=== PATIENT | male | born 1945 | race Caucasian/White ===

== ENCOUNTER 2020-03-14 08:01 | Outpatient (CLI) | payer MEDICARE, MEDICAID, SELFPAY ==
--- NOTE | 2020-03-14 08:11 | USCV_ITS ---
Ciaran Gauthier Age: 75 Gender: M : 1945 Exam Date: 03/14/2020 08:20 Ordering Phys: Cedrick Eubanks MD Technologist: Corey Lazo Exam Location: [facility] [place] Indication: PVD RIGHT LEFT Brachial 120.00 mmHg Brachial 126.00 mmHg Pressure (mmHg) Waveform Pressure (mmHg) Waveform 149.00 Above Knee 152.00 150.00 Below Knee 152.00 143.00 SUPERVISOR FIREARMS 150.00 148.00 DPA 137.00 1.17 Ankle/Brachial Index 1.19 1.06 Pre-Exercise Toe Pressure 1.19 FINDINGS Normal resting ISIDRO Normal resting TBI CONCLUSIONS No evidence of any significant arterial obstruction, based on the above findings. Dr Deepthi Mancera MD FACC (Electronically Signed) Final Date: 14 March 2020 20:38 S
== END 2020-03-14 08:02 | disposition home or self-care (01) ==
LOC: RAD 08:06
PROVIDERS: Family Provider Family Medicine; PCP Family Medicine; Visit Provider Family Medicine
DX: M79.604 Pain in right leg (principal); M79.605 Pain in left leg; I73.9 Peripheral vascular disease, unspecified
CPT/HCPCS: 93923

== ENCOUNTER 2020-07-01 10:04 | Outpatient (CLI) | payer MEDICARE, MEDICAID, SELFPAY ==
--- NOTE | 2020-07-01 10:40 | CT_ITS ---
WS: [id number] LDCT LUNG CANCER SCREENING HISTORY: CIGARETTE NICOTINE DEPENDENCE TECHNIQUE: Axial imaging performed from the apices to 1 cm below the costophrenic angles. Coronal and sagittal reformats are submitted with axial MIP series. All CT scans at [facility] use at least one of these dose optimization techniques: automated exposure control; mA and/or kV adjustment per patient size (includes targeted exams where dose is matched to clinical indication); or iterativ e reconstruction. DLP: 74.01 mGy.cm DIvol: 1.83 mGy COMPARISON: 03/22/2019 Diagnostic quality: Satisfactory Lung Nodules: Cluster of small nodules RIGHT upper lobe, image 59 of series 3 has been stable over mu ltiple years. Linear bandlike atelectasis at the lung bases and RIGHT middle lobe and lingula. Lungs: Severe pulmonary hyperexpansion and central lobular emphysema. Heart: There is a stent in the proximal LEFT anterior descending coronary. Normal size. Other findings: Status post median sternotomy. Moderate calcification within the aorta and proximal g reat vessels. Normal size pulmonary artery. 30% compression fracture of T12 is stable since 9. Osteopenia. CT/CT lung screening [id number] IMPRESSION: LUNG-RADS: 2-Benign Appearance or Behavior FOLLOW UP: 12 Month: Continue annual screening with LDCT OTHER FINDINGS (S MODIFIER): None.
== END 2020-07-01 10:05 | disposition home or self-care (01) ==
PROVIDERS: PCP Family Medicine; Visit Provider Family Medicine
DX: Z12.2 Encounter for screening for malignant neoplasm of respiratory organs (principal); F17.210 Nicotine dependence, cigarettes, uncomplicated; I70.0 Atherosclerosis of aorta; M48.54XA Collapsed vertebra, not elsewhere classified, thoracic region, initial encounter for fracture; X58.XXXA Exposure to other specified factors, initial encounter
CPT/HCPCS: G0297

== ENCOUNTER 2020-08-02 07:28 | Outpatient (CLI) | payer MEDICARE, MEDICAID, SELFPAY ==
--- NOTE | 2020-08-02 07:37 | USCV_ITS ---
Abrahan Ciaran Age: 75 Gender: M : 1945 Exam Date: 08/02/2020 07:44 Ordering Phys: Cedrick Eubanks MD Technologist: Radha Bahena [place] [facility] [place]: aortic aneurysm w/o rupture HISTORY: Diameter (cm) AP x Transverse x Length Velocity (cm/s) Waveform Prox Aorta: 2.45 x 2.77 x 37.00 Mid Aorta: 2.40 x 2.66 x 32.60 Distal Aorta: 3.19 x 3.28 x 5.41 62.30 Right Iliac Prox: 2.23 x 1.99 x 102.60 Left Iliac Prox: 2.43 x 2.46 x 90.20 Stent Prox Landing x x Aneurysmal Sac Max x x Lt Lat Sac Dim Rt Lat Sac Dim Stent Dist Landing x x Right Iliac Stent x x Left Iliac Stent x x Right Renal Art Left Renal Art FINDINGS: Comparison: none available. Ectatic abdominal aorta with evidence of atherosclerotic plaque noted. Irregular plaqe with mildy dilated aorta. Maximum diameter of 3.3 cm infrarenal aorta. CONCLUSIONS Infrarenal AAA maximum diameter of 3.[address] Roxanna Collazo DO (Electronically Signed) Final Date: 02 August 2020 11:08 S
== END 2020-08-02 07:29 | disposition home or self-care (01) ==
LOC: RAD 07:29
PROVIDERS: PCP Family Medicine; Visit Provider Family Medicine
DX: I71.4 Abdominal aortic aneurysm, without rupture (principal)
CPT/HCPCS: 93978

== ENCOUNTER 2020-09-04 09:09 | Outpatient (CLI) | payer MEDICARE, MEDICAID, SELFPAY ==
--- NOTE | 2020-09-04 09:18 | US_ITS ---
WS: [id number] ULTRASOUND RENAL TECHNIQUE: Ultrasound examination of both kidneys. CLINICAL INFORMATION: GROSS HEMATURIA COMPARISON: CTA and ultrasound FINDINGS: RIGHT: Right kidney is normal in size and appearance. Echogenicity: Normal. Cortical thickness: 1.5 cm; Normal. Hydronephrosis: None. Perinephric fluid: None. Right kidney measures: 9.7 cm x 4.9 cm x 4.3 cm. LEFT:Left renal cyst measuring 3.6 x 3.4 x 3.4 cm. This has increased in size since 2018. Left kidney is normal in size and appearance. Echogenicity: Normal. Cortical thickness: 0.9 cm; Normal. Hydronephrosis: None. Perinephric fluid: None. Left kidney measures: 8.7 cm x 4.8 cm x 4.9 cm. Abdominal aortic aneurysm described below US/US renal BI* [id number] IMPRESSION: 1. No hydronephrosis in either kidney. 2. Simple left renal cyst measuring 3.6 x 3.4 x 3.4 cm. 3. Mild diffuse bladder wall thickening can be seen with chronic cystitis or b ladder outlet obstruction. 4. Abdominal aortic aneurysm with peripheral mural thrombus and moderate ather omatous disease. Aneurysm measures 3.5 x 3.6 cm which measures slightly larger compared to the CTA of . This can be followed up with CT abdomen pelvis .
== END 2020-09-04 09:10 | disposition home or self-care (01) ==
PROVIDERS: PCP Family Medicine; Visit Provider Family Medicine
DX: R31.0 Gross hematuria (principal); I71.4 Abdominal aortic aneurysm, without rupture; N28.1 Cyst of kidney, acquired
CPT/HCPCS: 76770

== ENCOUNTER 2020-10-05 19:48 | Observation (INO) | payer MEDICARE, MEDICAID, SELFPAY ==
[2020-10-05 19:49] VITALS: BP 119/86; PULSE 99; RESP 14; TEMP 36.4; O2SAT 95; BMI 22.9
--- NOTE | 2020-10-05 19:54 | CTR_ITS ---
PROCEDURE INFORMATION: Exam: CT Head Without Contrast Exam date and time: 10/05/2020 8:32 PM Age: 75 years old Clinical indication: Altered mental status/memory loss; Confusion or disorientation; Patient HX: AMS weakness - HX of prev stroke TECHNIQUE: Imaging protocol: Computed tomography of the head without contrast. Radiation optimization: All CT scans at this facility use at least one of these dose optimization techniques: automated exposure control; mA and/or kV adjustment per patient size (includes targeted exams where dose is matched to clinical indication); or iterative reconstruction. ADDITIONAL STUDY INFORMATION: Total DLP (mGy-cm): 861.73 COMPARISON: CT head wo con* [id number] 12/31/2017 9:58 AM FINDINGS: Examination is limited by artifacts from patient motion. Moderate amount of malacia/gliosis in right MCA territory is most compatible with old infarction. There is moderate low density in the bilateral periventricular white matter which may represent chronic small vessel ischemic disease in the appropriate clinical setting. The possibility of superimposed acute infarctions cannot be excluded; consider MRI brain (including diffusion images) for further assessment if clinically warranted and if patient has no contraindication to MRI. Again demonstrated is moderate-sized Virchow-Meño space versus old lacunar infarction in right basal ganglia. There is mild to moderately prominent cisterna magna versus arachnoid cyst in posterior aspect of posterior cranial fossa. There are prominent intracranial arterial calcifications. There is mild cerebral cortical volume loss. Ventricles do not appear significantly dilated. No definite depressed calvarial fracture is demonstrated. Visualized paranasal sinuses and mastoid air cells demonstrate no significant opacification. CT/CT head wo con* [id number] IMPRESSION: Examination is limited by artifacts from patient motion. Probable chronic ischemic changes as discussed above. Radiation Dose CTDIVOL = (mGy): DLP = 861.73 (mGy-cm)
--- NOTE | 2020-10-05 19:54 | XRR_ITS ---
PROCEDURE INFORMATION: Exam: XR Chest, 1 View Exam date and time: 10/05/2020 8:34 PM Age: 75 years old Clinical indication: Dyspnea TECHNIQUE: Imaging protocol: XR of the chest Views: 1 view. COMPARISON: 02/10/2018 FINDINGS: Lungs demonstrate an emphysematous appearance. No focal pulmonary consolidation is demonstrated on this single frontal image. No significant obscuration of the right lateral costophrenic angle is demonstrated. Again demonstrated is mild blunting of left CP angle, most compatible with pleural thickening. No significant vascular congestion is demonstrated. Visualized cardiac silhouette size appears within normal limits. Thoracic aorta is unfolded. There are changes from median sternotomy. There is old fracture of midshaft left clavicle and perhaps distal shaft right clavicle. XR/XR chest 1V portable [id number] IMPRESSION: No acute pulmonary process is demonstrated. Lungs demonstrate an emphysematous appearance.
--- NOTE | 2020-10-05 19:59 | ECG_ITS ---
[facility] Test Date: 2020-10-05 Pat Name: Ciaran Gauthier Department: Room: Gender: Male Director Of Business Operations: : 1945 Requested By: Rasta Souza Order Number: [id number] Murray MD: Jm Yap M.D. Measurements Intervals [place] Rate: 100 P: 74 CO: 175 QRS: 62 QRSD: 88 T: 73 QT: 359 QTc: 463 Interpretive Statements SINUS TACHYCARDIA Compared to ECG 02/12/2018 06:11:40 Sinus rhythm no longer present Electronically Signed On 10-06-2020 17:04:07 SENIOR WINDOWS SYSTEMS ENGINEER by Jm Yap M.D. [id number] f
[2020-10-05] MEDS: levofloxacin-dextrose 5 % 750 MG/150 ML PREMIX 100 MG IV (20:18)
[2020-10-05] MEDS: sodium chloride 0.9% 500 ML IV (20:18)
[2020-10-05 20:19] VITALS: BP 124/92; PULSE 100; RESP 22; O2SAT 96
[2020-10-05 20:19] LABS: Arterial Blood Gas Hematocrit 44.5 % (42-52); Base Excess ABG -0.2 mmol/L (-2.0-2.0); Blood Gas Allen Test Pos; Blood Gas Sample Site Brachial, right; Blood Gas Sample Type Arterial; Carboxyhemoglobin 4.7 %THgb (0.4-20.1); HCO3 ABG 24.6 mmol/L (22-26); HGB O2 Sat 90.3 % (95-100); Methemoglobin 0.9 % (0.4-1.5); PO2 ABG 72.9 mmHg (80.0-100.0); Total Hemoglobin 14.5 g/dL (14-18)
[2020-10-05 20:37] LABS: INR 0.95 (0.8-1.2)
[2020-10-05 20:40] LABS: D Dimer 3.08 ug/mIFEU (0-0.59)
[2020-10-05 20:42] LABS: Lactate (Lactic Acid level) 1.3 mmol/L (0.5-2.2)
[2020-10-05 20:44] LABS: Troponin(5th) Baseline 13 ng/L (0-15)
[2020-10-05 21:14] LABS: Basophils # 0.1 10^3/uL (0.0-0.1); Basophils % 0.9 %; Eosinophils # 0.3 10^3/uL (0.0-0.8); Eosinophils % 4.6 %; Hematocrit 42.6 % (42.0-52.0); Hemoglobin 13.6 g/dL (11.7-16.6); Lymphocytes # 2.1 10^3/uL (0.8-4.8); Lymphocytes % 31.3 %; Mean Corpuscular HGB Conc 31.9 g/dL (30.0-36.0); Mean Corpuscular Hemoglobin 31.2 pg (28.0-34.0); Mean Corpuscular Volume 97.7 fL (80-94); Mean Platelet Volume 9.1 fL (7.4-10.4); Monocytes # 0.6 10^3/uL (0.2-0.9); Monocytes % 8.7 %; Neutrophils # 3.66 10^3/uL (1.8-7.7); Neutrophils % 54.2 %; Nucleated Red Blood Cells % 0 %; Platelet Count 177 10^3/cmm (130-400); Red Blood Count 4.36 10^6/uL (4.1-5.3); Red Cell Distribution Width 13.2 % (12.1-15.1); White Blood Count 6.8 10^3/uL (4.0-10.0)
[2020-10-05 21:32] VITALS: BP 100/66; PULSE 85; RESP 19; O2SAT 96
[2020-10-05 21:52] LABS: Alanine Aminotransferase 10 U/L (0-41); Albumin Level 3.6 g/dL (3.5-5.2); Alkaline Phosphatase 54 IU/L (40-130); Anion Gap 10.8 (5-19); Aspartate Amino Transferase 11 U/L (0-40); Blood Urea Nitrogen 21 mg/dL (8-23); Calcium 8.5 mg/dL (8.5-10.5); Carbon Dioxide 23 mmol/L (22-29); Chloride 110 mmol/L (98-107); Creatine Phosphokinase 72 U/L (39-308); Globulin 2.2 g/dL (1.3-4.6); Glucose 136 mg/dL (65-115); NT Pro B Type Natriuretic Pept 179 pg/mL (0-125); Osmolality Calculated 295 mOsm/kg (285-295); Potassium 3.8 mmol/L (3.5-5.1); Sodium 140 mmol/L (136-145); Total Bilirubin 0.3 mg/dL (0.15-1.2); Total Protein 5.8 g/dL (6.6-8.7)
--- NOTE | 2020-10-05 21:59 | ECG_ITS ---
[facility] Test Date: 2020-10-06 Pat Name: Ciaran Gauthier Department: Room: 111 Gender: Male Filter Machine Operator: kaleigh JALLOH: 1945 Requested By: Rasta Souza Order Number: [id number] Trevor MD: Jm Yap M.D. Measurements Intervals [place] Rate: 73 P: 87 MO: 186 QRS: 75 QRSD: 90 T: 74 QT: 407 QTc: 451 Interpretive Statements SINUS RHYTHM SEPTAL MYOCARDIAL INFARCTION [40+ ms Q WAVE IN V1/V2], OF INDETERMINATE AGE Compared to ECG 10/05/2020 19:54:56 Myocardial infarct finding now present Sinus tachycardia no longer present Electronically Signed On 10-06-2020 17:06:32 CARROT TIER by Jm Yap M.D. [id number]
[2020-10-05 22:53] LABS: Troponin 5 2HR 10.59 ng/L (0-15)
--- NOTE | 2020-10-05 22:55 | ED_ITS ---
HPI - Altered Mental Status General: Chief Complaint: Altered Mental Status Stated Complaint: AMS SUDDEN ONSET Time Seen by Provider: 10/05/20 19:54 History of Present Illness: HPI narrative: The patient is a 75-year-old male with past medical history CAD, CABG, CHF. He comes to the ER after an acute episode of altered mental status. He was apparently behaving normal at home and then started to feel weak and his family found him laying on his bed sideways altered not responding to questions. EMS arrived and he had a systolic pressure of 60 and was altered. They noted constricted pupils and gave him 0.5 Narcan which did not improve his altered mental status. He has chronic back pain and takes hydrocodone daily. Family reports he only took 1 pill the entire day today. MD complaint: altered mental status and decreased responsiveness Timing confirmed by: family member Severity: severe Review of Systems General: Reports: ROS unobtainable due to mental status Physical Exam Const: EXAM LIMITATIONS: altered mental status GENERAL APPEARANCE: lethargic NUTRITIONAL APPEARANCE: thin ORIENTATION/CONSCIOUSNESS: Yes lethargic HENMT: COMMON NORMALS: normocephalic, external ears normal and Normal external nose present HEAD & SCALP: normal to inspection and normocephalic NOSE: Normal external nose present EXTERNAL EAR: Yes external ears normal MOUTH: Normal oral and palatal mucosa present THROAT: posterior oropharynx normal Eye: COMMON NORMALS: Equal, round and reactive pupils present and EOMs intact bilaterally GENERAL EYE: appearance normal, both eyes and all related structures PUPIL: Yes Equal, round and reactive pupils present Neck/C-Spine: COMMON NORMALS: full ROM, no lymphadenopathy, no meningeal signs and no JVD GENERAL: Yes normal visual inspection Lymph: LYMPHATIC: no lymphadenopathy noted Chest: COMMONS NORMALS: normal inspection of the chest and normal palpation of entire chest wall Resp: COMMON NORMALS: normal respiratory effort, No retractions, No use of accessory muscles, clear to auscultation bilaterally and percussion normal EFFORT & INSPECTION: Yes able to speak in complete sentences AUSCULTATION: clear to auscultation bilaterally PERCUSSION: percussion normal Cardio: COMMON NORMALS: no JVD, regular rate, regular rhythm, S1 normal heart sound present, S2 normal heart sound present and Peripheral pulses 2+ throughout RATE: regular rate RHYTHM: regular rhythm HEART SOUNDS: S1 normal heart sound present and S2 normal heart sound present PERIPHERAL PULSES: Peripheral pulses 2+ throughout GI: COMMON NORMALS: Normal to inspection, nondistended, normoactive bowel sounds present, Soft to palpation, non-tender and no masses INSPECTION: Yes n ormal to inspection PALPATION: Yes Soft to palpation : COMMON NORMALS: Yes no CVA tenderness BLADDER/KIDNEY EXAM: Yes no CVA tenderness Back/Pelvis: COMMON NORMALS: no CVA tenderness, thoracic and lumbar spine normal to inspection, no thoracic nor lumbar tenderness and thoraco-lumbar ROM normal Extremity: COMMON NORMALS: normal to inspection, full ROM, capillary refill normal, no joint enlargement and no pedal edema GENERAL: Yes normal exam except as noted Neuro: SENSORIUM/ORIENTATION: Yes lethargic MENINGEAL SIGNS: Yes no m eningeal signs GAIT: Yes Unable to assess gait MOTOR EXAM: Normal motor muscle tone present throughout COORDINATION: other (Moves all of his limbs.) Skin: COMMON NORMALS: no rashes or lesions noted GENERAL SKIN EXAM: no rashes or lesions noted Course Vital Signs: Vital signs: Vital Signs Temperature 97.5 F L 10/05/20 19:49 Pulse Rate 85 10/05/20 21:32 Respiratory Rate 19 H 10/05/20 21:32 Blood Pressure 100/66 10/05/20 21:32 Pulse Oximetry 96 10/05/20 21:32 MDM - Altered Mental Status MDM Narrative: Medical decision making narrative: The patient came to the ER significantly altered. His ABG was normal and he was respirating fine. He has had some episodes of hypotension during his stay. He was given 500 cc of fluids by EMS and 500 cc by me. His mental status has improved over a few hours and he is now answering questions but is still not totally back to his baseline. EMS gave him 0.5 Narcan with no improvement of his symptoms. Discussed with Dr. Ocasio who accepts him to [facility]. Lab Data: Labs: Lab Results 10/05/20 10/05/20 10/05/20 Range/Units 20:11 20:15 20:15 WBC Cancelled Corrected WBC Cancelled RBC Cancelled Hgb Cancelled Hct Cancelled MCV Cancelled MCH Cancelled MCHC Cancelled RDW Cancelled Plt Count Cancelled MPV Cancelled Gran % Cancelled Neut % (Auto) Cancelled Lymph % (Auto) Cancelled [place] % (Auto) Cancelled Eos % (Auto) Cancelled Baso % (Auto) Cancelled Neut # (Auto) Cancelled Lymph # (Auto) Cancelled [place] # (Auto) Cancelled Eos # (Auto) Cancelled Baso # (Auto) Cancelled Absolute Gran (aut o) Cancelled Nucleated RBC % (a uto) Cancelled Nucleated RBCs # Cancelled PT 13.00 (12.1-14.9) SECO NDS INR 0.95 (0.8-1.2) D-Dimer 3.08 H (0-0.59) ug/mIFE U Specimen Type Arterial Sample Site Brachial, right ABG pH 7.40 (7.35-7.45) ABG pCO2 40.0 (35-45) mmHg ABG pO2 72.9 L (80.0-100.0) mmH g ABG HCO3 24.6 (22-26) mmol/L ABG Base Excess -0.2 (-2.0-2.0) mmol/ L Hayden Test Pos Hematocrit 44.5 (42-52) % Hgb O2 Saturation 90.3 L (95-100) % Carboxyhemoglobin 4.7 (0.4-20.1) %THgb Methemoglobin 0.9 (0.4-1.5) % Total Hemoglobin 14.5 (14-18) g/dL O2 Delivery Device None FiO2 21.0 % Supervisor Fur Floor Worker ID [id number] Sodium Potassium Chloride Carbon Dioxide Anion Gap BUN Creatinine GFR Calculation Glucose Calculated Osmolal ity Lactate (0.5-2.2) mmol/L Calcium Total Bilirubin AST ALT Alkaline Phosphata se Creatine Kinase Troponin T Baselin e (0-15) ng/L Troponin T 120 Min [place] (0-15) ng/L Delta Troponin T (0-10) ABS# NT-Pro-B Natriuret Pep Total Protein Albumin Globulin 10/05/20 10/05/20 10/05/20 Range/Units 20:15 20:15 20:15 WBC Corrected WBC RBC Hgb Hct MCV MCH MCHC RDW Plt Count MPV Gran % Neut % (Auto) Lymph % (Auto) [place] % (Auto) Eos % (Auto) Baso % (Auto) Neut # (Auto) Lymph # (Auto) [place] # (Auto) Eos # (Auto) Baso # (Auto) Absolute Gran (aut o) Nucleated RBC % (a uto) Nucleated RBCs # PT (12.1-14.9) SECO NDS INR (0.8-1.2) D-Dimer (0-0.59) ug/mIFE U Specimen Type Sample Site ABG pH (7.35-7.45) ABG pCO2 (35-45) mmHg ABG pO2 (80.0-100.0) mmH g ABG HCO3 (22-26) mmol/L ABG Base Excess (-2.0-2.0) mmol/ L Hayden Test Hematocrit (42-52) % Hgb O2 Saturation (95-100) % Carboxyhemoglobin (0.4-20.1) %THgb Methemoglobin (0.4-1.5) % Total Hemoglobin (14-18) g/dL O2 Delivery Device FiO2 % Supervisor Fur Floor Worker ID Sodium Cancelled Potassium Cancelled Chloride Cancelled Carbon Dioxide Cancelled Anion Gap Cancelled BUN Cancelled Creatinine Cancelled GFR Calculation Cancelled Glucose Cancelled Calculated Osmolal ity Cancelled Lactate 1.3 (0.5-2.2) mmol/L Calcium Cancelled Total Bilirubin Cancelled AST Cancelled ALT Cancelled Alkaline Phosphata se Cancelled Creatine Kinase Cancelled Troponin T Baselin e 13 (0-15) ng/L Troponin T 120 Min [place] (0-15) ng/L Delta Troponin T (0-10) ABS# NT-Pro-B Natriuret Pep Cancelled Total Protein Cancelled Albumin Cancelled Globulin Cancelled 10/05/20 10/05/20 10/05/20 Range/Units 21:00 21:00 22:30 WBC 6.8 Corrected WBC RBC 4.36 Hgb 13.6 Hct 42.6 MCV 97.7 H MCH 31.2 MCHC 31.9 RDW 13.2 Plt Count 177 MPV 9.1 Gran % Neut % (Auto) 54.2 Lymph % (Auto) 31.3 [place] % (Auto) 8.7 Eos % (Auto) 4.6 Baso % (Auto) 0.9 Neut # (Auto) 3.66 Lymph # (Auto) 2.1 [place] # (Auto) 0.6 Eos # (Auto) 0.3 Baso # (Auto) 0.1 Absolute Gran (aut o) Nucleated RBC % (a uto) 0 Nucleated RBCs # 0.0 PT (12.1-14.9) SECO NDS INR (0.8-1.2) D-Dimer (0-0.59) ug/mIFE U Specimen Type Sample Site ABG pH (7.35-7.45) ABG pCO2 (35-45) mmHg ABG pO2 (80.0-100.0) mmH g ABG HCO3 (22-26) mmol/L ABG Base Excess (-2.0-2.0) mmol/ L Hayden Test Hematocrit (42-52) % Hgb O2 Saturation (95-100) % Carboxyhemoglobin (0.4-20.1) %THgb Methemoglobin (0.4-1.5) % Total Hemoglobin (14-18) g/dL O2 Delivery Device FiO2 % Supervisor Fur Floor Worker ID Sodium 140 Potassium 3.8 Chloride 110 H Carbon Dioxide 23 Anion Gap 10.8 BUN 21 Creatinine 1.2 GFR Calculation Not Reportable Glucose 136 H Calculated Osmolal ity 295 Lactate (0.5-2.2) mmol/L Calcium 8.5 Total Bilirubin 0.3 AST 11 ALT 10 Alkaline Phosphata se 54 Creatine Kinase 72 Troponin T Baselin e (0-15) ng/L Troponin T 120 Min [place] 10.59 (0-15) ng/L Delta Troponin T -2.41 L (0-10) ABS# NT-Pro-B Natriuret Pep 179 H Total Protein 5.8 L Albumin 3.6 Globulin 2.2 Discharge Plan Discharge Patient Disposition: Placed in Observation Clinical Impression: Altered mental status Coding Level of Care Code ED Can [facility] for [facility] Fwd Exam Comprehensive
[2020-10-05 23:08] LABS: Troponin 5 2HR Delta -2.41 ABS# (0-10)
--- NOTE | 2020-10-05 23:37 | CTR_ITS ---
PROCEDURE INFORMATION: Exam: CT Angiography Chest With Contrast Exam date and time: 10/05/2020 12:57 AM Age: 75 years old Clinical indication: Abnormal findings; Abnormal diagnostic tests; Elevated d-dimer; Prior surgery; Surgery date: 6+ months; Surgery type: Cabg; Patient HX: Elev d-dimer; Additional info: R/O pe TECHNIQUE: Imaging protocol: Computed tomographic angiography of the chest with contrast. 3D rendering (Not supervised by radiologist): MIP and/or 3D reconstructed images were created by the technologist. Radiation optimization: All CT scans at this facility use at least one of these dose optimization techniques: automated exposure control; mA and/or kV adjustment per patient size (includes targeted exams where dose is matched to clinical indication); or iterative reconstruction. Contrast material: VISI 320; Contrast volume: 95 ml; Contrast route: INTRAVENOUS (IV); COMPARISON: CTA Chest-Pulmonary Emb [id number] 02/10/2018 9:23 AM RADIATION DOSE METRICS: Total DLP (mGy-cm): 508.62 FINDINGS: Pulmonary arteries: The pulmonary arteries are adequately opacified for evaluation to the subsegmental level. There is no filling defect to suggest embolism. Aorta: There is moderate aortic atherosclerotic disease. Lungs: There is severe upper lung predominant centrilobular emphysema. There is no consolidation. Pleural spaces: There is no pleural effusion or pneumothorax. Heart: Heart size is normal. There is no pericardial effusion. There is evidence of coronary artery bypass grafting. Coronary stents noted. Lymph nodes: There is no mediastinal or hilar lymphadenopathy. Bones/joints: There is a chronic compression fracture at T12. There has been a sternotomy with intact repair. No dehiscence. There is no acute fracture. Soft tissues: The extrathoracic soft tissues are unremarkable. Other findings: Visible structures in the upper abdomen are unremarkable. CT/CT angio chest PE protcl [id number] IMPRESSION: 1. No pulmonary embolism. 2. Incidental findings above. Radiation Dose CTDIVOL = (mGy): DLP = 508.62 (mGy-cm)
--- NOTE | 2020-10-05 23:42 | P.HP_ITS ---
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 His significant other is at the bedside who is endorsing that after dinner he complained of back pain, she did not pay much attention because usually he does get worsening low back pain for which she takes opioids, he only took 1 tablet of Percocet today around 3 PM. Lately his blood pressure has been running soft but he has been taking lisinopril 2.5 mg daily. After dinner he went to the bedroom and then family found him on the floor and he was confused. EMS was called to take him to the hospital for further evaluation. As per EMS report his systolic blood pressure was ranging between 60 to 80 mmHg, initially he was confused but perked up after getting normal saline 500 bolus in the ER, no strokelike symptoms were found patient was awake alert however did not know what happened at home, no neurological deficits were found. Blood sugar normal high D-dimer noticed for which CTA chest was obtained which ruled out PE blood gas was unremarkable troponin negative, normal lactic acid. He has received normal saline 500 bolus along with Levaquin in the ER. At the time of my evaluation patient is awake alert oriented x3 no strokelike symptoms not able to recall what happened at home no seizure-like activities no signs of meningitis patient was very pleasant during my evaluation was saturating well on 3 to nasal cannula, he was not complaining of active chest pain shortness of breath, no signs for cauda equina syndrome Review of Systems Const: Reports: chills, body aches and fatigue; Denies: fever(s) Eyes: Denies: change in vision ENMT: Denies: throat pain Card: Denies: chest pain Resp: Denies: dyspnea GI: Denies: abdominal pain : Denies: flank pain Musc: Denies: neck pain Skin/Breast: Reports: lesions Neuro: Reports: difficulty walking and confusion Psych: Denies: anxiety Endo: Denies: polyuria Jean Pierre/Lymph: Denies: easy bruising All/Imm: Denies: urticaria Medications/Allergies Allergies Allergy/AdvReac Type Severity Reaction Status Date / Time No Known Allergies Allergy Verified 10/06/20 01:18 PFSH Acute PFSH: Medical History Chronic back pain COPD (chronic obstructive pulmonary disease) Uses 3 L oxygen at night Coronary artery disease 7 stents Dyslipidemia Former heavy tobacco smoker Surgical History S/P CABG (coronary artery bypass graft) 1998 Family History Other CAD (coronary artery disease) Cancer Social History Smoking and tobacco status: former smoker Alcohol intake: never Substance/Drug Use: current Substance/Drug use type: Marijuana Household members: significant other Housing: House Vitals/I&O/Wt Last Vital Signs Temp 97.5 F L 10/05/20 19:49 Pulse 85 10/05/20 21:32 Resp 19 H 10/05/20 21:32 BP 100/66 10/05/20 21:32 Pulse Ox 96 10/05/20 21:32 Weight last 48 hrs Weight 72.575 kg Physical Exam Narrative: EXAM NARRATIVE: elderly male who looks dehydrated Appears more than stated age Awake alert oriented x3 GCS 15 No active neurological deficit EOMI, PERRLA S1, S2 sinus rhythm without active heart failure Bilateral breath sounds without adventitious rhonchi or crackles Abdomen soft mild tenderness on deep palpation otherwise unremarkable abdominal exam No confusion noticed however he seems a bit withdrawn No lower extremity cellulitis gangrene ulcer No joint swelling noted No facial trauma or head trauma with bruises noted No signs of meningitis Data : 10/05/20 21:00 10/05/20 21:00 Micro: Microbiology 10/05/20 22:30 Blood Culture - Preliminary Blood SPECIMEN COLLECTED 10/05/20 20:15 Blood Culture - Preliminary Blood SPECIMEN COLLECTED A&P Assessment and plan (1) Altered mental status: Altered mental status secondary to hypotension Evidence of systolic blood pressure ranging between 60s, blood pressure improved after 500 mm bolus which improved his mentation as well no signs of meningitis or stroke glucose normal Overnight monitoring on telemetry floor I will keep him on gentle fluid resuscitation for now which I would discontinue tomorrow He has received antibiotics in the ER which I would hold for now no signs of UTI, chest x-ray unremarkable, no signs of active infection lactic acid normal CTA chest to ruled out PE Discontinue antihypertensive agent We will check B12 and TSH level along drug screen Status: Acute Additional A&P Information Coronary disease without acute decompensation no active chest, no arrhythmia noted on EKG Cardiac diet DVT prophylaxis Lovenox Full code Attestations Medical Necessity Statement*: Anticipating discharge in less than 48 hours overnight monitoring needed because of hypotension and altered mental status which seem to be improving with fluid resuscitation Time Spent in Patient Care: (>than 50% of time spent in counselling and/or direct pt care on unit) . 50mins Coding Level of Care Code Acute Speech Language Therapist for Chg Fwd Diagnoses Altered mental status R41.82
[2020-10-06] VITALS (117 sets, daily range): BP systolic 111–168; BP diastolic 63–116; PULSE 59–111; RESP 7–40; TEMP 36.6–36.8; O2SAT 92–100
[2020-10-06 01:11] LABS: Add Urine Microscopic? NO
[2020-10-06] MEDS: iodixanol 320 mg/mL 100mL Btl IV (01:23)
[2020-10-06 01:34] LABS: Bilirubin Urine Neg (Negative); Blood Urine Neg (Negative); Glucose Urine UA Norm (Normal); Ketones Urine Negative (Negative); Leukocyte Esterase Urine Negative (Negative); Nitrate Urine Negative (Negative); Protein Urine Neg (Negative); Specific Gravity, Urine 1.025 (1.005-1.030); Urine Appearance Clear (CLEAR); Urine Color Yellow (Yellow); Urobilinogen Urine Norm (Negative); pH Urine 5 (5-7)
[2020-10-06 01:43] LABS: Amphetamines Screen Urine Negative (Negative); Barbiturates Screen Urine Negative (Negative); Benzodiazepines Screen Urine Negative (Negative); Cocaine Screen Urine Negative (Negative); Opiate Screen Urine Positive (Negative); PCP Screen Urine Negative (Negative); THC Screen Urine Positive (Negative)
[2020-10-06 03:32] LABS: Anion Gap 10.3 (5-19); Blood Urea Nitrogen 20 mg/dL (8-23); Calcium 8.2 mg/dL (8.5-10.5); Carbon Dioxide 24 mmol/L (22-29); Chloride 109 mmol/L (98-107); Glucose 141 mg/dL (65-115); Osmolality Calculated 293 mOsm/kg (285-295); Potassium 4.3 mmol/L (3.5-5.1); Sodium 139 mmol/L (136-145)
[2020-10-06 03:34] LABS: Troponin 5 6HR 11.03 ng/L (0-15)
[2020-10-06] MEDS: sodium chloride 0.9% 1,000 ML 30 ML IV (03:36)
[2020-10-06] MEDS: enoxaparin 40 mg/0.4 mL Syringe SUBCUT (03:36)
[2020-10-06 03:39] LABS: Troponin 5 6HR Delta -1.97 ng/L (0-12)
[2020-10-06 08:56] LABS: Thyroid Stimulating Hormone 2.31 uIU/mL (0.27-4.20); Vitamin B12 387 pg/mL (232-1245)
--- NOTE | 2020-10-06 09:48 | MRR_ITS ---
PROCEDURE INFORMATION: Exam: MR Head Without Contrast Exam date and time: 10/06/2020 9:56 AM Age: 75 years old Clinical indication: Altered mental status/memory loss; Confusion or disorientation; Additional info: Possible acute infarct TECHNIQUE: Imaging protocol: MR of the head without contrast. COMPARISON: CT head wo con* [id number] 10/05/2020 8:30 PM FINDINGS: Brain: There is generalized chronic atrophy. Increased T2 signal intensity in the white matter indicates chronic small vessel white matter ischemia. There is right temporal lobe encephalomalacia with surrounding gliosis consistent with old infarct. There is an old lacunar infarct along the right basal ganglia. No intracranial hemorrhage, edema or other acute abnormalities are seen in the brain there is no mass effect or midline shift. Diffusion-weighted scans of the brain show no evidence of acute stroke. Cerebral ventricles: There is ventricular prominence due to chronic atrophy. Bones/joints: Unremarkable. Paranasal sinuses: Normal as visualized. No acute sinusitis. Mastoid air cells: Normal as visualized. No mastoid effusion. Orbital cavity: Unremarkable. Soft tissues: Unremarkable. MR/MR head wo con* [id number] IMPRESSION: 1. Generalized chronic atrophy and chronic white matter ischemic changes. 2. 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 3. No acute intracranial abnormality.
--- NOTE | 2020-10-06 09:56 | USR_ITS ---
PROCEDURE INFORMATION: Exam: US Duplex Lower Extremity Veins, Bilateral Exam date and time: 10/06/2020 10:39 AM Age: 75 years old Clinical indication: Abnormal findings; Abnormal lab test; Elevated d-dimer; Additional info: R/O dvt TECHNIQUE: Imaging protocol: Real-time duplex ultrasound of the extremities with 2-D lynn scale, color Doppler flow and spectral waveform analysis with image documentation. Complete exam focused on the bilateral lower extremity veins. COMPARISON: No relevant prior studies available. FINDINGS: Right deep veins: Unremarkable. The common femoral, femoral, proximal profunda femoral and popliteal veins are patent without thrombus. Normal Doppler waveforms. Normal compressibility and/or augmentation response. Right superficial veins: Saphenofemoral junction is patent without thrombus. Left deep veins: Unremarkable. The common femoral, femoral, proximal profunda femoral and popliteal veins are patent without thrombus. Normal Doppler waveforms. Normal compressibility and/or augmentation response. Left superficial veins: Saphenofemoral junction is patent without thrombus. Soft tissues: Unremarkable. US/CV venous duplex [facility] [id number] IMPRESSION: No evidence of deep vein thrombosis.
[2020-10-06 10:48] LABS: Estmated Average Glucose 105; Hemoglobin A1C 5.3 % (4.0-6.0)
--- NOTE | 2020-10-06 11:51 | PC.CHAP ---
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 [] Patient/Family/Request visit [] Outpatient visit [] Follow-up visit [] Physician referral [] Code/Alert [XX] Routine visit [] Staff referral [] Actively dying [] Patient sleeping [] Family support [] [] Out of room [] Palliative care [] [] Receiving care in room [] Pre-surgical visit [] Trauma [] Long length of stay [] ICU visit [] Other: Relational/Emotional Strength [XX] Patient feels connected with others/family/visitors/staff [] Distress [] Loneliness/isolation [] Abandonment Spirituality of Patient [] Person of Lori [] Attends Adventist of their Lori [] Believes in Prayer [] Reads Bible or Adventism materials [XX] There are Spiritual issues to be addressed Security Technician Interventions [] Prayer [XX] Active listening [XX] Non-anxious presence [] Spiritual/emotional support [] Crisis/trauma care [] Spiritual counseling [] Bereavement support [] Provided bereavement packet [] Provided Bible/devotional materials [] Provided toy/stuffed animal, coloring book to patient or family member [] Provided Communion [] Anointing/[place] [] Salvation [] Completed spiritual assessment [] Other: Impact on Illness or Injury [] Angry [] Fearful [] Anxious [] Often cries [] Exhaustion [] Unable to work [] Unable to attend methodist [] Unable to walk/stand [] Unable to read [] Unable to drive [] Unable to eat/drink [] Unable to sleep [] Unable to be with family [] Patient intubated [] Other: Summary: A full spiritual assessment was difficult to obtain. 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 Pt reports that he does not know why he is in the hospital and that he plans to go home today. Despite multiples lines of questioning, pt reports knowing nothing. Prayer offered but declined. Time spent with patient: 10 mins
[2020-10-06] MEDS: lisinopril 2.5 mg Tablet PO (12:46)
[2020-10-06] MEDS: aspirin 81 mg EC Tablet PO (12:46)
[2020-10-06] MEDS: HYDROcodone-acetaminophen 5-325 mg Tablet 1 TAB PO (12:46)
[2020-10-06] MEDS: cilostazol 100 mg Tablet 50 MG PO (12:46)
[2020-10-06 15:00] LABS: Troponin T (5th) Once 14 ng/L (0-15)
--- NOTE | 2020-10-06 15:11 | PM.DCS ---
Discharge Providers Date of Admission: 10/05/20 23:46 Date of Discharge: October 06, 2020 Attending Provider at Admission: Dileep Ocasio MD Attending Provider at Discharge: Nghia Case MD Primary Care Provider: Cedrick Eubanks MD Diagnoses at Discharge Discharge Diagnosis (1) Coronary artery disease: Status: Acute Permanent problem details: 7 stents (2) COPD (chronic obstructive pulmonary disease): Status: Acute Permanent problem details: Uses 3 L oxygen at night (3) Syncope: Status: Acute Reason for Visit Reason for Visit: AMS SUDDEN ONSET Hospital Course Hospital Course Ciaran Gauthier is a 75 year old male who has history of established coronary artery disease, hypertension, nocturnal hypoxemia uses 3 L of oxygen at night, COPD, 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 His significant other is at the bedside who is endorsing that after dinner he complained of back pain, she did not pay much attention because usually he does get worsening low back pain for which she takes opioids, he only took 1 tablet of Percocet today around 3 PM. Lately his blood pressure has been running soft but he has been taking lisinopril 2.5 mg daily. After dinner he went to the bedroom and then family found him on the floor and he was confused. EMS was called to take him to the hospital for further evaluation. As per EMS report his systolic blood pressure was ranging between 60 to 80 mmHg, initially he was confused but perked up after getting normal saline 500 bolus in the ER, no strokelike symptoms were found patient was awake alert however did not know what happened at home, no neurological deficits were found. Blood sugar normal high D-dimer noticed for which CTA chest was obtained which ruled out PE blood gas was unremarkable troponin negative, normal lactic acid. He has received normal saline 500 bolus along with Levaquin in the ER. At the time of evaluation in ER patient is awake alert oriented x3 no strokelike symptoms not able to recall what happened at home no seizure-like activities no signs of meningitis patient was very pleasant during my evaluation was saturating well on 3 to nasal cannula, he was not complaining of active chest pain shortness of breath, no signs for cauda equina syndrome. Patient admitted to the hospital under observation for evaluation of syncope/altered mental status. Overnight patient's telemetry remained stable. Patient's blood work including troponin cycle, EKG cycle, HbA1c, lipid panel results remained stable. There were no signs of sepsis with a normal white count, normal procalcitonin, afebrile status during hospitalization. CT head done on admission showed possible chronic ischemic changes with some possible superimposed acute infarcts which were ruled out by MRI brain. On admission she patient D-dimer was mildly elevated so CTA chest was done and PE was ruled out. Lower limb Dopplers are negative for any acute DVT. As per documentation by EMS patient's systolic blood pressure in the field was in 60s but during the whole hospitalization patient's blood pressure was more than 130 mmHg with diastolic ranging higher than 100. His dose of antihypertensives were adjusted. Urine drug screen was positive for opiates and marijuana. Patient symptoms are most likely because of excessive pain medications. At home he supposed to take [place] 10 every 4 hours as needed. Patient is been discharged in stable condition with advised to follow-up with his primary care provider within next 4 to 7 days with a blood pressure diary for further adjustments of antihypertensives. His dose of pain medications have been decreased to [place] 5 every 8 hours as needed. Physical Exam Narrative: EXAM NARRATIVE: elderly male Awake alert oriented x3 GCS 15 No active neurological deficit EOMI, PERRLA S1, S2 sinus rhythm without active heart failure Bilateral breath sounds without adventitious rhonchi or crackles Abdomen soft mild tenderness on deep palpation otherwise unremarkable abdominal exam No confusion noticed No lower extremity cellulitis gangrene ulcer No joint swelling noted No facial trauma or head trauma with bruises noted No signs of meningitis Discharge Data Data Completed and Pending: Completed Studies During Hospitalization Category Date Time Status CT angio chest PE protcl [id number] Stat Cat Scan 10/05/20 23:[address] head wo con* 7 0450 Urgent Cat Scan 10/05/20 19:54 Completed XR chest 1V venita ble [id number] Urgent Exams 10/05/20 19:54 Completed MR head wo con* 7 [id number] Urgent MRI 10/06/20 09:48 [place] [id number] Urgent Ultrasound 10/06/20 09:56 Completed Pending at discharge Category Date Time Status Blood Culture Sta t Lab 10/05/20 22:30 Results Lipid Profile w/V LDL Routine Lab 10/06/20 02:39 Received TIBC [Total Iron Binding Capacity] Routine Lab 10/06/20 02:39 Received Labs from last 24 hours 10/06/20 10/06/20 10/06/20 14:00 02:39 02:39 WBC Corrected WBC RBC Hgb Hct MCV MCH MCHC RDW Plt Count MPV Gran % Neut % (Auto) Lymph % (Auto) [place] % (Auto) Eos % (Auto) Baso % (Auto) Neut # (Auto) Lymph # (Auto) [place] # (Auto) Eos # (Auto) Baso # (Auto) Absolute Gran (aut o) Nucleated RBC % (a uto) Nucleated RBCs # PT INR D-Dimer Specimen Type Sample Site ABG pH ABG pCO2 ABG pO2 ABG HCO3 ABG Base Excess [place]den Test Hematocrit Hgb O2 Saturation Carboxyhemoglobin Methemoglobin Total Hemoglobin O2 Delivery Device FiO2 [employer] Advanced Operator Maintainer ID Sodium Potassium Chloride Carbon Dioxide Anion Gap BUN Creatinine GFR Calculation Glucose Estimat Average Gl ucose Hemoglobin A1c Calculated Osmolal ity Lactate Calcium Iron Pending TIBC Pending % Saturation Pending Unsat Iron Binding Pending Total Bilirubin AST ALT Alkaline Phosphata se Creatine Kinase Troponin T Gen 5 n g/L 14 Troponin T Baselin e Troponin T 120 [address] [place] Troponin T Troponin T Hi Sens 6Hr Troponin T Hi Sens 6Hr Delta NT-Pro-B Natriuret Pep Total Protein Albumin Globulin Triglycerides Pending Cholesterol Pending LDL Cholesterol, C alc Pending Total VLDL Cholest isela Pending HDL Cholesterol Pending Cholesterol/HDL Ra zay Pending Vitamin B12 387 TSH 2.31 Urine Color Urine Appearance Urine pH Ur Specific Gravit y Urine Protein Urine Glucose (UA) Urine Ketones Urine Blood Urine Nitrate Urine Bilirubin Urine Urobilinogen Ur Leukocyte Martine ase Urine Opiates Scre en Ur Barbiturates Sc reen Ur Phencyclidine S crn Ur Amphetamines Sc reen U Benzodiazepines Scrn Urine Cocaine Scre en U Marijuana (THC) Screen 10/06/20 10/06/20 10/06/20 02:39 02:39 00:59 WBC Corrected WBC RBC Hgb Hct MCV MCH MCHC RDW Plt Count MPV Gran % Neut % (Auto) Lymph % (Auto) [place] % (Auto) Eos % (Auto) Baso % (Auto) Neut # (Auto) Lymph # (Auto) [place] # (Auto) Eos # (Auto) Baso # (Auto) Absolute Gran (aut o) Nucleated RBC % (a uto) Nucleated RBCs # PT INR D-Dimer Specimen Type Sample Site ABG pH ABG pCO2 ABG pO2 ABG HCO3 ABG Base Excess [place] Test Hematocrit Hgb O2 Saturation Carboxyhemoglobin Methemoglobin Total Hemoglobin O2 Delivery Device FiO2 [employer] Advanced Operator Maintainer ID Sodium 139 Potassium 4.3 Chloride 109 H Carbon Dioxide 24 Anion Gap 10.3 BUN 20 Creatinine 1.2 GFR Calculation Not Reportable Glucose 141 H Estimat Average Gl ucose Hemoglobin A1c Calculated Osmolal ity 293 Lactate Calcium 8.2 L Iron TIBC % Saturation Unsat Iron Binding Total Bilirubin AST ALT Alkaline Phosphata se Creatine Kinase Troponin T Gen 5 n g/L Troponin T Baselin e Troponin T 120 [address] [place] Troponin T Troponin T Hi Sens 6Hr 11.03 Troponin T Hi Sens 6Hr Delta -1.97 L NT-Pro-B Natriuret Pep Total Protein Albumin Globulin Triglycerides Cholesterol LDL Cholesterol, C alc Total VLDL Cholest isela HDL Cholesterol Cholesterol/HDL Ra zay Vitamin B12 TSH Urine Color Urine Appearance Urine pH Ur Specific Gravit y Urine Protein Urine Glucose (UA) Urine Ketones Urine Blood Urine Nitrate Urine Bilirubin Urine Urobilinogen Ur Leukocyte Martine ase Urine Opiates Scre en Positive H Ur Barbiturates Sc reen Negative Ur Phencyclidine S crn Negative Ur Amphetamines Sc reen Negative U Benzodiazepines Scrn Negative Urine Cocaine Scre en Negative U Marijuana (THC) Screen Positive H 10/06/20 10/05/20 10/05/20 00:59 22:30 21:00 WBC Corrected WBC RBC Hgb Hct MCV MCH MCHC RDW Plt Count MPV Gran % Neut % (Auto) Lymph % (Auto) [place] % (Auto) Eos % (Auto) Baso % (Auto) Neut # (Auto) Lymph # (Auto) [place] # (Auto) Eos # (Auto) Baso # (Auto) Absolute Gran (aut o) Nucleated RBC % (a uto) Nucleated RBCs # PT INR D-Dimer Specimen Type Sample Site ABG pH ABG pCO2 ABG pO2 ABG HCO3 ABG Base Excess [place] Test Hematocrit Hgb O2 Saturation Carboxyhemoglobin Methemoglobin Total Hemoglobin O2 Delivery Device FiO2 [employer] Advanced Operator Maintainer ID Sodium Potassium Chloride Carbon Dioxide Anion Gap BUN Creatinine GFR Calculation Glucose Estimat Average Gl ucose 105 Hemoglobin A1c 5.3 Calculated Osmolal ity Lactate Calcium Iron TIBC % Saturation Unsat Iron Binding Total Bilirubin AST ALT Alkaline Phosphata se Creatine Kinase Troponin T Gen 5 n g/L Troponin T Baselin e Troponin T 120 Min [place] 10.59 Delta Troponin T -2.41 L Troponin T Hi Sens 6Hr Troponin T Hi Sens 6Hr Delta NT-Pro-B Natriuret Pep Total Protein Albumin Globulin Triglycerides Cholesterol LDL Cholesterol, C alc Total VLDL Cholest isela HDL Cholesterol Cholesterol/HDL Ra zay Vitamin B12 TSH Urine Color Yellow Urine Appearance Clear Urine pH 5 Ur Specific Gravit y 1.025 Urine Protein Neg Urine Glucose (UA) Norm Urine Ketones Negative Urine Blood Neg Urine Nitrate Negative Urine Bilirubin Neg Urine Urobilinogen Norm Ur Leukocyte Martine ase Negative Urine Opiates Scre en Ur Barbiturates Sc reen Ur Phencyclidine S crn Ur Amphetamines Sc reen U Benzodiazepines Scrn Urine Cocaine Scre en U Marijuana (THC) Screen 10/05/20 10/05/20 10/05/20 21:00 21:00 20:15 WBC 6.8 Corrected WBC RBC 4.36 Hgb 13.6 Hct 42.6 MCV 97.7 H MCH 31.2 MCHC 31.9 RDW 13.2 Plt Count 177 MPV 9.1 Gran % Neut % (Auto) 54.2 Lymph % (Auto) 31.3 [place] % (Auto) 8.7 Eos % (Auto) 4.6 Baso % (Auto) 0.9 Neut # (Auto) 3.66 Lymph # (Auto) 2.1 [place] # (Auto) 0.6 Eos # (Auto) 0.3 Baso # (Auto) 0.1 Absolute Gran (aut o) Nucleated RBC % (a uto) 0 Nucleated RBCs # 0.0 PT INR D-Dimer Specimen Type Sample Site ABG pH ABG pCO2 ABG pO2 ABG HCO3 ABG Base Excess [place]den Test Hematocrit Hgb O2 Saturation Carboxyhemoglobin Methemoglobin Total Hemoglobin O2 Delivery Device FiO2 [employer] Advanced Operator Maintainer ID Sodium 140 Potassium 3.8 Chloride 110 H Carbon Dioxide 23 Anion Gap 10.8 BUN 21 Creatinine 1.2 GFR Calculation Not Reportable Glucose 136 H Estimat Average Gl ucose Hemoglobin A1c Calculated Osmolal ity 295 Lactate Calcium 8.5 Iron TIBC % Saturation Unsat Iron Binding Total Bilirubin 0.3 AST 11 ALT 10 Alkaline Phosphata se 54 Creatine Kinase 72 Troponin T Gen 5 n g/L Troponin T Baselin e 13 Troponin T [address] [place] Delta Troponin T Troponin T Hi Sens 6Hr Troponin T Hi Sens 6Hr Delta NT-Pro-B Natriuret Pep 179 H Total Protein 5.8 L Albumin 3.6 Globulin 2.2 Triglycerides Cholesterol LDL Cholesterol, C alc Total VLDL Cholest iseal HDL Cholesterol Cholesterol/HDL Ra zay Vitamin B12 TSH Urine Color Urine Appearance Urine pH Ur Specific Gravit y Urine Protein Urine Glucose (UA) Urine Ketones Urine Blood Urine Nitrate Urine Bilirubin Urine Urobilinogen Ur Leukocyte Martine ase Urine Opiates Scre en Ur Barbiturates Sc reen Ur Phencyclidine S crn Ur Amphetamines Sc reen U Benzodiazepines Scrn Urine Cocaine Scre en U Marijuana (THC) Screen 10/05/20 10/05/20 10/05/20 20:15 20:15 20:15 WBC Corrected WBC RBC Hgb Hct MCV MCH MCHC RDW Plt Count MPV Gran % Neut % (Auto) Lymph % (Auto) [place] % (Auto) Eos % (Auto) Baso % (Auto) Neut # (Auto) Lymph # (Auto) [place] # (Auto) Eos # (Auto) Baso # (Auto) Absolute Gran (aut o) Nucleated RBC % (a uto) Nucleated RBCs # PT 13.00 INR 0.95 D-Dimer 3.08 H Specimen Type Sample Site ABG pH ABG pCO2 ABG pO2 ABG HCO3 ABG Base Excess [place] Test Hematocrit Hgb O2 Saturation Carboxyhemoglobin Methemoglobin Total Hemoglobin O2 Delivery Device FiO2 [employer] Advanced Operator Maintainer ID Sodium Cancelled Potassium Cancelled Chloride Cancelled Carbon Dioxide Cancelled Anion Gap Cancelled BUN Cancelled Creatinine Cancelled GFR Calculation Cancelled Glucose Cancelled Estimat Average Gl ucose Hemoglobin A1c Calculated Osmolal ity Cancelled Lactate 1.3 Calcium Cancelled Iron TIBC % Saturation Unsat Iron Binding Total Bilirubin Cancelled AST Cancelled ALT Cancelled Alkaline Phosphata se Cancelled Creatine Kinase Cancelled Troponin T Gen 5 n g/L Troponin T Baselin e Troponin T [address] [place] Troponin T Troponin T Hi Sens 6Hr Troponin T Hi Sens 6Hr Delta NT-Pro-B Natriuret Pep Cancelled Total Protein Cancelled Albumin Cancelled Globulin Cancelled Triglycerides Cholesterol LDL Cholesterol, C alc Total VLDL Cholest isela HDL Cholesterol Cholesterol/HDL Ra zay Vitamin B12 TSH Urine Color Urine Appearance Urine pH Ur Specific Gravit y Urine Protein Urine Glucose (UA) Urine Ketones Urine Blood Urine Nitrate Urine Bilirubin Urine Urobilinogen Ur Leukocyte Martine ase Urine Opiates Scre en Ur Barbiturates Sc reen Ur Phencyclidine S crn Ur Amphetamines Sc reen U Benzodiazepines Scrn Urine Cocaine Scre en U Marijuana (THC) Screen 10/05/20 10/05/20 20:15 20:11 WBC Cancelled Corrected WBC Cancelled RBC Cancelled Hgb Cancelled Hct Cancelled MCV Cancelled MCH Cancelled MCHC Cancelled RDW Cancelled Plt Count Cancelled MPV Cancelled Gran % Cancelled Neut % (Auto) Cancelled Lymph % (Auto) Cancelled [place] % (Auto) Cancelled Eos % (Auto) Cancelled Baso % (Auto) Cancelled Neut # (Auto) Cancelled Lymph # (Auto) Cancelled [place] # (Auto) Cancelled Eos # (Auto) Cancelled Baso # (Auto) Cancelled Absolute Gran (aut o) Cancelled Nucleated RBC % (a uto) Cancelled Nucleated RBCs # Cancelled PT INR D-Dimer Specimen Type Arterial Sample Site Brachial, right ABG pH 7.40 ABG pCO2 40.0 ABG pO2 72.9 L ABG HCO3 24.6 ABG Base Excess -0.2 [place]den Test Pos Hematocrit 44.5 Hgb O2 Saturation 90.3 L Carboxyhemoglobin 4.7 Methemoglobin 0.9 Total Hemoglobin 14.5 O2 Delivery Device None FiO2 21.0 Se[employer] Advanced Operator Maintainer ID [id number] Sodium Potassium Chloride Carbon Dioxide Anion Gap BUN Creatinine GFR Calculation Glucose Estimat Average Gl ucose Hemoglobin A1c Calculated Osmolal ity Lactate Calcium Iron TIBC % Saturation Unsat Iron Binding Total Bilirubin AST ALT Alkaline Phosphata se Creatine Kinase Troponin T Gen 5 n g/L Troponin T Baselin e Troponin T [address] [place] Troponin T Troponin T Hi Sens 6Hr Troponin T Hi Sens 6Hr [place] NT-Pro-B Natriuret Pep Total Protein Albumin Globulin Triglycerides Cholesterol LDL Cholesterol, C alc Total VLDL Cholest isela HDL Cholesterol Cholesterol/HDL Ra zay Vitamin B12 TSH Urine Color Urine Appearance Urine pH Ur Specific Gravit y Urine Protein Urine Glucose (UA) Urine Ketones Urine Blood Urine Nitrate Urine Bilirubin Urine Urobilinogen Ur Leukocyte Martine ase Urine Opiates Scre en Ur Barbiturates Sc reen Ur Phencyclidine S crn Ur Amphetamines Sc reen U Benzodiazepines Scrn Urine Cocaine Scre en U Marijuana (THC) Screen Vitals: Last Vital Signs Temp 97.9 F 10/06/20 12:05 Pulse 84 10/06/20 13:30 Resp 18 10/06/20 12:05 BP 158/102 10/06/20 13:30 Pulse Ox 96 10/06/20 12:05 Discharge Plan Discharge Patient Disposition: Home Condition: Stable Prescriptions: [place] 5-325 mg tablet 1 tab PO Q8H PRN (Reason: pain) Qty: 10 RF: 0 Continued cilostazol 50 mg tablet 50 mg PO BID@17 RF: 0 famotidine 40 mg tablet 40 mg PO DAILY@0600 RF: 0 alendronate 70 mg tablet 70 mg PO Q7D RF: 0 simvastatin 40 mg tablet 40 mg PO DAILY@1700 RF: 0 tamsulosin 0.4 mg capsule 0.4 mg PO BID@17 RF: 0 aspirin 81 mg Tablet,Chewable 81 mg PO DAILY@0600 RF: 0 finasteride 5 mg tablet 5 mg PO DAILY@1700 RF: 0 Vitamin D3 25 mcg (1,000 unit) tablet 37.5 mcg PO DAILY@0600 RF: 0 Changed lisinopril 2.5 mg tablet 5 mg PO DAILY@0600 Qty: 0 RF: 0 Discontinued hydrocodone-acetaminophen 10-325 mg tablet 1 tab PO Q4H PRN (Reason: Pain) RF: 0 Discharge Orders: Discharge Order (Routine); Ordered 10/06/20 Ordered By: Nghia Case Referrals: Cedrick Eubanks MD [Primary Care Provider] - 4-7 days (Dr. Eubanks's office will be calling to schedule a hospital followup to be seen in 4 to 7 days. If you don't hear from them by Wednesday afternoon, please give them a call. Thank you) Discharge Diet: Usual diet Discharge Activity: Resume usual activity Activity Restrictions/Additional Instructions: Your dose of hydrocodone has been changed to every 6 hours rather every 4 hours as needed. Please check your blood pressures at home and maintain a blood pressure diary. Follow-up with your primary care provider within next 4 to 7 days with your blood pressure diary for further adjustment of antihypertensives Discharge Attestations Time Spent in Discharge Care*: greater than 30 min Specific Discharge Activities: educating patient, discussing with shoe caser/social workers/dc planners, documenting/other paperwork and evaluating patient/reviewing data Quality Metrics Clinical Quality Measures During this hospital stay, did patient experience: None Coding Level of Care Code Acute Clip Coater for Annetteg Fwd Diagnoses Coronary artery disease I25.10 COPD (chronic obstructive pulmonary disease) J44.9 Syncope R55
[2020-10-06 16:24] LABS: Chol HDL Ratio 2.86 mg/dL (1.0-5.00); Cholesterol 103 mg/dL (0-200); HDL Cholesterol 36 mg/dL (60-100); Iron 75 ug/dL (59-158); LDL Cholesterol Calculated 46 mg/dL (50-129); Percent Saturation 36.2 % (20-50); Total Iron Binding Capacity 207 mcg/dl; Triglycerides 104 mg/dL (0-150); Unsaturated Iron Binding 132 ug/dL (112-347); VLDL Cholestrol Calculation 21 mg/dL (0-30)
--- NOTE | 2020-10-06 16:28 | PC.NURSE ---
patient discharged home self care. patient and spouse provided with discharge instructions; verbal understanding of instructions noted patient ambulated to Private vehicle accompanied by staff and spouse patient alert oriented and in stable condition upon departure
--- NOTE | 2020-10-07 15:58 | PC.RESP ---
Pulmonary Rehab information sent to patient.
== END 2020-10-06 16:00 | disposition home or self-care (01) ==
LOC: ER 10-06 00:01 → CSU 10-06 00:48
PROVIDERS: Admitting Provider Internal Medicine; Emergency Provider Family Medicine; PCP Family Medicine; Visit Provider Student in an Organized Health Care Education/Training Program
DX: R41.82 Altered mental status, unspecified (principal); I25.10 Atherosclerotic heart disease of native coronary artery without angina pectoris; I10 Essential (primary) hypertension; J44.9 Chronic obstructive pulmonary disease, unspecified; Z99.81 Dependence on supplemental oxygen; Z79.891 Long term (current) use of opiate analgesic; G89.29 Other chronic pain; M54.9 Dorsalgia, unspecified; Z95.5 Presence of coronary angioplasty implant and graft; E78.5 Hyperlipidemia, unspecified; Z87.891 Personal history of nicotine dependence; Z82.49 Family history of ischemic heart disease and other diseases of the circulatory system; R55 Syncope and collapse
CPT/HCPCS: 12345; 36415; 36600; 70450; 70551; 71045; 71275; 80048; 80053; 80061; 80306; 81003; 82550; 82607; 82805; 83036; 83540; 83550; 83605; 83880; 84443; 84484; 85025; 85378; 85610; 87040; 93005; 93970; 96361; 96365; 96366; 96372; 97161; 99282; 99285; G0378; J1650; J1956; J7030; J7040; Q9967

== ENCOUNTER 2020-12-25 13:39 | Outpatient (CLI) | payer MEDICARE, MEDICAID, SELFPAY ==
--- NOTE | 2020-12-25 13:45 | USCV_ITS ---
Ciaran Gauthier Age: 75 Gender: M : 1945 Exam Date: 12/25/2020 14:22 Ordering Phys: Cedrick Eubanks MD Technologist: Milvia Ward Exam Location: [facility] [place]_ Indication: AORTIC ANEURYSM W/O RUPTURE Risk Factors: Previous Vascular Surgery: RIGHT LEFT BP: 115.0 / BP: 110.0/ 0 0 Waveform Velocity (cm/s) Velocity (cm/s) Waveform Triphasic 94.2 Iliac Prox 69.8 Biphasic Triphasic 62.0 Iliac Mid 37.4 Biphasic Triphasic 62.0 Iliac Distal 44.9 Biphasic Triphasic 75.2 HEDGE TRIMMER 51.6 Biphasic Triphasic 58.5 SFA Prox 48.2 Biphasic Triphasic 65.1 SFA Mid 59.0 Biphasic Triphasic SFA Dist Biphasic 41.4 42.7 Triphasic 59.4 POP 27.8 Biphasic Triphasic 71.6 DUMP TRUCK OPERATOR 62.9 Biphasic Triphasic 67.0 DPA 46.6 Biphasic 1.0 ISIDRO 0.9 FINDINGS Moderate dense irregular plaques at the iliac and the common femoral arteries bilaterally Scattered plaques in the popliteal arteries Normal resting ISIDRO on the right side Slightly diminished resting ISIDRO on the left side CONCLUSIONS Abnormal resting ISIDRO on the left side, suggesting mild peripheral artery disease Normal resting ISIDRO on the right side Moderate dense irregular plaques at the iliac and the common femoral arteries bilaterally. Scattered plaques in the popliteal arteries bilaterally. Dr Deepthi Mancera MD [facility] (Electronically Signed) Final Date: 26 December 2020 08:34 S
== END 2020-12-25 13:40 | disposition home or self-care (01) ==
LOC: US 13:42
PROVIDERS: PCP Family Medicine; Visit Provider Family Medicine
DX: I71.9 Aortic aneurysm of unspecified site, without rupture (principal)
CPT/HCPCS: 93925

== ENCOUNTER → 2021-02-05 11:08 | Outpatient (BNVA) | payer MEDICARE, MEDICAID, SELFPAY | PROVIDERS: PCP Family Medicine; Visit Provider Family Medicine | DX: Z01.812 Encounter for preprocedural laboratory examination (principal); Z20.822 Contact with and (suspected) exposure to COVID-19 | CPT/HCPCS: 87635 ==

== ENCOUNTER 2021-02-11 06:39 | Outpatient (CLI) | payer MEDICARE, MEDICAID, SELFPAY ==
--- NOTE | 2021-02-11 11:22 | PFTS_ITS ---
Date of Study:02/11/21 Date of Dictation: 02/14/2021 MECHANICS: Postbronchodilator forced vital capacity (FVC) is normal. Postbronchodilator forced expiratory volume in one second (FEV1) is moderately reduced 55% - 1.73 L. FEV1/FVC is reduced. There is significant response to bronchodilator. FLOW VOLUME LOOP: Scooping of expiratory limb suggestive of airway obstruction. . LUNG VOLUMES: Not measured DIFFUSING CAPACITY FOR CARBON MONOXIDE: Not measured . INTERPRETATION: The spirometry consistent with moderate restrictive ventilatory defect. There is significant response to bronchodilators. Clinical correlation recommended. MTDD
== END 2021-02-11 06:40 | disposition home or self-care (01) ==
LOC: RT 06:40
PROVIDERS: PCP Family Medicine; Visit Provider Family Medicine
DX: R05 Cough (principal)
CPT/HCPCS: 94060; J7611

== ENCOUNTER 2021-06-04 12:34 | Outpatient (CLI) | payer MEDICARE, MEDICAID, SELFPAY ==
--- NOTE | 2021-06-04 12:40 | XR_ITS ---
WS: [id number] HIPS BILATERAL TECHNIQUE: 5 views bilateral hips Including pelvis CLINICAL INFORMATION: HIP PAIN COMPARISON: None. FINDINGS: Moderate degenerative arthritis both hands with hypertrophic changes. Normal visualized pubic rami. N o acute fractures. Vascular calcification. XR/XR hip BI 3-4V wo/w pel [id number] IMPRESSION: Moderate degenerative arthritis both hips with joint space narrowing. Tonnis classification LEFT: Tonnis classification RIGHT:
== END 2021-06-04 12:35 | disposition home or self-care (01) ==
PROVIDERS: PCP Family Medicine; Visit Provider Family Medicine
DX: M16.0 Bilateral primary osteoarthritis of hip (principal)
CPT/HCPCS: 73522

== ENCOUNTER 2021-08-05 13:07 | Outpatient (CLI) | payer MEDICARE, MEDICAID, SELFPAY ==
--- NOTE | 2021-08-05 13:00 | CT_ITS ---
WS: [id number] CT ANGIOGRAPHY abdomen and pelvis HISTORY: I71.4 - Abdominal aortic aneurysm, without rupture TECHNIQUE: CT angiogram is performed during IV injection. Reformation images reviewed. All CT scans a [employer] V[employer] use at least one of these dose optimization techniques: automated exposure contro l; mA and/or kV adjustment per patient size (includes targeted exams where dose is matched to clinica l indication); or iterative reconstruction. CONTRAST: Visipaque 320; 95 mL IV. DLP: 1388.76 mGycm COMPARISON: 12/31/2017 Breathing motion artifact at the lung bases. Heart is normal size. No pericardial or pleural effusion . Small hiatal hernia. Abdominal aorta: Ectasia and atherosclerosis of the abdominal aorta. Scattered plaque and intimal thi ckening. Infrarenal abdominal aortic aneurysm with a maximum transverse diameter 4.1 cm x 3.9 cm ante rior posterior. Circumferential thrombus is asymmetric surrounding the patent lumen. Greater asymmetr y and thickening of the thrombus along the LEFT lateral aneurysm. Aneurysm tapers at the bifurcation. Celiac axis is patent. No SMA stenosis. Both renal arteries are identified with mild atherosclerotic disease. Inferior mesenteric artery still patent. Mild ectasia and dilatation up to 1.8 cm of the pr oximal common iliac arteries. There is a high-grade stenosis, approaching 70% involving the proximal LEFT external iliac artery. There is very minimal dilatation of the LEFT common femoral artery over t he femoral head to 1.3 cm. Atherosclerotic plaque throughout the RIGHT common and external iliac homa ry with stenosis less than 50%. Liver, spleen, pancreas, adrenal glands and RIGHT kidney are negative. Simple cyst LEFT kidney measur es 3.5 x 3.7 cm. There is a smaller cyst from the mid medial kidney. No adenopathy or ascites. The appendix is normal. No GI tract obstruction. Numerous diverticula in the descending and sigmoid c olon without acute diverticulitis. No free fluid or adenopathy in the pelvis. Urinary bladder is well distended. T12, 20% compression fracture is stable. CT/CT angio abdomen pelvis [id number] IMPRESSION: 1. Infrarenal abdominal aortic aneurysm has slightly increased in size since . Maximum diameter is 4.1 cm. Increasing asymmetric thrombus within the aneurysm but the central lumen is patent. 2. Mild ectasia bilateral iliac arteries and very minimal aneurysmal dilatatio n of the LEFT femoral artery. 3. 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
[2021-08-05 13:59] LABS: Blood Urea Nitrogen 12 mg/dL (8-23)
[2021-08-05] MEDS: iohexol 350 mg/mL 100 mL Btl IV (14:05)
== END 2021-08-05 13:08 | disposition home or self-care (01) ==
PROVIDERS: Radiology Diagnostic Radiology; PCP Family Medicine; Visit Provider Thoracic Surgery (Cardiothoracic Vascular Surgery)
DX: I71.4 Abdominal aortic aneurysm, without rupture (principal); I70.8 Atherosclerosis of other arteries
CPT/HCPCS: 74174; 82565; 84520; Q9967

== ENCOUNTER 2022-02-01 23:22 | Emergency (ER) | payer MEDICARE, MEDICAID, SELFPAY ==
[2022-02-01 23:23] VITALS: BP 147/97; PULSE 76; RESP 24; TEMP 36.3; O2SAT 96; BMI 18.4
[2022-02-01] MEDS: sodium chloride 0.9% 500 ML IV (23:33)
[2022-02-01 23:42] LABS: Basophils # 0.1 10^3/uL (0.0-0.1); Basophils % 0.6 %; Eosinophils # 0.5 10^3/uL (0.0-0.8); Eosinophils % 4.7 %; Hematocrit 45.1 % (42.0-52.0); Hemoglobin 14.7 g/dL (11.7-16.6); Lymphocytes # 3.9 10^3/uL (0.8-4.8); Lymphocytes % 36.5 %; Mean Corpuscular HGB Conc 32.6 g/dL (30.0-36.0); Monocytes # 0.7 10^3/uL (0.2-0.9); Monocytes % 6.5 %; Neutrophils # 5.51 10^3/uL (1.8-7.7); Neutrophils % 51.5 %; Nucleated Red Blood Cells % 0 %; Platelet Count 214 10^3/cmm (130-400); Red Cell Distribution Width 13.5 % (12.1-15.1); White Blood Count 10.7 10^3/uL (4.0-10.0)
[2022-02-02 00:01] LABS: Alanine Aminotransferase 13 U/L (0-41); Albumin Level 4.3 g/dL (3.5-5.2); Alkaline Phosphatase 59 IU/L (40-130); Anion Gap 13.2 (5-19); Aspartate Amino Transferase 14 U/L (0-40); Blood Urea Nitrogen 27 mg/dL (8-23); Calcium 9.2 mg/dL (8.5-10.5); Carbon Dioxide 26 mmol/L (22-29); Chloride 103 mmol/L (98-107); Globulin 2.4 g/dL (1.3-4.6); Glucose 87 mg/dL (65-115); Lipase 29 U/L (13-60); Osmolality Calculated 290 mOsm/kg (285-295); Potassium 4.2 mmol/L (3.5-5.1); Sodium 138 mmol/L (136-145); Total Bilirubin 0.2 mg/dL (0.15-1.2); Total Protein 6.7 g/dL (6.6-8.7)
--- NOTE | 2022-02-02 00:21 | ED_ITS ---
HPI - Back Pain/Injury General: Chief Complaint: Back Pain/Injury Stated Complaint: BLOOD IN URINE Time Seen by Provider: 02/01/22 23:28 History of Present Illness: 76-year-old gentleman with a history of coronary disease. He presents with bilateral flank pain and hematuria he notes that the hematuria started earlier today. His urine looks almost black . No passage of clots he developed left-sided greater than right-sided flank pain this evening after urinating. He denies fever. He was nauseated but did not vomit. He denies any other bleeding from any source including mouth gums, GI sources, etc. He is not anticoagulated. He says no history of belly surgery. No history of kidney stones. MD elicited complaint: back pain Pertinent past history: other Onset (ago): hour(s) Timing: constant Severity: moderate Quality: stabbing Location: left flank and right flank Radiation: none Relieving factors: none Associated symptoms: Reports dysuria, hematuria and urinary frequency; Deny abdominal pain, chills, difficulty walking, fecal incontinence, fever(s) or vomiting Review of Systems Const: Denies: fever(s) or chills Card: Denies: chest pain Resp: Denies: dyspnea GI: Denies: abdominal pain, vomiting or fecal incontinence : Reports: dysuria and hematuria Musc: Reports: back pain Neuro: Denies: difficulty walking [facility] ED PFSH: Medical History AAA (abdominal aortic aneurysm) without rupture Arteriosclerosis Chronic back pain Cigarette nicotine dependence COPD (chronic obstructive pulmonary disease) Uses 3 L oxygen at night COPD (chronic obstructive pulmonary disease) Coronary artery disease 7 stents Dyslipidemia Emphysema lung Enlarged prostate Essential hypertension Family history of asthma Family history of CHF (congestive heart failure) Family history of diabetes mellitus Family history of renal failure Family history of ulcerative colitis Family hx of colon cancer Family hx of hypertension Former heavy tobacco smoker GERD (gastroesophageal reflux disease) History of marijuana use Hyperlipidemia Iliac artery aneurysm, left Intermittent claudication Lumbar and sacral spondylarthritis Lung nodule Opioid dependence POLLY (obstructive sleep apnea) Osteoporosis Peripheral neuropathy Skin cancer TBI (traumatic brain injury) Thoracic compression fracture Surgical History History of coronary artery bypass graft x 2 History of PTCA S/P CABG (coronary artery bypass graft) 1997 Family History Father Cancer Lung disease Brother Cancer Diabetes Lung disease Mother Stroke Denies family history of CAD (coronary artery disease) Clotting disorder Dementia Chronic kidney disease (CKD) Suicide Anesthesia complication Bleeding disorder Social History Smoking and tobacco status: current every day smoker Alcohol intake: never Household members: significant other Housing: House Physical Exam Const: GENERAL APPEARANCE: cooperative and frail appearing HENMT: COMMON NORMALS: normocephalic, atraumatic and Normal external nose present HEAD & SCALP: normocephalic and atraumatic FACE & SINUS: normal facial exam NOSE: Normal external nose present Eye: COMMON NORMALS: Equal, round and reactive pupils present and EOMs intact bilaterally PUPIL: Yes Equal, round and reactive pupils present Neck/C-Spine: GENERAL: Yes trachea midline Chest: CHEST: Yes Symmetrical chest wall rise Resp: COMMON NORMALS: normal respiratory effort, No use of accessory muscles and clear to auscultation bilaterally AUSCULTATION: clear to auscultation farida aterally Cardio: COMMON NORMALS: regular rate and regular rhythm RATE: regular rate RHYTHM: regular rhythm GI: COMMON NORMALS: Normal to inspection, nondistended, normoactive bowel sounds present, Soft to palpation and non-tender PALPATION: Yes Soft to palpation : BLADDER/KIDNEY EXAM: Yes CVA tenderness on the left Back/Pelvis: GENERAL BACK: Yes CVA tenderness Extremity: COMMON NORMALS: no pedal edema Neuro: CHRISTOPHER COMA SCALE: document GCS findings Christopher coma scale eye opening: Spontaneous Christopher coma scale verbal response: Orientated [place] coma scale motor response: Obey commands [place] coma scale total score: 15 Course Vital Signs: Vital signs: Vital Signs Temperature 97.4 F L 02/01/22 23:23 Pulse Rate 76 02/01/22 23:23 Respiratory Rate 16 02/02/22 02:28 Blood Pressure 147/97 02/01/22 23:23 Pulse Oximetry 98 02/02/22 02:28 MDM - Back Pain/Injury Medical Decision Making 76-year-old male with gross hematuria. It is painful hematuria currently. His pain is much improved, however now. Gross hematuria seems to be clearing a bit with petted of voids. His postvoid residual was only 13 by bladder scan. He did not have a largely distended bladder on CT scan. There is no obstruction on CT. There is some stranding opacities in the left perinephric fascia that could be consistent with infection, although his urinalysis is not impressive for i nfection. His creatinine is 1.3. With improvement in his symptoms, and beginning to clear his urine, without evidence of obstruction, he will be allowed home. He knows to return for any worsening problems Labs : 02/01/22 23:28 02/01/22 23:28 Radiology Impressions Abdomen/Pelvis CT 02/02/22 00:47 IMPRESSION: 1. There are strandy opacities in the left perinephric fascia that may represent chronic scarring although inflammatory changes and pyelonephritis cannot be entirely excluded in the appropriate clinical setting. 2. There is no evidence for ureteral obstruction 3. Stable left renal cysts, the largest measuring 3.7 cm. No further workup needed. 4. Bladder diverticulum seen on the right appearing stable compared with 08/05/2021. 5. Normal appendix 6. Diverticulosis of the descending and sigmoid colon 7. Stable aneurysmal dilatation of the infrarenal abdominal aorta and common iliac arteries compared with 08/05/2021. The aortic aneurysm measures 4.2 cm AP dimension by 3.8 cm transverse dimension. There is no evidence for dissection or extravasation. Laboratory Results WBC 10.7 10^3/uL (4.0-10.0) H 02/01/22 23: RBC 4.60 10^6/uL (4.1-5.3) 02/01/22 23: Hgb 14.7 g/dL (11.7-16.6) 02/01/22 23: Hct 45.1 % (42.0-52.0) 02/01/22 23: MCV 98.0 fl (80-94) H 02/01/22 23: MCH 32.0 pg (28.0-34.0) 02/01/22 23: MCHC 32.6 g/dL (30.0-36.0) 02/01/22 23: RDW 13.5 % (12.1-15.1) 02/01/22 23: Plt Count 214 10^3/cmm (130-400) 02/01/22 23:28 MPV 9.0 fL (7.4-10.4) 02/01/22 23:28 Neut % (Auto) 51.5 % 02/01/22 23: Lymph % (Auto) 36.5 % 02/01/22 23:28 [place] % (Auto) 6.5 % 02/01/22 23: Eos % (Auto) 4.7 % 02/01/22 23: Baso % (Auto) 0.6 % 02/01/22 23: Neut # (Auto) 5.51 10^3/uL (1.8-7.7) 02/01/22 23: Lymph # (Auto) 3.9 10^3/uL (0.8-4.8) 02/01/22 23: [place] # (Auto) 0.7 10^3/uL (0.2-0.9) 02/01/22 23: Eos # (Auto) 0.5 10^3/uL (0.0-0.8) 02/01/22 23: Baso # (Auto) 0.1 10^3/uL (0.0-0.1) 02/01/22 23: Nucleated RBC % (auto) 0 % 02/01/22 23: Nucleated RBCs # 0.0 /100WBC 02/01/22 23: Sodium 138 mmol/L (136-145) 02/01/22 23:28 Potassium 4.2 mmol/L (3.5-5.1) 02/01/22 23: Chloride 103 mmol/L (98-107) 02/01/22 23: Carbon Dioxide 26 mmol/L (22-29) 02/01/22 23:28 Anion Gap 13.2 (5-19) 02/01/22 23:28 BUN 27 mg/dL (8-23) H 02/01/22 23:28 Creatinine 1.3 mg/dL (0.7-1.2) H 02/01/22 23:28 GFR Calculation Not Reportable 02/01/22 23: Glucose 87 mg/dL (65-115) 02/01/22 23:28 Calculated Osmolality 290 mOsm/kg (285-295) 02/01/22 23:28 Calcium 9.2 mg/dL (8.5-10.5) 02/01/22: Total Bilirubin 0.2 mg/dL (0.15-1.2) 02/01/22: AST 14 U/L (0-40) 02/01/22: ALT 13 U/L (0-41) 02/01/22: Alkaline Phosphatase 59 IU/L (40-130) 02/01/22: C-Reactive Protein 3.0 mg/L (0.0-4.9) 02/01/22: Total Protein 6.7 g/dL (6.6-8.7) 02/01/22: Albumin 4.3 g/dL (3.5-5.2) 02/01/22 Globulin 2.4 g/dL (1.3-4.6) 02/01/22: Lipase 29 U/L (13-60) 02/01/22: Urine Color Red (Yellow) 02/02/22 00:35 Urine Appearance Cloudy (CLEAR) 02/02/22 00:35 Urine pH 6 (5-7) 02/02/22 00:35 Ur Specific [place] 1.020 (1.005-1.030) 02/02/22 00:35 Urine Protein 3+ (Negative) H 02/02/22 00:35 Urine Glucose (UA) Norm (Normal) 02/02/22 00:35 Urine Ketones Negative (Negative) 02/02/22 00:35 Urine Blood 4+ (Negative) H 02/02/22 00:35 Urine Nitrate Negative (Negative) 02/02/22 00: Urine Bilirubin Neg (Negative) 02/02/22 00:35 Urine Urobilinogen Norm mg/dL (Negative) 02/02/22 00:35 Ur Leukocyte Esterase Negative (Negative) 02/02/22 00:35 Urine RBC Too numerous to cnt /hpf (0-2) H 02/02/22 00:35 Urine WBC 0-4 /hpf (0-5) H 02/02/22 00:35 Ur Squamous Epith Cells 0-4 /hpf (0-5) H 02/02/22 00:35 Amorphous Sediment Not Reportable 02/02/22 00: Urine Bacteria 2+ /hpf (NONE) H 02/02/22 00:35 Discharge Plan Discharge Patient Disposition: Home Clinical Impression: Gross hematuria Condition: Stable Prescriptions: New hydrocodone-acetaminophen 5-325 mg tablet 1 tab PO Q8H PRN (Reason: pain) Qty: 7 0RF cefdinir 300 mg capsule 300 mg PO BID Qty: 14 0RF No Action fluticasone propion-salmeterol [Advair Diskus] 100-50 mcg/dose blister with device 1 inh inhalation BID 0RF isosorbide mononitrate 20 mg tablet 10 mg PO DAILY 0RF nitroglycerin [Nitrostat] 0.4 mg tablet, sublingual 0.4 mg sublingual Q5M PRN0RF Rx Instructions: do not exceed 3 doses per episode Spiriva with HandiHaler 18 mcg capsule, w/inhalation device 1 cap inhalation DAILY 0RF Rx Instructions: puncture 1 cap using device; one dose = 2 inhalations cilostazol 50 mg tablet 50 mg PO BID@06,17 0RF famotidine 40 mg tablet 40 mg PO DAILY@0600 0RF alendronate 70 mg tablet 70 mg PO Q7D 0RF Rx Instructions: (Wednesday) at 0600 simvastatin 40 mg tablet 40 mg PO DAILY@1700 0RF tamsulosin 0.4 mg capsule 0.4 mg PO BID@06,17 0RF finasteride 5 mg tablet 5 mg PO DAILY@1700 0RF Vitamin D3 25 mcg (1,000 unit) tablet 37.5 mcg PO DAILY@0600 0RF Rx Instructions: (1,500 units) lisinopril 2.5 mg tablet 5 mg PO DAILY@0600 Qty: 0 0RF [place] 5-325 mg tablet 1 tab PO Q8H PRN (Reason: pain) Qty: 10 0RF Discharge Orders: Discharge ED (Routine); Ordered 02/02/22 Ordered By: Ozzy Curtis Referrals: Carlos Eduardo Cao MD [Physician] - 4-7 days Cedrick Eubanks MD [Primary Care Provider] - 1-3 days Patient Instructions: Hematuria (ED) Activity Restrictions/Additional Instructions: Return for fever despite 2-3 doses of antibiotics, worsening pain despite treatment, floating liquids or medications, inability to urinate, passing clots with your urine, any other concerning symptoms. Coding Level of Care Code ED Chief Ii Dispatcher for Chg Fwd Exam Comprehensive
--- NOTE | 2022-02-02 00:47 | CTR_ITS ---
PROCEDURE INFORMATION: Exam: CT Abdomen And Pelvis Without Contrast Exam date and time: 02/02/2022 1:05 AM Age: 76 years old Clinical indication: Pain and abnormal findings; Abnormal lab test; Other: Hematuria; Abdominal pain; Flank; Left; Additional info: Hematuria left flank pain TECHNIQUE: Imaging protocol: Computed tomography of the abdomen and pelvis without contrast. Radiation optimization: All CT scans at this facility use at least one of these dose optimization techniques: automated exposure control; mA and/or kV adjustment per patient size (includes targeted exams where dose is matched to clinical indication); or iterative reconstruction. COMPARISON: CT angio abdomen pelvis [id number] 08/05/2021 1:42 PM RADIATION DOSE METRICS: Total DLP (mGy-cm): 585.7 FINDINGS: Liver: Normal. No mass. Gallbladder and bile ducts: Normal. No calcified stones. No ductal dilation. Pancreas: Normal. No ductal dilation. Spleen: Normal. No splenomegaly. Adrenal glands: Normal. No mass. Kidneys and ureters: There are stable left renal cysts present, the largest measures 3.7 cm. There are some strandy opacity seen in the left perinephric fascia likely representing chronic scarring. Inflammatory changes and pyelonephritis cannot be entirely excluded in the appropriate clinical setting. Stomach and bowel: Diverticula are present the descending and sigmoid colon. There are no inflammatory changes seen to suggest diverticulitis. Appendix: The appendix is visualized and is normal in configuration. Intraperitoneal space: Unremarkable. No free air. No significant fluid collection. Vasculature: Calcifications are seen within the thoracic and abdominal aorta, iliac arteries and femoral arteries bilaterally and branches of the celiac and superior mesenteric arteries. There is aneurysmal dilatation the infrarenal aorta, stable in size compared with 08/05/2020. There is no evidence for dissection or extravasation. The common iliac arteries are prominent in caliber as well without evidence of dissection or extravasation. The left common iliac artery measures 2.4 cm in diameter, the right common iliac artery measures 2.1 cm in diameter proximally. Mild dilatation of the proximal left common femoral artery is again noted measuring 1 5 cm in AP diameter. Lymph nodes: Unremarkable. No enlarged lymph nodes. Urinary bladder: A bladder diverticula seen the right anteriorly measuring 1.0 x 2.1 cm. Reproductive: Unremarkable as visualized. Bones/joints: Unremarkable. No acute fracture. Soft tissues: Unremarkable. CT/CT kidney stone [id number] IMPRESSION: 1. There are strandy opacities in the left perinephric fascia that may represent chronic scarring although inflammatory changes and pyelonephritis cannot be entirely excluded in the appropriate clinical setting. 2. There is no evidence for ureteral obstruction 3. Stable left renal cysts, the largest measuring 3.7 cm. No further workup needed. 4. Bladder diverticulum seen on the right appearing stable compared with 08/05/2021. 5. Normal appendix 6. Diverticulosis of the descending and sigmoid colon 7. Stable aneurysmal dilatation of the infrarenal abdominal aorta and common iliac arteries compared with 08/05/2021. The aortic aneurysm measures 4.2 cm AP dimension by 3.8 cm transverse dimension. There is no evidence for dissection or extravasation.
[2022-02-02 01:18] LABS: Bilirubin Urine Neg (Negative); Blood Urine 4+ (Negative); Glucose Urine UA Norm (Normal); Ketones Urine Negative (Negative); Nitrate Urine Negative (Negative); Protein Urine 3+ (Negative); Urine Appearance Cloudy (CLEAR); Urine Color Red (Yellow); pH Urine 6 (5-7)
[2022-02-02 01:19] LABS: Add Urine Culture? Yes; Add Urine Microscopic? YES; Bacteria Urine 2+ /hpf; Leukocyte Esterase Urine Negative (Negative); RBC Urine TOO NUMEROUS TO CNT /hpf (0-2); Squamous Epithelial Cell Urine 0-4 /hpf (0-5); Urobilinogen Urine Norm (Negative); WBC Urine 0-4 /hpf (0-5)
[2022-02-02 02:28] VITALS: RESP 16; O2SAT 98
[2022-02-02] MEDS: ondansetron 2 mg/ML SDV 2 mL 4 MG IVP (02:28)
[2022-02-02] MEDS: cefTRIAXone 1,000 MG in sodium chloride 0.9% (plus) 50 ML 100 MG IV (02:28)
[2022-02-02] MEDS: HYDROmorphone 1 mg/mL INJ 1 mL IVP (02:28)
[2022-02-02 03:21] VITALS: BP 108/74; PULSE 59; RESP 16; O2SAT 98
--- NOTE | 2022-02-02 09:31 | DCPLANNER ---
Addendum entered by Nicki Smith 04/09/22 09:52: Patient had a follow up appointment scheduled with urology - patient did attend appointment. Addendum entered by Nicki Smith 02/17/22 09:06: Patient has a follow up appointment scheduled for Sunday, March 06, 2022 at 10:[address] Cao. Clinic will call patient with appointment information. Original Note: hotel office manager had message to schedule a follow up appointment for patient with urology. hotel office manager sent patients information to the front office staff at urology. Patients information will be printed and reviewed. Patients information will be printed and reviewed. Clinic will call patient with appointment information.
== END 2022-02-02 03:23 | disposition home or self-care (01) ==
PROVIDERS: Emergency Provider Emergency Medicine; PCP Family Medicine
DX: R31.0 Gross hematuria (principal)
CPT/HCPCS: 51798; 74176; 80053; 81001; 83690; 85025; 86140; 87086; 96361; 96365; 96375; 99284; J0696; J1170; J2405; J7040

== ENCOUNTER → 2022-03-06 10:14 | Outpatient (BNVA) | payer MEDICARE, MEDICAID, SELFPAY | PROVIDERS: PCP Nurse Practitioner Family; Visit Provider Urology | DX: R31.0 Gross hematuria (principal) | CPT/HCPCS: 51798; 52000; 81003; 88112; 99213 ==

== ENCOUNTER 2022-04-08 07:24 | Outpatient (CLI) | payer MEDICARE, MEDICAID, SELFPAY ==
--- NOTE | 2022-04-08 07:40 | USCV_ITS ---
Ciaran Gauthier Age: 77 Gender: M : 1945 Exam Date: 04/08/2022 07:45 Ordering Phys: Ezio Gracia MD (Andy) ([email or web address] [place]) Technologist: Low Mariano [place] [facility] [place]: AAA HISTORY: Diameter (cm) AP x Transverse x Length Velocity (cm/s) Waveform Prox Aorta: 2.35 x 2.71 x 61.10 Mid Aorta: 2.49 x 2.96 x 40.50 Distal Aorta: 3.95 x 3.70 x 4.77 23.80 Right Iliac Prox: 1.30 x 1.81 x 31.00 Left Iliac Prox: 2.32 x 1.79 x 22.70 Stent Prox Landing x x Aneurysmal Sac Max x x Lt Lat Sac Dim Rt Lat Sac Dim Stent Dist Landing x x Right Iliac Stent x x Left Iliac Stent x x Right Renal Art Left Renal Art FINDINGS: Comparison:. 08/02/20 A fusiform abdominal aortic aneurysm is noted with a maximal diameter of 4.0 cm. AAA increasing in size from 3.3 cm on the prior exam. Increasing thrombus within the lumen. There is evidence of atherosclerotic plaque with no significant stenosis in the abdominal aorta. There is evidence of atherosclerotic plaque no significan stenosis in the right common iliac artery. 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 CONCLUSIONS Increase in size of the fusiform abdominal aortic aneurysm is noted with a maximal diameter of 4.0 cm. Small left common iliac artery aneurysm. Recommend further evaluation by CTA. Dr. Roxanna Collazo DO (Electronically Signed) Final Date: 08 April 2022 10:47 S
== END 2022-04-08 07:25 | disposition home or self-care (01) ==
PROVIDERS: PCP Nurse Practitioner Family; Visit Provider Thoracic Surgery (Cardiothoracic Vascular Surgery)
DX: I71.4 Abdominal aortic aneurysm, without rupture (principal); I72.3 Aneurysm of iliac artery
CPT/HCPCS: 88112; 93978

== ENCOUNTER → 2022-04-10 08:51 | Outpatient (BNVA) | payer MEDICARE, MEDICAID, SELFPAY | PROVIDERS: PCP Nurse Practitioner Family; Visit Provider Internal Medicine Cardiovascular Disease | DX: I25.10 Atherosclerotic heart disease of native coronary artery without angina pectoris (principal); I10 Essential (primary) hypertension; E78.5 Hyperlipidemia, unspecified; I71.4 Abdominal aortic aneurysm, without rupture; I77.9 Disorder of arteries and arterioles, unspecified; J44.9 Chronic obstructive pulmonary disease, unspecified; F17.210 Nicotine dependence, cigarettes, uncomplicated | CPT/HCPCS: 99213; 99214 ==

== ENCOUNTER → 2022-05-26 14:13 | Outpatient (BNVA) | payer MEDICARE, MEDICAID, SELFPAY | PROVIDERS: PCP Nurse Practitioner Family; Visit Provider Thoracic Surgery (Cardiothoracic Vascular Surgery) | DX: I71.4 Abdominal aortic aneurysm, without rupture (principal); F17.200 Nicotine dependence, unspecified, uncomplicated; I49.8 Other specified cardiac arrhythmias | CPT/HCPCS: 93005; 99213 ==

== ENCOUNTER → 2022-07-03 08:25 | Outpatient (BNVA) | payer MEDICARE, MEDICAID, SELFPAY | PROVIDERS: PCP Nurse Practitioner Family; Visit Provider Internal Medicine Pulmonary Disease | DX: J43.2 Centrilobular emphysema (principal); F17.210 Nicotine dependence, cigarettes, uncomplicated; J98.8 Other specified respiratory disorders; Z12.2 Encounter for screening for malignant neoplasm of respiratory organs; Z71.6 Tobacco abuse counseling; R06.09 Other forms of dyspnea | CPT/HCPCS: 99204 ==

== ENCOUNTER 2022-07-09 09:03 | Outpatient (CLI) | payer MEDICARE, MEDICAID, SELFPAY ==
--- NOTE | 2022-07-09 09:30 | USCV_ITS ---
Abrahan Ciaran Age: 77 Gender: M : 1945 Exam Date: 07/09/2022 09:30 Ordering Phys: Ezio Gracia MD (Andy) ([email or web address] [email or web address] Technologist: BM [place] [facility] [place]ication: AAA F/U HISTORY: Diameter (cm) AP x Transverse x Length Velocity (cm/s) Waveform Prox Aorta: 1.85 x 2.06 x 49.40 Biphasic Mid Aorta: 1.65 x 2.41 x 34.90 Biphasic Distal Aorta: 3.96 x 3.60 x 5.95 22.00 Biphasic Right Iliac Prox: 1.47 x 2.10 x 28.50 Biphasic Left Iliac Prox: 2.01 x 1.88 x 24.20 Biphasic Stent Prox Landing x x Aneurysmal Sac Max x x Lt Lat Sac Dim Rt Lat Sac Dim Stent Dist Landing x x Right Iliac Stent x x Left Iliac Stent x x Right Renal Art Left Renal Art FINDINGS: comparison 04/08/22 CONCLUSIONS Stable fusiform AAA measuring 3.9 x 3.6 x 5.9cm AP x transverse x CC. Moderate atheromatous disease and peripheral mural thrombus Common iliac arteries are patent. Small left Common iliac aneurysm Lukas Chisholm MD (Electronically Signed) Final Date: 09 July 2022 16:41 S
== END 2022-07-09 09:04 | disposition home or self-care (01) ==
LOC: RAD 09:04
PROVIDERS: PCP Nurse Practitioner Family; Visit Provider Thoracic Surgery (Cardiothoracic Vascular Surgery)
DX: I71.40 Abdominal aortic aneurysm, without rupture, unspecified (principal); M79.604 Pain in right leg; I72.3 Aneurysm of iliac artery; I74.3 Embolism and thrombosis of arteries of the lower extremities; I70.90 Unspecified atherosclerosis
CPT/HCPCS: 93978

== ENCOUNTER 2022-07-28 09:46 | Outpatient (CLI) | payer MEDICARE, MEDICAID, SELFPAY ==
--- NOTE | 2022-07-28 12:30 | CT_ITS ---
WS: [id number] LDCT LUNG CANCER SCREENING TECHNIQUE: Noncontrast CT of the chest with coronal and sagittal reformatted images. CLINICAL INFORMATION: smoker COMPARISON: None. DLP: 83.49 mGy.cm DIvol: Mean CTDIvol: 1.60 (mGy) All CT scans at [facility] use at least one of these dose optimization techniques: automat ed exposure control; mA and/or kV adjustment per patient size (includes targeted exams where dose is matched to clinical indication); or iterative reconstruction. FINDINGS: Tiny cluster of micronodules RIGHT upper lobe unchanged from multiple prior examinations. Subsegmenta l patchy atelectasis in the lung bases progressed compared to previous moderate emphysematous changes . Hyperinflation. LAD stent. Prior sternotomy. Moderate calcified atheromatous disease within the thoracic aorta. Aneur ysmal ascending thoracic aorta measuring 4.1 cm unchanged. Stable compression fracture T12 with anter ior wedging. A few calcified granulomas. No mediastinal or hilar lymphadenopathy. No axillary lymphadenopathy. Adrenal glands are normal. Part ially visualized LEFT renal cyst. Small esophageal hiatal hernia. CT/CT lung screening [id number] IMPRESSION: LUNG-RADS: 2-Benign Appearance or Behavior FOLLOW UP: 12 Month: Continue annual screening with LDCT
== END 2022-07-28 09:47 | disposition home or self-care (01) ==
LOC: RT 09:51
PROVIDERS: PCP Nurse Practitioner Family; Visit Provider Internal Medicine Pulmonary Disease
DX: J44.9 Chronic obstructive pulmonary disease, unspecified (principal); Z12.2 Encounter for screening for malignant neoplasm of respiratory organs; F17.200 Nicotine dependence, unspecified, uncomplicated
CPT/HCPCS: 71271; 94060; 94618; 94726; 94729; J7613

== ENCOUNTER 2022-08-26 20:46 | Emergency (ER) | payer MEDICARE, MEDICAID, SELFPAY ==
[2022-08-26 20:47] VITALS: BMI 20.9
--- NOTE | 2022-08-26 20:47 | XRR_ITS ---
PROCEDURE INFORMATION: Exam: XR Chest Exam date and time: 08/26/2022 8:53 PM Age: 77 years old Clinical indication: Angina and shortness of breath; Prior surgery; Surgery date: 6+ months; Surgery type: Bypass. Has had pneumothorax; Additional info: Cp TECHNIQUE: Imaging protocol: Radiologic exam of the chest. Views: 1 view. COMPARISON: CT lung screening [id number] 07/28/2022 11:07 AM FINDINGS: Lungs: Lungs are hyperexpanded. No evident consolidation. Mild atelectasis/scarring at lung bases. Pleural spaces: Unremarkable. No pleural effusion. No pneumothorax. Heart/Mediastinum: Coronary calcifications are noted. Bones/joints: Sternotomy wires are in place. XR/XR chest 1V portable [id number] IMPRESSION: No acute findings. Suspected chronic obstructive pulmonary disease.
--- NOTE | 2022-08-26 20:47 | ECG_ITS ---
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 Measurements Intervals [place] Rate: 104 P: 65 ID: [id number] QRS: 63 QRSD: 83 T: 70 QT: 338 QTc: 446 Interpretive Statements SINUS TACHYCARDIA Compared to ECG 10/06/2020 01:54:26 Sinus rhythm no longer present Myocardial infarct finding no longer present Electronically Signed On 08-27-2022 12:57:20 [employer]INARY [employer]S INSTRU[employer] by Jm Yap M.D. [email or web address]
[2022-08-26 20:50] VITALS: BP 155/105; PULSE 109; RESP 17; TEMP 37.3; O2SAT 96
--- NOTE | 2022-08-26 21:05 | W.ED.CHESTPA ---
HPI - Chest Pain General: Chief Complaint: Chest Pain Stated Complaint: Chest Pain Time Seen by Provider: 08/26/22 20:47 Source: patient and EMS Mode of arrival: EMS Limitations: no limitations History of Present Illness: 77-year-old male states that he has had chest pain cough congestion over the last 4 days he states he was tested positive for the flu today he started on antibiotics today he is a longtime smoker with a history of COPD states he had increased wheezing he states his pain is sharp in nature he denies any vomiting or diarrhea. Associated symptoms: Reports dyspnea; Deny abdominal pain, fever(s), nausea or vomiting Review of Systems Const: Denies: fever(s), chills, body aches or change in appetite Eyes: Denies: blurry vision or eye discomfort ENMT: Denies: throat pain or dental pain Card: Reports: chest pain Resp: Reports: dyspnea and non-productive cough GI: Denies: abdominal pain, nausea, vomiting or diarrhea : Denies: dysuria Musc: Denies: neck pain or back pain Skin/Breast: Denies: rash Neuro: Denies: headache(s) Psych: Denies: depression Jean Pierre/Lymph: Denies: easy bruising All/Imm: Denies: urticaria PFSH ED PFSH: Medical History AAA (abdominal aortic aneurysm) without rupture Arteriosclerosis Chronic back pain Cigarette nicotine dependence COPD (chronic obstructive pulmonary disease) Uses 3 L oxygen at night COPD (chronic obstructive pulmonary disease) Coronary artery disease 7 stents Dyslipidemia Emphysema lung Enlarged prostate Essential hypertension Family history of asthma Family history of CHF (congestive heart failure) Family history of diabetes mellitus Family history of renal failure Family history of ulcerative colitis Family hx of colon cancer Family hx of hypertension Former heavy tobacco smoker GERD (gastroesophageal reflux disease) History of marijuana use Hyperlipidemia Iliac artery aneurysm, left Intermittent claudication Lumbar and sacral spondylarthritis Lung nodule Opioid dependence POLLY (obstructive sleep apnea) Osteoporosis Peripheral neuropathy Skin cancer TBI (traumatic brain injury) Thoracic compression fracture Surgical History History of coronary artery bypass graft x 2 History of PTCA S/P CABG (coronary artery bypass graft) 1997 Family History Father , AT AGE 91 Cancer Lung disease Brother Cancer Diabetes Lung disease Mother , AT 88 Stroke Social History Smoking and tobacco status: current every day smoker cigarettes Packs smoked per day: 1 Years cigarettes smoked: 64 [ Other cigarette details: started at age 13] Alcohol intake: never Marital status: Life Partner Current occupational status: retired History of recent travel: No Physical Exam Const: COMMON NORMALS: no acute distress, patient oriented x3 and healthy appearing HENMT: COMMON NORMALS: normocephalic and atraumatic HEAD & SCALP: normocephalic and atraumatic Eye: COMMON NORMALS: Equal, round and reactive pupils present and EOMs intact bilaterally PUPIL: Yes Equal, round and reactive pupils present Neck/C-Spine: COMMON NORMALS: full ROM and supple Chest: COMMONS NORMALS: normal inspection of the chest and normal palpation of entire chest wall Resp: COMMON NORMALS: normal respiratory effort, No retractions and No use of accessory muscles EFFORT & INSPECTION: Yes audible wheezes Cardio: COMMON NORMALS: regular rate, regular rhythm and No murmurs present (Cardio) RATE: regular rate RHYTHM: regular rhythm GI: COMMON NORMALS: Normal to inspection, nondistended, normoactive bowel sounds present, Soft to palpation, non-tender and no masses PALPATION: Yes Soft to palpation Extremity: COMMON NORMALS: normal to inspection and full ROM Neuro: COMMON NORMALS: patient oriented x3, moves all extremities and no focal motor deficits Psych: COMMON NORMALS: mental status grossly normal, Normal thought process present and cooperative THOUGHT PROCESS: Normal thought process present Skin: COMMON NORMALS: no rashes or lesions noted and no wounds GENERAL SKIN EXAM: no rashes or lesions noted Course Vital Signs: Vital signs: Vital Signs Temperature 99.1 F 08/26/22 20:50 Pulse Rate 82 08/26/22 22:08 Respiratory Rate 16 08/26/22 22:08 Blood Pressure 155/105 08/26/22 20:50 Pulse Oximetry 91 08/26/22 22:08 Oxygen Delivery Me thod 08/26/22 22:08 MDM - Chest Pain Medical Decision Making Patient was with cough wheezing likely COPD exacerbation from his pneumonia he feels improved after breathing treatment has had no chest pain here delta troponin was mildly elevated I did offer him admission he states he feels improved and wants to go home I informed him he is worsening he is to return he understands agrees to plan we will place him on prednisone he is already on antibiotics. Lab Data 08/26/22 20:50 08/26/22 20:50 Radiology Impressions Chest X-Ray 08/26/22 20:47 IMPRESSION: No acute findings. Suspected chronic obstructive pulmonary disease. Laboratory Results WBC 8.7 10^3/uL (4.0-10.0) 08/26/22 20:50 RBC 4.70 10^6/uL (4.1-5.3) 08/26/22 20:50 Hgb 14.7 g/dL (11.7-16.6) 08/26/22 20:50 Hct 45.5 % (42.0-52.0) 08/26/22 20:50 MCV 96.8 fl (80-94) H 08/26/22 20:50 MCH 31.3 pg (28.0-34.0) 08/26/22 20:50 MCHC 32.3 g/dL (30.0-36.0) 08/26/22 20:50 RDW 13.6 % (12.1-15.1) 08/26/22 20:50 Plt Count 203 10^3/cmm (130-400) 08/26/22 20:50 MPV 9.4 fL (7.4-10.4) 08/26/22 20:50 Neut % (Auto) 72.0 % 08/26/22 20:50 Lymph % (Auto) 22.0 % 08/26/22 20:50 Meagher % (Auto) 5.5 % 08/26/22 20:50 Eos % (Auto) 0.0 % 08/26/22 20:50 Baso % (Auto) 0.2 % 08/26/22 20:50 Neut # (Auto) 6.29 10^3/uL (1.8-7.7) 08/26/22 20:50 Lymph # (Auto) 1.9 10^3/uL (0.8-4.8) 08/26/22 20:50 Meagher # (Auto) 0.5 10^3/uL (0.2-0.9) 08/26/22 20:50 Eos # (Auto) 0.0 10^3/uL (0.0-0.8) 08/26/22 20:50 Baso # (Auto) 0.0 10^3/uL (0.0-0.1) 08/26/22 20:50 Nucleated RBC % (auto) 0 % 08/26/22 20:50 Nucleated RBCs # 0.0 /100WBC 08/26/22 20:50 Sodium 139 mmol/L (136-145) 08/26/22 20:50 Potassium 4.1 mmol/L (3.5-5.1) 08/26/22 20:50 Chloride 105 mmol/L (98-107) 08/26/22 20:50 Carbon Dioxide 22 mmol/L (22-29) 08/26/22 20:50 Anion Gap 16.1 (5-19) 08/26/22 20:50 BUN 20 mg/dL (8-23) 08/26/22 20:50 Creatinine 1.3 mg/dL (0.7-1.2) H 08/26/22 20:50 GFR Calculation Not Reportable 08/26/22 20:50 Glucose 158 mg/dL (65-115) H 08/26/22 20:50 Calculated Osmolality 294 mOsm/kg (285-295) 08/26/22 20:50 Calcium 9.3 mg/dL (8.5-10.5) 08/26/22 20:50 Total Bilirubin 0.3 mg/dL (0.15-1.2) 08/26/22 20:50 AST 19 U/L (0-40) 08/26/22 20:50 ALT 21 U/L (0-41) 08/26/22 20:50 Alkaline Phosphatase 69 U/L (40-130) 08/26/22 20:50 Troponin T Baseline 49 ng/L (0-15) H 08/26/22 20:50 Troponin T 120 Minute 61.82 ng/L (0-15) H 08/26/22 22:39 Delta Troponin T 12.82 ABS# (0-10) H* 08/26/22 22:39 Total Protein 7.1 g/dL (6.6-8.7) 08/26/22 20:50 Albumin 4.3 g/dL (3.5-5.2) 08/26/22 20:50 Globulin 2.8 g/dL (1.3-4.6) 08/26/22 20:50 EKG Data EKG 1: I personally reviewed and interpreted this EKG as follows: EKG interpretation date: 08/26/22 EKG interpretation time: 20:52 Interpretation: sinus tach hr [address] or t wave abnormalities qrs 83 qtc 399 Discharge Plan Discharge Patient Disposition: Home Clinical Impression: Influenza, COPD (chronic obstructive pulmonary disease), Chest pain Condition: Stable Prescriptions: New prednisone 50 mg tablet 50 mg PO DAILY Qty: 5 0RF No Action isosorbide mononitrate 20 mg tablet 10 mg PO DAILY nitroglycerin [Nitrostat] 0.4 mg tablet, sublingual 0.4 mg sublingual Q5M PRN Rx Instructions: do not exceed 3 doses per episode aspirin [Adult Aspirin Regimen] 81 mg tablet,delayed release (DR/EC) 81 mg PO DAILY rosuvastatin 40 mg tablet 40 mg PO DAILY fluticasone propion-salmeterol [Advair Diskus] 250-50 mcg/dose blister with device 1 inh inhalation BID Qty: 60 5RF cilostazol 50 mg tablet 50 mg PO BID@06,17 alendronate 70 mg tablet 70 mg PO Q7D Rx Instructions: (Wednesday) at 0600 tamsulosin 0.4 mg capsule 0.4 mg PO BID@06,17 finasteride 5 mg tablet 5 mg PO DAILY@1700 Vitamin D3 25 mcg (1,000 unit) tablet 37.5 mcg PO DAILY@0600 Rx Instructions: (1,500 units) famotidine 40 mg tablet 20 mg PO DAILY hydrocodone-acetaminophen 5-325 mg tablet 1 tab PO Q8H PRN (Reason: pain) Qty: 7 0RF Discharge Orders: Discharge ED (Routine); Ordered 08/26/22 Ordered By: Jonna Bradshaw Referrals: Juana Vargas APN [Primary Care Provider] - Discharge Diet: Advance as tolerated Discharge Activity: Resume usual activity Patient Instructions: Chest Pain (ED), Influenza (ED) Coding Level of Care Code ED Crimping Press Operator for Chg Fwd Exam Comprehensive
[2022-08-26 21:13] LABS: Basophils % 0.2 %; Hematocrit 45.5 % (42.0-52.0); Hemoglobin 14.7 g/dL (11.7-16.6); Lymphocytes # 1.9 10^3/uL (0.8-4.8); Mean Corpuscular HGB Conc 32.3 g/dL (30.0-36.0); Mean Corpuscular Hemoglobin 31.3 pg (28.0-34.0); Mean Corpuscular Volume 96.8 fl (80-94); Mean Platelet Volume 9.4 fL (7.4-10.4); Monocytes # 0.5 10^3/uL (0.2-0.9); Monocytes % 5.5 %; Neutrophils # 6.29 10^3/uL (1.8-7.7); Nucleated Red Blood Cells % 0 %; Platelet Count 203 10^3/cmm (130-400); Red Cell Distribution Width 13.6 % (12.1-15.1); White Blood Count 8.7 10^3/uL (4.0-10.0)
[2022-08-26 21:16] LABS: Troponin(5th) Baseline 49 ng/L (0-15)
[2022-08-26 21:18] LABS: Anion Gap 16.1 (5-19); Blood Urea Nitrogen 20 mg/dL (8-23); Calcium 9.3 mg/dL (8.5-10.5); Carbon Dioxide 22 mmol/L (22-29); Chloride 105 mmol/L (98-107); Glucose 158 mg/dL (65-115); Osmolality Calculated 294 mOsm/kg (285-295); Potassium 4.1 mmol/L (3.5-5.1); Sodium 139 mmol/L (136-145)
[2022-08-26 21:33] LABS: Alanine Aminotransferase 21 U/L (0-41); Albumin Level 4.3 g/dL (3.5-5.2); Alkaline Phosphatase 69 U/L (40-130); Aspartate Amino Transferase 19 U/L (0-40); Globulin 2.8 g/dL (1.3-4.6); Total Bilirubin 0.3 mg/dL (0.15-1.2); Total Protein 7.1 g/dL (6.6-8.7)
[2022-08-26 22:00] VITALS: BP 135/92; PULSE 91; RESP 18; O2SAT 93
[2022-08-26] MEDS: morphine 4 mg/mL SDV 1 mL IVP (22:00)
[2022-08-26] MEDS: ondansetron 2 mg/ML SDV 2 mL 4 MG IVP (22:00)
[2022-08-26] MEDS: albuterol 2.5 mg/3 mL Neb INHALATION (22:02)
[2022-08-26 22:05] VITALS: PULSE 88; RESP 16; O2SAT 95
[2022-08-26 22:08] VITALS: PULSE 82; RESP 16; O2SAT 91
[2022-08-26] MEDS: ipratropium-albuterol 3 mL Neb INHALATION (22:08)
--- NOTE | 2022-08-26 22:47 | ECG_ITS ---
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 Measurements Intervals [place] Rate: 96 P: 67 [place]: 187 QRS: 58 QRSD: 87 T: 61 QT: 365 QTc: 461 Interpretive Statements SINUS RHYTHM Compared to ECG 10/06/2020 01:54:26 Myocardial infarct finding no longer present Electronically Signed On 08-27-2022 9:19:15 CONVALESCENT SITTER by Cesilia Mccollum M.D. [id number]
[2022-08-26 23:03] LABS: Troponin 5 2HR 61.82 ng/L (0-15)
[2022-08-26] MEDS: ketorolac 30 mg/mL INJ 15 MG IVP (23:06)
[2022-08-26 23:18] LABS: Troponin 5 2HR Delta 12.82 ABS# (0-10)
[2022-08-26 23:49] VITALS: BP 119/98; PULSE 98; RESP 14; O2SAT 94
--- NOTE | 2022-08-31 19:45 | PC.NURSE ---
Pt called on 08/31/22 @2566 Pt informed of increased cardiac enzymes and need to follow up with PCP or Cardiology ECTOR. Pt denies pt is having any symptoms at this time. Pt also instructed to start taking 81mg aspirin tab daily and isosorbide mononitrate 30mg daily. Pt denies any questions at this time.
== END 2022-08-26 23:51 | disposition home or self-care (01) ==
PROVIDERS: Emergency Provider Emergency Medicine; PCP Nurse Practitioner Family
DX: J44.9 Chronic obstructive pulmonary disease, unspecified (principal); J11.1 Influenza due to unidentified influenza virus with other respiratory manifestations; Z79.82 Long term (current) use of aspirin; F17.210 Nicotine dependence, cigarettes, uncomplicated; Z95.1 Presence of aortocoronary bypass graft; I25.10 Atherosclerotic heart disease of native coronary artery without angina pectoris; E78.5 Hyperlipidemia, unspecified; I10 Essential (primary) hypertension; Z87.820 Personal history of traumatic brain injury
CPT/HCPCS: 71045; 80053; 84484; 85025; 93005; 94640; 96374; 96375; 99285; J1885; J2270; J2405; J2930; J7613

== ENCOUNTER → 2022-09-14 12:31 | Outpatient (BNVA) | payer MEDICARE, MEDICAID, SELFPAY | PROVIDERS: PCP Nurse Practitioner Family; Visit Provider Urology | DX: R31.0 Gross hematuria (principal) | CPT/HCPCS: 81003; 88112; 99213 ==

== ENCOUNTER → 2022-10-29 09:50 | Outpatient (BNVA) | payer MEDICARE, MEDICAID, SELFPAY | PROVIDERS: PCP Nurse Practitioner Family; Visit Provider Internal Medicine Cardiovascular Disease | DX: I25.118 Atherosclerotic heart disease of native coronary artery with other forms of angina pectoris (principal); I10 Essential (primary) hypertension; E78.5 Hyperlipidemia, unspecified; J44.9 Chronic obstructive pulmonary disease, unspecified; I71.40 Abdominal aortic aneurysm, without rupture, unspecified; F17.210 Nicotine dependence, cigarettes, uncomplicated; Z95.1 Presence of aortocoronary bypass graft; Z79.82 Long term (current) use of aspirin | CPT/HCPCS: 99214 ==

== ENCOUNTER 2022-12-07 07:22 | Outpatient (CLI) | payer MEDICARE, MEDICAID, SELFPAY ==
--- NOTE | 2022-12-07 07:45 | USCV_ITS ---
Ciaran Gauthier Age: 77 Gender: M : 1945 Exam Date: 12/07/2022 07:51 Ordering Phys: Ezio Gracia MD (Andy) ([email or web address] Technologist: Low Mariano [place] [facility] [place]: AAA HISTORY: Diameter (cm) AP x Transverse x Length Velocity (cm/s) Waveform Prox Aorta: 2.16 x 1.97 x 47.90 Mid Aorta: 2.51 x 2.87 x 33.30 Distal Aorta: 4.06 x 4.09 x 5.96 31.20 Right Iliac Prox: 1.52 x 1.64 x 31.20 Left Iliac Prox: 1.74 x 1.65 x 28.50 Stent Prox Landing x x Aneurysmal Sac Max x x Lt Lat Sac Dim Rt Lat Sac Dim Stent Dist Landing x x Right Iliac Stent x x Left Iliac Stent x x Right Renal Art Left Renal Art FINDINGS: Comparison:. 07/09/22. A fusiform abdominal aortic aneurysm is noted with a maximal diameter of 4.1 cm. Thrombus is noted in the aneurysm. No evidence of periaortic fluid is detected. Stable. There is evidence of atherosclerotic plaque no significan stenosis in the right common iliac artery. There is evidence of atherosclerotic plaque no significan stenosis in the left common iliac artery. CONCLUSIONS A fusiform abdominal aortic aneurysm is noted with a maximal diameter of 4.[address] Roxanna Collazo DO (Electronically Signed) Final Date: 07 December 2022 13:22 S
== END 2022-12-07 07:23 | disposition home or self-care (01) ==
PROVIDERS: PCP Nurse Practitioner Family; Visit Provider Thoracic Surgery (Cardiothoracic Vascular Surgery)
DX: I71.40 Abdominal aortic aneurysm, without rupture, unspecified (principal)
CPT/HCPCS: 93978

== ENCOUNTER → 2022-12-10 08:09 | Outpatient (BNVA) | payer MEDICARE, MEDICAID, SELFPAY | PROVIDERS: PCP Nurse Practitioner Family; Visit Provider Thoracic Surgery (Cardiothoracic Vascular Surgery) | DX: I71.40 Abdominal aortic aneurysm, without rupture, unspecified (principal); F17.210 Nicotine dependence, cigarettes, uncomplicated | CPT/HCPCS: 99213 ==

== ENCOUNTER → 2022-12-16 14:36 | Outpatient (BNVA) | payer MEDICARE, MEDICAID, SELFPAY | PROVIDERS: PCP Nurse Practitioner Family; Visit Provider Nurse Practitioner Family | DX: I25.118 Atherosclerotic heart disease of native coronary artery with other forms of angina pectoris (principal); F17.210 Nicotine dependence, cigarettes, uncomplicated; I10 Essential (primary) hypertension; Z79.82 Long term (current) use of aspirin | CPT/HCPCS: 99214 ==

== ENCOUNTER 2023-01-22 06:02 | Outpatient (CLI) | payer MEDICARE, MEDICAID, SELFPAY ==
[2023-01-22 07:10] VITALS: BMI 20.9
--- NOTE | 2023-01-22 07:12 | NMCV_ITS ---
NM frank perf SPECT r/s* [id number] Ciaran Gauthier Age: 77 Gender: M : 1945 Exam Date: 01/22/2023 07:57 Ordering Phys: Deepthi Mancera MD ([email or web address]) Technologist: SONIA Payne Exam Location: [facility] Indications: Chest Pain, SOB STRESS TEST Please see separate stress test report in Ephiphany for full findings IMAGE PROTOCOL Rest/Stress 1 Lexiscan Day Radiopharmaceutical Dose (mCi) Administration Site Administered by Rest: Tc-99m 10.9 IV Toney Bergman, DIVISION ROADMASTER Sestamibi Stress:Tc-99m 32.8 IV Toney Bergman, DIVISION ROADMASTER Sestamibi Rest: 22-Jan-2023 60 Discovery 630 Stress: 22-Jan-2023 30 Discovery 630 0.4mg Lexiscan. Images obtained in supine and prone position. SPECT RESULTS Technical Quality: Good Raw Data Analysis: Adequate Image Corrections: Patient motion artifact - motion correction applied Summed Stress Score: 4 Summed Rest Score: 5 Summed Difference Score: 3 PERFUSION FINDINGS Small to moderate area of moderately decreased tracer uptake was noted in the mid inferolateral and apical lateral regions. Significant reversibility was noted in this region, at rest. A lot of attenuation artifacts are noted in the inferolateral wall region FUNCTIONAL RESULTS (calculated via Gated SPECT) Stress Image LV EF (%): 50 Stress EDV (mL):70 TID: 1.19 Stress ESV (mL):35 FUNCTIONAL FINDINGS: Segmental wall motion analysis revealing mild diffuse hypokinesia of the septum, anterior wall and the LV apex. The transient ischemic dilatation ratio is slightly elevated to 1.19. IMPRESSIONS 1. Myocardial perfusion imaging revealing small to moderate area of reversible defect in the mid inferolateral and apical lateral region suggestive of ischemia in the distribution of the left circumflex artery. The study quality is somewhat compromised because of the attenuation artifact in the inferolateral regions. 2. Normal LV ejection fraction of 50%. 3. LV wall motion analysis revealing mild diffuse hypokinesia of the anterior wall, apex and septum. 4. Normal LV volume Compared to the study from 01/13/2018, this area of ischemia appears to be new Dr Deepthi Mancera MD [facility] (Electronically Signed) Final Date: 22 Jan 2023 10:43 S
--- NOTE | 2023-01-22 07:12 | ECG_ITS ---
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 Interpretive Statements NAME OF STUDY: LEXISCAN SESTAMIBI STRESS TEST INDICATION: Chest Pain, PROCEDURE: At the baseline, the EKG revealed normal sinus rhythm with a poor R wave progression. The baseline heart was 63 bpm with a blood pressue of 134/89 mm of Hg Lexiscan was infused over a period of 20 seconds. A total of 0.4 milligrams of Lexiscan was infused. The stress phase was continued for a total of 5 minutes. Heart rate at the end of the stress phase was 100 bpm with a blood pressure 146/96 mm of Hg. The EKG at the peak infusion revealed no significant changes. Sestamibi was injected 20 seconds after the Lexiscan infusion. Heart rate at the end of the recovery phase was 96 bpm with a blood pressure of 149/95 mm of Hg. CONCLUSION: 1. No significant EKG changes with the LexiScan infusion 2. No LexiScan induced chest pain or cardiac arrhythmia 3. Normal blood pressure and heart rate response 4. Sestamibi/sestamibi perfusion scan pending; see separate report. Electronically Signed On 01-22-2023 20:22:45 CDT by Deepthi Mancera M.D. [id number]
[2023-01-22] MEDS: regadenoson 0.4 Mg/5 ml Syringe IVP (08:33)
[2023-01-22 08:47] VITALS: BP 149/95; PULSE 97
== END 2023-01-22 06:03 | disposition home or self-care (01) ==
PROVIDERS: PCP Nurse Practitioner Family; Visit Provider Internal Medicine Cardiovascular Disease
DX: R07.9 Chest pain, unspecified (principal); R94.39 Abnormal result of other cardiovascular function study
CPT/HCPCS: 36415; 78452; 93017; 96374; 99214; A9500; J2785

== ENCOUNTER 2023-02-12 05:46 | Outpatient (CLI) | payer MEDICARE, MEDICAID, SELFPAY ==
[2023-02-12] VITALS (40 sets, daily range): BP systolic 109–161; BP diastolic 70–101; PULSE 51–76; RESP 12–24; TEMP 36.3–37.1; O2SAT 90–97; BMI 20.6
--- NOTE | 2023-02-12 06:00 | XACV_ITS ---
Exam Room: 2 Ht: 180 cm Wt: 67 kg BSA: 1.83 m2 Gender: Male : 1945 Any Known Allergies: No known allergies Exam Priority: Routine Procedure(s): Procedure Description: Diagnostic procedure Procedure Description: PCI procedure Procedure Description: Venous Graft Catheterization Procedure Description: HENAO Graft Catheterization Procedure Description: Drug Eluting Coronary Stent Procedure Description: PTCA Procedure Description: Miscellaneous Procedure Description: ACT Procedure Description: Coronary Angiography Diagnostic Cath Status: Elective Diagnostic Findings * INDICATION : 77-year-old man with past medical history of COPD, CAD s/p CABG several years ago, prior PCI to LAD and left circumflex artery has been having chest pain symptoms. He underwent stress test that showed ischemia in left circumflex artery territory. Plan for coronary angiogram with possible percutaneous coronary intervention. * Left Main has no significant disease. * Left Anterior Descending has patent prior stents. Mild to moderate luminal irregularities. * Proximal Right Coronary Artery: chronic total occlusion, MARLEN: 0 flow. * BYPASS GRAFTS: SVG to RCA: Occluded HENAO to LAD: Atretic small sized vessel.. * Left circumflex artery is a large sized vessel with occluded OM stent. At the bifurcation of OM left circumflex artery, proximal to * m * id Circumflex: Severe, hazy 70% stenosis, MARLEN: 3 flow. * Coronary angiography shows right dominance. PCI Status: Elective PCI Indication: Other Interventional Findings * Procedure detail: We engaged left main artery with XB 3.5 guide catheter. IV heparin was administered to maintain anticoagulation. 0.014 run-through guidewire was used to cross the proximal to mid left circumflex artery stenosis and was put in distal vessel. We predilated the stenosis with 2.5 x 12 mm semicompliant balloon. This was followed by placement of 2.75 x 12 mm resolute Facundo drug-eluting stent. We then postdilated the stent with 2.75 x 12 mm NC balloon at high pressure. At this time final angiogram was performed that showed excellent stent expansion, no residual stenosis and MARLEN-3 flow. Guidewire and guide catheter were removed. Patient left the Marketing Professor in a stable condition.. * Mid Circumflex: 70% stenosis treated with a AB TREK 2.50X12 RX BALLOON, MDT R FACUNDO 2.75X12 JAYLYN, and MDT RODY EUPHORA RX [id number] BALLOON. 0% residual stenosis, MARLEN: 3 flow. Conclusions 1. Severe proximal to mid left circumflex artery stenosis 2. status post successful revascularization with JAYLYN x1. 3. Circumflex artery 4. ischemia was noted on stress test.. 5. SVG to RCA is occluded. HENAO to LAD is small and atretic. 6. Mid Circumflex was treated with a Balloon, Drug Eluting Stent, and Balloon. Recommendations * Dual antiplatelet therapy with aspirin and Plavix for at least 1 year. * High intensity statin therapy. * Outpatient cardiology follow-up in 2 weeks. Interventional RX Recommendation: PCI w/o planned CABG Diagnostic RX Recommendation: PCI w/o planned CABG Anticoagulation: Heparin Pressures Phase:Rest AO : 120 / 77 ( 97 ) @ 8:36:00 AM 138 / 91 ( 113 ) @ 8:51:00 AM 136 / 82 ( 107 ) @ 8:54:00 AM Clinical Evaluation EBL: 5mL-10mL Procedural Details Procedure Consent Obtained. Admit Source: Out Patient. Pre-Procedure Time Out. Identified patient by full name and date of as verbalized by the patient/guarantor. Does the consent match the physician's order: Yes. Accurate & Complete Informed Consent: Yes. Inpatient/Outpatient History & Physical on Chart: Yes. If H&P is completed, is and addenduem needed: Yes; If yes, is the addendum complete: Yes. Visualize and Verify Site with Patient/Guarantor: N/A. Relevant Radiology Images available: N/A. Pre-op teaching completed and patient verbalized understanding. The risks, benefits, and alternatives of sedation and/or procedure were discussed by physician. The patient agrees to continue. Procedure started. [facility] Clinical Fraility Score: 3: Managing Well. Marketing Professor Indications: Worsening Angina. Chest Pain Symptom Assessment: Typical Angina Symptoms. Correct patient, site and procedure confirmed by cath team. Current diagnosis: Chest Pain. PERRLA. Strong, equal hand dormitory keeper bilaterally. Lungs clear x 5 lobes. IV Site on Arrival: 20 gauge in the right forearm. IV Fluids: 0.9% NaCl at KVO. 0 mL infused prior to recyclable products sorter. Pre Procedural Pulses: right radial was 1+. Pre Procedural Pulses: bilateral dorsalis pedis was Doppled. Oxygen started at 2liters/min via nasal canula. right groin was prepped with chloroprep then draped in the usual sterile fashion. Baseline sample Acquired. HR: 79 BPM. Physician notified. Physician arrived. Physician scrubbed in. Immediate Pre-Procedure Time Out. Correct Patient: Yes; Correct Procedure: Yes; Correct Site: Yes; Correct Patient Position: Yes; Correct Supplies: Yes; Dried Flammable Prep: Yes; Blood Products Available: N/A;. Lidocaine 1% infiltrated to the right groin. Arterial access obtained with micropuncture set. A 6 polish JL4 catheter in over wire. Catheter out. A 6 polish JL4.5 catheter in over wire. Multiple views taken of left coronary artery. Catheter out. A 6 polish JR4 catheter in over wire. Multiple views taken of right coronary artery. SVG to RCA occluded. HENAO to LAD visualized. Catheter out. 6 polish XB 3.5 guide catheter was inserted over the wire. Runthrough guidewire was advanced through the guide catheter to lesion in the mid Circ. Balloon inserted to lesion in the mid Circ. Inflation number : 1 A AB TREK 2.50X12 RX BALLOON was prepped and advanced across the Mid CX , then inflated to 12 SARMAD for 0:11 seconds. Inflation number: 2 The AB TREK 2.50X12 RX BALLOON was reinflated across the Mid CX, to 12 SARMAD for 0:13 seconds. Results checked. Inflation number: 3 The AB TREK 2.50X12 RX BALLOON was reinflated across the Mid CX, to 12 SARMAD for 0:12 seconds. Balloon out. Stent inserted to lesion in the mid Circ. Inflation Number : 4 A JAYESH R FACUNDO 2.75X12 JAYLYN -Lot Number# [id number] Exp 05/07/2024 was prepped and advanced across the Mid CX. The stent was deployed at 12 SARMAD for 0:16 seconds. Results checked. Stent balloon out over wire. Inflation number : 5 A JAYESH FINE EUPHORA RX [id number] BALLOON was prepped and advanced across the Mid CX , then inflated to 18 SARMAD for 0:17 seconds. Balloon inserted to lesion in the mid Circ. Results checked. Balloon and wire out. Results checked. ACT drawn. Results high/out of range. No heparin administered. Guide catheter out. A Suture was successful obtaining hemostatsis at the Right Femoral artery insertion site. Sheath(s) sutured into position with 2-0 silk and sterile 4x4's and Op-site applied over the site. No oozing or signs and symptoms of hematoma noted. Post Procedure: Pulses reassessed and unchanged. PERRLA. Strong, equal hand dormitory keeper bilaterally. No VTE prophylaxis required. Medication's Wasted: Other = Versed 1 mg. Medication's Wasted: Heparin = 2000 u. Total IV fluids: 51 mL. Post-op diagnosis: Obstructive CAD to Mid Circumflex, S/P successful stenting x1. Complications: none. Estimated blood loss: 5mL-10mL. Responsiveness - Normal response to verbal stimuli; alert and oriented, PERRLA. Airway - Unaffected, no intervention required; spontaneous ventilation. Circulation: W/N/L, pulses unchanged. Nausea/Vomiting: No. Procedure completed. Patient transferred by bed to 1st floor. Vital chart was stopped. Access Site Site: Right Femoral artery Sheath Size: 6 Fr Hemostasis Method: Suture Hemostasis Success: Successful Procedure Medications Start: 7:30 AM Stop: 7:30 AM Medication: Versed Amount: 1 mg Route: I.V. Start: 7:30 AM Stop: 7:30 AM Medication: Fentanyl Amount: 50 mcg Route: I.V. Start: 7:32 AM Stop: 7:32 AM Medication: Versed Amount: 1 mg Route: I.V. Start: 7:42 AM Stop: 7:42 AM Medication: Fentanyl Amount: 25 mcg Route: I.V. Start: 7:48 AM Stop: 7:48 AM Medication: Heparin Amount: 6000 units Route: I.V. Start: 7:49 AM Stop: 7:49 AM Medication: Versed Amount: 1 mg Route: I.V. Start: 7:49 AM Stop: 7:49 AM Medication: Fentanyl Amount: 25 mcg Route: I.V. Start: 7:55 AM Stop: 7:55 AM Medication: Heparin Amount: 1000 units Route: I.V. I, the attending physician, have reviewed and verified all procedure medications. Yes, all medications given per verbal order History/Risk Factors Hypertension: No Dyslipidemia: No Peripheral Arterial Disease (PAD): No Myocardial Infarction (AL): No Obesity: No Renal Disease: No Tobacco Use: Current/Recent(w/in 1 year) Prior Interventions PCI: Yes CABG: No Valve Surgery: No Date of PCI: 02/11/2018 Report Signatures Finalized by Jm Yap MD on 02/18/2023 06:44 PM
[2023-02-12 06:41] LABS: Basophils # 0.1 10^3/uL (0.0-0.1); Basophils % 0.6 %; Eosinophils # 0.3 10^3/uL (0.0-0.8); Eosinophils % 3.3 %; Hematocrit 51.9 % (42.0-52.0); Hemoglobin 16.7 g/dL (11.7-16.6); Lymphocytes # 3.2 10^3/uL (0.8-4.8); Lymphocytes % 35.8 %; Mean Corpuscular HGB Conc 32.2 g/dL (30.0-36.0); Mean Corpuscular Hemoglobin 31.2 pg (28.0-34.0); Mean Platelet Volume 8.8 fL (7.4-10.4); Monocytes # 0.7 10^3/uL (0.2-0.9); Monocytes % 7.8 %; Neutrophils # 4.73 10^3/uL (1.8-7.7); Neutrophils % 52.3 %; Nucleated Red Blood Cells % 0 %; Platelet Count 197 10^3/cmm (130-400); Red Blood Count 5.35 10^6/uL (4.1-5.3); Red Cell Distribution Width 13.8 % (12.1-15.1); White Blood Count 9.1 10^3/uL (4.0-10.0)
[2023-02-12] MEDS: aspirin 325 mg Tablet PO (06:42)
[2023-02-12] MEDS: diphenhydrAMINE 50 mg Capsule PO (06:42)
[2023-02-12 07:00] LABS: Anion Gap 15.1 (5-19); Blood Urea Nitrogen 17 mg/dL (8-23); Calcium 9.8 mg/dL (8.5-10.5); Carbon Dioxide 25 mmol/L (22-29); Chloride 104 mmol/L (98-107); Glucose 87 mg/dL (65-115); Osmolality Calculated 291 mOsm/kg (285-295); Potassium 4.1 mmol/L (3.5-5.1); Sodium 140 mmol/L (136-145)
--- NOTE | 2023-02-12 07:23 | P.HP_ITS ---
Same Day Surgery H&P Indication for Procedure/HPI DATE OF PROCEDURE: February 12, 2023 CHIEF COMPLAINT/INDICATIONFOR SURGICAL PROCEDURE: Chest pain/abnormal stess test PREOP DIAGNOSIS: Chest pain/abnormal stess test PLANNED PROCEDURE: Operation Date: 02/12/23 07:00 Proposed Procedures p [[facility] w/- W?O [id number]], I25.118, R06.09, R94.39(Left) - Jm Yap M.D 77-year-old man with past medical history of COPD, CAD s/p CABG several years ago, prior PCI to LAD and left circumflex artery has been having chest pain symptoms. He underwent stress test that showed ischemia in left circumflex artery territory. Plan for coronary angiogram with possible percutaneous coronary intervention. Risks and benefits of the procedure have been discussed with the patient. He understands the risks and wants to proceed. Medications/Allergies* Home Medications Medication Instructions Recorded Confirmed Type alendronate 70 mg tablet 70 mg PO Q7D 10/06/20 02/12/23 History cholecalciferol (vitamin D3) 25 37.5 mcg PO DAILY@0600 10/06/20 02/12/23 History mcg (1,000 unit) tablet (Vitamin D3) cilostazol 50 mg tablet 50 mg PO BID@10/06/20 02/12/23 History finasteride 5 mg tablet 5 mg PO DAILY@1700 10/06/20 02/12/23 History tamsulosin 0.4 mg capsule 0.4 mg PO BID@10/06/20 02/12/23 History isosorbide mononitrate 20 mg tablet 10 mg PO DAILY 02/25/21 02/12/23 History aspirin 81 mg tablet,delayed 81 mg PO DAILY 04/10/22 02/12/23 History release (Adult Aspirin Regimen) famotidine 40 mg tablet 20 mg PO DAILY 04/10/22 02/12/23 History rosuvastatin 40 mg tablet 40 mg PO DAILY 04/10/22 02/12/23 History budesonide-formoterol HFA 80 2 puff inhalation BID 09/14/22 02/12/23 History mcg-4.5 mcg/actuation aerosol inhaler (Symbicort) Allergies/Adverse Reactions Allergy/AdvReac Type Severity Reaction Status Date / Time No Known Allergies Allergy Verified 02/12/23 06:20 Current Medications: Generic Name Dose Route Start Last Admin Trade Name Pearl PRN Reason Stop Dose Admin Sodium Chloride 1,000 mls @ 50 mls/hr 02/12/23 06:00 02/12/23 06:42 Sodium Chloride 0.9% IV 02/13/23 01:59 Not Given .Q20H ONE Pertinent History/Comorbid Conditions* Medical History (Updated 10/29/22 @ 10:22 by Deepthi Mancera MD) AAA (abdominal aortic aneurysm) without rupture Arteriosclerosis Chronic back pain Cigarette nicotine dependence COPD (chronic obstructive pulmonary disease) Uses 3 L oxygen at night COPD (chronic obstructive pulmonary disease) Coronary artery disease 7 stents Dyslipidemia Emphysema lung Enlarged prostate Essential hypertension Family history of asthma Family history of CHF (congestive heart failure) Family history of diabetes mellitus Family history of renal failure Family history of ulcerative colitis Family hx of colon cancer Family hx of hypertension Former heavy tobacco smoker GERD (gastroesophageal reflux disease) History of marijuana use Hyperlipidemia Iliac artery aneurysm, left Intermittent claudication Lumbar and sacral spondylarthritis Lung nodule Opioid dependence POLLY (obstructive sleep apnea) Osteoporosis Peripheral neuropathy Skin cancer TBI (traumatic brain injury) Thoracic compression fracture Surgical History (Updated 04/28/21 @ 11:53 by Deepthi Mancera MD) History of coronary artery bypass graft x 2 History of PTCA S/P CABG (coronary artery bypass graft) 1997 Family History (Updated 02/26/21 @ 14:58 by Yakelin Jimenez RN) Father, AT AGE 91 Mother, AT 88 Diabetes Brother Lung disease Father Brother Cancer Father Brother Stroke Mother Social History Smoking and tobacco status: current every day smoker cigarettes Packs smoked per day: 1 Years cigarettes smoked: 64 [ Other cigarette details: started at age 13] Alcohol intake: never Substance/Drug Use: current Substance/Drug use frequency: daily Marital status: Life Partner Current occupational status: retired Pertinent Exam Findings alert, oriented x 3, clear to auscultation bilaterally and regular rate & rhythm Conscious Sedation Assessment PATIENT ASSESSED PRIOR TO SEDATION, WITH NO CHANGE NOTED: Yes AIRWAY EVAL/ANESTHESIA PLAN: normal airway, ASA III, Local Anesthesia, Risks, benefits & alternatives of sedation and/or procedure discussed and Patient agrees to continue as planned ADDITIONAL INFORMATION: Possible percutaneous coronary intervention Recommendations Surgery/Procedure today (Left heart cath with possible percutaneous coronary intervention) Coding Level of Care Code Acute Code for Chg Fwd Diagnoses
[2023-02-12] MEDS: fentaNYL 50 mcg/mL INJ 2mL 25 MCG IVP (10:27)
[2023-02-12] MEDS: nitroglycerin 0.4 mg sublingual Tablet SUBLINGUAL (10:29)
[2023-02-12 10:42] LABS: Partial Thromboplastin Time > 250.0 SECONDS (23.9-36.7)
[2023-02-12] MEDS: nitroglycerin drip 50 MG/250 ML PREMIX IV (12:28)
--- NOTE | 2023-02-12 15:00 | PC.NURSE ---
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
--- NOTE | 2023-02-12 15:09 | XACV_ITS ---
Exam Room: 2 Ht: 180 cm Wt: 67 kg BSA: 1.83 m2 Gender: Male : 1945 Any Known Allergies: No known allergies Exam Priority: Routine Procedure(s): Procedure Description: Diagnostic procedure Procedure Description: Miscellaneous Procedure Description: ACT Procedure Description: Coronary Angiography Diagnostic Cath Status: Urgent Diagnostic Findings * INDICATION: Patient had PCI of left circumflex artery performed earlier today. He has been having on and off chest pain since the procedure. However over the last several minutes he says it is severe and persistent. EKG not showing ST elevation. However given severe symptoms and recently put stent, we will perform angiography to confirm patency of the stent. * Patent left circumflex artery stent. * Patent LAD. * Rest of arteries not injected as coronary angiogram performed earlier today. Please refer to the report for full procedure detail. * Coronary angiography shows right dominance. PCI Status: Elective Conclusions 1. Patent left circumflex artery stent. Chest pain is non-cardiac. Recommendations * We will give a GI cocktail with chest pain relief. * Transferred back to cardiac stepdown unit. Diagnostic RX Recommendation: medical therapy and/or counseling Pressures Phase:Rest AO : 135 / 93 ( 111 ) @ 4:35:00 PM 118 / 74 ( 94 ) @ 4:37:00 PM 119 / 76 ( 95 ) @ 4:38:00 PM 142 / 79 ( 102 ) @ 4:43:00 PM Clinical Evaluation EBL: 5mL-10mL Procedural Details Procedure Consent Obtained. Identified patient by full name and date of as verbalized by the patient/guarantor. Does the consent match the physician's order: Yes. Accurate & Complete Informed Consent: Yes. Inpatient/Outpatient History & Physical on Chart: Yes. If H&P is completed, is and addenduem needed: No; If yes, is the addendum complete: N/A. Visualize and Verify Site with Patient/Guarantor: N/A. Relevant Radiology Images available: No. The risks, benefits, and alternatives of sedation and/or procedure were discussed by physician. The patient agrees to continue. Procedure started. [facility] Clinical Fraility Score: 5: Mildly Frail. Cash Posting Specialist Indications: Worsening Angina. Chest Pain Symptom Assessment: Typical Angina Symptoms. Correct patient, site and procedure confirmed by cath team. Current diagnosis: Unstable angina. PERRLA. Strong, equal hand support technician bilaterally. Lungs clear x 5 lobes. IV Site on Arrival: 20 gauge in the right anticubital. Nitro 25mcg/min running prior to start of procedure. IV Fluids: 0.9% NaCl at KVO. 500 mL infused prior to label sewer. Pre Procedural Pulses: bilateral posterior tibial was Doppled. Pre Procedural Pulses: bilateral dorsalis pedis was Doppled. Oxygen started at 2liters/min via nasal canula. bilateral groins was prepped with chloroprep then draped in the usual sterile fashion. Baseline sample Acquired. HR: 63 BPM. Physician notified. Physician scrubbed in. Immediate Pre-Procedure Time Out. Correct Patient: Yes; Correct Procedure: Yes; Correct Site: Yes; Correct Patient Position: Yes; Correct Supplies: Yes; Dried Flammable Prep: Yes; Blood Products Available: N/A;. Lidocaine 1% infiltrated to the right groin. Sheath upsized to a 6 Fr. A 6 moldovan JL4.5 catheter in over wire. Multiple views taken of left coronary artery. Catheter out. ACT drawn. Results 167 seconds. Therapeutic limits - pre-heparin administration 90-150 seconds and monitoring heparin during a vascular procedure >250 seconds. Mynx placed without complications. No signs or symptoms of hematoma noted. Sterile dressing applied per usual sterile fashion. Lot # [id number] Exp date 06/05/23. A Mynx was successful obtaining hemostatsis at the Right Femoral artery insertion site. Nitro drip stopped. Post Procedure: Pulses reassessed and unchanged. PERRLA. Strong, equal hand support technician bilaterally. No VTE prophylaxis required. Post-op diagnosis: patent recently placed stent. Medication's Wasted: Heparin = 1000 untis. Medication's Wasted: Lidocaine 1% = 1 mL. Total IV fluids: 30 mL. Complications: none. Estimated blood loss: 5mL-10mL. Responsiveness - Normal response to verbal stimuli; alert and oriented, PERRLA. Airway - Unaffected, no intervention required; spontaneous ventilation. Circulation: W/N/L, pulses unchanged. Nausea/Vomiting: No. GI cocktail given PO. Procedure completed. Patient transferred by bed to 1st floor. Vital chart was stopped. Access Site Site: Right Femoral artery Sheath Size: 6 Fr Hemostasis Method: Mynx Hemostasis Success: Successful Procedure Medications Start: 3:28 PM Stop: 3:28 PM Medication: Versed Amount: 1 mg Route: I.V. Start: 3:34 PM Stop: 3:34 PM Medication: Fentanyl Amount: 50 mcg Route: I.V. Start: 3:36 PM Stop: 3:36 PM Medication: Versed Amount: 1 mg Route: I.V. Start: 3:42 PM Stop: 3:42 PM Medication: Fentanyl Amount: 50 mcg Route: I.V. I, the attending physician, have reviewed and verified all procedure medications. Yes, all medications given per verbal order History/Risk Factors Hypertension: No Dyslipidemia: No Peripheral Arterial Disease (PAD): No Myocardial Infarction (OR): No Obesity: No Renal Disease: No Tobacco Use: Current/Recent(w/in 1 year) Prior Interventions PCI: Yes CABG: No Valve Surgery: No Date of PCI: 02/11/2018 Report Signatures Finalized by Jm Yap MD on 02/14/2023 05:52 PM
--- NOTE | 2023-02-12 15:23 | P.MISC_ITS ---
Miscellaneous Note Purpose of Documentation: Event note Note: After PCI of left circumflex artery, patient had on and off chest discomfort. However now it has become more persistent. Nitro drip was started. EKG does not show ST elevation. Given persistent chest pain now, we will take him back to the cardiac Site Supervising Technical Operator for repeat coronary angiogram. Risks of the procedure been discussed with the patient. Patient and family are in agreement.
[2023-02-12 16:11] LABS: Troponin T (5th) Once 165 ng/L (0-15)
[2023-02-12] MEDS: sodium chloride 0.9% 1,000 ML 100 ML IV (17:38)
[2023-02-12] MEDS: budesonide 0.5 mg/2 mL Neb INHALATION (20:52)
[2023-02-12] MEDS: albuterol 2.5 mg/3 mL Neb INHALATION (20:52)
[2023-02-13 04:00] VITALS: BP 140/91; PULSE 70; RESP 18; TEMP 36.5; O2SAT 93
[2023-02-13] MEDS: HYDROcodone-acetaminophen 5-325 mg Tablet 1 TAB PO (04:10)
[2023-02-13 04:36] LABS: Basophils % 0.5 %; Eosinophils # 0.2 10^3/uL (0.0-0.8); Eosinophils % 2.3 %; Hematocrit 46.5 % (42.0-52.0); Hemoglobin 14.9 g/dL (11.7-16.6); Lymphocytes # 2.8 10^3/uL (0.8-4.8); Lymphocytes % 31.8 %; Mean Corpuscular Volume 96.7 fl (80-94); Mean Platelet Volume 9.3 fL (7.4-10.4); Monocytes # 0.8 10^3/uL (0.2-0.9); Monocytes % 9.4 %; Neutrophils # 4.86 10^3/uL (1.8-7.7); Neutrophils % 55.8 %; Nucleated Red Blood Cells % 0 %; Platelet Count 178 10^3/cmm (130-400); Red Blood Count 4.81 10^6/uL (4.1-5.3); Red Cell Distribution Width 13.6 % (12.1-15.1); White Blood Count 8.7 10^3/uL (4.0-10.0)
[2023-02-13 04:55] LABS: Anion Gap 15.8 (5-19); Blood Urea Nitrogen 15 mg/dL (8-23); Calcium 8.6 mg/dL (8.5-10.5); Carbon Dioxide 21 mmol/L (22-29); Chloride 108 mmol/L (98-107); Glucose 72 mg/dL (65-115); Osmolality Calculated 291 mOsm/kg (285-295); Potassium 3.8 mmol/L (3.5-5.1); Sodium 141 mmol/L (136-145)
[2023-02-13] MEDS: tamsulosin 0.4 mg Capsule PO (05:44)
[2023-02-13 06:00] VITALS: PULSE 83
[2023-02-13 07:10] VITALS: BP 140/91; PULSE 63; RESP 16; TEMP 36.9; O2SAT 94
[2023-02-13 07:21] VITALS: PULSE 71; RESP 16; O2SAT 94
[2023-02-13] MEDS: albuterol 2.5 mg/3 mL Neb INHALATION (07:21)
[2023-02-13] MEDS: budesonide 0.5 mg/2 mL Neb INHALATION (07:21)
[2023-02-13 07:30] VITALS: PULSE 74; RESP 16; O2SAT 94
[2023-02-13] MEDS: aspirin 81 mg EC Tablet PO (08:34)
[2023-02-13] MEDS: clopidogrel 75 mg Tablet PO (08:34)
[2023-02-13] MEDS: atorvastatin 40 mg Tablet 80 MG PO (08:34)
--- NOTE | 2023-02-13 08:34 | PM.DCS ---
Discharge Providers Date of Admission: 02/12/2023 Date of Discharge: February 13, 2023 Attending Provider at Admission: Jm Yap MD Attending Provider at Discharge: Jm Yap M.D Primary Care Provider: Juana Vargas APN Reason for Visit Reason for Visit: I25.118 Brief History: 77-year-old man with past medical history of COPD, CAD s/p CABG several years ago, prior PCI to LAD and left circumflex artery has been having chest pain symptoms.? He underwent stress test that showed ischemia in left circumflex artery territory.? Plan for coronary angiogram with possible percutaneous coronary intervention.? Hospital Course Hospital Course Coronary angiogram demonstrated atretic HENAO, patent chemehuevi LAD with prior stents, left circumflex artery had severe 70% stenosis, prior OM stent was occluded. SVG to RCA was occluded. He underwent successful revascularization of left circumflex artery stenosis with JAYLYN x1. When he went to floor, he continued complaining of chest pain. EKG did not reveal ST elevation. However pain was quite significant. He was brought back for diagnostic catheterization. It revealed patent recently placed stent. His symptoms were deemed secondary to acid reflux. He was given GI cocktail which resolved his chest pain. He was observed overnight and was in stable condition. Discharged home on dual antiplatelet therapy Physical Exam Narrative: GENERAL: Patient is alert, awake and oriented x3. [] NECK: No jugular vein distension. [] HEENT: No cyanosis. No icterus. No pallor. [] HEART: Regular S1 and S2. No murmur, rub or gallop. [] LUNGS: Clear to auscultate bilaterally. [] CENTRAL NERVOUS SYSTEM: Grossly nonfocal. [] EXTREMITIES: Lower extremities with no edema Discharge Data Studies Completed and Pending Pending at discharge Category Date Time Status RESIDENT SERVICES MANAGER request for service Routine Exams 02/12/23 06:00 Taken RESIDENT SERVICES MANAGER request for service Routine Exams 02/12/23 15:09 Taken Laboratory Results WBC 8.7 10^3/uL (4.0-10.0) 02/13/23 03:25 RBC 4.81 10^6/uL (4.1-5.3) 02/13/23 03:25 Hgb 14.9 g/dL (11.7-16.6) 02/13/23 03:25 Hct 46.5 % (42.0-52.0) 02/13/23 03:25 MCV 96.7 fl (80-94) H 02/13/23 03:25 MCH 31.0 pg (28.0-34.0) 02/13/23 03:25 MCHC 32.0 g/dL (30.0-36.0) 02/13/23 03:25 RDW 13.6 % (12.1-15.1) 02/13/23 03:25 Plt Count 178 10^3/cmm (130-400) 02/13/23 03:25 MPV 9.3 fL (7.4-10.4) 02/13/23 03:25 Neut % (Auto) 55.8 % 02/13/23 03:25 Lymph % (Auto) 31.8 % 02/13/23 03:25 [place] % (Auto) 9.4 % 02/13/23 03:25 Eos % (Auto) 2.3 % 02/13/23 03:25 Baso % (Auto) 0.5 % 02/13/23 03:25 Neut # (Auto) 4.86 10^3/uL (1.8-7.7) 02/13/23 03:25 Lymph # (Auto) 2.8 10^3/uL (0.8-4.8) 02/13/23 03:25 [place] # (Auto) 0.8 10^3/uL (0.2-0.9) 02/13/23 03:25 Eos # (Auto) 0.2 10^3/uL (0.0-0.8) 02/13/23 03:25 Baso # (Auto) 0.0 10^3/uL (0.0-0.1) 02/13/23 03:25 Nucleated RBC % (auto) 0 % 02/13/23 03:25 Nucleated RBCs # 0.0 /100WBC 02/13/23 03:25 APTT > 250.0 SECONDS (23.9-36.7) H* 02/12/23 09:51 Sodium 141 mmol/L (136-145) 02/13/23 03:25 Potassium 3.8 mmol/L (3.5-5.1) 02/13/23 03:25 Chloride 108 mmol/L (98-107) H 02/13/23 03:25 Carbon Dioxide 21 mmol/L (22-29) L 02/13/23 03:25 Anion Gap 15.8 (5-19) 02/13/23 03:25 BUN 15 mg/dL (8-23) 02/13/23 03:25 Creatinine 1.0 mg/dL (0.7-1.2) 02/13/23 03:25 GFR Calculation Not Reportable 02/13/23 03:25 Glucose 72 mg/dL (65-115) 02/13/23 03:25 Calculated Osmolality 291 mOsm/kg (285-295) 02/13/23 03:25 Calcium 8.6 mg/dL (8.5-10.5) 02/13/23 03:25 Troponin T Gen 5 ng/L 165 ng/L (0-15) H* 02/12/23 14:50 Vitals Last Vital Signs Temp 98.5 F 02/13/23 07:10 Pulse 74 02/13/23 07:30 Resp 16 02/13/23 07:30 BP 140/91 02/13/23 07:10 Pulse Ox 94 02/13/23 07:30 O2 Del Method Room Air 02/13/23 07:30 Discharge Plan Discharge Patient Disposition: Home Prescriptions: New clopidogrel 75 mg Tablet 75 mg PO DAILY Qty: 90 3RF Continued isosorbide mononitrate 20 mg tablet 10 mg PO DAILY aspirin [Adult Aspirin Regimen] 81 mg tablet,delayed release (DR/EC) 81 mg PO DAILY rosuvastatin 40 mg tablet 40 mg PO DAILY budesonide-formoterol [Symbicort] 80-4.5 mcg/actuation HFA aerosol inhaler 2 puff inhalation BID fluticasone propion-salmeterol [Advair Diskus] 250-50 mcg/dose blister with device 1 inh inhalation BID Qty: 60 5RF nitroglycerin [Nitrostat] 0.4 mg tablet, sublingual 0.4 mg sublingual Q5M PRN (Reason: chest pain) Qty: 30 3RF Rx Instructions: do not exceed 3 doses per episode cilostazol 50 mg tablet 50 mg PO BID@, alendronate 70 mg tablet 70 mg PO Q7D Rx Instructions: (Wednesday) at 0600 tamsulosin 0.4 mg capsule 0.4 mg PO BID@06,17 finasteride 5 mg tablet 5 mg PO DAILY@1700 cholecalciferol (vitamin D3) [Vitamin D3] 25 mcg (1,000 unit) tablet 37.5 mcg PO DAILY@0600 Rx Instructions: (1,500 units) famotidine 40 mg tablet 20 mg PO DAILY hydrocodone-acetaminophen 5-325 mg tablet 1 tab PO Q8H PRN (Reason: pain) Qty: 7 0RF Discharge Orders: Discharge Order (Routine); Ordered 02/13/23 Ordered By: Jm Yap Referrals: Jm Yap M.D [Physician] - (Your follow up appointment with Dr. Yap will be scheduled while you are at your Vicenta Villarreal appointment. Thank you.) Vicenta Villarreal FNP [Nurse Practitioner] - 02/22/23 9:00 am Diet: Cardiac Activity: Increase activity as tolerated Patient Instructions: Coronary Artery Disease (DC), Coronary Angioplasty (DC), Post Angiogram Home Care Instructions Discharge Attestations Time Spent in Discharge Care*: less than 30 min Quality Metrics Clinical Quality Measures [ No reported AMI, CVA or VTE this stay] Coding Level of Care Code Acute Code for Chg Fwd Diagnoses
== END 2023-02-13 11:41 | disposition home or self-care (01) ==
LOC: CCL 05:47 → CSU 08:56 → CCL 02-13 07:41 → CSU 02-13 08:35
PROVIDERS: PCP Nurse Practitioner Family; Visit Provider Internal Medicine
DX: I25.118 Atherosclerotic heart disease of native coronary artery with other forms of angina pectoris (principal); J44.9 Chronic obstructive pulmonary disease, unspecified; Z95.1 Presence of aortocoronary bypass graft; Z95.5 Presence of coronary angioplasty implant and graft; R94.39 Abnormal result of other cardiovascular function study; Z79.82 Long term (current) use of aspirin; E78.5 Hyperlipidemia, unspecified; I10 Essential (primary) hypertension; K21.9 Gastro-esophageal reflux disease without esophagitis; F17.210 Nicotine dependence, cigarettes, uncomplicated
CPT/HCPCS: 36415; 80048; 84484; 85025; 85347; 85730; 93455; 94640; 96365; 99152; 99153; C1725; C1760; C1769; C1874; C1887; C1894; C9600; J1644; J2250; J3010; J3490; J7030; J7613; J7626; Q0163; Q9967

== ENCOUNTER → 2023-02-22 08:37 | Outpatient (BNVA) | payer MEDICARE, MEDICAID, SELFPAY | PROVIDERS: PCP Nurse Practitioner Family; Visit Provider Nurse Practitioner Family | DX: I25.118 Atherosclerotic heart disease of native coronary artery with other forms of angina pectoris (principal); I10 Essential (primary) hypertension; F17.210 Nicotine dependence, cigarettes, uncomplicated | CPT/HCPCS: 80048; 99214 ==

== ENCOUNTER → 2023-05-20 09:43 | Outpatient (BNVA) | payer MEDICARE, MEDICAID, SELFPAY | PROVIDERS: PCP Internal Medicine; Visit Provider Internal Medicine Cardiovascular Disease | DX: I25.118 Atherosclerotic heart disease of native coronary artery with other forms of angina pectoris (principal); J44.9 Chronic obstructive pulmonary disease, unspecified; I10 Essential (primary) hypertension; E78.5 Hyperlipidemia, unspecified; I77.9 Disorder of arteries and arterioles, unspecified; F17.210 Nicotine dependence, cigarettes, uncomplicated; Z95.1 Presence of aortocoronary bypass graft | CPT/HCPCS: 99214 ==

== ENCOUNTER 2023-06-07 09:48 | Outpatient (CLI) | payer MEDICARE, MEDICAID, SELFPAY ==
--- NOTE | 2023-06-07 10:15 | USCV_ITS ---
Abrahan Ciaran Age: 78 Gender: M : 1945 Exam Date: 06/07/2023 10:03 Ordering Phys: Ezio Gracia MD (Andy) ([email or web address]) Technologist: CT Exam Location: [facility] [place] Indication: BRUIT Risk Factors: Previous Vascular Surgery: Right Brachial BP: / Left Brachial BP: / Right Left Velocity (cm/s) Spectral Plaque Velocity (cm/s) Spectral Plaque Syst/Diast Broadening Syst/Diast Broadening 48.60/ 12.30 Prox CCA 40.10 / 7.50 43.30/ 13.90 Mid CCA 43.30 / 10.60 32.70/ 10.40 Tee Distal CCA 34.80 / 8.50 Tee 29.50/ 6.80 Prox ICA 19.90 / 8.40 40.40/ 14.10 Mid ICA 31.70 / 12.50 45.40/ 13.40 Distal ICA 26.50 / 9.40 44.10 Tee ECA 38.60 Tee 0.93 ICA/CCA 0.73 Antegrade Vertebral Antegrade 23.00/ 5.90 cm/s 38.50/ 11.20 cm/s Tri Subclavian Tri 56.60 78.60 CONCLUSIONS Right ICA stenosis <50%. Moderate calcified atheromatous plaque right carotid bulb/ICA. Left ICA stenosis <50%. Moderate calcified atheromatous plaque left carotid bulb/ICA. Intimal thickening in the common carotid arteries and internal carotid arteries bilaterally. Normal antegrade Doppler flow noted in the right vertebral artery. Normal antegrade Doppler flow noted in the left vertebral artery. Lukas Chisholm MD (Electronically Signed) Final Date: 07 June 2023 12:52 S
== END 2023-06-07 09:49 | disposition home or self-care (01) ==
PROVIDERS: PCP Internal Medicine; Visit Provider Thoracic Surgery (Cardiothoracic Vascular Surgery)
DX: I65.23 Occlusion and stenosis of bilateral carotid arteries (principal); R55 Syncope and collapse
CPT/HCPCS: 93880

== ENCOUNTER → 2023-06-10 13:57 | Outpatient (BNVA) | payer MEDICARE, MEDICAID, SELFPAY | PROVIDERS: PCP Internal Medicine; Visit Provider Thoracic Surgery (Cardiothoracic Vascular Surgery) | DX: I71.40 Abdominal aortic aneurysm, without rupture, unspecified (principal); F17.210 Nicotine dependence, cigarettes, uncomplicated | CPT/HCPCS: 99213 ==

== ENCOUNTER 2023-10-20 06:07 | Outpatient (CLI) | payer MEDICARE, MEDICAID, SELFPAY ==
--- NOTE | 2023-10-20 06:08 | USCV_ITS ---
Abrahan Ciaran Age: 78 Gender: M : 1945 Exam Date: 10/20/2023 06:11 Ordering Phys: Ezio Gracia MD (Andy) ([email or web address]) Technologist: XAVIER Exam Location: [facility] [place] Indication: KNOWN AAA RECHECK HISTORY: KNOWN AAA Diameter (cm) AP x Transverse x Length Velocity (cm/s) Waveform Prox Aorta: 1.50 x 2.30 x 18.00 Mid Aorta: 2.34 x 2.94 x 19.40 Distal Aorta: 4.43 x 4.37 x 18.70 Right Iliac Prox: 2.21 x 2.21 x 16.40 Left Iliac Prox: 1.34 x 1.38 x 12.20 Stent Prox Landing x x Aneurysmal Sac Max x x Lt Lat Sac Dim Rt Lat Sac Dim Stent Dist Landing x x Right Iliac Stent x x Left Iliac Stent x x Right Renal Art Left Renal Art FINDINGS: Comparison:. 12/07/22 A fusiform abdominal aortic aneurysm is noted with a maximal diameter of 4.4 cm. Slight enlargement from the prior exam of 4.1 cm. Markedly ectatic abdominal aorta with evidence of atherosclerotic plaque noted. There is evidence of atherosclerotic plaque no significan stenosis in the right common iliac artery. Mild ectasia and dilataion to 2.2 cm.there is evidence of atherosclerotic plaque no significan stenosis in the left common iliac artery. CONCLUSIONS AAA, 4.4 cm. Increase in diameter by 2 mm. since the prior exam. Mildly ectatic right common iliac artery. Dr. Roxanna Collazo DO (Electronically Signed) Final Date: 20 October 2023 08:11 S
== END 2023-10-20 06:08 | disposition home or self-care (01) ==
LOC: RAD 06:07
PROVIDERS: PCP Internal Medicine; Visit Provider Thoracic Surgery (Cardiothoracic Vascular Surgery)
DX: I71.40 Abdominal aortic aneurysm, without rupture, unspecified (principal)
CPT/HCPCS: 93978

== ENCOUNTER → 2023-11-02 09:40 | Outpatient (BNVA) | payer MEDICARE, MEDICAID, SELFPAY | PROVIDERS: PCP Family Medicine; Visit Provider Family Medicine | DX: I10 Essential (primary) hypertension (principal); E78.5 Hyperlipidemia, unspecified; N40.0 Benign prostatic hyperplasia without lower urinary tract symptoms; J44.9 Chronic obstructive pulmonary disease, unspecified; Z12.5 Encounter for screening for malignant neoplasm of prostate | CPT/HCPCS: 80053; 80061; 84443; 85025; G0103 ==

== ENCOUNTER → 2023-11-11 10:46 | Outpatient (BNVA) | payer MEDICARE, MEDICAID, SELFPAY | PROVIDERS: PCP Family Medicine; Visit Provider Nurse Practitioner Family | DX: R50.9 Fever, unspecified (principal) | CPT/HCPCS: 71046; 87400 ==

== ENCOUNTER → 2023-12-06 09:31 | Outpatient (BNVA) | payer MEDICARE, MEDICAID, SELFPAY | PROVIDERS: PCP Family Medicine; Visit Provider Internal Medicine Cardiovascular Disease | DX: I25.118 Atherosclerotic heart disease of native coronary artery with other forms of angina pectoris (principal); I10 Essential (primary) hypertension; E78.5 Hyperlipidemia, unspecified; I71.43 Infrarenal abdominal aortic aneurysm, without rupture; I77.9 Disorder of arteries and arterioles, unspecified; F17.210 Nicotine dependence, cigarettes, uncomplicated | CPT/HCPCS: 99214 ==

== ENCOUNTER → 2024-01-03 09:07 | Outpatient (BNVA) | payer MEDICARE, MEDICAID, SELFPAY | PROVIDERS: PCP Family Medicine; Visit Provider Thoracic Surgery (Cardiothoracic Vascular Surgery) | DX: I71.43 Infrarenal abdominal aortic aneurysm, without rupture (principal) | CPT/HCPCS: 99213 ==

== ENCOUNTER 2024-02-07 21:49 | Emergency (ER) | payer MEDICARE, MEDICAID, SELFPAY ==
[2024-02-07 21:56] VITALS: BMI 17.0
[2024-02-07 22:04] VITALS: BP 150/105; PULSE 109; RESP 16; TEMP 36.9; O2SAT 94
--- NOTE | 2024-02-07 22:08 | XRR_ITS ---
PROCEDURE INFORMATION: Exam: XR Chest Exam date and time: 02/07/2024 10:21 PM Age: 78 years old Clinical indication: Pain; Chest pressure; Prior surgery; Surgery date: 6+ months; Surgery type: Heart; Additional info: Cough, cp TECHNIQUE: Imaging protocol: Radiologic exam of the chest. Views: 1 view. COMPARISON: CR XR chest 2V* [id number] 11/11/2023 11:02 AM FINDINGS: Lungs: The lungs are hyperinflated. Stable mild diffuse interstitial prominence. Stable right apical calcified granuloma. No consolidation. Pleural spaces: No pleural effusion or pneumothorax. Minimal stable blunting of the left costophrenic angle likely related to chronic pleural scarring. Heart/Mediastinum: Unremarkable. No cardiomegaly. Vasculature: Atherosclerotic calcifications of the aorta are noted. Bones/joints: The patient is status post sternotomy. XR/XR chest 1V portable [id number] IMPRESSION: No acute cardiopulmonary disease.
--- NOTE | 2024-02-07 22:11 | ED_ITS ---
Documented by User: DONNA Shepherd 02/07/24 23:54 HPI - Back Pain/Injury 2 General: Chief Complaint: Back Pain/Injury Stated Complaint: back/rt arm pain Time Seen by Provider: 02/07/24 21:57 Source: patient Mode of arrival: EMS Limitations: no limitations History of Present Illness: Patient is a 78-year-old male who was brought into the emergency department by ambulance due to upper back pain onset past couple days. Patient is also noting radiation of pain down the right arm, some left chest pain, and an increasingly productive cough. Patient does have a significant cardiac history including 8 stents, on Plavix. He has a history of open heart surgery. History of COPD, does not use oxygen at home. On arrival to the emergency department he is 94% on room air, EMS gave him 2 breathing treatments en route. Patient states that the pain was initially intermittent, though has been constant all day and worsening. His back pain and right arm pain are sharp, and his left chest pain is aching. Has not taken anything for the pain. He also is reporting some worsening of his shortness of breath. He is denying any abdominal pain, fevers, changes in bowel or bladder, syncope, headaches, lightheadedness, or other symptoms at this time. MD elicited complaint: back pain Onset (ago): day(s) Timing: constant and progressively worsening Severity: severe Similar Symptoms Previously: No Quality: sharp Radiation: other (Right arm) Exacerbating factors: none Relieving factors: none Associated symptoms: Deny abdominal pain, chills, dysuria, fatigue, fever(s), nausea or vomiting Review of Systems 2 General: Reports: 10 or more systems reviewed and unremarkable except in HPI and below Const: Denies: fever(s), chills or fatigue Eyes: Denies: change in vision ENMT: Denies: throat pain, ear or mastoid pain or nasal discharge Card: Reports: chest pain; Denies: palpitations, swelling of feet/ankles or lightheadedness Resp: Reports: dyspnea, productive cough and wheezing GI: Denies: abdominal pain, nausea, vomiting, diarrhea or constipation : Denies: flank pain, difficulty urinating, dysuria or urinary frequency Musc: Reports: neck pain, back pain and extremity pain; Denies: joint pain Skin/Breast: Denies: rash Neuro: Denies: headache(s), numbness in extremities or weakness in extremities PFSH ED 2 PFSH: Medical History BPH (benign prostatic hyperplasia) AAA (abdominal aortic aneurysm) without rupture Iliac artery aneurysm, left Essential hypertension Cigarette nicotine dependence Enlarged prostate Hyperlipidemia Lumbar and sacral spondylarthritis Lung nodule COPD (chronic obstructive pulmonary disease) Emphysema lung Osteoporosis GERD (gastroesophageal reflux disease) POLLY (obstructive sleep apnea) TBI (traumatic brain injury) Skin cancer Intermittent claudication Thoracic compression fracture Arteriosclerosis Opioid dependence Peripheral neuropathy History of marijuana use Family hx of hypertension Family history of asthma Family hx of colon cancer Family history of ulcerative colitis Family history of CHF (congestive heart failure) Family history of renal failure Family history of diabetes mellitus Dyslipidemia Former heavy tobacco smoker COPD (chronic obstructive pulmonary disease) Uses 3 L oxygen at night Chronic back pain Coronary artery disease 7 stents Surgical History History of coronary artery bypass graft x 2 History of PTCA S/P CABG (coronary artery bypass graft) 1997 Family History Father , AT AGE 91 Cancer Lung disease Brother Cancer Diabetes Lung disease Mother , AT 88 Stroke Social History Smoking and tobacco/nicotine status: current every day tobacco/nicotine user cigarettes Packs smoked per day: 1 Years cigarettes smoked: 64 [ Other cigarette details: started at age 13] Alcohol intake: never Substance/Drug Use: current Substance/Drug use frequency: daily Marital status: Life Partner Current occupational status: retired Physical Exam 2 Const: COMMON NORMALS: patient oriented x3, no limitations and alert G ENERAL APPEARANCE: cooperative NUTRITIONAL APPEARANCE: underweight O RIENTATION/CONSCIOUSNESS: Yes awake, Yes oriented to person, Yes oriented to place and Yes oriented to time OTHER: Mild respiratory distress HENMT: COMMON NORMALS: normocephalic, atraumatic and hearing grossly normal bilaterally HEAD & SCALP: normocephalic and atraumatic OTHER: Dry oral mucosa Eye: COMMON NORMALS: Equal, round and reactive pupils present, EOMs intact bilaterally and conjunctivae normal CONJUNCTIVA: Yes conjunctivae normal P UPIL: Yes Equal, round and reactive pupils present Neck/C-Spine: COMMON NORMALS: full ROM, supple and no JVD Chest: COMMONS NORMALS: normal inspection of the chest OTHER: Postop sternotomy scar Resp: COMMON NORMALS: No retractions and No use of accessory muscles EFFORT & INSPECTION: Yes symmetric chest movement OTHER: Speaks in choppy sentences, diminished lung sounds throughout with expiratory wheezing Cardio: COMMON NORMALS: no JVD, regular rate, regular rhythm, No clicks present (Cardio), No murmurs present (Cardio) and No rub (Cardio) RATE: r egular rate RHYTHM: regular rhythm GI: COMMON NORMALS: Normal to inspection, nondistended, normoactive bowel sounds present, Soft to palpation and non-tender AUSCULTATION: Yes normoactive bowel sounds PALPATION: Yes Soft to palpation RECTAL EXAM: Yes deferred : COMMON NORMALS: Yes no CVA tenderness BLADDER/KIDNEY EXAM: Yes no CVA tenderness Back/Pelvis: COMMON NORMALS: no CVA tenderness, thoracic and lumbar spine normal to inspection, no thoracic nor lumbar tenderness and thoraco-lumbar ROM normal Extremity: COMMON NORMALS: normal to inspection, full ROM and capillary refill normal Neuro: COMMON NORMALS: patient oriented x3, moves all extremities, no focal motor deficits and no sensory deficits noted SENSORIUM/ORIENTATION: Yes alert, Yes oriented to person, Yes oriented to place and Yes oriented to time Psych: COMMON NORMALS: mental status grossly normal and Normal thought process present THOUGHT PROCESS: Normal thought process present Skin: COMMON NORMALS: no rashes or lesions noted GENERAL SKIN EXAM: no rashes or lesions noted Course 2 Vital Signs: Vital signs: Vital Signs Temperature 98.5 F 02/07/24 22:04 Pulse Rate 97 02/07/24 23:31 Respiratory Rate 16 02/07/24 23:31 Blood Pressure 158/108 02/07/24 23:31 Pulse Oximetry 94 02/07/24 23:31 Oxygen Delivery Me thod Room Air 02/07/24 22:04 MDM - Back Pain/Injury Medical Decision Making Patient presented via ambulance to the emergency department for upper back pain that radiated down his right arm. He additionally had some associated left- sided chest pain with some increased shortness of breath and cough. Chest x-ray did not demonstrate any acute cardiopulmonary disease. His troponin was negative. Rest of his lab work unremarkable. ABG unremarkable. Urinalysis unremarkable. His EKG demonstrated normal sinus rhythm with no acute ST segment changes, rate of 99. I believe that patient is having an exacerbation of his COPD, though mild and not warranting hospital placement at this time due to his normal O2 saturation and negative lab evaluation, specifically his ABG. He does not appear to be in an acidotic state, and will treat at home with antibiotics and steroids. He will continue his breathing treatments at home. Strict return precautions were given however, that would warrant return to the emergency department. He endorses understanding and wants to go home. Labs 02/07/24 23:03 02/07/24 23:03 Radiology Impressions Chest X-Ray 02/07/24 22:08 IMPRESSION: No acute cardiopulmonary disease. Laboratory Results WBC 11.86 10^3/uL (3.29-11.43) H 02/07/24 23: RBC 4.99 10^6/uL (3.85-5.65) 02/07/24 23: Hgb 15.70 g/dL (11.27-16.99) 02/07/24 23: Hct 48.3 % (37-53) 02/07/24 23: MCV 96.8 fl (82-101) 02/07/24 23: MCH 31.5 pg (27-33) 02/07/24 23: MCHC 32.5 g/dL (30-55) 02/07/24 23:03 RDW 13.9 % (12.1-15.1) 02/07/24 23:03 Plt Count 211 10^3/cmm (157-399) 02/07/24 23: MPV 8.9 fL (7.4-10.4) 02/07/24 23:03 Neut % (Auto) 48.1 % 02/07/24 23:03 Lymph % (Auto) 40.6 % 02/07/24 23:03 Terry % (Auto) 8.0 % 02/07/24 23: Eos % (Auto) 2.7 % 02/07/24 23:03 Baso % (Auto) 0.4 % 02/07/24 23:03 Neut # (Auto) 5.71 10^3/uL (1.8-7.7) 02/07/24 23:03 Lymph # (Auto) 4.8 10^3/uL (0.8-4.8) 02/07/24 23:03 Terry # (Auto) 1.0 10^3/uL (0.2-0.9) H 02/07/24 23:03 Eos # (Auto) 0.3 10^3/uL (0.0-0.8) 02/07/24 23:03 Baso # (Auto) 0.1 10^3/uL (0.0-0.1) 02/07/24 23:03 Nucleated RBC % (auto) 0 % 02/07/24 23:03 Nucleated RBCs # 0.0 /100WBC 02/07/24 23:03 Specimen Type Arterial 02/07/24 23:00 Sample Site Brachial, left 02/07/24 23:00 ABG pH 7.43 (7.35-7.45) 02/07/24 23:00 ABG pCO2 40.3 mmHg (35-45) 02/07/24 23:00 ABG pO2 66.9 mmHg (80.0-100.0) L 02/07/24 23:00 ABG HCO3 26.7 mmol/L (22-26) H 02/07/24 23:00 ABG O2 Saturation 95.5 02/07/24 23:00 ABG Base Excess 2.2 mmol/L (-2.0-2.0) H 02/07/24 23:00 Hadyen Test N/a 02/07/24 23:00 A-a O2 Gradient 4.1 mmHg (5-10) L 02/07/24 23:00 Hematocrit 48.1 % (42-52) 02/07/24 23:00 Hgb O2 Saturation 91.6 % (95-100) L 02/07/24 23:00 Carboxyhemoglobin 3.3 %THgb (0.4-20.1) 02/07/24 23:00 Methemoglobin 0.7 % (0.4-1.5) 02/07/24 23:00 Total Hemoglobin 15.7 g/dL (14-18) 02/07/24 23:00 Sodium 142.0 mmol/L (131-143) 02/07/24 23:00 Potassium 3.8 mmol/L (3.5-5.0) 02/07/24 23:00 Glucose 134.0 mg/dL (70-115) H 02/07/24 23:00 Ionized Calcium 1.2 mmol/L (1.1-1.4) 02/07/24 23:00 O2 Delivery Device Room air 02/07/24 23:00 Account Services Analyst ID [email or web address] 02/07/24 23:00 Sodium 141 mmol/L (136-145) 02/07/24 23:03 Potassium 4.1 mmol/L (3.5-5.1) 02/07/24 23:03 Chloride 106 mmol/L (98-107) 02/07/24 23:03 Carbon Dioxide 24 mmol/L (22-29) 02/07/24 23:03 Anion Gap 15.1 (5-19) 02/07/24 23:03 BUN 16 mg/dL (8-23) 02/07/24 23:03 Creatinine 1.0 mg/dL (0.7-1.2) 02/07/24 23:03 GFR Calculation Not Reportable 02/07/24 23:03 Glucose 129 mg/dL (65-115) H 02/07/24 23:03 Calculated Osmolality 295 mOsm/kg (285-295) 02/07/24 23:03 Calcium 9.4 mg/dL (8.5-10.5) 02/07/24 23:03 Total Bilirubin 0.3 mg/dL (0.15-1.2) 02/07/24 23:03 AST 12 U/L (0-40) 02/07/24 23:03 ALT 12 U/L (0-41) 02/07/24 23:03 Alkaline Phosphatase 71 U/L (40-130) 02/07/24 23:03 Troponin T Baseline 13 ng/L (0-15) 02/07/24 23:03 C-Reactive Protein 3.0 mg/L (0.0-4.9) 02/07/24 23:03 NT-Pro-B Natriuret Pep 538 pg/mL (0-450) H 02/07/24 23:03 Total Protein 6.8 g/dL (6.6-8.7) 02/07/24 23:03 Albumin 4.2 g/dL (3.5-5.2) 02/07/24 23:03 Globulin 2.6 g/dL (1.3-4.6) 02/07/24 23:03 Urine Color Yellow (Yellow) 02/07/24 22:41 Urine Appearance Clear (CLEAR) 02/07/24 22:41 Urine pH 5 (5-7) 02/07/24 22:41 Ur Specific Elizabeth 1.015 (1.005-1.030) 02/07/24 22:41 Urine Protein Neg (Negative) 02/07/24 22:41 Urine Glucose (UA) Norm (Normal) 02/07/24 22:41 Urine Ketones Negative (Negative) 02/07/24 22:41 Urine Blood 2+ (Negative) H 02/07/24 22:41 Urine Nitrate Negative (Negative) 02/07/24 22:41 Urine Bilirubin Neg (Negative) 02/07/24 22:41 Urine Urobilinogen Norm mg/dL (Negative) 02/07/24 22:41 Ur Leukocyte Esterase Negative (Negative) 02/07/24 22:41 Urine RBC 0-4 /hpf (0-2) H 02/07/24 22:41 Urine WBC 0-4 /hpf (0-5) H 02/07/24 22:41 Ur Squamous Epith Cells 0-4 /hpf (0-5) H 02/07/24 22:41 Amorphous Sediment Not Reportable 02/07/24 22:41 Urine Bacteria Trace /hpf (NONE) 02/07/24 22:41 Ur Oval Fat Bodies 1+ /hpf 02/07/24 22:41 All radiology interpretation(s) finalized by discharge Discharge Plan Discharge Patient Disposition: Home Clinical Impression: RAD (reactive airway disease) Qualifiers: Asthma severity: moderate Asthma persistence: persistent Asthma complication type: with acute exacerbation Qualified Code(s): J45.41 - Moderate persistent asthma with (acute) exacerbation Condition: Stable Prescriptions: New prednisone 20 mg tablet 60 mg PO ONCE 5 Days Qty: 15 0RF azithromycin 500 mg tablet 500 mg PO DAILY 5 Days Qty: 5 0RF No Action isosorbide mononitrate 20 mg tablet 10 mg PO DAILY rosuvastatin 40 mg tablet 40 mg PO DAILY nitroglycerin 0.4 mg tablet, sublingual See Rx Instructions .ROUTE .COMPLEX Qty: 25 0RF Dose Instruction: DISSOLVE 1 TABLET UNDER THE TONGUE EVERY 5 MINUTES NEEDED FOR CHEST PAIN. DO NOT EXCEED A TOTAL OF 3 DOSES IN 15 MINUTES Rx Instructions: DISSOLVE 1 TABLET UNDER THE TONGUE EVERY 5 MINUTES NEEDED FOR CHEST PAIN. DO NOT EXCEED A TOTAL OF 3 DOSES IN 15 MINUTES ceftriaxone 1 gram recon soln 1 g IM ONCE Qty: 1 0RF methylprednisolone acetate 40 mg/mL suspension 40 mg IM ONCE Qty: 1 0RF dexamethasone sodium phosphate 4 mg/mL solution 4 mg IM ONCE Qty: 1 0RF budesonide-formoterol [Symbicort] 80-4.5 mcg/actuation HFA aerosol inhaler 2 puff inhalation BID cilostazol 50 mg tablet 50 mg PO BID@, Qty: 60 3RF alendronate 70 mg tablet 70 mg PO Q7D Rx Instructions: (Wednesday) at 0600 tamsulosin 0.4 mg capsule 0.4 mg PO BID@ finasteride 5 mg tablet 5 mg PO DAILY@1700 cholecalciferol (vitamin D3) [Vitamin D3] 25 mcg (1,000 unit) tablet 37.5 mcg PO DAILY@0600 Rx Instructions: (1,500 units) famotidine 40 mg tablet 20 mg PO DAILY clopidogrel 75 mg Tablet 75 mg PO DAILY Qty: 90 3RF Discharge Orders: Discharge ED (Routine); Ordered 02/07/24 Ordered By: Connor Chou Referrals: Jacque Fermin MD [Primary Care Provider] - Discharge Diet: As Directed Discharge Activity: Increase activity as tolerated Patient Instructions: COPD (Chronic Obstructive Pulmonary Disease) (ED), Reactive Airways Disease (ED) Activity Restrictions/Additional Instructions: Antibiotics as prescribed. Prednisone. Continue breathing treatments at home every 4 hours, every 2 hours if needed. Plenty of fluids. Monitor for any new or worsening symptoms and return for reevaluation. Follow-up with primary care. Coding Level of Care Code ED Steward/Stewardess Lounge for Chg Fwd Documented by User: Alonzo Estrada DO 02/11/24 21:33 HPI - Back Pain/Injury 2 General: Chief Complaint: Back Pain/Injury Stated Complaint: back/rt arm pain Time Seen by Provider: 02/07/24 21:57 [facility] ED 2 PFS: Medical History BPH (benign prostatic hyperplasia) AAA (abdominal aortic aneurysm) without rupture Iliac artery aneurysm, left Essential hypertension Cigarette nicotine dependence Enlarged prostate Hyperlipidemia Lumbar and sacral spondylarthritis Lung nodule COPD (chronic obstructive pulmonary disease) Emphysema lung Osteoporosis GERD (gastroesophageal reflux disease) POLLY (obstructive sleep apnea) TBI (traumatic brain injury) Skin cancer Intermittent claudication Thoracic compression fracture Arteriosclerosis Opioid dependence Peripheral neuropathy History of marijuana use Family hx of hypertension Family history of asthma Family hx of colon cancer Family history of ulcerative colitis Family history of CHF (congestive heart failure) Family history of renal failure Family history of diabetes mellitus Dyslipidemia Former heavy tobacco smoker COPD (chronic obstructive pulmonary disease) Uses 3 L oxygen at night Chronic back pain Coronary artery disease 7 stents Surgical History History of coronary artery bypass graft x 2 History of PTCA S/P CABG (coronary artery bypass graft) 1997 Family History Father , AT AGE 91 Cancer Lung disease Brother Cancer Diabetes Lung disease Mother , AT 88 Stroke Social History Smoking and tobacco/nicotine status: current every day tobacco/nicotine user cigarettes Packs smoked per day: 1 Years cigarettes smoked: 64 [ Other cigarette details: started at age 13] Alcohol intake: never Substance/Drug Use: current Substance/Drug use frequency: daily Marital status: Life Partner Current occupational status: retired Course 2 Vital Signs: Vital signs: Vital Signs Temperature 98.5 F 02/07/24 22:04 Pulse Rate 97 02/07/24 23:31 Respiratory Rate 16 02/07/24 23:31 Blood Pressure 158/108 02/07/24 23:31 Pulse Oximetry 94 02/07/24 23:31 Oxygen Delivery Me thod Room Air 02/07/24 22:04 MDM - Back Pain/Injury Medical Decision Making Patient presented via ambulance to the emergency department for upper back pain that radiated down his right arm. He additionally had some associated left- sided chest pain with some increased shortness of breath and cough. Chest x-ray did not demonstrate any acute cardiopulmonary disease. His troponin was negative. Rest of his lab work unremarkable. ABG unremarkable. Urinalysis unremarkable. His EKG demonstrated normal sinus rhythm with no acute ST segment changes, rate of 99. I believe that patient is having an exacerbation of his COPD, though mild and not warranting hospital placement at this time due to his normal O2 saturation and negative lab evaluation, specifically his ABG. He does not appear to be in an acidotic state, and will treat at home with antibiotics and steroids. He will continue his breathing treatments at home. Strict return precautions were given however, that would warrant return to the emergency department. He endorses understanding and wants to go home. Chart reviewed Labs 02/07/24 23:03 02/07/24 23:03 Radiology Impressions Chest X-Ray 02/07/24 22:08 IMPRESSION: No acute cardiopulmonary disease. Laboratory Results WBC 11.86 10^3/uL (3.29-11.43) H 02/07/24 23:03 RBC 4.99 10^6/uL (3.85-5.65) 02/07/24 23:03 Hgb 15.70 g/dL (11.27-16.99) 02/07/24 23:03 Hct 48.3 % (37-53) 02/07/24 23:03 MCV 96.8 fl (82-101) 02/07/24 23:03 MCH 31.5 pg (27-33) 02/07/24 23:03 MCHC 32.5 g/dL (30-55) 02/07/24 23:03 RDW 13.9 % (12.1-15.1) 02/07/24 23:03 Plt Count 211 10^3/cmm (157-399) 02/07/24 23:03 MPV 8.9 fL (7.4-10.4) 02/07/24 23:03 Neut % (Auto) 48.1 % 02/07/24 23:03 Lymph % (Auto) 40.6 % 02/07/24 23:03 Terry % (Auto) 8.0 % 02/07/24 23:03 Eos % (Auto) 2.7 % 02/07/24 23:03 Baso % (Auto) 0.4 % 02/07/24 23:03 Neut # (Auto) 5.71 10^3/uL (1.8-7.7) 02/07/24 23:03 Lymph # (Auto) 4.8 10^3/uL (0.8-4.8) 02/07/24 23:03 Terry # (Auto) 1.0 10^3/uL (0.2-0.9) H 02/07/24 23:03 Eos # (Auto) 0.3 10^3/uL (0.0-0.8) 02/07/24 23:03 Baso # (Auto) 0.1 10^3/uL (0.0-0.1) 02/07/24 23:03 Nucleated RBC % (auto) 0 % 02/07/24 23:03 Nucleated RBCs # 0.0 /100WBC 02/07/24 23:03 Specimen Type Arterial 02/07/24 23:00 Sample Site Brachial, left 02/07/24 23:00 ABG pH 7.43 (7.35-7.45) 02/07/24 23:00 ABG pCO2 40.3 mmHg (35-45) 02/07/24 23:00 ABG pO2 66.9 mmHg (80.0-100.0) L 02/07/24 23:00 ABG HCO3 26.7 mmol/L (22-26) H 02/07/24 23:00 ABG O2 Saturation 95.5 02/07/24 23:00 ABG Base Excess 2.2 mmol/L (-2.0-2.0) H 02/07/24 23:00 Hayden Test N/a 02/07/24 23:00 A-a O2 Gradient 4.1 mmHg (5-10) L 02/07/24 23:00 Hematocrit 48.1 % (42-52) 02/07/24 23:00 Hgb O2 Saturation 91.6 % (95-100) L 02/07/24 23:00 Carboxyhemoglobin 3.3 %THgb (0.4-20.1) 02/07/24 23:00 Methemoglobin 0.7 % (0.4-1.5) 02/07/24 23:00 Total Hemoglobin 15.7 g/dL (14-18) 02/07/24 23:00 Sodium 142.0 mmol/L (131-143) 02/07/24 23:00 Potassium 3.8 mmol/L (3.5-5.0) 02/07/24 23:00 Glucose 134.0 mg/dL (70-115) H 02/07/24 23:00 Ionized Calcium 1.2 mmol/L (1.1-1.4) 02/07/24 23:00 O2 Delivery Device Room air 02/07/24 23:00 Account Services Analyst ID [email or web address] 02/07/24 23:00 Sodium 141 mmol/L (136-145) 02/07/24 23:03 Potassium 4.1 mmol/L (3.5-5.1) 02/07/24 23:03 Chloride 106 mmol/L (98-107) 02/07/24 23:03 Carbon Dioxide 24 mmol/L (22-29) 02/07/24 23:03 Anion Gap 15.1 (5-19) 02/07/24 23:03 BUN 16 mg/dL (8-23) 02/07/24 23:03 Creatinine 1.0 mg/dL (0.7-1.2) 02/07/24 23:03 GFR Calculation Not Reportable 02/07/24 23:03 Glucose 129 mg/dL (65-115) H 02/07/24 23:03 Calculated Osmolality 295 mOsm/kg (285-295) 02/07/24 23:03 Calcium 9.4 mg/dL (8.5-10.5) 02/07/24 23:03 Total Bilirubin 0.3 mg/dL (0.15-1.2) 02/07/24 23:03 AST 12 U/L (0-40) 02/07/24 23:03 ALT 12 U/L (0-41) 02/07/24 23:03 Alkaline Phosphatase 71 U/L (40-130) 02/07/24 23:03 Troponin T Baseline 13 ng/L (0-15) 02/07/24 23:03 C-Reactive Protein 3.0 mg/L (0.0-4.9) 02/07/24 23:03 NT-Pro-B Natriuret Pep 538 pg/mL (0-450) H 02/07/24 23:03 Total Protein 6.8 g/dL (6.6-8.7) 02/07/24 23:03 Albumin 4.2 g/dL (3.5-5.2) 02/07/24 23:03 Globulin 2.6 g/dL (1.3-4.6) 02/07/24 23:03 Urine Color Yellow (Yellow) 02/07/24 22:41 Urine Appearance Clear (CLEAR) 02/07/24 22:41 Urine pH 5 (5-7) 02/07/24 22:41 Ur Specific Elizabeth 1.015 (1.005-1.030) 02/07/24 22:41 Urine Protein Neg (Negative) 02/07/24 22:41 Urine Glucose (UA) Norm (Normal) 02/07/24 22:41 Urine Ketones Negative (Negative) 02/07/24 22:41 Urine Blood 2+ (Negative) H 02/07/24 22:41 Urine Nitrate Negative (Negative) 02/07/24 22:41 Urine Bilirubin Neg (Negative) 02/07/24 22:41 Urine Urobilinogen Norm mg/dL (Negative) 02/07/24 22:41 Ur Leukocyte Esterase Negative (Negative) 02/07/24 22:41 Urine RBC 0-4 /hpf (0-2) H 02/07/24 22:41 Urine WBC 0-4 /hpf (0-5) H 02/07/24 22:41 Ur Squamous Epith Cells 0-4 /hpf (0-5) H 02/07/24 22:41 Amorphous Sediment Not Reportable 02/07/24 22:41 Urine Bacteria Trace /hpf (NONE) 02/07/24 22:41 Ur Oval Fat Bodies 1+ /hpf 02/07/24 22:41 Discharge Plan Discharge Patient Disposition: Home Clinical Impression: RAD (reactive airway disease) Qualifiers: Asthma severity: moderate Asthma persistence: persistent Asthma complication type: with acute exacerbation Qualified Code(s): J45.41 - Moderate persistent asthma with (acute) exacerbation Condition: Stable Prescriptions: New prednisone 20 mg tablet 60 mg PO ONCE 5 Days Qty: 15 0RF azithromycin 500 mg tablet 500 mg PO DAILY 5 Days Qty: 5 0RF No Action isosorbide mononitrate 20 mg tablet 10 mg PO DAILY rosuvastatin 40 mg tablet 40 mg PO DAILY nitroglycerin 0.4 mg tablet, sublingual See Rx Instructions .ROUTE .COMPLEX Qty: 25 0RF Dose Instruction: DISSOLVE 1 TABLET UNDER THE TONGUE EVERY 5 MINUTES NEEDED FOR CHEST PAIN. DO NOT EXCEED A TOTAL OF 3 DOSES IN 15 MINUTES Rx Instructions: DISSOLVE 1 TABLET UNDER THE TONGUE EVERY 5 MINUTES NEEDED FOR CHEST PAIN. DO NOT EXCEED A TOTAL OF 3 DOSES IN 15 MINUTES ceftriaxone 1 gram recon soln 1 g IM ONCE Qty: 1 0RF methylprednisolone acetate 40 mg/mL suspension 40 mg IM ONCE Qty: 1 0RF dexamethasone sodium phosphate 4 mg/mL solution 4 mg IM ONCE Qty: 1 0RF budesonide-formoterol [Symbicort] 80-4.5 mcg/actuation HFA aerosol inhaler 2 puff inhalation BID cilostazol 50 mg tablet 50 mg PO BID@06,17 Qty: 60 3RF alendronate 70 mg tablet 70 mg PO Q7D Rx Instructions: (Wednesday) at 0600 tamsulosin 0.4 mg capsule 0.4 mg PO BID@,17 finasteride 5 mg tablet 5 mg PO DAILY@1700 cholecalciferol (vitamin D3) [Vitamin D3] 25 mcg (1,000 unit) tablet 37.5 mcg PO DAILY@0600 Rx Instructions: (1,500 units) famotidine 40 mg tablet 20 mg PO DAILY clopidogrel 75 mg Tablet 75 mg PO DAILY Qty: 90 3RF Discharge Orders: Discharge ED (Routine); Ordered 02/07/24 Ordered By: Connor Chou Referrals: Jacque Fermin MD [Primary Care Provider] - Discharge Diet: As Directed Discharge Activity: Increase activity as tolerated Patient Instructions: COPD (Chronic Obstructive Pulmonary Disease) (ED), Reactive Airways Disease (ED) Activity Restrictions/Additional Instructions: Antibiotics as prescribed. Prednisone. Continue breathing treatments at home every 4 hours, every 2 hours if needed. Plenty of fluids. Monitor for any new or worsening symptoms and return for reevaluation. Follow-up with primary care. Coding Level of Care Code ED Steward/Stewardess Lounge for Andrae Ambrosio
--- NOTE | 2024-02-07 22:36 | ECG_ITS ---
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 Measurements Intervals [place] Rate: 99 P: 82 TN: 182 QRS: 41 QRSD: 94 T: 61 QT: 357 QTc: 458 Interpretive Statements SINUS RHYTHM Compared to ECG 08/26/2022 22:33:36 No significant changes Electronically Signed On 02-08-2024 7:25:03 CDT by Jm Yap M.D. [email or web address]
[2024-02-07 22:47] VITALS: BP 146/108; PULSE 101; RESP 16; O2SAT 93
[2024-02-07 22:59] LABS: Add Urine Microscopic? YES; Bilirubin Urine Neg (Negative); Blood Urine 2+ (Negative); Glucose Urine UA Norm (Normal); Ketones Urine Negative (Negative); Leukocyte Esterase Urine Negative (Negative); Nitrate Urine Negative (Negative); Protein Urine Neg (Negative); Specific Gravity, Urine 1.015 (1.005-1.030); Urine Appearance Clear (CLEAR); Urine Color Yellow (Yellow); Urobilinogen Urine Norm (Negative); pH Urine 5 (5-7)
[2024-02-07 23:00] LABS: Add Urine Culture? No; Bacteria Urine TRACE /hpf; Oval Fat Bodies Urine 1+ /hpf; RBC Urine 0-4 /hpf (0-2); Squamous Epithelial Cell Urine 0-4 /hpf (0-5); WBC Urine 0-4 /hpf (0-5)
[2024-02-07 23:08] LABS: Basophils # 0.1 10^3/uL (0.0-0.1); Basophils % 0.4 %; Eosinophils # 0.3 10^3/uL (0.0-0.8); Eosinophils % 2.7 %; Hematocrit 48.3 % (37-53); Lymphocytes # 4.8 10^3/uL (0.8-4.8); Lymphocytes % 40.6 %; Mean Corpuscular HGB Conc 32.5 g/dL (30-55); Mean Corpuscular Hemoglobin 31.5 pg (27-33); Mean Corpuscular Volume 96.8 fl (82-101); Mean Platelet Volume 8.9 fL (7.4-10.4); Neutrophils # 5.71 10^3/uL (1.8-7.7); Neutrophils % 48.1 %; Nucleated Red Blood Cells % 0 %; Platelet Count 211 10^3/cmm (157-399); Red Blood Count 4.99 10^6/uL (3.85-5.65); Red Cell Distribution Width 13.9 % (12.1-15.1); White Blood Count 11.86 10^3/uL (3.29-11.43)
[2024-02-07 23:13] LABS: ABG PCO2 40.3 mmHg (35-45); ABG PH Result 7.43 (7.35-7.45); Alveolar-Arterial Oxygen Gradi 4.1 mmHg (5-10); Arterial Blood Gas Hematocrit 48.1 % (42-52); Base Excess ABG 2.2 mmol/L (-2.0-2.0); Blood Gas Sample Site Brachial, left; Blood Gas Sample Type Arterial; Carboxyhemoglobin 3.3 %THgb (0.4-20.1); HCO3 ABG 26.7 mmol/L (22-26); HGB O2 Sat 91.6 % (95-100); Ionized Calcium Level - ABG 1.2 mmol/L (1.1-1.4); Methemoglobin 0.7 % (0.4-1.5); Oxygen Device ROOM AIR; Oxygen Saturation ABG 95.5; PO2 ABG 66.9 mmHg (80.0-100.0); Potassium Level - ABG 3.8 mmol/L (3.5-5.0); Total Hemoglobin 15.7 g/dL (14-18)
[2024-02-07 23:29] LABS: Troponin(5th) Baseline 13 ng/L (0-15)
[2024-02-07 23:31] VITALS: BP 158/108; PULSE 97; RESP 16; O2SAT 94
[2024-02-07 23:39] LABS: Alanine Aminotransferase 12 U/L (0-41); Albumin Level 4.2 g/dL (3.5-5.2); Alkaline Phosphatase 71 U/L (40-130); Anion Gap 15.1 (5-19); Aspartate Amino Transferase 12 U/L (0-40); Blood Urea Nitrogen 16 mg/dL (8-23); Calcium 9.4 mg/dL (8.5-10.5); Carbon Dioxide 24 mmol/L (22-29); Chloride 106 mmol/L (98-107); Creatinine Clr Calc Pharmacy 48.4208; Globulin 2.6 g/dL (1.3-4.6); Glucose 129 mg/dL (65-115); NT Pro B Type Natriuretic Pept 538 pg/mL (0-450); Osmolality Calculated 295 mOsm/kg (285-295); Potassium 4.1 mmol/L (3.5-5.1); Sodium 141 mmol/L (136-145); Total Bilirubin 0.3 mg/dL (0.15-1.2); Total Protein 6.8 g/dL (6.6-8.7)
[2024-02-07 23:41] LABS: Slide Review Slide Review Perform
--- NOTE | 2024-02-07 23:47 | PC.RESP ---
RT phone did not receive notification of ABG when ordered. Physician notified of this.
[2024-02-07] MEDS: methylPREDNISolone sod succ 125 mg/2 mL INJ IVP (23:56)
[2024-02-07] MEDS: azithromycin 250 mg Tablet 500 MG PO (23:56)
== END 2024-02-08 | disposition home or self-care (01) ==
PROVIDERS: Emergency Provider Physician Assistant; PCP Family Medicine
DX: J45.41 Moderate persistent asthma with (acute) exacerbation (principal); Z79.02 Long term (current) use of antithrombotics/antiplatelets; F17.210 Nicotine dependence, cigarettes, uncomplicated; Z95.1 Presence of aortocoronary bypass graft; J44.9 Chronic obstructive pulmonary disease, unspecified; E78.5 Hyperlipidemia, unspecified; I25.10 Atherosclerotic heart disease of native coronary artery without angina pectoris; I10 Essential (primary) hypertension
CPT/HCPCS: 36600; 71045; 80051; 80053; 81001; 82330; 82805; 83880; 84484; 85025; 86140; 93005; 96374; 99285; J2919; Q0144

== ENCOUNTER → 2024-06-06 09:39 | Outpatient (BNVA) | payer MEDICARE, MEDICAID, SELFPAY | PROVIDERS: PCP Family Medicine; Visit Provider Nurse Practitioner Family | DX: I25.10 Atherosclerotic heart disease of native coronary artery without angina pectoris (principal); I10 Essential (primary) hypertension; I71.43 Infrarenal abdominal aortic aneurysm, without rupture; F17.210 Nicotine dependence, cigarettes, uncomplicated | CPT/HCPCS: 99214 ==

== ENCOUNTER 2024-07-25 06:51 | Outpatient (CLI) | payer MEDICARE, MEDICAID, SELFPAY ==
--- NOTE | 2024-07-25 07:15 | USCV_ITS ---
Ciaran Gauthier Age: 79 Gender: M : 1945 Exam Date: 07/25/2024 07:02 Ordering Phys: Ezio Gracia MD (Andy) ([email or web address]) Technologist: PRANEETH [place] [facility] [place]: AAA HISTORY: Diameter (cm) AP x Transverse x Length Velocity (cm/s) Waveform Prox Aorta: 2.20 x 2.10 x 40.50 Triphasic Mid Aorta: 2.50 x 2.10 x 46.60 Triphasic Distal Aorta: 4.50 x 4.80 x 7.80 21.30 Triphasic Right Iliac Prox: 1.82 x 1.75 x 28.30 Triphasic Left Iliac Prox: 2.82 x 2.67 x 27.40 Triphasic Stent Prox Landing x x Aneurysmal Sac Max x x Lt Lat Sac Dim Rt Lat Sac Dim Stent Dist Landing x x Right Iliac Stent x x Left Iliac Stent x x Right Renal Art Left Renal Art FINDINGS: Comparison:. 10/20/23 Slight increase in size of the AAA since the most recent exam. Maximum diameter or 4.8 may include part of the iliac artery. Consider CTA for more accurate respresentation of the size change. There is evidence of atherosclerotic plaque no significan stenosis in the right common iliac artery. There is evidence of atherosclerotic plaque no significan stenosis in the left common iliac artery. Dilated left iliac artery. CONCLUSIONS Progression of AAA size since the prior exam. Progression may be falsely elevated due to inclusion of the iliac artery. Recommend CTA aorta for more accurated evaluation of the AAA and iliac arteries. Dr. Roxanna Collazo DO (Electronically Signed) Final Date: 25 July 2024 09:38 S
== END 2024-07-25 06:52 | disposition home or self-care (01) ==
LOC: RAD 06:52
PROVIDERS: PCP Nurse Practitioner Family; Visit Provider Thoracic Surgery (Cardiothoracic Vascular Surgery)
DX: I71.40 Abdominal aortic aneurysm, without rupture, unspecified (principal)
CPT/HCPCS: 93978

== ENCOUNTER → 2024-08-10 11:12 | Outpatient (BNVA) | payer MEDICARE, MEDICAID, SELFPAY | PROVIDERS: PCP Nurse Practitioner Family; Visit Provider Nurse Practitioner Family | DX: I10 Essential (primary) hypertension (principal); I71.43 Infrarenal abdominal aortic aneurysm, without rupture; E55.9 Vitamin D deficiency, unspecified | CPT/HCPCS: 80053; 80061; 82306; 84443; 85025 ==

== ENCOUNTER 2024-08-22 12:38 | Outpatient (CLI) | payer MEDICARE, MEDICAID, SELFPAY ==
--- NOTE | 2024-08-22 13:00 | XR_ITS ---
WS: [id number] SCREENING DEXA SCAN [facility] CLINICAL INFORMATION: M81.0 - Age-related osteoporosis without current patholog... COMPARISON: None. FINDINGS: The L1-L4 bone mineral density measures 1.162 g/cm2. This corresponds to a T score score of -0.5 and Z score of 0.9. Left femoral neck bone mineral density measures 0.875 g/cm2. This corresponds to a T score of -1.6 an d Z score of -0.1. Right femoral neck bone mineral density measures 0.913 g/cm2. This corresponds to a T score -1.3of an d Z score of 0.2. Mean femoral neck bone mineral density measures 0.894 g/cm2. This corresponds to a T score of -1.4 an d Z score of 0.0. XR/XR DEXA axial skeleton* [id number] IMPRESSION: Normal bone mineralization lumbar spine. Osteopenia femoral necks. Patient's FRAX calculated 10 year probability for major osteoporotic fracture i s 6.1% and osteoporotic hip fracture is 3.2%.
== END 2024-08-22 12:39 | disposition home or self-care (01) ==
LOC: RAD 12:38
PROVIDERS: PCP Nurse Practitioner Family; Visit Provider Nurse Practitioner Family
DX: Z13.820 Encounter for screening for osteoporosis (principal); M85.80 Other specified disorders of bone density and structure, unspecified site; M81.0 Age-related osteoporosis without current pathological fracture
CPT/HCPCS: 77080

== ENCOUNTER 2024-08-25 07:37 | Outpatient (CLI) | payer MEDICARE, MEDICAID, SELFPAY ==
--- NOTE | 2024-08-25 08:00 | CTR_ITS ---
PROCEDURE INFORMATION: Exam: CTA Abdomen and Pelvis With Contrast Exam date and time: 08/25/2024 7:51 AM Age: 79 years old Clinical indication: Condition or disease; Other: Aaa; Arterial aneurysm; Without rupture; Abdominal; Additional info: Slowly enlarging aaa (4.8cm on recent u/s) TECHNIQUE: Imaging protocol: Computed tomographic angiography of the abdomen and pelvis with contrast. Exam focused on the arteries. 3D rendering (Not supervised by radiologist): MIP and/or 3D reconstructed images were created by the technologist. Radiation optimization: All CT scans at this facility use at least one of these dose optimization techniques: automated exposure control; mA and/or kV adjustment per patient size (includes targeted exams where dose is matched to clinical indication); or iterative reconstruction. Contrast material: OMNI 350; Contrast volume: 100 ml; Contrast route: INTRAVENOUS (IV); COMPARISON: CT angio abdomen pelvis [id number] 08/05/2021 1:42 PM RADIATION DOSE METRICS: Total DLP (mGy-cm): 187.98 FINDINGS: Lungs: Imaged lower chest remarkable for features of moderate to severe pulmonary emphysema, areas of bronchial wall thickening, interstitial reticulation and linear and streaky areas of scar and/or atelectasis. Diaphragm: Small hiatal hernia. Aorta: Interval increase in infrarenal abdominal aortic aneurysm currently measuring up to 5.0 cm as measured on series 5, image 83 compared with a maximum of 4.1 cm previously. No acute complication is seen. At the level of the diaphragmatic hiatus of the or aorta measures 3.3 cm. The level of the renal arteries the aorta measures 3.0 cm. Celiac trunk and mesenteric arteries: Celiac artery and SMA are widely patent. MARTI is patent. Renal arteries: Bilateral renal arteries are widely patent. Right iliac arteries: The right common iliac artery measures 2.4 cm in the left common iliac artery measures 3.0 cm. There are multilevel areas of mild stenosis involving the right external iliac artery. Left iliac arteries: Focal area of high-grade stenosis associated with adjacent thrombosed saccular aneurysm of the mid left external iliac artery on series 40 level of the aneurysm measures 1.5 cm. Liver: Daniel's configuration of the liver with no significant focal pathology. Gallbladder and biliary ducts: No significant gallbladder pathology. No biliary dilatation. Pancreas: No significant pancreatic pathology. Spleen: No significant splenic pathology. Adrenal glands: No significant adrenal pathology. Kidneys and ureters: Benign-appearing renal cortical cysts again noted with the largest located on the left measuring 4.3 cm. Stomach and bowel: Colonic diverticulosis without evidence of focal inflammatory change. Appendix: Appendix within normal limits. Intraperitoneal space: No ascites. Lymph nodes: No evidence of lymphadenopathy. Urinary bladder: Bladder wall thickening and diverticulum formation noted. Reproductive: Moderate prostatomegaly. Bones/joints: Moderate compression fracture deformity of T12 vertebral body unchanged compared with the prior studies. Mild degenerative change also seen in the lumbar spine. Mild reverse listhesis of L4 on L5. Soft tissues: Unremarkable. CT/CT angio abdomen pelvis [id number] IMPRESSION: 1. 5.0 cm infrarenal abdominal aortic aneurysm, increased compared with 4.1 cm on 08/05/2021. No acute complication evident. Focal areas of high-grade stenosis involving the left external iliac artery adjacent to a thrombosed saccular aneurysm. 2. Minor findings noted above including features of bladder outlet obstruction, colonic diverticulosis and pulmonary emphysema and basilar pulmonary abnormalities .
[2024-08-25] MEDS: iohexol 350 mg/mL 500 mL Btl (per mL) IV (08:05)
== END 2024-08-25 07:38 | disposition home or self-care (01) ==
PROVIDERS: PCP Nurse Practitioner Family; Visit Provider Thoracic Surgery (Cardiothoracic Vascular Surgery)
DX: I71.43 Infrarenal abdominal aortic aneurysm, without rupture (principal); I72.3 Aneurysm of iliac artery; Q44.79 Other congenital malformations of liver; Q61.02 Congenital multiple renal cysts; N40.0 Benign prostatic hyperplasia without lower urinary tract symptoms; S22.080D Wedge compression fracture of T11-T12 vertebra, subsequent encounter for fracture with routine healing
CPT/HCPCS: 74174

== ENCOUNTER → 2024-09-28 11:54 | Outpatient (BNVA) | payer OTHER, MEDICAID, SELFPAY | PROVIDERS: PCP Nurse Practitioner Family; Visit Provider Nurse Practitioner Family | DX: I70.0 Atherosclerosis of aorta (principal); S22.080A Wedge compression fracture of T11-T12 vertebra, initial encounter for closed fracture; X58.XXXA Exposure to other specified factors, initial encounter | CPT/HCPCS: 71046; 87400; 87426 ==

== ENCOUNTER 2024-10-12 09:34 | Outpatient (CLI) | payer MEDICARE, MEDICAID, SELFPAY ==
--- NOTE | 2024-10-12 10:15 | MR_ITS ---
WS: [id number] MRI HEAD WITHOUT CONTRAST TECHNIQUE: Sagittal T1, T2 axial, T2 axial FLAIR, axial and coronal T1 images, axial susceptibility weighted imaging, axial diffusion weighted images, and coronal T2 images were obtained. CLINICAL INFORMATION: R29.90 - Unspecified symptoms and signs involving the ner... COMPARISON: MRI 10/06/2020 FINDINGS: No evidence of restricted diffusion to suggest acute ischemia. Ventricular system and basal cisterns are patent. Moderate small vessel changes with moderate parenchymal volume loss. Small vessel changes in the dru. Chronic infarct RIGHT temporal lobe with encephalomalacia and gliosis. Chronic infarct RIGHT basal ganglia. Normal posterior fossa. Incidental natalie cisterna magna. Normal vascular flow voids at the skull base. No extra-axial fluid collections. RIGHT frontal sinusitis with air-fluid levels. Maxillary sinusitis. Air-fluid levels in the maxillary sinuses. Mastoid air cells are well aerated. Normal optic chiasm and pituitary infundibulum. Chronic hemosiderin in the LEFT frontal lobe RIGHT basal ganglia and RIGHT temporal lobe anteriorly MR/MR head wo con* [id number] IMPRESSION: 1. No evidence of restricted diffusion to suggest acute ischemia. 2. Moderate small vessel changes with moderate parenchymal volume loss slightl y progressed since 2020. 3. Chronic infarcts described above. 4. Paranasal sinusitis with air-fluid levels in the RIGHT frontal sinus and ma xillary sinuses bilaterally.
== END 2024-10-12 09:35 | disposition home or self-care (01) ==
LOC: RAD 09:38
PROVIDERS: PCP Nurse Practitioner Family; Visit Provider Nurse Practitioner Family
DX: R29.90 Unspecified symptoms and signs involving the nervous system (principal); Z86.73 Personal history of transient ischemic attack (TIA), and cerebral infarction without residual deficits; F03.90 Unspecified dementia, unspecified severity, without behavioral disturbance, psychotic disturbance, mood disturbance, and anxiety; R29.6 Repeated falls; R93.0 Abnormal findings on diagnostic imaging of skull and head, not elsewhere classified; J32.8 Other chronic sinusitis; I63.89 Other cerebral infarction; G93.89 Other specified disorders of brain
CPT/HCPCS: 70551

== ENCOUNTER → 2024-12-18 09:43 | Outpatient (BNVA) | payer MEDICARE, MEDICAID, SELFPAY | PROVIDERS: PCP Nurse Practitioner Family; Visit Provider Internal Medicine Cardiovascular Disease | DX: I25.10 Atherosclerotic heart disease of native coronary artery without angina pectoris (principal); I10 Essential (primary) hypertension; E78.5 Hyperlipidemia, unspecified; I71.43 Infrarenal abdominal aortic aneurysm, without rupture; I73.9 Peripheral vascular disease, unspecified; Z95.5 Presence of coronary angioplasty implant and graft; Z95.1 Presence of aortocoronary bypass graft; Z79.01 Long term (current) use of anticoagulants; F17.210 Nicotine dependence, cigarettes, uncomplicated | CPT/HCPCS: 99214 ==

== ENCOUNTER 2024-12-27 09:52 | Outpatient (CLI) | payer MEDICARE, MEDICAID, SELFPAY ==
--- NOTE | 2024-12-27 11:00 | USR_ITS ---
PROCEDURE INFORMATION: Exam: US Duplex Bilateral Lower Extremity Arteries Exam date and time: 12/27/2024 10:26 AM Age: 79 years old Clinical indication: Pain; Leg, lower; Bilateral; Additional info: Leg pain TECHNIQUE: Imaging protocol: Real-time ultrasound scan of the arteries of the bilateral lower extremities with 2-D lynn scale, color Doppler flow and spectral waveform analysis. Images documented and saved. COMPARISON: US CV venous duplex [facility] [id number] 10/06/2020 12:46 PM FINDINGS: Right common femoral artery: No occlusion or significant stenosis. Normal waveform. Right superficial femoral artery: No occlusion or significant stenosis. Normal waveform. Right popliteal artery: No occlusion or significant stenosis. Normal waveform. Right calf/foot arteries: No occlusion or significant stenosis in the visualized arteries. Normal waveforms. Dorsalis pedis artery is patent. Left common femoral artery: No occlusion or significant stenosis. Normal waveform. Left superficial femoral artery: No occlusion or significant stenosis. Normal waveform. Left popliteal artery: No occlusion or significant stenosis. Normal waveform. Left calf/foot arteries: No occlusion or significant stenosis in the visualized arteries. Normal waveforms. Dorsalis pedis artery is patent. US/CV arterial duplex [facility] [id number] IMPRESSION: No Doppler or ultrasound evidence of arterial insufficiency in either lower extremity.
== END 2024-12-27 09:53 | disposition home or self-care (01) ==
LOC: RAD 09:54
PROVIDERS: PCP Nurse Practitioner Family; Visit Provider Internal Medicine Cardiovascular Disease
DX: I73.9 Peripheral vascular disease, unspecified (principal)
CPT/HCPCS: 93925

== ENCOUNTER → 2025-01-22 09:07 | Outpatient (BNVA) | payer MEDICARE, MEDICAID, SELFPAY | PROVIDERS: PCP Nurse Practitioner Family; Visit Provider Nurse Practitioner Family | DX: L72.0 Epidermal cyst (principal); D36.15 Benign neoplasm of peripheral nerves and autonomic nervous system of abdomen; D36.14 Benign neoplasm of peripheral nerves and autonomic nervous system of thorax; L81.4 Other melanin hyperpigmentation; L82.1 Other seborrheic keratosis; D48.5 Neoplasm of uncertain behavior of skin; L57.0 Actinic keratosis | CPT/HCPCS: 11102; 17000; 99203 ==

== ENCOUNTER → 2025-01-31 10:59 | Outpatient (BNVA) | payer MEDICARE, MEDICAID, SELFPAY | PROVIDERS: PCP Nurse Practitioner Family; Visit Provider Dermatology | DX: D04.5 Carcinoma in situ of skin of trunk (principal); D04.61 Carcinoma in situ of skin of right upper limb, including shoulder | CPT/HCPCS: 99214 ==

== ENCOUNTER 2025-02-21 06:54 | Outpatient (CLI) | payer MEDICARE, MEDICAID, SELFPAY ==
[2025-02-21 07:30] VITALS: PULSE 101; RESP 20; O2SAT 92
[2025-02-21] MEDS: albuterol 2.5 mg/3 mL Neb INHALATION (07:30)
== END 2025-02-21 06:55 | disposition home or self-care (01) ==
LOC: RT 06:58
PROVIDERS: PCP Nurse Practitioner Family; Visit Provider Nurse Practitioner Family
DX: J44.9 Chronic obstructive pulmonary disease, unspecified (principal); R94.2 Abnormal results of pulmonary function studies
CPT/HCPCS: 94060; J7613

== ENCOUNTER → 2025-04-02 12:03 | Outpatient (BNVA) | payer MEDICARE, MEDICAID, SELFPAY | PROVIDERS: PCP Nurse Practitioner Family; Visit Provider Nurse Practitioner Family | DX: J44.9 Chronic obstructive pulmonary disease, unspecified (principal); R63.4 Abnormal weight loss; I10 Essential (primary) hypertension | CPT/HCPCS: 80053; 80061; 83615; 84443; 85025; 85651; 86140 ==

== ENCOUNTER 2025-04-05 14:26 | Outpatient (CLI) | payer MEDICARE, MEDICAID, SELFPAY ==
[2025-04-05] MEDS: iohexol 350 mg/mL 500 mL Btl (per mL) IV (14:53)
--- NOTE | 2025-04-05 15:00 | CT_ITS ---
WS: [id number] CT CHEST TECHNIQUE: Contrast enhanced CT of the chest with coronal and sagittal reformatted images. CLINICAL INFORMATION: J44.9 - Chronic obstructive pulmonary disease, unspecified COMPARISON: 2021 DLP: 225.[address] scans at [facility] use at least one of these dose optimization techniques: automated exposure control; mA and/or kV adjustment per patient size (includes targeted exams where dose is matched to clinical indication); or iterative reconstruction. FINDINGS: Hyperinflation. Sternotomy. Advanced chronic emphysematous changes. Aortic calcification. Coronary calcification. Prior sternotomy. CABG. No mediastinal or hilar lymphadenopathy. No axillary lymphadenopathy. New area of spiculation in the LEFT upper lobe about the LEFT upper hilum. This measures approximately 1.2 cm. This is indeterminate and recommend 3-month follow-up and/or further evaluation with PET/CT. Subsegmental atelectasis RIGHT lower lobe. No other new suspicious pulmonary parenchymal abnormalities. Small esophageal hiatal hernia. Stable compression fracture T12. Slightly dilated ascending thoracic aorta measuring 3.8 cm. Celiac and SMA are patent in the upper abdomen. LEFT renal cysts. Fatty atrophy of the pancreas. Moderate thoracic kyphosis. Chronic anterior wedging in the lower thoracic spine. CT/CT chest w con* [id number] IMPRESSION: 1. New semisolid spiculated opacity in the LEFT upper lobe measuring 1.2 cm. T his is new since 2021. This is indeterminate and recommend 3-month chest CT fol low-up and/or further evaluation with PET/CT. Developing neoplasm not excluded. 2. Advanced chronic emphysematous change. 3. Stable slightly dilated ascending thoracic aorta measuring 3.8 cm.
== END 2025-04-05 14:27 | disposition home or self-care (01) ==
PROVIDERS: PCP Nurse Practitioner Family; Visit Provider Nurse Practitioner Family
DX: J44.9 Chronic obstructive pulmonary disease, unspecified (principal); R91.8 Other nonspecific abnormal finding of lung field; R63.4 Abnormal weight loss
CPT/HCPCS: 71260

== ENCOUNTER → 2025-05-09 10:17 | Outpatient (BNVA) | payer MEDICARE, MEDICAID, SELFPAY | PROVIDERS: PCP Nurse Practitioner Family; Visit Provider Internal Medicine | DX: J43.9 Emphysema, unspecified (principal); R91.1 Solitary pulmonary nodule; F17.210 Nicotine dependence, cigarettes, uncomplicated | CPT/HCPCS: 99205; 99215; Q3014 ==

== ENCOUNTER 2025-05-15 08:40 | Outpatient (CLI) | payer MEDICARE, MEDICAID, SELFPAY | END 2025-05-15 08:41 | disposition home or self-care (01) | LOC: RT 08:42 | PROVIDERS: PCP Nurse Practitioner Family; Visit Provider Internal Medicine | DX: J44.9 Chronic obstructive pulmonary disease, unspecified (principal) | CPT/HCPCS: 94060; 94726; 94729 ==

== ENCOUNTER 2025-05-18 07:27 | Outpatient (CLI) | payer MEDICAID, OTHER, SELFPAY ==
--- NOTE | 2025-05-18 08:15 | CT_ITS ---
WS: [id number] CT CHEST TECHNIQUE: Noncontrast CT of the chest with coronal and sagittal reformatted images. CLINICAL INFORMATION: Pre procedure COMPARISON: CT chest 04/05/2025. DLP: [address] scans at [facility] use at least one of these dose optimization techniques: automated exposure control; mA and/or kV adjustment per patient size (includes targeted exams where dose is matched to clinical indication); or iterative reconstruction. FINDINGS: PET/CT is scheduled for later today. Please see PET/CT report for further detail Again seen is the semisolid spiculated opacity in the LEFT upper lobe measuring 1.2 by 0.7 cm. Developing neoplasm not excluded as previously discussed. Advanced chronic emphysematous change. This is a slightly more solid appearance today with surrounding spiculation and suspicious morphology. Subsegmental atelectasis RIGHT lower lobe. Hyperinflation. Sternotomy. Advanced chronic emphysematous changes. Aortic calcification. Coronary calcification. Prior sternotomy. CABG. No mediastinal or hilar lymphadenopathy. No axillary lymphadenopathy. Small esophageal hiatal hernia. Prior compression fracture T12 appears stable. Dilated ascending thoracic aorta. Thoracic kyphosis. Partially visualized LEFT renal cysts. CT/CT chest ION (PULM ONLY) [id number] IMPRESSION: Images obtained for navigational bronchoscopy purposes
== END 2025-05-18 07:28 | disposition home or self-care (01) ==
LOC: RAD 07:28
PROVIDERS: PCP Nurse Practitioner Family; Visit Provider Internal Medicine
DX: R91.1 Solitary pulmonary nodule (principal); J98.11 Atelectasis; J43.9 Emphysema, unspecified; Z98.890 Other specified postprocedural states; Z95.1 Presence of aortocoronary bypass graft; K44.9 Diaphragmatic hernia without obstruction or gangrene; I51.7 Cardiomegaly; M40.204 Unspecified kyphosis, thoracic region; N28.1 Cyst of kidney, acquired
CPT/HCPCS: 71250

== ENCOUNTER 2025-05-18 09:16 | Outpatient (CLI) | payer MEDICAID, OTHER, SELFPAY ==
--- NOTE | 2025-05-18 11:00 | PETR_ITS ---
PROCEDURE INFORMATION: Exam: PET/CT Skull Base to Mid-thigh Exam date and time: 05/18/2025 10:33 AM Age: 80 years old Clinical indication: Abnormal findings; Semisolid spiculated opacity in the left upper lobe measuring 1.2 by 0.7 cm. Solitary pulmonary nodule; Additional info: Lung nodule LABS AND CLINICAL REPORTS: Glucose: 94 mg/dl Treatment strategy for malignancy (PET staging): Initial Staging (PI) TECHNIQUE: Imaging protocol: Following at least four-hour fasting and following the injection of radiopharmaceutical, low dose CT images were obtained. Then, PET images were obtained. Attenuation corrected images were constructed using the CT scan. Fused images of PET and CT were reviewed. The standardized uptake values (SUV) reported below are maximum values within a region of interest, expressed in gm/ml. Exam includes orbital meatal line to mid-thigh. SUV normalization method: BodyWeight Radiopharmaceutical: 9.72 mCi F-18 FDG (Fluorodeoxyglucose), IV. Time of imaging post radiopharmaceutical administration: 46 minutes Injection site: RT FOREARM COMPARISON: 1. MR head wo con* [id number] 10/12/2024 10:[address] chest ION (PULM ONLY) [id number] 05/18/2025 8:[address] angio abdomen pelvis [id number] 08/25/2024 7:51 AM FINDINGS: Brain: Partially visualized photopenic right temporal lobe hypodensity compatible with encephalomalacia. Visualized brain has otherwise normal physiologic uptake. Salivary glands: Asymmetric diffuse low-level uptake of right parotid gland with mild asymmetric prominence is likely benign and may be inflammatory versus physiologic with left parotid atrophy. Pharynx: No abnormal uptake. Larynx: No abnormal uptake. Lungs, pleura and trachea: Advanced upper lung predominant emphysematous change. FDG avid spiculated 1.2 cm left upper lobe nodule on axial image 90 shows SUV max 11.0. Right upper lobe calcified granuloma. Bilateral lower lung platelike atelectasis versus scarring. Heart: Normal physiologic uptake. Coronary arteries: Moderate to heavy coronary artery calcification. Prior CABG. Mediastinal space: No abnormal uptake. Diaphragm: Small hiatal hernia with associated FDG uptake. Esophagus: FDG uptake at the distal esophagus and more mildly at the upper esophagus without underlying CT abnormality. Liver: No abnormal uptake. Gallbladder and biliary ducts: No abnormal uptake. Pancreas: No abnormal uptake. Spleen: No abnormal uptake. Calcified granulomata. Adrenal glands: No abnormal uptake. Kidneys and ureters: Normal physiologic uptake. Benign-appearing left renal cysts. Stable short-segment mid to distal left ureteral dilatation measuring 1.1 cm in transverse dimension on axial image 216. Stomach and bowel: Colonic diverticulosis with FDG uptake at slightly thickened proximal sigmoid colon diverticulum on axial image in 226 with SUV max 4.9. Urinary bladder: Lateral right urinary bladder diverticulum. Reproductive: Bilateral hydroceles. Vasculature: No abnormal uptake. Heavy systemic atherosclerotic calcification with increased infrarenal abdominal aortic aneurysm now measuring 5.4 cm (previously 5 cm), stable 3 cm left common iliac artery aneurysm, and stable 2.4 cm right common iliac artery aneurysm. Lymph nodes: No abnormal uptake. No lymphadenopathy in the head, neck, chest, abdomen, pelvis, and extremities. Skeleton: No abnormal uptake in the visualized axial and appendicular skeleton. Stable moderate compression deformity of the superior T12 vertebral body. Degenerative change along the spine, sacroiliac joints, and right hip. Prior median sternotomy. Soft tissues: No abnormal uptake in the visualized head, neck, chest, abdomen, pelvis, and extremities. METRICS: Mediastinal blood pool: SUV mean 1.8 Liver uptake: SUV mean 1.9 PET/PET skull to thigh INIT [id number] IMPRESSION: 1. FDG avid 1.2 cm left upper lobe nodule suspicious for malignancy. No evidence of metastatic disease. 2. Increased size infrarenal abdominal aortic aneurysm measures 5.4 cm, previously 5 cm. Stable bilateral common iliac artery aneurysms. 3. FDG uptake at small hiatal hernia and esophagus is likely inflammatory. 4. Inflamed proximal sigmoid colon diverticulum. 5. Additional chronic and incidental findings as above.
== END 2025-05-18 09:17 | disposition home or self-care (01) ==
PROVIDERS: PCP Nurse Practitioner Family; Visit Provider Internal Medicine
DX: R91.1 Solitary pulmonary nodule (principal)
CPT/HCPCS: 78815; A9552

== ENCOUNTER 2025-05-23 05:41 | Day surgery (SDC) | payer OTHER, MEDICAID, SELFPAY ==
--- NOTE | 2025-05-21 10:17 | PC.NURSE ---
Patient disclosed to this RN that he has had chest pain in the last 2-3 weeks. Patient states that he took nitro immediately. Patient states he did not go to the ER and has not seen a physician since this. patient urged to see a PCP soon. Patient states that he has a cardiology appointment soon.
[2025-05-23] VITALS (10 sets, daily range): BP systolic 120–151; BP diastolic 73–89; PULSE 62–72; RESP 16–17; TEMP 36.2–36.3; O2SAT 94–99; BMI 16.5
--- NOTE | 2025-05-23 06:22 | SC_ITS ---
WS: [id number] C-ARM RADIOGRAPHS CHEST; 100 IMAGES HISTORY: INTRAOP COMPARISON: PET/CT 05/18/[address] 05/18/2025 C-arm is used for intraoperative imaging. Target lesion LEFT upper lobe. SC/C-arm FL for Bronchoscopy IMPRESSION: Intraoperative imaging during navigational bronchoscopy.
--- NOTE | 2025-05-23 06:57 | P.ANESASSM_ITS ---
Pre-Anesthetic Assessment Height/Weight: Height 1.8 m Weight 53.524 kg Temp Pulse Resp BP Pulse Ox O2 Del Method 97.4 F L 70 17 151/89 94 Room Air 05/23/25 06:02 05/23/25 06:02 05/23/25 06:02 05/23/25 06:02 05/23/25 06:02 05/23/25 06:02 Operation Date: 05/23/25 07:00 Proposed Procedures p Bronchoscopy [id number](Not Applicable) - Edward Weaver MD s Ion Robotic Assisted Bronchoscopy(Not Applicable) - Edward Weaver MD s Ebus(Not Applicable) - Edward Weaver MD Familial anesthetic complications: none Was Beta Larry taken within 24 hours: N/A Was Clonidine taken within 24 hours: N/A Last intake: Intake Last Liquid Date 05/22/25 Last Liquid Time 17:00 Last Solid Date 05/22/25 Last Solid Time 17:00 Social Tobacco and No alcohol Exam alert, oriented x 3, clear to auscultation bilaterally (wheeze) and regular rate & rhythm Airway Mallampati: Class II Dentition: other (none) Pulmonary Chronic Obstructive Pulmonary Disease CV/HEM Atrial Fibrillation, Coronary Artery Disease and Peripheral Vascular Disease GI Gastroesophageal Reflux Disease Metabolic Hyperlipidemia Anesthetic Plan ASA status: 4 Anesthesia: General Risk of > 500 ml blood loss (7ml/kg in children): No Medications/Allergies Home Medications ?Medication ?Instructions ?Recorded ?Confirmed ?Last Taken ?Type albuterol sulfate 90 mcg/actuation 2 puff inhalation Q ID PRN 02/05/25 05/21/25 05/20/25 Rx aerosol inhaler shortness of breath or wheez ing #8.5 grams famotidine 40 mg tablet 40 mg PO DAILY #90 tabs 10/3105/21/25 05/21/25 Rx fluticasone fur. 200 mcg-umeclid 1 inh inhalation SWATI Y #60 ea 02/05/25 05/21/25 1 Week Ago Rx 62.5 mcg-vilant 25 mcg ~05/14/25 inhalat.powder (Trelegy Ellipta) isosorbide mononitrate 20 mg tablet 10 mg (1/2 x 20 mg ) PO .am #15 tabs 02/05/25 05/21/25 05/21/25 Rx rosuvastatin 40 mg tablet 40 mg PO DAILY #30 tabs 10/3105/21/25 05/21/25 Rx portable oxygen #1 ea 02/08/25 05/21/25 Unkn own Rx nicotine (polacrilex) 2 mg buccal 2 mg buccal Q4H PRN nicotine 05/09/25 05/21/25 05/21/25 Rx lozenge cravings #108 ea tamsulosin 0.4 mg capsule 0.4 mg PO DAILY 05/09/2505/21/25 History cholecalciferol (vitamin D3) 25 25 mcg PO DAILY 05/21/25 05/21/25 History mcg (1,000 unit) tablet cilostazol 50 mg tablet 50 mg PO BID 05/21/2505/21/25 History nitroglycerin 0.4 mg sublingual 0.4 mg sublingual Q5MI N PRN Chest 05/21/25 05/21/25 3 Weeks Ago History tablet Pain ~04/30/25 Allergies Allergy/AdvReac Type Severity Reaction Status Date / Time No Known Allergies Allergy Verified 05/21/25 10:03 Current Medications Generic Name Dose Route Start Last Admin Trade Name Freq PRN Reason Stop Dose Admin Sodium Chloride 1,000 mls @ 15 mls/hr 05/23/25 05:56 05/23/25 06:37 Sodium Chloride 0.9% IV 05/24/25 05:55 15 mls/hr .Q24H PRN Administration COLONOSCOPY FLUIDS PFSH Anesthesia Medical History (Updated 05/09/25 @ 11:17 by ISIDORO Mota) Nodule of left lung Enrolled in chronic care management BPH (benign prostatic hyperplasia) AAA (abdominal aortic aneurysm) without rupture Iliac artery aneurysm, left Essential hypertension Cigarette nicotine dependence Enlarged prostate Hyperlipidemia Lumbar and sacral spondylarthritis Lung nodule COPD (chronic obstructive pulmonary disease) Emphysema lung Osteoporosis GERD (gastroesophageal reflux disease) POLLY (obstructive sleep apnea) TBI (traumatic brain injury) Skin cancer Intermittent claudication Thoracic compression fracture Arteriosclerosis Opioid dependence Peripheral neuropathy History of marijuana use Family hx of hypertension Family history of asthma Family hx of colon cancer Family history of ulcerative colitis Family history of CHF (congestive heart failure) Family history of renal failure Family history of diabetes mellitus Dyslipidemia Former heavy tobacco smoker COPD (chronic obstructive pulmonary disease) Uses 3 L oxygen at night Chronic back pain Coronary artery disease 7 stents Surgical History (Reviewed 05/09/25 @ 10:31 by Lita Maldonado [facility] [address]) History of coronary artery bypass graft x 2 History of PTCA S/P CABG (coronary artery bypass graft) 1997 Family History Father , AT AGE 91 Cancer Lung disease Brother Cancer Diabetes Lung disease Mother , AT 88 Stroke Social History (Reviewed 05/09/25 @ 10:31 by Lita Maldonado [facility] [address]) Smoking and tobacco/nicotine status: current every day tobacco/nicotine user (1 ppd X 44 years. ) cigarettes Packs smoked per day: 1 Years cigarettes smoked: 64 [ Other cigarette details: started at age 13] Alcohol intake: never Substance/Drug Use: current Substance/Drug use frequency: daily Marital status: Life Partner Current occupational status: retired Data Anesthesia Cardiac Studies: Sestamibi Stress Test (Cardiology) 01/22
--- NOTE | 2025-05-23 07:29 | W.PM.OPSUD ---
Surgery/Procedure H&P Update DATE OF PROCEDURE: May 23, 2025 DATE H&P PERFORMED: 05/09/25 PRIMARY INDICATION FOR PROCEDURE: I have seen and examined the patient. We discussed the latest finding on the CAT scan. Discussed the risks and the benefits of the procedure. Including a little bit of a higher risk of bleeding since patient forgot to hold cilostazol. Patient was given the option to postpone the bronchoscopy but unfortunately we will not have the cone beam CT available next week or moving forward. Patient decided and agreed to move forward with the procedure given the high risk of bleeding. Other risks discussed with the patient including collapsed lung, lung injury, pain, nondiagnostic sample, arrhythmia, cardiovascular collapse and . PLANNED PROCEDURE: Operation Date: 05/23/25 07:00 Proposed Procedures p Bronchoscopy [id number](Not Applicable) - Edward Weaver MD s Ion Robotic Assisted Bronchoscopy(Not Applicable) - MD elijah Martin Ebus(Not Applicable) - Edward Weaver MD
[2025-05-23] MEDS: lidocaine 2% INJ 20 mL XX (08:58)
--- NOTE | 2025-05-23 09:01 | P.BOP_ITS ---
Interventional Pulmonary Immediate Brief Operative Note: * Date of Procedure:?May 23, 2025 * Preoperative Diagnosis:?Left upper lobe nodule * Postoperative Diagnosis:?[Same as pre-op] * Procedures Performed: Robotic bronchoscopy with mediastinal staging * Surgeon / Hand Packer/Packager:?Edward Weaver MD * Anesthesia: * ?General anesthesia * Findings: Normal bronchoscopic exam and we were able to find the right upper lobe nodule and patient was found to have mild mediastinal hilar lymphadenopathy * Estimated Blood Loss (EBL):?[Minimal] * Specimens: * ?BAL fluid left upper lobe * ?TBNA from station(s) left upper lobe nodule, 11R, 4R, station 7, 4L and 11L * Forceps biopsy?left upper lobe nodule * Left upper lobe brushings * Complications:?None * Disposition:?Transferred to PACU in stable condition. Edward Weaver MD, FACP Interventional Pulmonogist
--- NOTE | 2025-05-23 09:01 | W.PM.BPON ---
Interventional Pulmonary Immediate Brief Operative Note: Date of Procedure:?May 23, 2025 Preoperative Diagnosis:?Left upper lobe nodule Postoperative Diagnosis:?[Same as pre-op] Procedures Performed: Robotic bronchoscopy with mediastinal staging Surgeon / Industrial Security Analyst:?Edward Weaver MD Anesthesia: ?General anesthesia Findings: Normal bronchoscopic exam and we were able to find the right upper lobe nodule and patient was found to have mild mediastinal hilar lymphadenopathy Estimated Blood Loss (EBL):?[Minimal] Specimens: ?BAL fluid left upper lobe ?TBNA from station(s) left upper lobe nodule, 11R, 4R, station 7, 4L and 11L Forceps biopsy?left upper lobe nodule Left upper lobe brushings Complications:?None Disposition:?Transferred to PACU in stable condition. Edward Weaver MD, FACP Interventional Pulmonogist
--- NOTE | 2025-05-23 09:11 | XR_ITS ---
WS: [id number] XR chest 1V portable [id number] REASON FOR EXAM: POST ION FINDINGS: Sternal sutures and previous coronary artery bypass surgery. Chest and lung configuration indicative of obstructive lung disease. Compared to the previous examination of 09/28/2024, there is an area of vaguely defined opacity in the left lung, lateral to the aortic arch. Significant resolution of left pleural effusion compared to the previous examination. No left pneumothorax. XR/XR chest 1V portable [id number] IMPRESSION: Abnormal chest with interval changes as above.
--- NOTE | 2025-05-23 09:58 | PC.NURSE ---
CRYO USED....[id number]
--- NOTE | 2025-05-23 17:51 | P.OP_ITS ---
Operative Report Date of procedure: May 23, 2025 Pre-op diagnosis: Left upper lobe nodule Post-op diagnosis: Same Procedure done: Robotic bronchoscopy with mediastinal staging Surgeon: Edward Weaver MD Estimated blood loss: Less than 5 cc Complications: None Findings: Procedure: Robotic bronchoscopy with complete mediastinal staging Attending: Edward Weaver MD, FACP, FASN Indication: Left upper lobe nodule Anesthesia: General anesthesia per anesthesia team Procedure: Pre-Anesthesia Assessment [place] Protocol: Pre-procedure Verification: Prior to the procedure, the patient's identity was confirmed using full name, date of , and medical record number. Identity verification included a review of all relevant medical records, history, physical examination, medications, allergies, and previous anesthesia tolerance. Risks, benefits, sedation options, and associated risks were reviewed with the patient, and informed consent was obtained after addressing all questions. Time-Out: Immediately before the procedure, a time-out was conducted to confirm patient identification, procedure details, consent, image labeling, and the need for prophylactic antibiotics. This was verified by the physician, nurse, anesthesiologist, and outpatient interviewing clerk. Outcome: The procedure was completed without difficulty, and the patient tolerated it well. Findings: A thorough airway exam was performed after passage of the bronchoscope. The trachea was anatomically normal. The right sided airway was anatomically normal without endobronchial lesions. Minimal mucoid secretion The left sided airway was anatomically normal without endobronchial lesions. Minimal mucous The prior bronchoscope was removed from the airway. The [employer] Robotic Bronchoscopy platform was moved into place. The robotic bronchoscope was inserted into the endotracheal tube with care. The position of the bronchoscope was registered to a pre-existing CT scan using shape-sensing virtual bronchoscopy technology (46061). We navigated towards the lesion in the left upper lobe nodule using a pre- planned route using virtual bronchoscopy Prior to sampling, confirmation of lesion location was done using: ?- Radial ultrasound probe with no strong signal review and very weak eccentric view (14861), ?- Fluroscopy with a tool overlying the lesion on at least one visual plane. ?- Virtual target located directly within the path of intended biopsy direction on the shape sensing. ?- [facility] Beam intraoperative CT was performed 2 time(s).? The intraoperative CT imaging interpretation was utilized for guidance for needle placement. Imaging interpretation by me shows the persistent lesion as well as a tool within the lesion (36662) ?- CBCT data from the intraoperative imaging was integrated into the ION navigation software and the virtual lesion was updated. After confirming our location, we proceeded to sampling. - Transbronchial needle aspiraiton (TBNA) was performed of the lesion using the 23-gauge ION TBNA needle.? A total of 6 passes were formed. (34884) - Transbronchial biopsies of the lesion were performed using the captura 1.8 mm forceps and 1.1 cryoprobe).? A total of 12 samples were obtained. (55678) - Endobronchial brushings performed down the airway towards the lesion.? A total of 2 brushings were obtained. (96256) - A bronchoalveolar lavage was performed of the lobe containing the target lesion with 90 mL of saline instilled and 30 mL of effluent returned.? Additional rinse from the robotic bronchoscope lumen was added to the sample after removal of the scope. (24986) The prior bronchoscope was removed from the airway and the EBUS scope was inserted. A complete curvilinear EBUS procedure was performed of the following lymph nodes: Level 11R station was identified with the EBUS scope and 4 passes were made using 22-gauge Olympus TBNA needle. Level 4R station was identified with the EBUS scope at the lateral RMSB and 4 passes were made using a 22G Olympus TBNA needle. Level 7 station was identified with the EBUS scope at the medial LMSB/RMSB and 4 passes were made using a 22G Olympus TBNA needle. Level 4L station was identified with the EBUS scope at the lateral LMSB and 4 passes were made using a 22G Olympus TBNA needle Level 11L station was identified with the EBUS scope at the left hilum and 4 passes were made using a 22G Olympus TBNA needle Then using the EBUS TBNA needle, I created track in station 7 lymph node for the 1.1 cryoprobe and I performed transbronchial lymph node biopsy using that 1.1 cryoprobe and I obtained 3 samples. (24947) ? Minimal bleeding post cryobiopsy that required ice cold saline and 4 cc of topical epinephrine (1: 20,000 concentration). Then we achieved complete hemostasis. [place] Bleeding Scale Grade 1 Following completion of all diagnostic and therapeutic procedures, hemostasis was verified.? The scope was removed and procedure concluded. In summary, the following procedures were performed: 63781 [place] (Endobronchial Brushing(s)), 27357 BAL, (Bronchoalveolar Lavage), 40824 TBBX, (Transbronchial biopsies, first lobe), 96913 pTBNA, (peripheral transbronchial needle aspiration), 93570 cEBUS 3 or more lesions, (Central curvelinear EBUS 3 or more lesions), 76127 pEBUS (peripheral/radial EBUS)? , [address] [place], (Navigation bronchoscopy, [employer], [address]), 66637: CT guidance for needle placement, ? Edward Weaver MD, FACP, FASN Interventional Pulmonary Procedure:
== END 2025-05-23 10:15 | disposition home or self-care (01) ==
PROVIDERS: PCP Nurse Practitioner Family; Visit Provider Internal Medicine
PROC: 0BJ08ZZ Inspection of Tracheobronchial Tree, Via Natural or Artificial Opening Endoscopic (ICD-10-PCS; CPT 31622; principal; 2025-05-23 07:00)
PROC: 0BJ08ZZ Inspection of Tracheobronchial Tree, Via Natural or Artificial Opening Endoscopic (ICD-10-PCS; CPT 31622; 2025-05-23 07:00)
PROC: BB4BZZZ Ultrasonography of Pleura (ICD-10-PCS; 2025-05-23 07:00)
DX: C34.12 Malignant neoplasm of upper lobe, left bronchus or lung (principal); J44.9 Chronic obstructive pulmonary disease, unspecified; I48.91 Unspecified atrial fibrillation; I25.10 Atherosclerotic heart disease of native coronary artery without angina pectoris; I73.9 Peripheral vascular disease, unspecified; K21.9 Gastro-esophageal reflux disease without esophagitis; E78.5 Hyperlipidemia, unspecified; Z99.81 Dependence on supplemental oxygen; G47.33 Obstructive sleep apnea (adult) (pediatric); Z95.5 Presence of coronary angioplasty implant and graft; F17.210 Nicotine dependence, cigarettes, uncomplicated; Z86.73 Personal history of transient ischemic attack (TIA), and cerebral infarction without residual deficits
CPT/HCPCS: 31623; 31629; 31653; 31654; 71045; 76000; 87015; 87070; 87102; 87116; 87205; 87206; 87801; 88112; 88173; 88305; 88342; A9270; J1100; J2405; J2704; J3010; J3490; J7030; J9999

== ENCOUNTER 2025-05-24 00:45 | Emergency (ER) | payer OTHER, MEDICAID, SELFPAY ==
--- NOTE | 2025-05-24 00:49 | XRR_ITS ---
PROCEDURE INFORMATION: Exam: XR Chest Exam date and time: 05/24/2025 12:50 AM Age: 80 years old Clinical indication: Shortness of breath; Prior surgery; Surgery date: Post-operative (0-2 days); Surgery type: Lung bx today; Additional info: Shortness of breath post lung biopsy conncern for pneumothorax TECHNIQUE: Imaging protocol: Radiologic exam of the chest. Views: 1 view. COMPARISON: CR XR chest 1V portable [id number] 05/23/2025 9:13 AM FINDINGS: Lungs: Stable right upper lobe calcified granuloma. Emphysematous changes are noted. Left upper lobe pulmonary nodule is better characterized on prior CT from 05/18/2025. No confluent consolidation. Pleural spaces: Trace left pleural effusion is present with associated atelectasis. No pneumothorax is seen. Heart/Mediastinum: Unremarkable. No cardiomegaly. Vasculature: Atherosclerotic changes of the aorta are noted. Bones/joints: Unremarkable. XR/XR chest 1V portable [id number] IMPRESSION: 1. Emphysema 2. Trace left pleural effusion. 3. No pneumothorax is seen.
[2025-05-24 00:50] VITALS: BP 161/93; PULSE 81; RESP 18; TEMP 36.8; O2SAT 96; BMI 16.5
--- OUTSIDE RECORDS SUMMARY | 2025-05-24 00:52 | XMS_ITS | Encounter Summary ---
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 Gender Identity Not on file Sexual Orientation Not on file documented as of this encounter Plan of Treatment Not on file documented as of this encounter Procedures Procedure Name Priority Date/Time Associated Diagnosis Comments POC ACTIVATED CLOTTING TIME Routine 04/09/2005 1:00 PM CDT POC ACTIVATED CLOTTING TIME Routine 04/09/2005 12:15 PM CDT CARDIAC ENZYMES Routine 04/09/2005 8:15 AM CDT CBC WITH DIFFERENTIAL Routine 04/09/2005 8:15 AM CDT PTT Routine 04/09/2005 8:15 AM CDT PROTIME-INR Routine 04/09/2005 8:15 AM CDT BASIC METABOLIC PANEL Routine 04/09/2005 8:15 AM CDT CARDIAC ENZYMES Routine 04/09/2005 2:31 AM CDT CARDIAC ENZYMES Routine 04/08/2005 8:15 PM CDT documented in this encounter Results * (ABNORMAL) POC ACTIVATED CLOTTING TIME (04/09/2005 1:00 PM CDT) ACT POC 156(H) 79 - 149 sec INTERFACE SYSTEM 04/09/2005 1:00 PM CDT Result Hiral Harris MD POINT OF CARE TESTING Final Re sult Performing Organization Address [facility] Phone Number INTERFACE SYSTEM Refer to clinic/hospital department * (ABNORMAL) POC ACTIVATED CLOTTING TIME (04/09/2005 12:15 PM CDT) ACT POC 169(H) 79 - 149 sec INTERFACE SYSTEM 04/09/2005 12:1 5 PM CDT us Isaac Harris MD POINT OF CARE TESTING Final Re sult Performing Organization Address [facility] Phone Number INTERFACE SYSTEM Refer to clinic/hospital department * CARDIAC ENZYMES (04/09/2005 8:15 AM CDT) CKMB 0.2 0.0 - 5.0 ng/mL INTERFACE SYSTEM Comment: As of 04 at 14:30 [facility] has changed the methodology for CK-MB and with this change the reference range has changed from 0-5.5 ng/ml to 0-5.0 ng/ml TROPONIN I <0.1 0.0 - 1.5 ng/mL INTERFACE SYSTEM Comment: As of 04 at 14:30 [facility] has changed the methodology for Troponin but the reference range of 1.5 ng/ml has remained the same. 04/09/2005 8:15 AM CDT Result Hiral Harris MD CHEMISTRY ORDERABLES Final Res ult Performing Organization Address [facility] Phone Number INTERFACE SYSTEM Refer to clinic/hospital department * (ABNORMAL) PTT (04/09/2005 8:15 AM CDT) PTT 38.5(H) 24.3 - 37.5 Secs INTERFACE SYSTEM Comment:Therapeutic Range: 04/09/2005 8:15 AM CDT Isaac Harris MD HEMATOLOGY ORDERABLES Final Re sult Performing Organization Address [facility] Phone Number INTERFACE SYSTEM Refer to clinic/hospital department * PROTIME-INR (04/09/2005 8:15 AM CDT) PROTIME 13.6 12.4 - 14.9 Secs INTERFACE SYSTEM Comment: As of 04 note change in normal range. INR 1.0 INTERFACE SYSTEM Comment: Expected Values for INR: DVT/PE Goal INR 2.5; range 2.0 - 3.0 Valve Replacement Tissue Goal INR 2.5; range 2.0 - 3.0 Mechanical Goal INR 3.0; range 2.5 - 3.5 POST-NE Goal INR 2.5; range 2.0 - 3.0 or Goal 3.0; range 2.5 - 3.5 Atrial Fibrillation Goal INR 2.5; range 2.0 - 3.0 Ischemic Stroke Goal INR 2.5; range 2.0 - 3.0 For additional information see Guidelines for Anticoagulation available from the pharmacy Hortensia Callejas Pharm D. 04/09/2005 8:15 AM CDT Isaac Harris MD HEMATOLOGY ORDERABLES Final Re sult Performing Organization Address [facility] Phone Number INTERFACE SYSTEM Refer to clinic/hospital department * (ABNORMAL) CBC WITH DIFFERENTIAL (04/09/2005 8:15 AM CDT) WBC 5.9 4.8 - 10.8 K/ul INTERFACE SYSTEM RBC 4.38(L) 4.60 - 6.20 Mil/ul INTERFACE SYSTEM HEMOGLOBIN 13.4(L) 14.0 - 18.0 g/dL INTERFACE SYSTEM HEMATOCRIT 41.5 41.0 - 53.0 % INTERFACE SYSTEM MCV 94.7 84.0 - 103.0 Fl INTERFACE SYSTEM MCH 30.6 27.0 - 34.0 pg INTERFACE SYSTEM MCHC 32.3 30.0 - 35.0 g/dL INTERFACE SYSTEM RDW 13.3 11.0 - 14.5 % INTERFACE SYSTEM PLATELETS 243 140 - 440 K/ul INTERFACE SYSTEM MPV 9.4 8.9 - 12.8 Fl INTERFACE SYSTEM NEUTROPHILS 44.9 42.2 - 75.2 % INTERFACE SYSTEM LYMPHOCYTES 42.2 24.0 - 44.0 % INTERFACE SYSTEM MONOCYTES 6.6 2.0 - 10.0 % INTERFACE SYSTEM EOSINOPHILS 5.6 0.0 - 7.0 % INTERFACE SYSTEM BASOPHILS 0.7 0.0 - 1.0 % INTERFACE SYSTEM NEUTROPHIL ABSOLUTE 2.7 2.0 - 8.0 K/uL INTERFACE SYSTEM LYMPHOCYTE ABSOLUTE 2.5 1.2 - 4.0 K/ul INTERFACE SYSTEM MONOCYTE ABSOLUTE 0.4 0.1 - 0.6 K/ul INTERFACE SYSTEM EOSINOPHIL ABSOLUTE 0.3 0.0 - 0.7 K/ul INTERFACE SYSTEM BASOPHILS ABSOLUTE 0.0 0.0 - 0.2 K/ul INTERFACE SYSTEM 04/09/2005 8:15 AM CDT Isaac Harris MD HEMATOLOGY ORDERABLES Final Re sult Performing Organization Address [facility]/ZIP Co de Phone Number INTERFACE SYSTEM Refer to clinic/hospital department * BASIC METABOLIC PANEL (04/09/2005 8:15 AM CDT) GLUCOSE 99 70 - 110 mg/dL INTERFACE SYSTEM BUN 12 9 - 20 mg/dL INTERFACE SYSTEM CREATININE 1.1 0.7 - 1.5 mg/dL INTERFACE SYSTEM SODIUM 143 136 - 145 mEq/L INTERFACE SYSTEM POTASSIUM 3.6 3.5 - 5.0 mEq/L INTERFACE SYSTEM CHLORIDE 108 95 - 110 mEq/L INTERFACE SYSTEM CO2 27 22 - 32 mmol/l INTERFACE SYSTEM ANION GAP 12 9 - 20 mEq/L INTERFACE SYSTEM OSMOLALITY, CALCULATED 292 275 - 295 mOsm/Kg INTERFACE SYSTEM CALCIUM 8.5 8.4 - 10.5 mg/dL INTERFACE SYSTEM 04/09/2005 8:15 AM CDT Isaac Harris MD CHEMISTRY ORDERABLES Final Res ult Performing Organization Address [facility]/ZIP Co de Phone Number INTERFACE SYSTEM Refer to clinic/hospital department * CARDIAC ENZYMES (04/09/2005 2:31 AM CDT) CKMB 0.6 0.0 - 5.0 ng/mL INTERFACE SYSTEM Comment: As of 04 at 14:30 [facility] has changed the methodology for CK-MB and with this change the reference range has changed from 0-5.5 ng/ml to 0-5.0 ng/ml TROPONIN I <0.1 0.0 - 1.5 ng/mL INTERFACE SYSTEM Comment: As of 04 at 14:30 [facility] has changed the methodology for Troponin but the reference range of 1.5 ng/ml has remained the same. 04/09/2005 2:31 AM CDT us Isaac Harris MD CHEMISTRY ORDERABLES Final Res ult Performing Organization Address [facility] de Phone Number INTERFACE SYSTEM Refer to clinic/hospital department * CARDIAC ENZYMES (04/08/2005 8:15 PM CDT) CKMB 0.3 0.0 - 5.0 ng/mL INTERFACE SYSTEM Comment: As of 04 at 14:30 [facility] has changed the methodology for CK-MB and with this change the reference range has changed from 0-5.5 ng/ml to 0-5.0 ng/ml TROPONIN I <0.1 0.0 - 1.5 ng/mL INTERFACE SYSTEM Comment: As of 04 at 14:30 [facility] has changed the methodology for Troponin but the reference range of 1.5 ng/ml has remained the same. 04/08/2005 8:15 PM CDT us Isaac Harris MD CHEMISTRY ORDERABLES Final Res ult Performing Organization Address [facility] Phone Number INTERFACE SYSTEM Refer to clinic/hospital department documented in this encounter Visit Diagnoses Diagnosis Coronary atherosclerosis of [place] coronary artery- Primary documented in this encounter Care Teams Cdl Dedicated Truck Driver Relationship Specialty Start Date End Date Dustin Steel DO [address] [place] [address] PCP - General 04/08/05 documented as of this encounter
--- OUTSIDE RECORDS SUMMARY | 2025-05-24 00:53 | XMS_ITS | Encounter Summary ---
Author Organization [facility] Address [address] [place] [address] Care Team Providers Care Weight Guesser Name Role Phone Dustin Steel Primary Care Provider [phone] Encounter Details Date Type Department Care Team (Late st Contact Info) Description 06/30/2005 Inpatient Historical HIS IN BED Adrian Aranda MD [address] [place] [id number] SUBARACH HEMORRH-COMA NOS (CMS/HCC) (Primary Dx) Social History Tobacco Use Types Packs/Day Years Used Date Smoking Tobacco: Never Assessed Sex and Gender Information Value Date Recorded Sex Assigned at Not on file Legal Sex Male 3:47 AM 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 WASHER Gender Identity Not on file Sexual Orientation Not on file documented as of this encounter Plan of Treatment Not on file documented as of this encounter Procedures Procedure Name Priority Date/Time Associated Diagnosis Comments PHOSPHORUS Routine 07/05/2005 5:52 AM BENZENE WASHER MAGNESIUM LEVEL Routine 07/05/2005 5:52 AM BENZENE WASHER BASIC METABOLIC PANEL Routine 07/05/2005 5:52 AM BENZENE WASHER CBC WITH DIFFERENTIAL Routine 07/04/2005 6:27 AM CDT PHOSPHORUS Routine 07/04/2005 6:27 AM CDT MAGNESIUM LEVEL Routine 07/04/2005 6:27 AM CDT BASIC METABOLIC PANEL Routine 07/04/2005 6:27 AM CDT CBC WITH DIFFERENTIAL Routine 07/03/2005 5:50 AM CDT BASIC METABOLIC PANEL Routine 07/03/2005 5:50 AM CDT CBC WITH DIFFERENTIAL Routine 07/02/2005 6:14 AM CDT BASIC METABOLIC PANEL Routine 07/02/2005 6:14 AM CDT CBC WITH DIFFERENTIAL Routine 07/01/2005 5:12 AM CDT BASIC METABOLIC PANEL Routine 07/01/2005 5:12 AM CDT DRUG SCREEN, URINE Routine 06/30/2005 9: 13 PM CDT CBC WITH DIFFERENTIAL Routine 06/30/2005 8:50 PM CDT PROTIME-INR Routine 06/30/2005 8:50 PM CDT ETHANOL LEVEL Routine 06/30/2005 8:50 PM CDT BASIC METABOLIC PANEL Routine 06/30/2005 8:50 PM CDT documented in this encounter Results * (ABNORMAL) PHOSPHORUS (07/05/2005 5:52 AM BENZENE WASHER) PHOSPHORUS 1.7(L) 2.5 - 4.6 mg/dL INTERFACE SYSTEM 07/05/2005 5:52 AM BENZENE WASHER Adrian Aranda MD CHEMISTRY ORDERABLES Final Result Performing Organization Address [facility] de Phone Number INTERFACE SYSTEM Refer to clinic/hospital department * MAGNESIUM LEVEL (07/05/2005 5:52 AM BENZENE WASHER) MAGNESIUM 2.0 1.6 - 2.3 mg/dL INTERFACE SYSTEM 07/05/2005 5:52 AM BENZENE WASHER us Adrian Aranda MD CHEMISTRY ORDERABLES Final Result Performing Organization Address City/[facility] Co de Phone Number INTERFACE SYSTEM Refer to clinic/hospital department * (ABNORMAL) BASIC METABOLIC PANEL (07/05/2005 5:52 AM BENZENE WASHER) GLUCOSE 101 70 - 110 mg/dL INTERFACE SYSTEM BUN 11 9 - 20 mg/dL INTERFACE SYSTEM CREATININE 0.9 0.7 - 1.5 mg/dL INTERFACE SYSTEM SODIUM 140 136 - 145 mEq/L INTERFACE SYSTEM POTASSIUM 3.4(L) 3.5 - 5.0 mEq/L INTERFACE SYSTEM CHLORIDE 108 95 - 110 mEq/L INTERFACE SYSTEM CO2 26 22 - 32 mmol/l INTERFACE SYSTEM ANION GAP 9 9 - 20 mEq/L INTERFACE SYSTEM OSMOLALITY, CALCULATED 286 275 - 295 mOsm/Kg INTERFACE SYSTEM CALCIUM 8.1(L) 8.4 - 10.5 mg/dL INTERFACE SYSTEM 07/05/2005 5:52 AM BENZENE WASHER us Adrian Aranda MD CHEMISTRY ORDERABLES Final Result Performing Organization Address [facility] Phone Number INTERFACE SYSTEM Refer to clinic/hospital department * (ABNORMAL) PHOSPHORUS (07/04/2005 6:27 AM CDT) PHOSPHORUS 1.4(L) 2.5 - 4.6 mg/dL INTERFACE SYSTEM 07/04/2005 6:27 AM CDT us Adrian Aradna MD CHEMISTRY ORDERABLES Final Result Performing Organization Address [facility] Phone Number INTERFACE SYSTEM Refer to clinic/hospital department * (ABNORMAL) MAGNESIUM LEVEL (07/04/2005 6:27 AM CDT) MAGNESIUM 2.4(H) 1.6 - 2.3 mg/dL INTERFACE SYSTEM 07/04/2005 6:27 AM CDT us Adrian Aranda MD CHEMISTRY ORDERABLES Final Result Performing Organization Address [facility] Phone Number INTERFACE SYSTEM Refer to clinic/hospital department * (ABNORMAL) BASIC METABOLIC PANEL (07/04/2005 6:27 AM CDT) GLUCOSE 114(H) 70 - 110 mg/dL INTERFACE SYSTEM BUN 13 9 - 20 mg/dL INTERFACE SYSTEM CREATININE 0.9 0.7 - 1.5 mg/dL INTERFACE SYSTEM SODIUM 138 136 - 145 mEq/L INTERFACE SYSTEM POTASSIUM 2.9(AA) 3.5 - 5.0 mEq/L INTERFACE SYSTEM Comment: Potentially critical/toxic K called by GS to ELEANOR MOURA, with verbal repeat, at 07/04/2005 07:38. CHLORIDE 104 95 - 110 mEq/L INTERFACE SYSTEM CO2 26 22 - 32 mmol/l INTERFACE SYSTEM ANION GAP 11 9 - 20 mEq/L INTERFACE SYSTEM OSMOLALITY, CALCULATED 283 275 - 295 mOsm/Kg INTERFACE SYSTEM CALCIUM 7.8(L) 8.4 - 10.5 mg/dL INTERFACE SYSTEM 07/04/2005 6:27 AM CDT us Adrian Aranda MD CHEMISTRY ORDERABLES Final Result INTERFACE SYSTEM Refer to clinic/hospital department * (ABNORMAL) CBC WITH DIFFERENTIAL (07/04/2005 6:27 AM CDT) WBC 9.4 4.8 - 10.8 K/ul INTERFACE SYSTEM RBC 4.41(L) 4.60 - 6.20 Mil/ul INTERFACE SYSTEM HEMOGLOBIN 13.6(L) 14.0 - 18.0 g/dL INTERFACE SYSTEM HEMATOCRIT 40.0(L) 41.0 - 53.0 % INTERFACE SYSTEM MCV 90.7 84.0 - 103.0 Fl INTERFACE SYSTEM MCH 30.8 27.0 - 34.0 pg INTERFACE SYSTEM MCHC 34.0 30.0 - 35.0 g/dL INTERFACE SYSTEM RDW 13.5 11.0 - 14.5 % INTERFACE SYSTEM PLATELETS 219 140 - 440 K/ul INTERFACE SYSTEM MPV 9.5 8.9 - 12.8 Fl INTERFACE SYSTEM NEUTROPHILS 68.7 42.2 - 75.2 % INTERFACE SYSTEM LYMPHOCYTES 19.3(L) 24.0 - 44.0 % INTERFACE SYSTEM MONOCYTES 11.3(H) 2.0 - 10.0 % INTERFACE SYSTEM EOSINOPHILS 0.6 0.0 - 7.0 % INTERFACE SYSTEM BASOPHILS 0.1 0.0 - 1.0 % INTERFACE SYSTEM NEUTROPHIL ABSOLUTE 6.5 2.0 - 8.0 K/uL INTERFACE SYSTEM LYMPHOCYTE ABSOLUTE 1.8 1.2 - 4.0 K/ul INTERFACE SYSTEM MONOCYTE ABSOLUTE 1.1(H) 0.1 - 0.6 K/ul INTERFACE SYSTEM EOSINOPHIL ABSOLUTE 0.1 0.0 - 0.7 K/ul INTERFACE SYSTEM BASOPHILS ABSOLUTE 0.0 0.0 - 0.2 K/ul INTERFACE SYSTEM 07/04/2005 6:2 7 AM CDT Adrian Aranda MD HEMATOLOGY ORDERABLES Final Result INTERFACE SYSTEM Refer to clinic/hospital department * (ABNORMAL) CBC WITH DIFFERENTIAL (07/03/2005 5:50 AM CDT) WBC 13.1(H) 4.8 - 10.8 K/ul INTERFACE SYSTEM RBC 4.56(L) 4.60 - 6.20 Mil/ul INTERFACE SYSTEM HEMOGLOBIN 14.4 14.0 - 18.0 g/dL INTERFACE SYSTEM HEMATOCRIT 41.9 41.0 - 53.0 % INTERFACE SYSTEM MCV 91.9 84.0 - 103.0 Fl INTERFACE SYSTEM MCH 31.6 27.0 - 34.0 pg INTERFACE SYSTEM MCHC 34.4 30.0 - 35.0 g/dL INTERFACE SYSTEM RDW 13.6 11.0 - 14.5 % INTERFACE SYSTEM PLATELETS 222 140 - 440 K/ul INTERFACE SYSTEM MPV 9.4 8.9 - 12.8 Fl INTERFACE SYSTEM NEUTROPHILS 76.0(H) 42.2 - 75.2 % INTERFACE SYSTEM LYMPHOCYTES 12.1(L) 24.0 - 44.0 % INTERFACE SYSTEM MONOCYTES 11.8(H) 2.0 - 10.0 % INTERFACE SYSTEM BASOPHILS 0.1 0.0 - 1.0 % INTERFACE SYSTEM NEUTROPHIL ABSOLUTE 10.0(H) 2.0 - 8.0 K/uL INTERFACE SYSTEM LYMPHOCYTE ABSOLUTE 1.6 1.2 - 4.0 K/ul INTERFACE SYSTEM MONOCYTE ABSOLUTE 1.6(H) 0.1 - 0.6 K/ul INTERFACE SYSTEM BASOPHILS ABSOLUTE 0.0 0.0 - 0.2 K/ul INTERFACE SYSTEM PERIPHERAL BLOOD SMEAR REVIEW Automated Diff INTERFACE SYSTEM 07/03/2005 5:50 AM CDT Adrian Aranda MD HEMATOLOGY ORDERABLES Final Result Performing Organization Address City/[facility] Co de Phone Number INTERFACE SYSTEM Refer to clinic/hospital department * (ABNORMAL) BASIC METABOLIC PANEL (07/03/2005 5:50 AM CDT) GLUCOSE 123(H) 70 - 110 mg/dL INTERFACE SYSTEM BUN 10 9 - 20 mg/dL INTERFACE SYSTEM CREATININE 0.8 0.7 - 1.5 mg/dL INTERFACE SYSTEM SODIUM 133(L) 136 - 145 mEq/L INTERFACE SYSTEM POTASSIUM 3.2(L) 3.5 - 5.0 mEq/L INTERFACE SYSTEM CHLORIDE 99 95 - 110 mEq/L INTERFACE SYSTEM CO2 22 22 - 32 mmol/l INTERFACE SYSTEM ANION GAP 15 9 - 20 mEq/L INTERFACE SYSTEM OSMOLALITY, CALCULATED 274(L) 275 - 295 mOsm/Kg INTERFACE SYSTEM CALCIUM 8.0(L) 8.4 - 10.5 mg/dL INTERFACE SYSTEM 07/03/2005 5:50 AM CDT Adrian Aranda MD CHEMISTRY ORDERABLES Final Result Performing Organization Address [facility] de Phone Number INTERFACE SYSTEM Refer to clinic/hospital department * (ABNORMAL) CBC WITH DIFFERENTIAL (07/02/2005 6:14 AM CDT) WBC 11.6(H) 4.8 - 10.8 K/ul INTERFACE SYSTEM RBC 3.55(L) 4.60 - 6.20 Mil/ul INTERFACE SYSTEM HEMOGLOBIN 11.1(L) 14.0 - 18.0 g/dL INTERFACE SYSTEM HEMATOCRIT 34.4(L) 41.0 - 53.0 % INTERFACE SYSTEM MCV 96.9 84.0 - 103.0 Fl INTERFACE SYSTEM MCH 31.3 27.0 - 34.0 pg INTERFACE SYSTEM MCHC 32.3 30.0 - 35.0 g/dL INTERFACE SYSTEM RDW 14.6(H) 11.0 - 14.5 % INTERFACE SYSTEM PLATELETS 182 140 - 440 K/ul INTERFACE SYSTEM MPV 9.6 8.9 - 12.8 Fl INTERFACE SYSTEM NEUTROPHILS 82.9(H) 42.2 - 75.2 % INTERFACE SYSTEM LYMPHOCYTES 8.2(L) 24.0 - 44.0 % INTERFACE SYSTEM MONOCYTES 8.9 2.0 - 10.0 % INTERFACE SYSTEM NEUTROPHIL ABSOLUTE 9.6(H) 2.0 - 8.0 K/uL INTERFACE SYSTEM LYMPHOCYTE ABSOLUTE 1.0(L) 1.2 - 4.0 K/ul INTERFACE SYSTEM MONOCYTE ABSOLUTE 1.0(H) 0.1 - 0.6 K/ul INTERFACE SYSTEM 07/02/2005 6:14 AM CDT Adrian Aranda MD HEMATOLOGY ORDERABLES Final Result Performing Organization Address City/[facility] de Phone Number INTERFACE SYSTEM Refer to clinic/hospital department * (ABNORMAL) BASIC METABOLIC PANEL (07/02/2005 6:14 AM CDT) GLUCOSE 140(H) 70 - 110 mg/dL INTERFACE SYSTEM BUN 9 9 - 20 mg/dL INTERFACE SYSTEM CREATININE 0.7 0.7 - 1.5 mg/dL INTERFACE SYSTEM SODIUM 136 136 - 145 mEq/L INTERFACE SYSTEM CHLORIDE 104 95 - 110 mEq/L INTERFACE SYSTEM CO2 24 22 - 32 mmol/l INTERFACE SYSTEM ANION GAP 11 9 - 20 mEq/L INTERFACE SYSTEM OSMOLALITY, CALCULATED 280 275 - 295 mOsm/Kg INTERFACE SYSTEM POTASSIUM 3.1(L) 3.5 - 5.0 mEq/L INTERFACE SYSTEM Comment:SPECIMEN REDRAWN DUE TO CONTAMINATION FROM IV;ACTUAL DRAW TIME 0915 CALCIUM 7.6(L) 8.4 - 10.5 mg/dL INTERFACE SYSTEM 07/02/2005 6:14 AM CDT Adrian Aranda MD CHEMISTRY ORDERABLES Final Result Performing Organization Address [facility] Co de Phone Number INTERFACE SYSTEM Refer to clinic/hospital department * (ABNORMAL) BASIC METABOLIC PANEL (07/01/2005 5:12 AM CDT) GLUCOSE 165(H) 70 - 110 mg/dL INTERFACE SYSTEM BUN 12 9 - 20 mg/dL INTERFACE SYSTEM CREATININE 1.0 0.7 - 1.5 mg/dL INTERFACE SYSTEM SODIUM 141 136 - 145 mEq/L INTERFACE SYSTEM POTASSIUM 3.9 3.5 - 5.0 mEq/L INTERFACE SYSTEM CHLORIDE 109 95 - 110 mEq/L INTERFACE SYSTEM CO2 24 22 - 32 mmol/l INTERFACE SYSTEM ANION GAP 12 9 - 20 mEq/L INTERFACE SYSTEM OSMOLALITY, CALCULATED 293 275 - 295 mOsm/Kg INTERFACE SYSTEM CALCIUM 7.9(L) 8.4 - 10.5 mg/dL INTERFACE SYSTEM 07/01/2005 5:12 AM CDT Adrian Aranda MD CHEMISTRY ORDERABLES Final Result Performing Organization Address [facility] de Phone Number INTERFACE SYSTEM Refer to clinic/hospital department * (ABNORMAL) CBC WITH DIFFERENTIAL (07/01/2005 5:12 AM CDT) WBC 9.3 4.8 - 10.8 K/ul INTERFACE SYSTEM RBC 4.24(L) 4.60 - 6.20 Mil/ul INTERFACE SYSTEM HEMOGLOBIN 13.3(L) 14.0 - 18.0 g/dL INTERFACE SYSTEM HEMATOCRIT 39.5(L) 41.0 - 53.0 % INTERFACE SYSTEM MCV 93.2 84.0 - 103.0 Fl INTERFACE SYSTEM MCH 31.4 27.0 - 34.0 pg INTERFACE SYSTEM MCHC 33.7 30.0 - 35.0 g/dL INTERFACE SYSTEM RDW 14.1 11.0 - 14.5 % INTERFACE SYSTEM PLATELETS 226 140 - 440 K/ul INTERFACE SYSTEM MPV 9.6 8.9 - 12.8 Fl INTERFACE SYSTEM NEUTROPHILS 81.0(H) 42.2 - 75.2 % INTERFACE SYSTEM LYMPHOCYTES 12.6(L) 24.0 - 44.0 % INTERFACE SYSTEM MONOCYTES 6.4 2.0 - 10.0 % INTERFACE SYSTEM NEUTROPHIL ABSOLUTE 7.5 2.0 - 8.0 K/uL INTERFACE SYSTEM LYMPHOCYTE ABSOLUTE 1.2 1.2 - 4.0 K/ul INTERFACE SYSTEM MONOCYTE ABSOLUTE 0.6 0.1 - 0.6 K/ul INTERFACE SYSTEM 07/01/2005 5:12 AM CDT us Adrian Aranda MD HEMATOLOGY ORDERABLES Final Result Performing Organization Address [facility] Phone Number INTERFACE SYSTEM Refer to clinic/hospital department * (ABNORMAL) DRUG SCREEN, URINE (06/30/2005 9:13 PM CDT) OPIATE QUAL, URINE Drug Negative Drug Negative INTERFACE SYSTEM AMPHETAMINE QUAL, URINE Drug Negative Drug Negative INTERFACE SYSTEM BARBITURATE QUAL, URINE Drug Negative Drug Negative INTERFACE SYSTEM COCAINE QUAL URINE Drug Negative Drug Negative INTERFACE SYSTEM PCP QUAL, URINE Drug Negative Drug Negative INTERFACE SYSTEM CANNABINOIDS QUAL, URINE Drug Positive(A) Drug Negative INTERFACE SYSTEM BENZODIAZEPINE QUAL, URINE Drug Negative Drug Negative INTERFACE SYSTEM 06/30/2005 9:13 PM CDT Joby Rodriguez DO URINE ORDERABLES Final Res ult Performing Organization Address City/[facility] Co de Phone Number INTERFACE SYSTEM Refer to clinic/hospital department * PROTIME-INR (06/30/2005 8:50 PM CDT) PROTIME 13.7 12.6 - 14.9 Secs INTERFACE SYSTEM Comment: As of 05 note change in normal range. INR 1.0 INTERFACE SYSTEM Comment: Expected Values for INR: DVT/PE Goal INR 2.5; range 2.0 - 3.0 Valve Replacement Tissue Goal INR 2.5; range 2.0 - 3.0 Mechanical Goal INR 3.0; range 2.5 - 3.5 POST-FL Goal INR 2.5; range 2.0 - 3.0 or Goal 3.0; range 2.5 - 3.5 Atrial Fibrillation Goal INR 2.5; range 2.0 - 3.0 Ischemic Stroke Goal INR 2.5; range 2.0 - 3.0 For additional information see Guidelines for Anticoagulation available from the pharmacy Hortensia Callejas Pharm D. 06/30/2005 8:50 PM CDT Joby Rodriguez DO HEMATOLOGY ORDERABLES Meli l Result Performing Organization Address [facility] Co de Phone Number INTERFACE SYSTEM Refer to clinic/hospital department * (ABNORMAL) ETHANOL LEVEL (06/30/2005 8:50 PM CDT) ETHANOL 244(H) <=10 mg/dL INTERFACE SYSTEM 06/30/2005 8:50 PM CDT Joby Rodriguez DO CHEMISTRY ORDERABLES Final Result INTERFACE SYSTEM Refer to clinic/hospital department * (ABNORMAL) CBC WITH DIFFERENTIAL (06/30/2005 8:50 PM CDT) WBC 9.5 4.8 - 10.8 K/ul INTERFACE SYSTEM RBC 4.56(L) 4.60 - 6.20 Mil/ul INTERFACE SYSTEM HEMOGLOBIN 14.3 14.0 - 18.0 g/dL INTERFACE SYSTEM HEMATOCRIT 43.1 41.0 - 53.0 % INTERFACE SYSTEM MCV 94.5 84.0 - 103.0 Fl INTERFACE SYSTEM MCH 31.4 27.0 - 34.0 pg INTERFACE SYSTEM MCHC 33.2 30.0 - 35.0 g/dL INTERFACE SYSTEM RDW 14.0 11.0 - 14.5 % INTERFACE SYSTEM PLATELETS 206 140 - 440 K/ul INTERFACE SYSTEM MPV 9.3 8.9 - 12.8 Fl INTERFACE SYSTEM NEUTROPHILS 78.5(H) 42.2 - 75.2 % INTERFACE SYSTEM LYMPHOCYTES 12.6(L) 24.0 - 44.0 % INTERFACE SYSTEM MONOCYTES 8.4 2.0 - 10.0 % INTERFACE SYSTEM EOSINOPHILS 0.4 0.0 - 7.0 % INTERFACE SYSTEM BASOPHILS 0.1 0.0 - 1.0 % INTERFACE SYSTEM NEUTROPHIL ABSOLUTE 7.4 2.0 - 8.0 K/uL INTERFACE SYSTEM LYMPHOCYTE ABSOLUTE 1.2 1.2 - 4.0 K/ul INTERFACE SYSTEM MONOCYTE ABSOLUTE 0.8(H) 0.1 - 0.6 K/ul INTERFACE SYSTEM EOSINOPHIL ABSOLUTE 0.0 0.0 - 0.7 K/ul INTERFACE SYSTEM BASOPHILS ABSOLUTE 0.0 0.0 - 0.2 K/ul INTERFACE SYSTEM 06/30/2005 8:50 PM CDT Joby Rodriguez DO HEMATOLOGY ORDERABLES Meli l Result INTERFACE SYSTEM Refer to clinic/hospital department * (ABNORMAL) BASIC METABOLIC PANEL (06/30/2005 8:50 PM CDT) GLUCOSE 132(H) 70 - 110 mg/dL INTERFACE SYSTEM BUN 13 9 - 20 mg/dL INTERFACE SYSTEM CREATININE 1.3 0.7 - 1.5 mg/dL INTERFACE SYSTEM SODIUM 142 136 - 145 mEq/L INTERFACE SYSTEM POTASSIUM 3.8 3.5 - 5.0 mEq/L INTERFACE SYSTEM CHLORIDE 106 95 - 110 mEq/L INTERFACE SYSTEM CO2 23 22 - 32 mmol/l INTERFACE SYSTEM ANION GAP 17 9 - 20 mEq/L INTERFACE SYSTEM OSMOLALITY, CALCULATED 293 275 - 295 mOsm/Kg INTERFACE SYSTEM CALCIUM 8.4 8.4 - 10.5 mg/dL INTERFACE SYSTEM 06/30/2005 8:50 PM CDT Joby Rodriguez DO CHEMISTRY ORDERABLES Final Result INTERFACE SYSTEM Refer to clinic/hospital department documented in this encounter Visit Diagnoses Diagnosis Subarachnoid hemorrhage following injury, without mention of open intracranial wound, loss of consciousness of unspecified duration (CMS/[facility])- Primary Subarachnoid hemorrhage following injury, without mention of open intracranial wound, loss of consciousness of unspecified duration documented in this encounter Care Teams Weight Guesser Relationship Specialty Start Date End Date Dustin Steel DO [address] [place] [address] PCP - General 04/08/05 documented as of this encounter
--- OUTSIDE RECORDS SUMMARY | 2025-05-24 00:53 | XMS_ITS | Encounter Summary ---
Author Organization [facility] Address [address] [place] [address] Care Team Providers Care Bridge Toll Collector Name Role Phone Dustin Steel Primary Care Provider [phone] Encounter Details Date Type Department Care Team (Latest Contact Info) Description 09/28/2005 Outpatient Historical [facility] Imaging Services [address] 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 COMPARISON: August 24, 2005. REASON FOR STUDY: follow-up intracranial hemorrhage. FINDINGS: The area of atrophy and decreased density in the right temporal lobe anteriorly is noted. No hemorrhage, masses, or extra-axial fluid collections are identified and the brain is otherwise unchanged in appearance. The posterior fossa remains normal in appearance. The calvarium is intact. Evolution of the right temporal lobe hemorrhage with atrophy now noted. No new disease is seen. 934 T: sdm 09/28/2005 1044 Dictated By: Cedrick Duran M.D. Electronically Signed By: Cedrick Duran M.D. Date Signed: 09/28/05 FREDI Procedure Note 07/25/[address]: DATE: 09/28/2005. COMPARISON: August 24, 2005. REASON FOR STUDY: follow-up intracranial hemorrhage. FINDINGS: The area of atrophy and decreased density in the right temporal lobeanteriorly is noted. No hemorrhage, masses, or extra-axial fluid collections are identified andthe brain is otherwise unchanged in appearance. The posterior fossa remains normal inappearance. The calvarium is intact. Evolution of the right temporal lobe hemorrhage with atrophy now noted.No new disease is seen. 934 T: fredi 09/28/2005 1044 Dictated By: Cedrick Duran M.D. Electronically Signed By: Cedrick Duran M.D. Date Signed: 09/28/05 FREDI us Historical Provider CT ORDERABLES Final Result documented in this encounter Visit Diagnoses Diagnosis Unspecified intracranial hemorrhage (CMS/HCC)- Primary Unspecified intracranial hemorrhage documented in this encounter Care Teams Bridge Toll Collector Relationship Specialty Start Date End Date Dustin Steel DO [address] [place] [address] PCP - General 04/08/05 documented as of this encounter
--- OUTSIDE RECORDS SUMMARY | 2025-05-24 00:53 | XMS_ITS | Encounter Summary ---
Author Organization [facility] Address [address] [place] [address] Care Team Providers Care Jewel Grinder Name Role Phone Dustin Steel DO Primary Care Provider [phone] Encounter Details Date Type Department Care Team (Latest Contact Info) Description 08/24/2005 Outpatient Historical [facility] Imaging Services [address] 

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
--- OUTSIDE RECORDS SUMMARY | 2025-05-24 00:53 | XMS_ITS | Patient Health Record ---
Author Organization [facility] Address [address] [place] [address] Care Team Providers Care Automotive Assembler Name Role Phone Hortensia Cuevas (Kayly) Primary Care Provider U Lety Boudreaux Unavailable [phone] Migration, Provider Unavailable Unavailable Randy Barbosa Unavailable [phone] Jaylan Brooks Unavailable [phone] Allergies No Known Allergies Results Component Value Reference Range Flag Notes MRI Lumbar Spine w/o Cont-[id number] Reviewed date:03/28/2025 02:09:21 PM Interpretation: Performing Lab: Notes/Report: [id number] Schedule Confirmation (Not y et reviewed by provider) Interpretation: Performing Lab: Notes/Report: MRI Lumbar Spine w/o Cont Schedule Confirmation (Not y et reviewed by provider) Interpretation: Performing Lab: Notes/Report: MRI Lumbar Spine w/o Cont Urine Drug Screen (cup read) - [id number] Reviewed date:11/09/2024 03:55:43 PM Interpretation: Performing Lab: Notes/Report: OPI + Urine Drug Screen (cup read) - [id number] Reviewed date:04/23/2025 11:28:20 AM Interpretation: Performing Lab: Notes/Report: AMP + OPI + OXY + Urine Drug Screen (cup read) - [id number] Reviewed date:03/28/2025 04:31:22 PM Interpretation: Performing Lab: Notes/Report: AMP + OPI + OXY + MAMP + Urine Drug Screen (cup read) - [id number] Reviewed date:02/01/2025 02:02:24 PM Interpretation: Performing Lab: Notes/Report: OPI Pos Urine Drug Screen (cup read) - [id number] Reviewed date:12/27/2024 12:41:44 PM Interpretation: Performing Lab: Notes/Report: OPI positive zzzUrine Drug Screen (confir mation by instrument) - [id number] Reviewed date:09/20/2024 02:48:51 PM Interpretation: Performing Lab: Notes/Report: Urine Confirmation Panel (in strument) - [id number] Reviewed date:04/05/2025 04:32:07 PM Interpretation: Performing Lab: Notes/Report: 6-Acetylmorphine 0 <6 ng/mL N This jose t was developed and its performance characteristics determined by [facility]. It has not been cleared or approved by the U.S. Food and Drug Administration. 7-Aminoclonazepam 0 <60 ng/mL N This te st was developed and its performance characteristics determined by [facility]. It has not been cleared or approved by the U.S. Food and Drug Administration. Alprazolam 0 <60 ng/mL N This test was developed and its performance characteristics determined by [facility]. It has not been cleared or approved by the U.S. Food and Drug Administration. Amphetamine 670 <75 ng/mL H This test was developed and its performance characteristics determined by [facility]. It has not been cleared or approved by the U.S. Food and Drug Administration. aOH-Alprazolam 0 <60 ng/mL N This test was developed and its performance characteristics determined by [facility]. It has not been cleared or approved by the U.S. Food and Drug Administration. Buprenorphine 0.0 <7.5 ng/mL N This test w as developed and its performance characteristics determined by [facility]. It has not been cleared or approved by the U.S. Food and Drug Administration. Norbuprenorphine 0.0 <37.5 ng/mL N This te st was developed and its performance characteristics determined by [facility]. It has not been cleared or approved by the U.S. Food and Drug Administration. Carisoprodol 0 <75 ng/mL N This test wa s developed and its performance characteristics determined by [facility]. It has not been cleared or approved by the U.S. Food and Drug Administration. Codeine 0 <75 ng/mL N This test was developed and its performance characteristics determined by [facility]. It has not been cleared or approved by the U.S. Food and Drug Administration. EDDP 0 <75 ng/mL N This test was developed and its performance characteristics determined by [facility]. It has not been cleared or approved by the U.S. Food and Drug Administration. Fentanyl 0 <6 ng/mL N This test was developed and its performance characteristics determined by [facility]. It has not been cleared or approved by the U.S. Food and Drug Administration. Hydrocodone 4721 <75 ng/mL H This test was developed and its performance characteristics determined by [facility]. It has not been cleared or approved by the U.S. Food and Drug Administration. Hydromorphone 1417 <75 ng/mL H This test w as developed and its performance characteristics determined by [facility]. It has not been cleared or approved by the U.S. Food and Drug Administration. Lorazepam 0 <60 ng/mL N This test was developed and its performance characteristics determined by [facility]. It has not been cleared or approved by the U.S. Food and Drug Administration. MDMA 0 <75 ng/mL N This test was developed and its performance characteristics determined by [facility]. It has not been cleared or approved by the U.S. Food and Drug Administration. Meperidine 0.0 <37.5 ng/mL N This test was developed and its performance characteristics determined by [facility]. It has not been cleared or approved by the U.S. Food and Drug Administration. Meprobamate 0 <75 ng/mL N This test was developed and its performance characteristics determined by [facility]. It has not been cleared or approved by the U.S. Food and Drug Administration. Methamphetamine >5000 <75 ng/mL > This test was developed and its performance characteristics determined by [facility]. It has not been cleared or approved by the U.S. Food and Drug Administration. Methadone 0 <75 ng/mL N This test was developed and its performance characteristics determined by [facility]. It has not been cleared or approved by the U.S. Food and Drug Administration. Morphine 0 <75 ng/mL N This test was developed and its performance characteristics determined by [facility]. It has not been cleared or approved by the U.S. Food and Drug Administration. Nordiazepam 0 <60 ng/mL N This test was developed and its performance characteristics determined by [facility]. It has not been cleared or approved by the U.S. Food and Drug Administration. Norfentanyl 0 <6 ng/mL N This test was developed and its performance characteristics determined by [facility]. It has not been cleared or approved by the U.S. Food and Drug Administration. Normeperidine 0.0 <37.5 ng/mL N This test was developed and its performance characteristics determined by [facility]. It has not been cleared or approved by the U.S. Food and Drug Administration. O-desmethyltramadol 0 <75 ng/mL N This test was developed and its performance characteristics determined by [facility]. It has not been cleared or approved by the U.S. Food and Drug Administration. Oxazepam 0 <60 ng/mL N This test was developed and its performance characteristics determined by [facility]. It has not been cleared or approved by the U.S. Food and Drug Administration. Oxycodone 0.0 <37.5 ng/mL N This test was developed and its performance characteristics determined by [facility]. It has not been cleared or approved by the U.S. Food and Drug Administration. Oxymorphone 0 <75 ng/mL N This test was developed and its performance characteristics determined by [facility]. It has not been cleared or approved by the U.S. Food and Drug Administration. Phencyclidine 0.0 <7.5 ng/mL N This test w as developed and its performance characteristics determined by [facility]. It has not been cleared or approved by the U.S. Food and Drug Administration. Tapentadol 8.7 <37.5 ng/mL N This test was developed and its performance characteristics determined by [facility]. It has not been cleared or approved by the U.S. Food and Drug Administration. Temazepam 0 <60 ng/mL N This test was developed and its performance characteristics determined by [facility]. It has not been cleared or approved by the U.S. Food and Drug Administration. Tramadol 0 <75 ng/mL N This test was developed and its performance characteristics determined by [facility]. It has not been cleared or approved by the U.S. Food and Drug Administration. Norhydrocodone >5000 <75 ng/mL > This test was developed and its performance characteristics determined by [facility]. It has not been cleared or approved by the U.S. Food and Drug Administration. Noroxycodone 0 <38 ng/mL N This test wa s developed and its performance characteristics determined by [facility]. It has not been cleared or approved by the U.S. Food and Drug Administration. Pregabalin 0 <225 ng/mL N This test was developed and its performance characteristics determined by [facility]. It has not been cleared or approved by the U.S. Food and Drug Administration. Gabapentin 0 <225 ng/mL N This test was developed and its performance characteristics determined by [facility]. It has not been cleared or approved by the U.S. Food and Drug Administration. Benzoylecgonine 0.0 <37.5 ng/mL N This jose t was developed and its performance characteristics determined by [facility]. It has not been cleared or approved by the U.S. Food and Drug Administration. 4-Hydroxy Xylazine 0 <25 ng/mL N This t est was developed and its performance characteristics determined by [facility]. It has not been cleared or approved by the U.S. Food and Drug Administration. Urine Confirmation Panel (in strument) - [id number] Reviewed date:01/02/2025 11:02:08 AM Interpretation: Performing Lab: Notes/Report: 6-Acetylmorphine 0 <6 ng/mL N This jose t was developed and its performance characteristics determined by [facility]. It has not been cleared or approved by the U.S. Food and Drug Administration. 7-Aminoclonazepam 0 <60 ng/mL N This te st was developed and its performance characteristics determined by [facility]. It has not been cleared or approved by the U.S. Food and Drug Administration. Alprazolam 0 <60 ng/mL N This test was developed and its performance characteristics determined by [facility]. It has not been cleared or approved by the U.S. Food and Drug Administration. Amphetamine 0 <75 ng/mL N This test was developed and its performance characteristics determined by [facility]. It has not been cleared or approved by the U.S. Food and Drug Administration. aOH-Alprazolam 0 <60 ng/mL N This test was developed and its performance characteristics determined by [facility]. It has not been cleared or approved by the U.S. Food and Drug Administration. Buprenorphine 0.0 <7.5 ng/mL N This test w as developed and its performance characteristics determined by [facility]. It has not been cleared or approved by the U.S. Food and Drug Administration. Norbuprenorphine 0.0 <37.5 ng/mL N This te st was developed and its performance characteristics determined by [facility]. It has not been cleared or approved by the U.S. Food and Drug Administration. Carisoprodol 0 <75 ng/mL N This test wa s developed and its performance characteristics determined by [facility]. It has not been cleared or approved by the U.S. Food and Drug Administration. Codeine 0 <75 ng/mL N This test was developed and its performance characteristics determined by [facility]. It has not been cleared or approved by the U.S. Food and Drug Administration. EDDP 0 <75 ng/mL N This test was developed and its performance characteristics determined by [facility]. It has not been cleared or approved by the U.S. Food and Drug Administration. Fentanyl 0 <6 ng/mL N This test was developed and its performance characteristics determined by [facility]. It has not been cleared or approved by the U.S. Food and Drug Administration. Hydrocodone 2184 <75 ng/mL H This test was developed and its performance characteristics determined by [facility]. It has not been cleared or approved by the U.S. Food and Drug Administration. Hydromorphone 1463 <75 ng/mL H This test w as developed and its performance characteristics determined by [facility]. It has not been cleared or approved by the U.S. Food and Drug Administration. Lorazepam 0 <60 ng/mL N This test was developed and its performance characteristics determined by [facility]. It has not been cleared or approved by the U.S. Food and Drug Administration. MDMA 0 <75 ng/mL N This test was developed and its performance characteristics determined by [facility]. It has not been cleared or approved by the U.S. Food and Drug Administration. Meperidine 0.0 <37.5 ng/mL N This test was developed and its performance characteristics determined by [facility]. It has not been cleared or approved by the U.S. Food and Drug Administration. Meprobamate 0 <75 ng/mL N This test was developed and its performance characteristics determined by [facility]. It has not been cleared or approved by the U.S. Food and Drug Administration. Methamphetamine 0 <75 ng/mL N This test was developed and its performance characteristics determined by [facility]. It has not been cleared or approved by the U.S. Food and Drug Administration. Methadone 0 <75 ng/mL N This test was developed and its performance characteristics determined by [facility]. It has not been cleared or approved by the U.S. Food and Drug Administration. Morphine 0 <75 ng/mL N This test was developed and its performance characteristics determined by [facility]. It has not been cleared or approved by the U.S. Food and Drug Administration. Nordiazepam 0 <60 ng/mL N This test was developed and its performance characteristics determined by [facility]. It has not been cleared or approved by the U.S. Food and Drug Administration. Norfentanyl 0 <6 ng/mL N This test was developed and its performance characteristics determined by [facility]. It has not been cleared or approved by the U.S. Food and Drug Administration. Normeperidine 0.0 <37.5 ng/mL N This test was developed and its performance characteristics determined by [facility]. It has not been cleared or approved by the U.S. Food and Drug Administration. O-desmethyltramadol 0 <75 ng/mL N This test was developed and its performance characteristics determined by [facility]. It has not been cleared or approved by the U.S. Food and Drug Administration. Oxazepam 0 <60 ng/mL N This test was developed and its performance characteristics determined by [facility]. It has not been cleared or approved by the U.S. Food and Drug Administration. Oxycodone 0.0 <37.5 ng/mL N This test was developed and its performance characteristics determined by [facility]. It has not been cleared or approved by the U.S. Food and Drug Administration. Oxymorphone 0 <75 ng/mL N This test was developed and its performance characteristics determined by [facility]. It has not been cleared or approved by the U.S. Food and Drug Administration. Phencyclidine 0.0 <7.5 ng/mL N This test w as developed and its performance characteristics determined by [facility]. It has not been cleared or approved by the U.S. Food and Drug Administration. Tapentadol 0.0 <37.5 ng/mL N This test was developed and its performance characteristics determined by [facility]. It has not been cleared or approved by the U.S. Food and Drug Administration. Temazepam 10 <60 ng/mL N This test was developed and its performance characteristics determined by [facility]. It has not been cleared or approved by the U.S. Food and Drug Administration. Tramadol 0 <75 ng/mL N This test was developed and its performance characteristics determined by [facility]. It has not been cleared or approved by the U.S. Food and Drug Administration. Norhydrocodone 1721 <75 ng/mL H This test was developed and its performance characteristics determined by [facility]. It has not been cleared or approved by the U.S. Food and Drug Administration. Noroxycodone 0 <38 ng/mL N This test wa s developed and its performance characteristics determined by [facility]. It has not been cleared or approved by the U.S. Food and Drug Administration. Pregabalin 0 <225 ng/mL N This test was developed and its performance characteristics determined by [facility]. It has not been cleared or approved by the U.S. Food and Drug Administration. Gabapentin 0 <225 ng/mL N This test was developed and its performance characteristics determined by [facility]. It has not been cleared or approved by the U.S. Food and Drug Administration. Benzoylecgonine 0.0 <37.5 ng/mL N This jose t was developed and its performance characteristics determined by [facility]. It has not been cleared or approved by the U.S. Food and Drug Administration. 4-Hydroxy Xylazine 0 <25 ng/mL N This t est was developed and its performance characteristics determined by [facility]. It has not been cleared or approved by the U.S. Food and Drug Administration. Urine Confirmation Panel (in strument) - [id number] Reviewed date:05/01/2025 02:47:30 PM Interpretation: Performing Lab: Notes/Report: 6-Acetylmorphine 0 <6 ng/mL N This jose t was developed and its performance characteristics determined by [facility]. It has not been cleared or approved by the U.S. Food and Drug Administration. 7-Aminoclonazepam 0 <60 ng/mL N This te st was developed and its performance characteristics determined by [facility]. It has not been cleared or approved by the U.S. Food and Drug Administration. Alprazolam 0 <60 ng/mL N This test was developed and its performance characteristics determined by [facility]. It has not been cleared or approved by the U.S. Food and Drug Administration. Amphetamine 77 <75 ng/mL H This test was developed and its performance characteristics determined by [facility]. It has not been cleared or approved by the U.S. Food and Drug Administration. aOH-Alprazolam 0 <60 ng/mL N This test was developed and its performance characteristics determined by [facility]. It has not been cleared or approved by the U.S. Food and Drug Administration. Buprenorphine 2.1 <7.5 ng/mL N This test w as developed and its performance characteristics determined by [facility]. It has not been cleared or approved by the U.S. Food and Drug Administration. Norbuprenorphine 0.0 <37.5 ng/mL N This te st was developed and its performance characteristics determined by [facility]. It has not been cleared or approved by the U.S. Food and Drug Administration. Carisoprodol 0 <75 ng/mL N This test wa s developed and its performance characteristics determined by [facility]. It has not been cleared or approved by the U.S. Food and Drug Administration. Codeine 0 <75 ng/mL N This test was developed and its performance characteristics determined by [facility]. It has not been cleared or approved by the U.S. Food and Drug Administration. EDDP 0 <75 ng/mL N This test was developed and its performance characteristics determined by [facility]. It has not been cleared or approved by the U.S. Food and Drug Administration. Fentanyl 0 <6 ng/mL N This test was developed and its performance characteristics determined by [facility]. It has not been cleared or approved by the U.S. Food and Drug Administration. Hydrocodone 2612 <75 ng/mL H This test was developed and its performance characteristics determined by [facility]. It has not been cleared or approved by the U.S. Food and Drug Administration. Hydromorphone 930 <75 ng/mL H This test w as developed and its performance characteristics determined by [facility]. It has not been cleared or approved by the U.S. Food and Drug Administration. Lorazepam 0 <60 ng/mL N This test was developed and its performance characteristics determined by [facility]. It has not been cleared or approved by the U.S. Food and Drug Administration. MDMA 0 <75 ng/mL N This test was developed and its performance characteristics determined by [facility]. It has not been cleared or approved by the U.S. Food and Drug Administration. Meperidine 0.0 <37.5 ng/mL N This test was developed and its performance characteristics determined by [facility]. It has not been cleared or approved by the U.S. Food and Drug Administration. Meprobamate 0 <75 ng/mL N This test was developed and its performance characteristics determined by [facility]. It has not been cleared or approved by the U.S. Food and Drug Administration. Methamphetamine 159 <75 ng/mL H This test was developed and its performance characteristics determined by [facility]. It has not been cleared or approved by the U.S. Food and Drug Administration. Methadone 0 <75 ng/mL N This test was developed and its performance characteristics determined by [facility]. It has not been cleared or approved by the U.S. Food and Drug Administration. Morphine 0 <75 ng/mL N This test was developed and its performance characteristics determined by [facility]. It has not been cleared or approved by the U.S. Food and Drug Administration. Nordiazepam 0 <60 ng/mL N This test was developed and its performance characteristics determined by [facility]. It has not been cleared or approved by the U.S. Food and Drug Administration. Norfentanyl 0 <6 ng/mL N This test was developed and its performance characteristics determined by [facility]. It has not been cleared or approved by the U.S. Food and Drug Administration. Normeperidine 0.0 <37.5 ng/mL N This test was developed and its performance characteristics determined by [facility]. It has not been cleared or approved by the U.S. Food and Drug Administration. O-desmethyltramadol 0 <75 ng/mL N This test was developed and its performance characteristics determined by [facility]. It has not been cleared or approved by the U.S. Food and Drug Administration. Oxazepam 0 <60 ng/mL N This test was developed and its performance characteristics determined by [facility]. It has not been cleared or approved by the U.S. Food and Drug Administration. Oxycodone 0.0 <37.5 ng/mL N This test was developed and its performance characteristics determined by [facility]. It has not been cleared or approved by the U.S. Food and Drug Administration. Oxymorphone 0 <75 ng/mL N This test was developed and its performance characteristics determined by [facility]. It has not been cleared or approved by the U.S. Food and Drug Administration. Phencyclidine 0.0 <7.5 ng/mL N This test w as developed and its performance characteristics determined by [facility]. It has not been cleared or approved by the U.S. Food and Drug Administration. Tapentadol 0.0 <37.5 ng/mL N This test was developed and its performance characteristics determined by [facility]. It has not been cleared or approved by the U.S. Food and Drug Administration. Temazepam 0 <60 ng/mL N This test was developed and its performance characteristics determined by [facility]. It has not been cleared or approved by the U.S. Food and Drug Administration. Tramadol 0 <75 ng/mL N This test was developed and its performance characteristics determined by [facility]. It has not been cleared or approved by the U.S. Food and Drug Administration. Norhydrocodone >5000 <75 ng/mL > This test was developed and its performance characteristics determined by [facility]. It has not been cleared or approved by the U.S. Food and Drug Administration. Noroxycodone 0 <38 ng/mL N This test wa s developed and its performance characteristics determined by [facility]. It has not been cleared or approved by the U.S. Food and Drug Administration. Pregabalin 0 <225 ng/mL N This test was developed and its performance characteristics determined by [facility]. It has not been cleared or approved by the U.S. Food and Drug Administration. Gabapentin 62 <225 ng/mL N This test was developed and its performance characteristics determined by [facility]. It has not been cleared or approved by the U.S. Food and Drug Administration. Benzoylecgonine 0.0 <37.5 ng/mL N This jose t was developed and its performance characteristics determined by [facility]. It has not been cleared or approved by the U.S. Food and Drug Administration. 4-Hydroxy Xylazine 0 <25 ng/mL N This t est was developed and its performance characteristics determined by [facility]. It has not been cleared or approved by the U.S. Food and Drug Administration. Tox Results Reviewed date:05/01/2025 02:35:00 PM Interpretation: Performing Lab: Notes/Report: Tox Results Reviewed date:04/05/2025 04:42:07 PM Interpretation: Performing Lab: Notes/Report: Tox Results Reviewed date:01/02/2025 02:32:32 PM Interpretation: Performing Lab: Notes/Report: [facility] MRI Lumbar Spine w/o Con [id number] Reviewed date:03/28/2025 02:09:06 PM Interpretation: Performing Lab: Notes/Report: See Below For Report MRI Lumbar Spine w/o Cont Aisha Salazar 12/27/2024 02:45:01 PM CDT > No PA Required \[id number] Read See Below For Report Reason For Referral Reason 5.0 cm abdominal aor tic aneurysm per CTA abd/pelvis from [facility] on 08/25/24 Diagnosis 1 Infrarenal abdominal aortic aneurysm, without rupture (I71.43) Referring Provider First Name Nelly Referring Provider Last Name Jhony Referring Provider Speciality Nurse Prac titioner Referred Organization [facility] Referred Provider Ron Ulrich Referred Address [address] [place] [address] [address],[id number], Referred Provider Specialty Vascular Sravani lucio General Notes Tish Doe 09/20/19 03:12:27 PM >called [facility] and requested faxed CTA abd/pelvis from 08/2024 and [employer] imagesNader Lisa 09/20/2024 03:14:04 PM >please schedule with next available vascular surgeon, Khushi Klein 09/21/2024 09:40:35 AM >Appointment scheduled on 10.04 @ 9:30Nader Lisa 10/04/2024 02:34:24 PM >patient canceled appt stating that they will call back later to rescheduleNader Lisa 11/09/2024 10:06:47 AM >please contact patient to see if he would like to rescheduleErnie Brittany M 11/15/2024 10:01:58 AM >Called patient and spoke to his , she said he is having this taken care of in [place]. Closing referral Referral Priority Routine Medications Medication SIG (Take, Route, Frequency, Duration) Notes Start Date End Date Status Clopidogrel Bisulfate 75 MG Tablet 1 tablet Orally Once a day Active Rosuvastatin Calcium 40 MG Tablet 1 tablet Orally Once a day; Duration: 90 days Active Cilostazol 50 mg Tablet TAKE ONE TABLET BY MOUTH TWICE DAILY 30 minutes BEFORE OR TWO hours AFTER breakfast AND dinner; Duration: 15 Active ProAir HFA 108 (90 Base) MCG/ACT Aerosol Solution Inhale 2 puff(s) q 3 hours as needed before exposure to cold air to prevent or treat wheezing. Inhalation; Duration: 30 10/21/2012 Active Calcium 600 with Vitamin D3 *Reorder from [employer] for eRx and Interaction Alerts* Active Nitrostat 0.4 MG Tablet Sublingual as directed Sublingual as needed Active Aspirin 325 MG Tablet Take 1 tablet(s) by mouth qam Oral; Duration: 30 01/31/2013 Active Nebulizer System All-In-One - Miscellaneous as directed Portable PRN; Duration: 1 days Active Alendronic acid 10 MG Oral Tablet ORAL *Reorder from [employer] for eRx and Interaction Alerts* 11/08/2019 Active Lisinopril 2.5 MG Oral Tablet ORAL *Reorder from [employer] for eRx and Interaction Alerts* 11/08/2019 Active Alendronate Sodium 70 mg Tablet TAKE ONE TABLET BY MOUTH ONCE WEEKLY 30 minutes BEFORE breakfast with EIGHT ounces of water AND stay upright FOR 30 minutes; Duration: 90 Active Isosorbide Mononitrate 20 mg Tablet TAKE 1/2 TABLET BY MOUTH EVERY MORNING; Duration: 30 Active Oseltamivir Phosphate 75 MG Capsule 1 capsule Orally Twice a day; Duration: 5 day(s) 08/26/2022 Not-Taking traZODone HCl 50 MG Tablet 1 tablet at bedtime as needed Orally Once a day; Duration: 30 day(s) Pt's partner (Nereyda) reported he is no longer taking this as when he took it at bedtime he continued to wake up every hour and awakening wasn't d/t need to void or pain. 10/22/2022 Active Tamsulosin HCl 0.4 mg Capsule TAKE ONE CAPSULE BY MOUTH TWICE DAILY; Duration: 30 Active GNP Vitamin D 25 MCG (1000 UT) Tablet TAKE 1 AND 1/2 TABLETS BY MOUTH ONCE daily; Duration: 30 Active Finasteride 5 mg Tablet TAKE ONE TABLET BY MOUTH EVERY DAY; Duration: 90 Active Symbicort 160-4.5 MCG/ACT Aerosol 2 puffs Inhalation Twice a day; Duration: 30 days Active Famotidine 10 MG Oral Tablet ORAL *Reorder from [employer] for eRx and Interaction Alerts* 11/08/2019 Active Spiriva Respimat 2.5 MCG/ACT Aerosol Solution 2 puffs Inhalation Once a day; Duration: 90 days Active Famotidine 40 MG Tablet 1 tablet Orally Once a day; Duration: 90 days Active Simvastatin 40 MG Oral Tablet ORAL *Reorder from [employer] for eRx and Interaction Alerts* 11/08/2019 Active Immunizations Vaccine Route Administration Date Status Comme nts COVID-19 Vaccine (Moderna) Dose #1 Unknown 10/09/2020 A dministered COVID-19 Vaccine (Moderna) Dose #2 Unknown 11/06/2020 A dministered COVID-19 Vaccine (Moderna) Dose #3 Unknown 07/14/2021 A dministered Flu vaccine no Preserv 3 and > Unknown 09/05/2009 Admin istered Flucelvax Unknown 06/08/2019 Administered Flucelvax Quadrivalent Unknown 09/28/2022 Administered Flucelvax Quadrivalent Pres Free Unknown 06/18/2021 Adm inistered Fluzone HD PF Unknown 06/12/2020 Administered Pneumococcal conjugate PCV 13 Unknown 07/08/2015 Admini stered Pneumococcal polysaccharide PPV23 Unknown 09/08/2004 Ad ministered Tdap Unknown 04/06/2012 Administered Zoster (Herpes Zoster/Shingles) Unknown 07/08/2015 Admi nistered Social History Tobacco Use: Social History Observation Description Date Details (start date - stop date) Current Smoker NA - NA Social History Depression Screening Social Info Question Answer Notes PHQ-9 Little interest or pleasure in doing thin gs Not at all Feeling down, depressed, or hopeless Not at all Trouble falling or staying asleep, or sleeping t oo much Not at all Feeling tired or having little energy Not at all Poor appetite or overeating Not at all Feeling bad about yourself, or that you are a failure, or have let yourself or your family down Not at all Trouble concentrating on thi ngs, such as reading the newspaper or watching television Not at all Moving or speaking so slowly that other people could have noticed. Or the opposite ? being so fidgety or restless that you have been moving around a lot more than usual Not at all Thoughts that you would be b gus off , or of hurting yourself in some way Not at all Total Score 0 Drugs/Alcohol: Social Info Question Answer Notes Alcohol Screen (Audit-C) Did you have a drink containing alcohol in the past year? No Points 0 Interpretation Negative Drugs Have you used drugs other than those for medical reasons in the past 12 months? Yes Marijuana? Yes smoked Household: Social Info Question Answer Notes Household Marital status: single Number of adults in household: 2 Level of education: finished high school Tobacco Use: Social Info Question Answer Notes xTobacco Use/Smoking Are you a current smoker Tobacco use other than smoking: How often do you smoke? 65 Pack year smo ker history Additional Details Category Social Info Options Details Drugs/Alcohol: Do you smoke marijuana? Ad mits Do you drink alcohol? No Migrated Social History Migrated Social History History of tobacco use : Current everyday tobacco user , Smoking Status : Current everyday tobacco user Section Notes: Pt smokes less than 5 cigare ttes a day Pt smokes less than 5 cigare ttes a day Pt smokes less than 5 cigare ttes a day Pt smokes less than 5 cigarettes a day PHQ-9 -12/05/20 Pt smokes less than 5 cigarettes a day PHQ-9 12/05/20 Pt smokes less than [address] [facility]-12/05/20 Pt smokes less than [address] [facility]-9 12/05/20 Onset of smoking ~8yo with 1ppd. Has decreased to 1/2-3/4 ppd over last 3 months. Pt smokes less than 5 cigarettes a day PHQ- -08/04/21 Onset of smoking ~8yo with 1ppd. Has decreased to 1/2-3/4 ppd over last 3 months. Pt smokes less than 5 cigarettes a day PHQ- -08/04/21 Onset of smoking ~8yo with 1ppd. Has decreased to 1/2-3/4 ppd over last 3 months. Pt smokes less than [address] [facility]-9 -08/04/21 Onset of smoking ~8yo with 1ppd. Has decreased to 1/2-3/4 ppd over last 3 months. Pt smokes less than 5 cigarettes a day PHQ- -08/04/21 Onset of smoking ~8yo with 1ppd. Has decreased to 1/2-3/4 ppd over last 3 months. Pt smokes less than 5 cigarettes a day PHQ- -08/04/21 Onset of smoking ~8yo with 1ppd. Has decreased to 1/2-3/4 ppd over last 3 months. Pt smokes less than 5 cigarettes a day PHQ- -08/04/21 Onset of smoking ~8yo with 1ppd. Has decreased to 1/2-3/4 ppd over last 3 months. Pt smokes less than 5 cigarettes a day PHQ- -08/04/21 Onset of smoking ~8yo with 1ppd. Has decreased to 1/2-3/4 ppd over last 3 months. Pt smokes less than 5 cigarettes a day PHQ- -08/04/21 10-22-22 PHQ9 Onset of smoking ~8yo with 1ppd. Has decreased to 1/2-3/4 ppd over last 3 months. Pt smokes less than 5 cigarettes a day PHQ-08/04/21 10-22-22 PHQ9 Onset of smoking ~8yo with 1ppd. Has decreased to 1/2-3/4 ppd over last 3 months. Pt smokes less than 5 cigarettes a day PHQ-08/04/21 10-22-22 PHQ9 Onset of smoking ~8yo with 1ppd. Has decreased to 1/2-3/4 ppd over last 3 months. Pt smokes less than 5 cigarettes a day PHQ-08/04/21 10-22-22 PHQ9 Onset of smoking ~8yo with 1ppd. Has decreased to 1/2-3/4 ppd over last 3 months. Pt smokes less than 5 cigarettes a day PHQ-08/04/21 10-22-22 PHQ9 Onset of smoking ~8yo with 1ppd. Has decreased to 1/2-3/4 ppd over last 3 months. Pt smokes less than 5 cigarettes a day PHQ-08/04/21 Onset of smoking ~8yo with 1ppd. Has decreased to 1/2-3/4 ppd over last 3 months. Pt smokes less than 5 cigarettes a day PHQ-9 -08/04/21 10-22-22 PHQ9 Onset of smoking ~8yo with 1ppd. Has decreased to 1/2-3/4 ppd over last 3 months. Pt smokes less than 5 cigarettes a day PHQ- -08/04/21 10-22-22 PHQ9 Onset of smoking ~8yo with 1ppd. Has decreased to 1/2-3/4 ppd over last 3 months. Pt smokes less than 5 cigarettes a day PHQ- -08/04/21 10-22-22 PHQ9 Onset of smoking ~8yo with 1ppd. Has decreased to 1/2-3/4 ppd over last 3 months. Pt smokes less than 5 cigarettes a day PHQ- -08/04/21 Onset of smoking ~8yo with 1ppd. Has decreased to 1/2-3/4 ppd over last 3 months. Pt smokes less than 5 cigarettes a day PHQ-08/04/21 Pt smokes less than 5 cigare ttes a day Pt smokes less than 5 cigare ttes a day Pt smokes less than 5 cigare ttes a day Pt smokes less than 5 cigare ttes a day Pt smokes less than 5 cigarettes a day PHQ-12/05/20 Pt smokes less than 5 cigarettes a day PHQ-12/05/20 Onset of smoking ~8yo with 1ppd. Has decreased to 1/2-3/4 ppd over last 3 months. Pt smokes less than 5 cigarettes a day PHQ-08/04/21 Onset of smoking ~8yo with 1ppd. Has decreased to 1/2-3/4 ppd over last 3 months. Pt smokes less than 5 cigarettes a day PHQ-08/04/21 Onset of smoking ~8yo with 1ppd. Has decreased to 1/2-3/4 ppd over last 3 months. Pt smokes less than 5 cigarettes a day PHQ- -08/04/21 10-22-22 PHQ9 Onset of smoking ~8yo with 1ppd. Has decreased to 1/2-3/4 ppd over last 3 months. Pt smokes less than 5 cigarettes a day PHQ- -08/04/21 10-22-22 PHQ9 Onset of smoking ~8yo with 1ppd. Has decreased to 1/2-3/4 ppd over last 3 months. Pt smokes less than 5 cigarettes a day PHQ- -08/04/21 10-22-22 PHQ9 Onset of smoking ~8yo with 1ppd. Has decreased to 1/2-3/4 ppd over last 3 months. Pt smokes less than 5 cigarettes a day PHQ-9 -08/04/21 10-22-22 PHQ9 Onset of smoking ~8yo with 1ppd. Has decreased to 1/2-3/4 ppd over last 3 months. Pt smokes less than 5 cigarettes a day PHQ-9 -08/04/21 10-22-22 PHQ9 Onset of smoking ~8yo with 1ppd. Has decreased to 1/2-3/4 ppd over last 3 months. Pt smokes less than 5 cigarettes a day PHQ-9 -08/04/21 10-22-22 PHQ9 Pt smokes less than 5 cigarettes a day PHQ-9 -12/05/20 Pt smokes less than 5 cigarettes a day PHQ-9 -12/05/20 Pt smokes less than 5 cigarettes a day PHQ-9 -12/05/20 Pt smokes less than 5 cigare ttes a day Pt smokes less than 5 cigare ttes a day Problems Problem Type SNOMED Code ICD Code Onset Dates Problem Status W/U Status Risk Notes Problem Acute myocardial infarction (69789703) Acute myocardial infarction, unspecified site, episode of care unspecified (410.90) 2014 Inactive confirmed [facility] 5911- Problem Sinus node dysfunction (07950951) Sinoatrial node dysfunction (427.81) 2012 Inactive confirmed [facility] 5911- Problem Orthostatic hypotension (14190649) Orthostatic hypotension (458.0) 2015 Inactive confirmed [facility] 5911- Problem Actinic keratosis (351912200) Actinic keratosis (702.0) 2016 Inactive confirmed [facility] 5911- Problem Anorexia (94832028) Anorexia (783.0) 2006 Inactive confirmed [facility] 5911- Problem Headache (76721138) Headache (784.0) 2014 Inactive confirmed [facility] 5911- Problem Cough (32775545) Cough (786.2) 2012 Inactive confirmed [facility] 5911- Problem Diarrhea (92464326) Diarrhea (787.91) 2015 Inactive confirmed [facility] 5911- Problem Urinary frequency (716781409) Urinary frequency (788.41) 2005 Inactive confirmed [facility] 5911- Problem Elevated PSA (118834780) Elevated prostate specific antigen (PSA) (790.93) 2011 Inactive confirmed [facility] 5911- Problem 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 (590245390) 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98 5911- Problem Chronic obstructive pulmonary disease (05603593) Chronic obstructive pulmonary disease, unspecified (J44.9) 2017 Active confirmed [facility]-98 5911- Problem Lumbosacral spondylosis without myelopathy (14837610) Other spondylosis with radiculopathy, lumbosacral region (M47.27) 2023 Active confirmed Problem Lumbosacral spondylosis without myelopathy (disorder) (05542091) Spondylosis without myelopathy or radiculopathy, lumbosacral region (M47.817) 2023 Active confirmed Problem Lumbosacral radiculopathy (5779027) Radiculopathy, lumbosacral region (M54.17) 2023 Active confirmed Problem Age-related osteoporosis (692519099) Age-related osteoporosis without current pathological fracture (M81.0) Active confirmed Problem Abnormal gait (57515067) Unspecified abnormalities of gait and mobility (R26.9) 2023 Active confirmed Problem High risk drug monitoring status (951139559) MCC (current) use of opiate analgesic (Z79.891) Active confirmed Problem Benign prostatic hypertrophy without outflow obstruction (903194738) Benign prostatic hyperplasia without lower urinary tract symptoms (N40.0) Active confirmed Problem Elevated PSA (487781081) Elevated PSA (790.93) 2011 Inactive confirmed [facility] 5911- Problem Essential hypertension (56468027) Essential hypertension (I10) Active confirmed Problem Neuropathy (025256674) Neuropathy (G62.9) Active confirmed Problem Gastroesophageal reflux disease (388804548) GERD without esophagitis (K21.9) Active confirmed Problem COPD - Chronic obstructive pulmonary disease (01311919) Chronic obstructive pulmonary disease, unspecified COPD type (J44.9) Active confirmed Problem Essential hypertension (77808085) Hypertension, unspecified type (I10) Active confirmed Problem Acute exacerbation o f chronic obstructive airways disease (183109108) COPD exacerbation (J44.1) Active confirmed Problem Solitary nodule of lung (713578932) Lung nodule (R91.1) Active confirmed Problem Tobacco user (371439868) Cigarette nicotine dependence without complication (F17.210) Active confirmed Problem Screening for malignant neoplasm of prostate (902972940) Screening for prostate cancer (V76.44) 2006 Inactive confirmed [facility] 5911- Problem Aortic aneurysm (14361452) Aortic aneurysm without rupture, unspecified portion of aorta (I71.9) Active confirmed Problem Intermittent claudication (82905556) Intermittent claudication (I73.9) Active confirmed Problem Insomnia (695843752) Insomnia (G47.00) Active c onfirmed Problem Atherosclerotic hear t disease of [place] coronary artery without angina pectoris (931512876184435) Coronary artery disease involving [place] heart without angina pectoris, unspecified vessel or lesion type (I25.10) Active confirmed Problem Obstructive sleep apnea syndrome (61697574) POLLY (obstructive sleep apnea) (G47.33) Active confirmed Problem Age-related osteoporosis (676937450) Osteoporosis, unspecified osteoporosis type, unspecified pathological fracture presence (M81.0) Active confirmed Problem Nicotine dependence (09385391) Nicotine dependence (F17.200) Active confirmed Problem Low back pain (335785721) Low back pain (724.2) 2008 Inactive confirmed [facility] 5911- Problem Osteoporosis wit h current pathological fracture with delayed healing, unspecified osteoporosis type, subsequent encounter (M80.00XG) Active confirmed Problem Coronary artery disease (49503001) CAD (coronary artery disease) (I25.10) Active confirmed Problem Enlarged prostate (309545417) Enlarged prostate (N40.0) Active confirmed Problem Lumbosacral spondylosis without myelopathy (98062517) Spondylosis of lumbosacral region, unspecified spinal osteoarthritis complication status (M47.817) Active confirmed Problem Hyperlipidemia (51676977) Hyperlipidemia (E78.5) Active confirmed Problem Disorder of urinary bladder (53479866) Bladder wall thickening (N32.89) Active confirmed Problem Tachycardia (3824944) Tachycardi a, unspecified (785.0) 2012 Inactive confirmed [facility] 5911- Problem Orchitis and epididymitis (738956252) Epidymitis, unspecified (604.90) 2011 Inactive confirmed [facility] 5911- Problem Hypercholesterolemia (43309656) Hypercholesterolemia (272.0) 2009 Inactive confirmed [facility] 5911- Problem Hypotension (77353085) Hypotension, other (458.8) 2016 Inactive confirmed [facility] 5911- Problem Shortness of breath (133293456) Shortness of breath (786.09) 2013 Inactive confirmed [facility] 5911- Problem Staphylococcal infection (27573930) Staphylococcal infection (482.40) 2016 Inactive confirmed [facility] 5911- Problem T12 compression fracture (805.2) 2014 Inactive confirmed [facility] 5911- Problem Xanthelasma (349611431) Xanthelasma (374.51) 2013 Inactive confirmed [facility] 5911- Problem Multiple thoraci c compression fractures (805.2) 2017 Inactive confirmed [facility] 5911- Problem Carbuncle of axilla (60884315) Carbuncle of axilla (680.3) 2012 Inactive confirmed [facility] 5911- Problem Chest pain (84620748) Chest pain (786.50) 2006 Inactive confirmed [facility] 5911- Problem Disorder of hematopoietic system (51767524) Other abnormal findings on blood examination (790.99) 2016 Inactive confirmed [facility] 5911- Problem Pleural pain (7445666) Pleural pain (786.52) 2012 Inactive confirmed [facility] 5911- Problem Epigastric pain (50163557) Abdominal pain (epigastric) (789.06) 2015 Inactive confirmed [facility] 5911- Problem Acute exacerbation o f chronic obstructive airways disease (702778366) Acute exacerbation of chronic obstructive pulmonary disease (COPD) (491.21) 2013 Inactive confirmed [facility] 5911- Problem Atypical mole syndrome (960419019) Atypical mole (238.2) 2016 Inactive confirmed [facility] 5911- Problem Chest pain (33751951) Chest pain (786.51) 2014 Inactive confirmed [facility] 5911- Problem Emphysema (04183696) Emphysema (492.8) 2011 Inactive confirmed [facility] 5911- Problem Furuncle (359324442) Furuncle (680.9) 2015 Inactive confirmed [facility] 5911- Problem Pneumococcal pneumonia (218660251) Lobar pneumonia, organism unspecified (481) 2012 Inactive confirmed [facility] 5911- Problem Intermittent claudication secondary to arteriosclerosis (440.21) 2016 Inactive confirmed [facility] 5911- Problem Cellulitis and abscess of lower leg (296596899) Leg abscess (682.6) 2016 Inactive confirmed [facility] 5911- Problem Insomnia (531124942) Insomnia (307.41) 2011 Inactive confirmed [facility] 5911- Problem Pain in limb (00758531) Leg pain (729.5) 2008 Inactive confirmed [facility] 5911- Problem Peripheral neuropath y (665787582) Peripheral neuropathy (356.9) 2016 Inactive confirmed [facility] 5911- Problem Precordial pain (53073567) Precordial chest pain (786.51) 2005 Inactive confirmed [facility] 5911- Problem Rib pain (307861326) Rib pain (786.50) 2014 Inactive confirmed [facility] 5911- Problem Continuous opioid dependence (296620227) Opioid dependence, continuous (304.01) 2018 Inactive confirmed [facility] 5911- Problem Sinus bradycardia (97617741) Sinus bradycardia (427.89) 2014 Inactive confirmed [facility] 5911- Problem Staphylococcal infectious disease (89097590) Staph infection (041.19) 2015 Inactive confirmed [facility]-98 5911- Problem Tobacco user (462618051) Tobacco abuse affecting health (305.1) 2012 Inactive confirmed [facility] 5911- Problem Needs influenza immunization (591768009) Vaccination against other viral diseases, Influenza (V04.81) 2005 Inactive confirmed [facility] 5911- Problem Benign prostatic hypertrophy (962727404) BPH (600.00) 2011 Inactive confirmed [facility] 5911- Problem Carbuncle of buttock (98953114) Carbuncle of buttock (680.5) 2012 Inactive confirmed [facility] 5911- Problem Other disease of nasal cavity and sinuses (478.19) 2006 Inactive confirmed [facility] 5911- Problem Neoplasm of uncertai n behavior of skin (37751808) Atypical skin lesion (238.2) 2013 Inactive confirmed [facility] 5911- Problem Carbuncle of leg (680.6) 2013 Inactive confirmed [facility] 5911- Problem Chronic obstructive pulmonary disease (53842667) Chronic obstructive pulmonary disease (496) 2015 Inactive confirmed [facility] 5911- Problem Chronic low back etelvina n (498199409) Chronic low back pain (724.2) 2015 Inactive confirmed [facility]-98 5911- Problem Carbuncle/furuncle (899011364) Carbuncle of other site (680.8) 2012 Inactive confirmed [facility]-98 5911- Problem Chronic obstructive bronchitis (715410882) Emphysema with Chronic Bronchitis (491.20) 2014 Inactive confirmed [facility] 5911- Problem Pneumococcal pneumonia (035983809) Acute lobar pneumonia (481) 2012 Inactive confirmed [facility] 5911- Problem Arterial embolis m of lower extremity (444.22) 2011 Inactive confirmed [facility] 5911- Problem Easy bruising (009124301) Easy bruising (782.7) 2015 Inactive confirmed [facility] 5911- Problem Cramp in lower limb (108118603) Leg cramps (729.82) 2012 Inactive confirmed [facility] 5911- Problem Coronary arteriosclerosis (disorder) (55116709) Coronary artery disease, of [place] coronary artery (414.01) 2007 Inactive confirmed [id number]- Problem Essential hypertension (09039268) Essential hypertension (401.1) 2009 Inactive confirmed [id number]-[id number]- Problem Impacted cerumen (21601619) External cerumen impaction (380.4) 2018 Inactive confirmed [id number]- Problem Gastroesophageal reflux disease (327478047) GERD (530.81) 2006 Inactive confirmed [id number]- Problem Nausea (526579538) Nausea (787.02) 2011 Inactive confirmed [id number]- Problem Pneumonia (837072835) Primary at ypical pneumonia (486) 2016 Inactive confirmed [id number]- Problem Restless legs syndrome (97975080) Restless leg syndrome (333.99) 2005 Inactive confirmed [id number]- Problem Convulsion (58356792) Seizure(s) (780.39) 2008 Inactive confirmed [id number]- Problem Thrush (54367815) Thrush (112.0) 2016 Inactive confirmed [id number]- Problem Benign prostatic hypertrophy with outflow obstruction (116906485) BPH loc w urin obs/LUTS (N40.1) Active confirmed Problem Chronic obstructive pulmonary disease (86338258) COPD (chronic obstructive pulmonary disease) case management patient (J44.9) Active confirmed Problem Lumbar spondylosis with myelopathy (disorder) (51761296) 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) Active confirmed Problem Abnormal gait (17981168) Abnormality of gait and mobility (R26.9) Active confirmed Problem Polyneuropathy cause d by drug (0244079) 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) Active confirmed Problem Adrenal disorder (00500986) Disorder of adrenal glands, other specified (255.8) 2016 Inactive confirmed [id number]- Problem Hypotension (76760766) Hypotension, unspecified (458.9) 2016 Inactive confirmed [id number]-[id number]- Problem Aneurysm of iliac artery (50627342) Iliac artery aneurysm, 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) Active confirmed Problem Compression frac ture of T12 vertebra with delayed healing, subsequent encounter (S22.080G) Active confirmed Problem Lumbosacral spondylosis without myelopathy (00526482) Lumbosacral spondylosis without myelopathy (M47.817) 2016 Active confirmed [id number] 5911- Problem Lumbosacral radiculopathy (5196246) L-S radiculopathy (M54.17) Active confirmed Problem Aneurysm of infrarenal abdominal aorta (disorder) (575357489) Infrarenal abdominal aortic aneurysm, without rupture (I71.43) Active confirmed Problem Abdominal aortic aneurysm without rupture (disorder) (50339101) Abdominal aortic aneurysm (AAA) without rupture, unspecified part (I71.40) Active confirmed Problem Tobacco use (660283058) Continuous tobacco abuse (Z72.0) Active confirmed Problem Skin cancer of anterior chest (C44.509) Active confirmed Vital Signs Height-cm 175.26 cm 04/23/2025 Weight-kg 53.52 kg 04/23/2025 Height 69.00 in 04/23/2025 Weight 118 lbs 04/23/2025 BMI 17.42 kg/m2 04/23/2025 Encounters Encounter Location Date Provider Diagnosis [facility] [address] [address] 05/31/2024 Jaylan Brooks [facility] [address] [address] 06/22/2024 Lety Hayden [facility] [address] [address] 07/19/2024 Jaylan Brooks Chronic pain syndrom e G89.4 ; L-S radiculopathy M54.17 ; Spondylosis of lumbosacral region, unspecified spinal osteoarthritis complication status M47.817 and 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 Z79.891 [facility] [address] [address] 09/14/2024 Lety Hayden Chronic pain syndrom e G89.4 ; 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 ; Radiculopathy, lumbosacral region M54.17 ; Spondylosis without myelopathy or radiculopathy, lumbosacral region M47.817 and MCC (current) use of opiate analgesic Z79.891 [facility] [place] [address] [place] [id number] 11/09/2024 Lety Perezyer Chronic pain syndrom e G89.4 ; 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 ; Radiculopathy, lumbosacral region M54.17 ; Spondylosis without myelopathy or radiculopathy, lumbosacral region M47.817 and MCC (current) use of opiate analgesic Z79.891 [facility] [address] [address] 12/27/2024 Jaylan Brooks Chronic pain syndrom e G89.4 ; 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 ; Radiculopathy, lumbosacral region M54.17 ; 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 Z79.891 and Spondylosis without myelopathy or radiculopathy, lumbosacral region M47.817 [facility] [address] [address] 02/01/2025 Lety Hayden Chronic pain syndrom e G89.4 ; 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 ; Radiculopathy, lumbosacral region M54.17 ; 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 Z79.891 and Spondylosis without myelopathy or radiculopathy, lumbosacral region M47.817 [facility] [address] [place] [phone] 03/28/2025 Jaylan Martinezfft Chronic pain syndrom e G89.4 ; 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 ; Lumbosacral spondylosis with radiculopathy M47.27 ; 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 Z79.891 ; Spondylosis without myelopathy or radiculopathy, lumbosacral region M47.817 ; Depression screen Z13.31 and Radiculopathy, lumbosacral region M54.17 [facility] [place] [address] [place] [address] 04/23/2025 Lety Catracho Chronic pain syndrom e G89.4 ; 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 ; Radiculopathy, lumbosacral region M54.17 ; 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 Z79.891 and Spondylosis without myelopathy or radiculopathy, lumbosacral region M47.817 Migrated_Facility 0 0 07/01/2024 Provider Migration Migrated[facility]Facility 0 0 07/02/2024 Provider Migration [facility] [address] [place] [address] 09/28/2024 Randy Barbosa [facility] [place] [address] [place] [phone] 02/01/2025 Jaylan Brooks Radiculopathy, lumbosacral region M54.17 Assessments Encounter Date Diagnosis (ICD Code) Assessment Notes Treatment Notes Treatment Clinical Notes Section Notes 07/19/2024 Chronic pain syndrome (ICD-10 - G89.4) I had a nice visit with the patient today regarding his chronic pain issues. He got his MRI done and it shows mainly no changes since 2021. He does have the old compression fracture and his abdominal aortic aneurysm which they are monitoring. At this point we will continue his medications unchanged and see him back in a couple of months. 07/19/2024 L-S radiculopathy (ICD-10 - M54.17) 09/14/2024 Chronic pain syndrome (ICD-10 - G89.4) I had a nice discussion with the patient today regarding his chronic pain complaints. He was back in the ER recently and was told he had a second mild stroke. He does not really have any residual effects which is good. He continues with his persistent yet reasonably stable lower back pain as well as radicular symptoms. He denies any changes since we last seen him or any untoward side effects of the medication. He will continue his medication at present level and return to clinic in 2 months to monitor for treatment effectiveness and compliance. 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 Last visit he had reported he had been to the hospital for a second stroke. Today he states that he is doing much better and has not been in the hospital the past couple of months. He feels he is doing pretty well pain renee and feels his medication allows him to function better overall. He denies any changes in his health since we last seen him or any untoward side effects of the medication. He will continue his medication at present level and return to clinic in 2 months to monitor for treatment effectiveness and compliance as well as for biannual appointment with Dr. Brooks. The patient continues with chronic pain requiring treatment to help restore function and improve quality of life. Risks of opioid therapy as well as interaction of opioids with alcohol, illicit drugs, muscle relaxers, and other sedative medications are reviewed briefly with patient again today. The patient has trialed all other reasonable treatment options and uses the medication to alleviate pain in order to remain active and rest with less pain. No clinically relevant medication side effects are noted. Last UDS and [place] CLINICAL ASSOCIATE reviewed today. Patient is advised that best long-term goals include increased activity, core strengthening, proper weight management, coping strategies, avoidance of painful triggers, and targeted interventional therapy. We will see the patient for routine follow up in accordance with all clinic policies. We did remind patient today of current guidelines to decrease opioid when possible. We will continue to stress nonopioid treatment. URINE TESTING TODAY; POINT OF SERVICE Urine drug screening will be performed today to monitor compliance with opioid therapy or to serve as a baseline screen for a patient who may be a candidate for opioid therapy in the future, pending UDS results. We will monitor with in-office testing (rapid testing) today and review the results prior to dispensing prescription, as well. Patient has been made aware of this policy. 12/27/2024 Chronic pain syndrome (ICD-10 - G89.4) I had a nice visit with the patient and his today regarding his chronic pain issues. Overall, he seems to be declining a bit. We discussed his lumbar pain and treatment options and looking back it has been about 2.5 years since his last lumbar MRI, so we will get a new study ordered. We will continue his medications unchanged and bring him back in about a month to discuss interventional options and address whatever we can regarding his updated imaging. 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 He continues with lower back pain as well as radicular symptoms. He did get his MRI done which I reviewed with him today using a spine model. I had a long discussion with him regarding interventional procedures. He had previously had an LESI which she did not feel helped his pain much. He states he has done procedures and they have never helped him. I also discussed with him medial branch blocks and rhizotomies. The patient states he does not really want to do any injections and also does not want to drive to [place] for these injections. However, after a long discussion he will think about this and we will continue this dialogue at his next visit. He will continue his medication at present level and return to clinic in 2 months to monitor for treatment effectiveness and compliance. The patient continues with chronic pain requiring treatment to help restore function and improve quality of life. Risks of opioid therapy as well as interaction of opioids with alcohol, illicit drugs, muscle relaxers, and other sedative medications are reviewed briefly with patient again today. The patient has trialed all other reasonable treatment options and uses the medication to alleviate pain in order to remain active and rest with less pain. No clinically relevant medication side effects are noted. Last UDS and [place] CLINICAL ASSOCIATE reviewed today. Patient is advised that best long-term goals include increased activity, core strengthening, proper weight management, coping strategies, avoidance of painful triggers, and targeted interventional therapy. We will see the patient for routine follow up in accordance with all clinic policies. We did remind patient today of current guidelines to decrease opioid when possible. We will continue to stress nonopioid treatment. URINE TESTING TODAY; POINT OF SERVICE Urine drug screening will be performed today to monitor compliance with opioid therapy or to serve as a baseline screen for a patient who may be a candidate for opioid therapy in the future, pending UDS results. We will monitor with in-office testing (rapid testing) today and review the results prior to dispensing prescription, as well. Patient has been made aware of this policy. 02/01/2025 Radiculopathy, lumbosacral region (ICD-10 - M54.17) 03/28/2025 Chronic pain syndrome (ICD-10 - G89.4) I had a nice visit with the patient and his today regarding his chronic pain issues. He has had a rough stretch by the sounds of things, with decreased energy and increased pain. It looks like he's out about 1.5 weeks early on his pain medication. I reminded him that this is not something that he can do in the future, and he needs to make the prescription last the entire month. The other concern is that he has had fairly significant weight loss in the last couple of months, especially given how lean he started out; this is problematic. I recommended he follow up with his PCP and get evaluated. We will see him back in about 5 weeks and proceed accordingly. The patient continues with chronic pain requiring treatment to help restore function and improve quality of life. Risks of opioid therapy as well as interaction of opioids with alcohol, illicit drugs, muscle relaxers, and other sedative medications are reviewed briefly with patient again today. The patient has trialed all other reasonable treatment options and uses the medication to alleviate pain in order to remain active and rest with less pain. No clinically relevant medication side effects are noted. Last UDS and [place] CLINICAL ASSOCIATE reviewed today. Patient is advised that best long-term goals include increased activity, core strengthening, proper weight management, coping strategies, avoidance of painful triggers, and targeted interventional therapy. We will see the patient for routine follow up in accordance with all clinic policies. We did remind patient today of current guidelines to decrease opioid when possible. We will continue to stress nonopioid treatment. 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 He continues with lower back pain as well as radicular symptoms. He has not followed up with his PCP regarding his weight loss. His last UDS showed positive for methamphetamine and amphetamine. I do not see where the patient has shown this in his drug screen before. He strongly denies any use. We will hold his hydrocodone for now and send his urine to lab for reference as well as Disomer testing. I did discuss lifestyle modifications as well as a bowel regimen. He denies any changes in his health since we last seen him or any untoward side effects of the medication. He will return to clinic in 1 month to monitor for treatment effectiveness and compliance. The patient continues with chronic pain requiring treatment to help restore function and improve quality of life. Risks of opioid therapy as well as interaction of opioids with alcohol, illicit drugs, muscle relaxers, and other sedative medications are reviewed briefly with patient again today. The patient has trialed all other reasonable treatment options and uses the medication to alleviate pain in order to remain active and rest with less pain. No clinically relevant medication side effects are noted. Last UDS and [place] CLINICAL ASSOCIATE reviewed today. Patient is advised that best long-term goals include increased activity, core strengthening, proper weight management, coping strategies, avoidance of painful triggers, and targeted interventional therapy. We will see the patient for routine follow up in accordance with all clinic policies. We did remind patient today of current guidelines to decrease opioid when possible. We will continue to stress nonopioid treatment. RECOMMEND URINE TESTING TODAY Urine drug screening will be performed today to monitor compliance with opioid therapy or to serve as a baseline screen for a patient who may be a candidate for opioid therapy in the future, pending UDS results. We will monitor with in-office testing (rapid testing) today and review the results prior to dispensing prescription. All positive results will be sent for quantitative analysis to ensure accuracy and quantify amounts. Any expected positive results that return negative will also be sent for quantitative analysis. Any questionable read or any medication we cannot test for in the office confidently will be sent for quantitative analysis, as well. Patient has been made aware of this policy and agrees to abide by our urine testing policy. 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) 07/19/2024 Spondylosis of lumbosacral region, unspecified spinal osteoarthritis complication status (ICD-10 - M47.817) 09/14/2024 Spondylosis without myelopathy or radiculopathy, lumbosacral region (ICD-10 - M47.817) 11/09/2024 Radiculopathy, lumbosacral region (ICD-10 - M54.17) 12/27/2024 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 We will monitor with in-office testing (rapid testing) today and review the results prior to dispensing prescription. All positive results will be sent for quantitative analysis to ensure accuracy and quantify amounts. Any expected positive results that return negative will also be sent for quantitative analysis. Any questionable read or any medication we cannot test for in the office confidently will be sent for quantitative analysis, as well. Patient has been made aware of this policy and agrees to abide by our urine testing policy. 02/01/2025 Radiculopathy, lumbosacral region (ICD-10 - M54.17) 03/28/2025 MCC (current) use of opiate analgesic (ICD-10 - Z79.891) RECOMMEND URINE TESTING TODAY Urine drug screening will be performed today to monitor compliance with opioid therapy or to serve as a baseline screen for a patient who may be a candidate for opioid therapy in the future, pending UDS results. We will monitor with in-office testing (rapid testing) today and review the results prior to dispensing prescription. All positive results will be sent for quantitative analysis to ensure accuracy and quantify amounts. Any expected positive results that return negative will also be sent for quantitative analysis. Any questionable read or any medication we cannot test for in the office confidently will be sent for quantitative analysis, as well. Patient has been made aware of this policy and agrees to abide by our urine testing policy. 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 (ICD-10 - Z79.891) 12/27/2024 Spondylosis without myelopathy or radiculopathy, lumbosacral region (ICD-10 - M47.817) 11/09/2024 Spondylosis without myelopathy or radiculopathy, lumbosacral region (ICD-10 - M47.817) 11/09/2024 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 I, Jaylan Brooks, personally performed the services described in this documentation, as scribed by Cedrick Navarrete, and it is both accurate and complete. 12/27/2024 Other Cedrick Jimenez am scribing for Dr. Jaylan Brooks. I, Dr. Jaylan Brooks, personally performed the services described in this documentation, as scribed by Cedrick Navarrete, and it is both accurate and complete. 03/28/2025 Other I, MelissaNEISHA Whipple, am scribing for Dr. Jaylan Brooks. I, Dr. Jaylan Brooks, personally performed the services described in this documentation, as scribed by NEISHA Jarrett, and it is both accurate and complete. Plan Of Treatment Pending Test Test Name Order Date Schedule Confirmation 01/09/2025 Schedule Confirmation 01/09/2025 IPMA D+L Isomer Urine Test 04/23/2025 Next Appt Details Provider Name:Lety Arce katelynn, 06/21/2025 03:20:00 PM, [address] [place], [address], Insurance Providers Payer Name Payer Address Payer Phone Subscriber Number Group Number Insured Name Patient Relationship to Insured Coverage Start Date Coverage End Date [facility] Medicare Dual Complete PPO [address] [address] [place] [phone] [id number] Ciaran Gauthier Self - patient is the insured 3 [place] [address] [place] [address] [phone] [id number] Ciaran Gauthier Self - patient is the [place] Medicare [address] [place] [phone] [id number] Ciaran Gauthier Self - patient is the insured 2 Medications Administered Medication Instructions Date of Administration Dosage Notes DEPO-Medrol 08/26/2022 40 mg [id number] tolerated well dexAMETHasone 08/26/2022 4 mg -[id number] [id number] Patient tolerated well Prolia 11/12/2021 LOT# [id number] Rocephin 08/26/2022 1 g [id number] Patient tolerated well. 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 Obstructive sleep apnea, noncompliant Skin cancer CAD Essential hypertension GERD Intermittent claudication secondary to a rteriosclerosis Lumbar spondylarthritis Lung nodule Multiple thoracic compression fractures Continuous opioid dependence Osteoporosis Peripheral neuropathy Tobacco abuse affecting health Aortic aneurysm, 3 cm, on 02/2016 Hyperlipidemia Abdominal aortic aneurysm (AAA) without rupture I71.4 Surgical History Surgery Date(Month/Year) Double bypass Stent placement ??4 2006 stent placement ??2 09/2014 Open heart surgery Stent placement Hospitalization History Reason Date(Month/Year) Low BP 10/27 Bypass surgery Stent placement
--- OUTSIDE RECORDS SUMMARY | 2025-05-24 00:53 | XMS_ITS | Clinical Summary ---
Author Organization [facility] Address [address] [facility] [address] [facility] Attn: Epic Prelude ADT [place]OR[place] [address] Care Team Providers Care Pulp Bleacher Name Role Phone Dustin Steel DO Primary Care Provider [phone] Immunizations Immunization Administration Dates Next Due (PNEUMOVAX 23)(50 YRS UP) PN EUMOCOCCAL POLYSACCHARIDE (PPV23) 0.5 ML, IM 07/07/2005 Influenza Seasonal Unspecified Formulation IM Social History Tobacco Use Types Packs/Day Years Used Date Smoking Tobacco: Never Assessed Sex and Gender Information Value Date Recorded Sex Assigned at Not on file 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
--- NOTE | 2025-05-24 01:00 | CTR_ITS ---
PROCEDURE INFORMATION: Exam: CT Chest Without Contrast; Diagnostic Exam date and time: 05/24/2025 1:13 AM Age: 80 years old Clinical indication: Shortness of breath; Prior surgery; Surgery date: Post-operative (0-2 days); Surgery type: Post lung bx, bronch today; Additional info: Bronch yesterday, SOB, concern for small pneumothorax TECHNIQUE: Imaging protocol: Diagnostic computed tomography of the chest without contrast. Radiation optimization: All CT scans at this facility use at least one of these dose optimization techniques: automated exposure control; mA and/or kV adjustment per patient size (includes targeted exams where dose is matched to clinical indication); or iterative reconstruction. COMPARISON: PT PET skull to thigh INIT [id number] 05/18/2025 10:33 AM RADIATION DOSE METRICS: Total DLP (mGy-cm): 259.35 FINDINGS: Lungs: Severe centrilobular emphysematous changes are present. Mildly increased prominence of spiculated left upper lobe nodule measuring 1.9 x 1.5 cm, likely secondary to recent biopsy change. This previously measured 1.3 x 1.[address] PET from 05/18/2025. Bibasilar atelectasis/scarring is noted. Pleural spaces: No pneumothorax is seen. No pleural effusion. Heart: Unremarkable. No cardiomegaly. No pericardial effusion. Coronary arteries: Moderate to severe three-vessel coronary atherosclerosis present. Postoperative changes from CABG are noted. Suggested coronary stents. Lymph nodes: Calcified mediastinal/hilar lymph nodes consistent with prior granulomatous disease. No axillary, supraclavicular, mediastinal, or hilar lymphadenopathy is noted. Vasculature: Moderate atherosclerotic changes of the thoracic aorta and its major branch vessels is noted. Spleen: Parenchymal calcifications are seen throughout the spleen, likely reflecting prior granulomatous changes. The spleen is otherwise normal. Kidneys: Simple left renal cysts are present (Bosniak 1). No follow-up required. Bones/joints: Postoperative changes from median sternotomy are noted. Sternotomy wires are well aligned. A chronic T12 compression fracture deformity is stable. Degenerative joint and disc disease is seen in the imaged spine. Soft tissues: Unremarkable. Other findings: A few scattered calcified granulomas are present. CT/CT chest wo con [id number] IMPRESSION: 1. Mildly increased prominence of spiculated left upper lobe nodule secondary to post biopsy change. 2. No evidence of post biopsy pneumothorax. 3. Severe centrilobular emphysema. COMMENTS: Consistent with the [employer]'s Incidental Findings Committee white paper (J Am Anshul Radiol 2018): Any incidental renal lesion less than 1 cm or classified as too small to characterize, or any incidental cystic renal lesion characterized as simple-appearing, is likely benign. No follow-up imaging is recommended for these lesions per consensus recommendations based on imaging criteria.
[2025-05-24 01:34] VITALS: PULSE 73; RESP 24; O2SAT 94
[2025-05-24 01:54] VITALS: PULSE 78; O2SAT 95
[2025-05-24 02:21] VITALS: BP 144/94; PULSE 92; RESP 16; O2SAT 98
--- NOTE | 2025-05-24 05:25 | W.ED.SOB ---
HPI - SOB/Dyspnea General: Chief Complaint: Shortness of Breath/Dyspnea Stated Complaint: SOB Time Seen by Provider: 05/24/25 00:49 History of Present Illness: HPI Narrative: 80-year-old male with history of COPD/asthma and recent bronchoscopy with needle biopsy of a lung nodule/mass performed yesterday presents with worsening shortness of breath and chest pain since the procedure. Patient reports he hurt bad upon waking from anesthesia and couldn?t breathe. He has a history of COPD/asthma flares and uses breathing treatments and steroids; he did a breathing treatment not long before arrival and felt it helped somewhat. Triage note and provider assessment express concern for possible pneumothorax post-biopsy. Review of systems notable for dyspnea and pain; no additional symptoms were discussed. Related Data Home Medications ?Medication ?Instructions ?Recorded ?Confirmed cholecalciferol (vitamin D3) 25 25 mcg PO DAILY 05/21/25 05/21/25 mcg (1,000 unit) tablet cilostazol 50 mg tablet 50 mg PO BID 05/21/25 05/23/25 nitroglycerin 0.4 mg sublingual 0.4 mg sublingual Q5MIN PRN Chest 05/21/25 05/21/25 tablet Pain Previous Rx's ?Medication ?Instructions ?Recorded albuterol sulfate 90 mcg/actuation 2 puff inhalation QID PRN 02/05/25 aerosol inhaler shortness of breath or wheezing #8.5 grams famotidine 40 mg tablet 40 mg PO DAILY #90 tabs 02/05/25 fluticasone fur. 200 mcg-umeclid 1 inh inhalation DAILY #60 ea 02/05/25 62.5 mcg-vilant 25 mcg inhalat.powder (Trelegy Ellipta) isosorbide mononitrate 20 mg tablet 10 mg (1/2 x 20 mg) PO .am #15 tabs 02/05/25 rosuvastatin 40 mg tablet 40 mg PO DAILY #30 tabs 02/05/25 portable oxygen #1 ea 02/08/25 nicotine (polacrilex) 2 mg buccal 2 mg buccal Q4H PRN nicotine 05/09/25 lozenge cravings #108 ea tamsulosin 0.4 mg capsule 0.4 mg PO DAILY #30 caps 05/23/25 Allergies Allergy/AdvReac Type Severity Reaction Status Date / Time No Known Allergies Allergy Verified 05/24/25 00:57 PFSH ED [facility]: Medical History (Updated 05/24/25 @ 02:19 by Sukumar Weir MD) Nodule of left lung Enrolled in chronic care management BPH (benign prostatic hyperplasia) AAA (abdominal aortic aneurysm) without rupture Iliac artery aneurysm, left Essential hypertension Cigarette nicotine dependence Enlarged prostate Hyperlipidemia Lumbar and sacral spondylarthritis Lung nodule COPD (chronic obstructive pulmonary disease) Emphysema lung Osteoporosis GERD (gastroesophageal reflux disease) POLLY (obstructive sleep apnea) TBI (traumatic brain injury) Skin cancer Intermittent claudication Thoracic compression fracture Arteriosclerosis Opioid dependence Peripheral neuropathy History of marijuana use Family hx of hypertension Family history of asthma Family hx of colon cancer Family history of ulcerative colitis Family history of CHF (congestive heart failure) Family history of renal failure Family history of diabetes mellitus Dyslipidemia Former heavy tobacco smoker COPD (chronic obstructive pulmonary disease) Uses 3 L oxygen at night Chronic back pain Coronary artery disease 7 stents Surgical History History of coronary artery bypass graft x 2 History of PTCA S/P CABG (coronary artery bypass graft) 1997 Family History Father , AT AGE 91 Cancer Lung disease Brother Cancer Diabetes Lung disease Mother , AT 88 Stroke Social History Smoking and tobacco/nicotine status: current every day tobacco/nicotine user (1 ppd X 44 years. ) cigarettes Packs smoked per day: 1 Years cigarettes smoked: 64 [ Other cigarette details: started at age 13] Alcohol intake: never Substance/Drug Use: current Substance/Drug use frequency: daily Marital status: Life Partner Current occupational status: retired Physical Exam Const: COMMON NORMALS: no acute distress, patient oriented x3 and alert HENMT: COMMON NORMALS: normocephalic and atraumatic HEAD & SCALP: normocephalic and atraumatic Eye: COMMON NORMALS: Equal, round and reactive pupils present, EOMs intact bilaterally and no scleral icterus PUPIL: Yes Equal, round and reactive pupils present Resp: OTHER: Moderate wheezes; left lung sounds diminished compared to right. Cardio: COMMON NORMALS: regular rate, regular rhythm and No murmurs present (Cardio) RATE: regular rate RHYTHM: regular rhythm GI: COMMON NORMALS: Normal to inspection, nondistended, normoactive bowel sounds present, Soft to palpation and non-tender PALPATION: Yes Soft to palpation Neuro: COMMON NORMALS: patient oriented x3 SENSORIUM/ORIENTATION: Yes alert Skin: COMMON NORMALS: no rashes or lesions noted GENERAL SKIN EXAM: no rashes or lesions noted Course Vital Signs: Vital signs: Vital Signs Temperature 98.2 F 05/24/25 00:50 Pulse Rate 92 05/24/25 02:21 Respiratory Rate 16 05/24/25 02:21 Blood Pressure 144/94 05/24/25 02:21 Pulse Oximetry 98 05/24/25 02:21 Oxygen Delivery Me thod Room Air 05/24/25 01:54 MDM - SOB/Dyspnea Medical Decision Making 80-year-old male with COPD/asthma presents with worsening shortness of breath and chest pain after bronchoscopy with needle biopsy yesterday; concern for post-procedural pneumothorax. Patient had some relief with a recent breathing treatment. Vitals notable for respiratory rate 29?30 and SpO2 97%; heart rate described as good. Physical exam shows moderate wheezes, left-sided breath sounds diminished versus right, cachectic appearance, mouth breathing. [Pertinent Labs Not Available] [Pertinent Imaging Results Not Available] Differential diagnosis includes pneumothorax post-biopsy given acute shortness of breath/pain after procedure and asymmetric breath sounds. COPD/asthma exacerbation also considered given wheezes and clinical history. Planned CT chest to evaluate for pneumothorax as chest X-ray is less sensitive for small pneumothorax. Breathing treatments to be administered. Further management pending imaging results. Both x-ray and CT are reassuring with no evidence of pneumothorax or other acute process. He will be discharged in stable condition Lab Data Labs/Radiology: Radiology Impressions Chest X-Ray 05/24/25 00:49 IMPRESSION: 1. Emphysema 2. Trace left pleural effusion. 3. No pneumothorax is seen. Chest CT 05/24/25 01:00 IMPRESSION: 1. Mildly increased prominence of spiculated left upper lobe nodule secondary to post biopsy change. 2. No evidence of post biopsy pneumothorax. 3. Severe centrilobular emphysema. COMMENTS: Consistent with the [employer]'s Incidental Findings Committee white paper (J Am Anshul Radiol 2018): Any incidental renal lesion less than 1 cm or classified as too small to characterize, or any incidental cystic renal lesion characterized as simple-appearing, is likely benign. No follow-up imaging is recommended for these lesions per consensus recommendations based on imaging criteria. All radiology interpretation(s) finalized by discharge Discharge Plan Discharge Patient Disposition: Home Clinical Impression: Other acute postprocedural pain Condition: Stable Prescriptions: No Action rosuvastatin 40 mg tablet 40 mg PO DAILY Qty: 30 5RF famotidine 40 mg tablet 40 mg PO DAILY Qty: 90 1RF albuterol sulfate 90 mcg/actuation HFA aerosol inhaler 2 puff inhalation QID PRN (Reason: shortness of breath or wheezing) Qty: 8.5 3RF isosorbide mononitrate 20 mg tablet 10 mg PO .am Qty: 15 2RF Trelegy Ellipta 200-62.5-25 mcg blister with device 1 inh inhalation DAILY Qty: 60 5RF (DME) portable oxygen See Rx Instructions .Route .MEDSUPPLY Qty: 1 0RF Rx Instructions: 99 months+ nicotine (polacrilex) 2 mg lozenge 2 mg buccal Q4H PRN (Reason: nicotine cravings) Qty: 108 3RF tamsulosin 0.4 mg capsule 0.4 mg PO DAILY Qty: 30 2RF nitroglycerin 0.4 mg tablet, sublingual 0.4 mg sublingual Q5MIN PRN (Reason: Chest Pain) Rx Instructions: DISSOLVE 1 TABLET UNDER THE TONGUE EVERY 5 MINUTES NEEDED FOR CHEST PAIN. DO NOT EXCEED A TOTAL OF 3 DOSES IN 15 MINUTES cholecalciferol (vitamin D3) 25 mcg (1,000 unit) tablet 25 mcg PO DAILY Rx Instructions: TAKE 1 AND 1/2 TABLETS BY MOUTH ONCE daily cilostazol 50 mg tablet 50 mg PO BID Rx Instructions: BID at 0600 and 1700 Discharge Orders: Discharge ED (Routine); Ordered 05/24/25 Ordered By: Sukumar Weir Referrals: Hortensia Dumont FNP-C [Primary Care Provider, Family Practice] Discharge Diet: Advance as tolerated Discharge Activity: Increase activity as tolerated Patient Instructions: Patient Portal & Axel Instructions Activity Restrictions/Additional Instructions: Both x-ray and CT scan were performed of your chest to make sure you do not have pneumothorax caused by bronchoscopy and needle biopsy of your will lung nodule. Your oxygen saturation is stable on room air. Please resume your normal medications and follow-up with primary care as needed Print Language: Danish Coding Level of Care Code ED Licensed Insurance Sales Agent for Andrae Ambrosio
== END 2025-05-24 02:43 | disposition home or self-care (01) ==
PROVIDERS: Emergency Provider Student in an Organized Health Care Education/Training Program; PCP Nurse Practitioner Family
DX: G89.18 Other acute postprocedural pain (principal); Z98.890 Other specified postprocedural states; F17.210 Nicotine dependence, cigarettes, uncomplicated; Z95.1 Presence of aortocoronary bypass graft; I25.10 Atherosclerotic heart disease of native coronary artery without angina pectoris; J44.9 Chronic obstructive pulmonary disease, unspecified; E78.5 Hyperlipidemia, unspecified; I10 Essential (primary) hypertension; Z87.820 Personal history of traumatic brain injury; Z85.828 Personal history of other malignant neoplasm of skin
CPT/HCPCS: 71045; 71250; 94640; 99284; J9999

== ENCOUNTER 2025-05-28 14:03 | Oncology outpatient (recurring) (ONCR) | payer OTHER, MEDICAID, SELFPAY | END 2025-06-05 23:59 | disposition home or self-care (01) | PROVIDERS: PCP Nurse Practitioner Family; Visit Provider Internal Medicine Medical Oncology | DX: C34.12 Malignant neoplasm of upper lobe, left bronchus or lung (principal); R91.1 Solitary pulmonary nodule; F17.210 Nicotine dependence, cigarettes, uncomplicated | CPT/HCPCS: 99204; 99205 ==

== ENCOUNTER 2025-06-05 10:26 | Emergency (ER) | payer OTHER, MEDICAID, SELFPAY ==
[2025-06-05 10:32] VITALS: BP 164/111; PULSE 75; RESP 16; TEMP 36.7; O2SAT 97; BMI 17.3
--- NOTE | 2025-06-05 10:36 | CT_ITS ---
WS: [id number] CT HEAD NONCONTRAST HISTORY: Symptoms of acute stroke TECHNIQUE: Contiguous axial imaging performed through the brain. Bone and soft tissue windows. Sagittal and coronal reformats reviewed. All CT scans at [facility] use at least one of these dose optimization techniques: automated exposure control; mA and/or kV adjustment per patient size (includes targeted exams where dose is matched to clinical indication); or iterative reconstruction. DLP: 1104.98 mGy COMPARISON: 10/05/2020 No acute intracranial hemorrhage, midline shift or mass effect. Large area of encephalomalacia involving the RIGHT temporal lobe with extension into the basal ganglia consistent with prior infarcts along the MCA distribution. Additional small lacunar infarcts LEFT basal ganglia and along the anterior limb of the internal capsule. Mild atrophy and mild to moderate small vessel changes. Minimal progression since 10/05/2020. Ventricles: Mild ventriculomegaly. No inferior displacement of the cerebellar tonsils. Paranasal sinuses: As visualized are clear. Mastoid air cells: Well pneumatized. Calvarium and scalp: Skull is intact with no soft tissue edema or swelling. Mild atherosclerotic plaque in the intracranial carotid arteries. CT/CT head thrombolytic [id number] IMPRESSION: 1. No acute intracranial hemorrhage or edema. 2. 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 Similar t o 10/05/2020. 3. Small lacunar infarcts in the LEFT basal ganglia and anterior limb of the i nternal capsule. 4. Mild cerebral atrophy and ventriculomegaly.
--- NOTE | 2025-06-05 10:36 | ECG_ITS ---
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 Measurements Intervals [place] Rate: 72 P: 70 DC: 178 QRS: 47 QRSD: 80 T: 68 QT: 389 QTc: 428 Interpretive Statements SINUS RHYTHM Compared to ECG 02/07/2024 22:36:05 No significant changes Electronically Signed On 06-07-2025 08:40:36 CDT by Jm Yap M.D. [email or web address]
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
--- OUTSIDE RECORDS SUMMARY | 2025-06-05 10:38 | XMS_ITS | Clinical Summary ---
Author Organization 

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
--- OUTSIDE RECORDS SUMMARY | 2025-06-05 10:38 | XMS_ITS | Encounter Summary ---
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 Gender Identity Not on file Sexual [...] TESTING Final Re sult Performing Organization Address [facility] Phone Number INTERFACE SYSTEM Refer to clinic/hospital department * (ABNORMAL) POC ACTIVATED CLOTTING TIME (04/09/2005 12:15 PM CDT) ACT POC 169(H) 79 - 149 sec INTERFACE SYSTEM 04/09/2005 12:1 5 PM CDT us Isaac Harris MD POINT OF CARE TESTING Final Re sult Performing Organization Address [facility] Phone Number INTERFACE SYSTEM Refer to clinic/hospital department * CARDIAC ENZYMES (04/09/2005 8:15 AM CDT) CKMB 0.2 0.0 - 5.0 ng/mL INTERFACE SYSTEM Comment: As of 04 at 14:30 [facility] has changed the methodology for CK-MB and with this change the reference range has changed from 0-5.5 ng/ml to 0-5.0 ng/ml TROPONIN I <0.1 0.0 - 1.5 ng/mL INTERFACE SYSTEM Comment: As of 04 at 14:30 [facility] has changed the methodology for Troponin but the reference range of 1.5 ng/ml has remained the same. 04/09/2005 8:15 AM CDT Result Hiarl Harris MD CHEMISTRY ORDERABLES Final Res ult Performing Organization Address [facility] Phone Number INTERFACE SYSTEM Refer to clinic/hospital department * (ABNORMAL) PTT (04/09/2005 8:15 AM CDT) PTT 38.5(H) 24.3 - 37.5 Secs INTERFACE SYSTEM Comment:Therapeutic Range: 04/09/2005 8:15 AM CDT Isaac Harris MD HEMATOLOGY ORDERABLES Final Re sult Performing Organization Address [facility] Phone Number INTERFACE SYSTEM Refer to [...] Goal INR 3.0; range 2.5 - 3.5 POST-AL Goal INR 2.5; range 2.0 - 3.0 or Goal 3.0; range 2.5 - 3.5 Atrial Fibrillation Goal INR 2.5; range 2.0 - 3.0 Ischemic Stroke Goal INR 2.5; range 2.0 - 3.0 For additional information see Guidelines for Anticoagulation available from the pharmacy Hortensia Callejas Pharm D. 04/09/2005 8:15 AM CDT Isaac Harris MD HEMATOLOGY ORDERABLES Final Re sult Performing Organization Address [facility] Phone Number INTERFACE SYSTEM Refer to [...] ORDERABLES Final Re sult Performing Organization Address [facility]/ZIP Co de Phone Number INTERFACE SYSTEM Refer [...] ORDERABLES Final Res ult Performing Organization Address [facility]/ZIP Co de Phone Number INTERFACE SYSTEM Refer to clinic/hospital department * CARDIAC ENZYMES (04/09/2005 2:31 AM CDT) CKMB 0.6 0.0 - 5.0 ng/mL INTERFACE SYSTEM Comment: As of 04 at 14:30 [facility] has changed the methodology for CK-MB and with this change the reference range has changed from 0-5.5 ng/ml to 0-5.0 ng/ml TROPONIN I <0.1 0.0 - 1.5 ng/mL INTERFACE SYSTEM Comment: As of 04 at 14:30 [facility] has changed the methodology for Troponin but the reference range of 1.5 ng/ml has remained the same. 04/09/2005 2:31 AM CDT us Isaac Harris MD CHEMISTRY ORDERABLES Final Res ult Performing Organization Address [facility] de Phone Number INTERFACE SYSTEM Refer to clinic/hospital department * CARDIAC ENZYMES (04/08/2005 8:15 PM CDT) CKMB 0.3 0.0 - 5.0 ng/mL INTERFACE SYSTEM Comment: As of 04 at 14:30 [facility] has changed the methodology for CK-MB and with this change the reference range has changed from 0-5.5 ng/ml to 0-5.0 ng/ml TROPONIN I <0.1 0.0 - 1.5 ng/mL INTERFACE SYSTEM Comment: As of 04 at 14:30 [facility] has changed the methodology for Troponin but the reference range of 1.5 ng/ml has remained the same. 04/08/2005 8:15 PM CDT us Isaac Harris MD CHEMISTRY ORDERABLES Final Res ult Performing Organization Address [facility] Phone Number INTERFACE SYSTEM Refer to clinic/hospital department documented in this encounter Visit Diagnoses Diagnosis Coronary atherosclerosis of [place] coronary artery- Primary documented in this encounter Care Teams Nutritionists Relationship Specialty Start Date End Date Dustin Steel DO [address] [place] [address] PCP - General 04/08/05 documented as of this encounter
--- OUTSIDE RECORDS SUMMARY | 2025-06-05 10:38 | XMS_ITS | Encounter Summary ---
Author Organization [facility] Address [address] [place] [address] Care Team Providers Care Filler Blender Name Role Phone Dustin Steel Primary Care Provider [phone] Encounter Details Date Type Department Care Team (Latest Contact Info) Description 09/28/2005 Outpatient Historical [facility] [address] 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 COMPARISON: August [...] By: Cedrick Duran M.D. Date Signed: 09/28/05 FREID us Historical Provider CT ORDERABLES Final Result documented in this encounter Visit Diagnoses Diagnosis Unspecified intracranial hemorrhage (CMS/HCC)- Primary Unspecified intracranial hemorrhage documented in this encounter Care Teams Filler Blender Relationship Specialty Start Date End Date Dustin Steel DO [address] [place] [address] PCP - General 04/08/05 documented as of this encounter
--- OUTSIDE RECORDS SUMMARY | 2025-06-05 10:38 | XMS_ITS | Encounter Summary ---
Author Organization [facility] Address [address] [place] [address] Care Team Providers Care Elementary School Teacher Name Role Phone Dustin Steel DO Primary Care Provider [phone] Encounter Details Date Type Department Care Team (Latest Contact Info) Description 08/24/2005 Outpatient Historical [facility] [address] 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
--- OUTSIDE RECORDS SUMMARY | 2025-06-05 10:38 | XMS_ITS | Patient Health Record ---
Author Organization [facility] Address [address] [place] [address] Care Team Providers Care Limousine Driver Name Role Phone Hortensia Cuevas (Kayly) Primary Care Provider U Lety Boudreaux Unavailable [phone] Migration, Provider Unavailable Unavailable Randy Barbosa Unavailable [phone] Jaylan Brooks Unavailable [phone] Allergies No Known Allergies Results Component Value Reference Range Flag Notes MRI Lumbar Spine w/o Cont-[id number] Reviewed date:03/28/2025 02:09:21 PM Interpretation: Performing Lab: Notes/Report: sqm=[id number]&org=iSite Tox Results Reviewed date:01/02/2025 02:32:32 PM Interpretation: Performing Lab: Notes/Report: [facility] Lumbar Spine w/o Con t-[id number] Reviewed date:03/28/2025 02:09:06 PM Interpretation: Performing Lab: Notes/Report: See Below For Report MRI Lumbar Spine w/o Cont Aisha Salazar 12/27/2024 02:45:01 PM CDT > No PA Required \[id number] Read See Below For Report IPMA D+L Isomer Urine Test Reviewed date:05/31/2025 02:22:05 PM Interpretation: Performing Lab: Notes/Report: Schedule Confirmation (Not y et reviewed by provider) Interpretation: Performing Lab: Notes/Report: MRI Lumbar Spine w/o Cont Urine Confirmation Panel (in strument) - [id number] Reviewed date:05/01/2025 02:47:30 PM Interpretation: Performing Lab: [...] the U.S. Food and Drug Administration. Urine Drug Screen (cup read) - [id number] Reviewed date:04/23/2025 11:28:20 AM Interpretation: Performing Lab: Notes/Report: AMP + OPI + OXY + Urine Confirmation Panel (in strument) - [id number] Reviewed date:01/02/2025 11:02:08 AM Interpretation: Performing Lab: [...] the U.S. Food and Drug Administration. Urine Drug Screen (cup read) - [id number] Reviewed date:12/27/2024 12:41:44 PM Interpretation: Performing Lab: Notes/Report: OPI positive Urine Drug Screen (cup read) - 10534 Reviewed date:11/09/2024 03:55:43 PM Interpretation: Performing Lab: Notes/Report: OPI + zzzUrine Drug Screen (confir mation by instrument) - [id number] Reviewed date:09/20/2024 02:48:51 PM Interpretation: Performing Lab: Notes/Report: Urine Drug Screen (cup read) - [id number] Reviewed date:02/01/2025 02:02:24 PM Interpretation: Performing Lab: Notes/Report: OPI Pos Tox Results Reviewed date:05/01/2025 02:35:00 PM Interpretation: Performing Lab: Notes/Report: Tox Results Reviewed date:04/05/2025 04:42:07 PM Interpretation: Performing Lab: Notes/Report: Schedule Confirmation (Not y et reviewed by provider) Interpretation: Performing Lab: Notes/Report: MRI Lumbar Spine w/o Cont Urine Drug Screen (cup read) - [id number] Reviewed date:03/28/2025 04:31:22 PM Interpretation: Performing Lab: Notes/Report: AMP + OPI + OXY + MAMP + Urine Confirmation Panel (in strument) - [id number] Reviewed date:04/05/2025 04:32:07 PM Interpretation: Performing Lab: [...] by the U.S. Food and Drug Administration. Reason For Referral Reason 5.0 cm abdominal aor tic aneurysm per CTA abd/pelvis from [facility] on 08/25/24 Diagnosis 1 Infrarenal abdominal aortic aneurysm, without rupture (I71.43) Referring Provider First Name Nelly Referring Provider Last Name Jhony Referring Provider Speciality Nurse Prac titioner Referred Organization [facility] Referred Provider Ron Ulrich Referred Address [address] [place] [address] [address], [place],[address], Referred Provider Specialty Vascular Sravani lucio General Notes Tish Doe 09/20/19 03:12:27 PM >called [facility] and requested faxed CTA abd/pelvis from 08/2024 and [employer] images, Tish Doe 09/20/2024 03:14:04 PM >please schedule with next [...] is having this taken care of in [place]. Closing referral Referral Priority Routine Reason referral for anyone- - 1.2cm spiculated lung nodule (increased 5.4cm AAA) Diagnosis 1 Lung nodule seen on imaging study (R91.1) Diagnosis 2 Abdominal aortic ane urysm (AAA) without rupture, unspecified part (I71.40) Referring Provider First Name MAIA Referring Provider Last Name PEPE Referring Provider Speciality Pulmonary Diseases Referred Organization [facility] Referred Provider Susan Kuhn Referred Address [address] [place] [address] [address],[place],[address], Referred Provider Specialty Cardiothorac ic surgeon Referral Priority Routine Medications Medication SIG (Take, [...] Calcium 600 with Vitamin D3 *Reorder from [employer] for eRx and Interaction Alerts* Active Nitrostat 0.4 MG Tablet Sublingual as directed Sublingual as needed Active Aspirin 325 MG Tablet Take 1 tablet(s) by mouth qam Oral; Duration: 30 01/31/2013 Active Nebulizer System All-In-One - Miscellaneous as directed Portable PRN; Duration: 1 days Active Alendronic acid 10 MG Oral Tablet ORAL *Reorder from [employer] for eRx and Interaction Alerts* 11/08/2019 Active Lisinopril 2.5 MG Oral Tablet ORAL *Reorder from [employer] for eRx and Interaction Alerts* 11/08/2019 Active [...] 10 MG Oral Tablet ORAL *Reorder from [employer] for eRx and Interaction Alerts* 11/08/2019 Active Spiriva Respimat 2.5 MCG/ACT Aerosol Solution 2 puffs Inhalation Once a day; Duration: 90 days Active Famotidine 40 MG Tablet 1 tablet Orally Once a day; Duration: 90 days Active Simvastatin 40 MG Oral Tablet ORAL *Reorder from [employer] for eRx and Interaction Alerts* 11/08/2019 Active [...] than 5 cigarettes a day PHQ-9 12/05/20 Onset of smoking ~8yo with 1ppd. [...] than 5 cigarettes a day PHQ-9 -08/04/21 Onset of smoking ~8yo with 1ppd. [...] than 5 cigarettes a day PHQ-9 -08/04/21 Pt smokes less than 5 cigarettes a day PHQ- -12/05/20 Pt smokes less than 5 cigarettes a day PHQ- -12/05/20 Pt smokes less than 5 cigarettes a day PHQ-9 -12/05/20 Pt smokes less than 5 cigare ttes a day Pt smokes less than 5 cigare ttes a day Problems Problem Type SNOMED Code ICD Code Onset Dates Problem Status W/U Status Risk Notes Problem Mixed hyperlipidemia (935642871) Mixed hyperlipidemia (E78.2) Active confirmed Problem Polyneuropathy (04949103) Polyneuropathy, unspecified (G62.9) 2023 Active confirmed Problem Chronic pain syndrom e (042008549) Chronic pain syndrome (G89.4) 2023 Active confirmed Problem Lumbosacral spondylosis without myelopathy (83465489) Other spondylosis with radiculopathy, lumbosacral region (M47.27) 2023 Active confirmed Problem Lumbosacral spondylosis without myelopathy (disorder) (44219837) Spondylosis without myelopathy or radiculopathy, lumbosacral region (M47.817) 2023 Active confirmed Problem Lumbosacral radiculopathy (5395321) Radiculopathy, lumbosacral region (M54.17) 2023 Active confirmed Problem Age-related osteoporosis (187995773) Age-related osteoporosis without current pathological fracture (M81.0) Active confirmed Problem Abnormal gait (06008400) Unspecified abnormalities of gait and mobility (R26.9) 2023 Active confirmed Problem High risk drug monitoring status (750557822) rat exterminator (current) use of opiate analgesic (Z79.891) Active confirmed Problem Benign prostatic hypertrophy without outflow obstruction (650568575) Benign prostatic hyperplasia without lower urinary tract symptoms (N40.0) Active confirmed Problem Essential hypertension (27760925) Essential hypertension (I10) Active confirmed Problem Neuropathy (472256181) Neuropathy (G62.9) Active confirmed Problem Gastroesophageal reflux disease (683074461) GERD without esophagitis (K21.9) Active confirmed Problem COPD - Chronic obstructive pulmonary disease (38465170) Chronic obstructive pulmonary disease, unspecified COPD type (J44.9) Active confirmed Problem Essential hypertension (69649575) Hypertension, unspecified type (I10) Active confirmed Problem Acute exacerbation o f chronic obstructive airways disease (151659851) COPD exacerbation (J44.1) Active confirmed Problem Solitary nodule of lung (548157455) Lung nodule (R91.1) Active confirmed Problem Tobacco user (440320397) Cigarette nicotine dependence without complication (F17.210) Active confirmed Problem Solitary nodule of lung (033898710) Lung nodule seen on imaging study (R91.1) Active confirmed Problem Aortic aneurysm (96162762) Aortic aneurysm without rupture, unspecified portion of aorta (I71.9) Active confirmed Problem Intermittent claudication (26877920) Intermittent claudication (I73.9) Active confirmed Problem Insomnia (698178603) Insomnia (G47.00) Active c onfirmed Problem Atherosclerotic hear t disease of sokaogon coronary artery without angina pectoris (737045501304414) Coronary artery disease involving sokaogon heart without angina pectoris, unspecified vessel or lesion type (I25.10) Active confirmed Problem Obstructive sleep apnea syndrome (68919413) POLLY (obstructive sleep apnea) (G47.33) Active confirmed Problem Age-related osteoporosis (186873272) Osteoporosis, unspecified osteoporosis type, unspecified pathological fracture presence (M81.0) Active confirmed Problem Nicotine dependence (35297041) Nicotine dependence (F17.200) Active confirmed Problem Osteoporosis wit h current pathological fracture with delayed healing, unspecified osteoporosis type, subsequent encounter (M80.00XG) Active confirmed Problem Coronary artery disease (59661670) CAD (coronary artery disease) (I25.10) Active confirmed Problem Enlarged prostate (081579881) Enlarged prostate (N40.0) Active confirmed Problem Lumbosacral spondylosis without myelopathy (35246206) Spondylosis of lumbosacral region, unspecified spinal osteoarthritis complication status (M47.817) Active confirmed Problem Hyperlipidemia (90355631) Hyperlipidemia (E78.5) Active confirmed Problem Disorder of urinary bladder (46661969) Bladder wall thickening (N32.89) Active confirmed Problem Benign prostatic hypertrophy with outflow obstruction (020788321) BPH loc w urin obs/LUTS (N40.1) Active confirmed Problem Chronic obstructive pulmonary disease (88778349) COPD (chronic obstructive pulmonary disease) case management patient (J44.9) Active confirmed Problem Lumbar spondylosis with myelopathy (disorder) (37877246) 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) Active confirmed Problem Abnormal gait (65800663) Abnormality of gait and mobility (R26.9) Active confirmed Problem Polyneuropathy cause d by drug (6808616) 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) Active confirmed Problem Aneurysm of iliac artery (28338716) Iliac artery aneurysm, 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0) Active confirmed Problem Skin cancer of anterior chest (C44.509) Active confirmed Problem Emphysema (62040139) Other emphy sema (J43.8) 2015 Active confirmed [facility]-98 5911- Problem Chronic obstructive pulmonary disease (95783339) Chronic obstructive pulmonary disease, unspecified (J44.9) 2017 Active confirmed [facility]-98 5911- Problem Lumbosacral spondylosis without myelopathy (74236167) Lumbosacral spondylosis without myelopathy (M47.817) 2016 Active confirmed [facility]-98 5911- Problem Acute myocardial infarction (15526906) Acute myocardial infarction, unspecified site, episode of care unspecified (410.90) 2014 Inactive confirmed [facility]-98 5911- Problem Sinus node dysfunction (52007465) Sinoatrial node dysfunction (427.81) 2012 Inactive confirmed [facility]98 5911- Problem Orthostatic hypotension (96925119) Orthostatic hypotension (458.0) 2015 Inactive confirmed [facility]98 5911- Problem Actinic keratosis (012976149) Actinic keratosis (702.0) 2016 Inactive confirmed [facility]-98 5911- Problem Anorexia (54336124) Anorexia (783.0) 2006 Inactive confirmed [facility]98 5911- Problem Headache (13570626) Headache (784.0) 2014 Inactive confirmed [facility]-98 5911- Problem Cough (27275259) Cough (786.2) 2012 Inactive confirmed [facility]-98 5911- Problem Diarrhea (17025488) Diarrhea (787.91) 2015 Inactive confirmed [facility]98 5911- Problem Urinary frequency (969862123) Urinary frequency (788.41) 2005 Inactive confirmed [facility]-98 5911- Problem Elevated PSA (688531037) Elevated prostate specific antigen (PSA) (790.93) 2011 Inactive confirmed [facility]-98 5911- Problem 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 (626772887) 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) 2016 Inactive confirmed [facility]-98 5911- Problem Elevated PSA (635067664) Elevated PSA (790.93) 2011 Inactive confirmed [facility]-98 5911- Problem Screening for malignant neoplasm of prostate (102698528) Screening for prostate cancer (V76.44) 2006 Inactive confirmed [facility]-98 5911- Problem Low back pain (361063223) Low back pain (724.2) 2008 Inactive confirmed [facility]-98 5911- Problem Tachycardia (4535819) Tachycardi a, unspecified (785.0) 2012 Inactive confirmed [facility]-98 5911- Problem Orchitis and epididymitis (291788508) Epidymitis, unspecified (604.90) 2011 Inactive confirmed [facility]-98 5911- Problem Hypercholesterolemia (56372475) Hypercholesterolemia (272.0) 2009 Inactive confirmed [facility]98 5911- Problem Hypotension (06288164) Hypotension, other (458.8) 2016 Inactive confirmed [facility]-98 5911- Problem Shortness of breath (984288621) Shortness of breath (786.09) 2013 Inactive confirmed [facility]-98 5911- Problem Staphylococcal infection (33993491) Staphylococcal infection (482.40) 2016 Inactive confirmed [facility]-98 5911- Problem T12 compression fracture (805.2) 2014 Inactive confirmed [facility]-98 5911- Problem Xanthelasma (501580533) Xanthelasma (374.51) 2013 Inactive confirmed [facility]-98 5911- Problem Multiple thoraci c compression fractures (805.2) 2017 Inactive confirmed [facility]-98 5911- Problem Carbuncle of axilla (09508018) Carbuncle of axilla (680.3) 2012 Inactive confirmed [facility]-98 5911- Problem Chest pain (70141919) Chest pain (786.50) 2006 Inactive confirmed [facility]-98 5911- Problem Disorder of hematopoietic system (30645992) Other abnormal findings on blood examination (790.99) 2016 Inactive confirmed [facility]-98 5911- Problem Pleural pain (6199282) Pleural pain (786.52) 2012 Inactive confirmed [facility]-98 5911- Problem Epigastric pain (07368452) Abdominal pain (epigastric) (789.06) 2015 Inactive confirmed [facility]-98 5911- Problem Acute exacerbation o f chronic obstructive airways disease (923747414) Acute exacerbation of chronic obstructive pulmonary disease (COPD) (491.21) 2013 Inactive confirmed [facility]-98 5911- Problem Atypical mole syndrome (482267821) Atypical mole (238.2) 2016 Inactive confirmed [facility]-98 5911- Problem Chest pain (12151664) Chest pain (786.51) 2014 Inactive confirmed [facility]-98 5911- Problem Emphysema (49961020) Emphysema (492.8) 2011 Inactive confirmed [facility]-98 5911- Problem Furuncle (810245939) Furuncle (680.9) 2015 Inactive confirmed [facility]-98 5911- Problem Pneumococcal pneumonia (200722908) Lobar pneumonia, organism unspecified (481) 2012 Inactive confirmed [facility]-98 5911- Problem Intermittent claudication secondary to arteriosclerosis (440.21) 2016 Inactive confirmed [facility]-98 5911- Problem Cellulitis and abscess of lower leg (158109408) Leg abscess (682.6) 2016 Inactive confirmed [facility]-98 5911- Problem Insomnia (357062117) Insomnia (307.41) 2011 Inactive confirmed [facility]-98 5911- Problem Pain in limb (37440973) Leg pain (729.5) 2008 Inactive confirmed [facility]-98 5911- Problem Peripheral neuropath y (634459903) Peripheral neuropathy (356.9) 2016 Inactive confirmed [facility]-98 5911- Problem Precordial pain (21967763) Precordial chest pain (786.51) 2005 Inactive confirmed [facility]-98 5911- Problem Rib pain (436197102) Rib pain (786.50) 2014 Inactive confirmed [facility]-98 5911- Problem Continuous opioid dependence (200203281) Opioid dependence, continuous (304.01) 2018 Inactive confirmed [facility]-98 5911- Problem Sinus bradycardia (49066017) Sinus bradycardia (427.89) 2014 Inactive confirmed [facility]-98 5911- Problem Staphylococcal infectious disease (26627808) Staph infection (041.19) 2015 Inactive confirmed [facility]-98 5911- Problem Tobacco user (813510201) Tobacco abuse affecting health (305.1) 2012 Inactive confirmed [facility]-98 5911- Problem Needs influenza immunization (063756222) Vaccination against other viral diseases, Influenza (V04.81) 2005 Inactive confirmed [facility]-98 5911- Problem Benign prostatic hypertrophy (021719600) BPH (600.00) 2011 Inactive confirmed [facility]-98 5911- Problem Carbuncle of buttock (02422012) Carbuncle of buttock (680.5) 2012 Inactive confirmed [facility]-98 5911- Problem Other disease of nasal cavity and sinuses (478.19) 2006 Inactive confirmed [facility]-98 5911- Problem Neoplasm of uncertai n behavior of skin (51983239) Atypical skin lesion (238.2) 2013 Inactive confirmed [facility]-98 5911- Problem Carbuncle of leg (680.6) 2013 Inactive confirmed [facility]-98 5911- Problem Chronic obstructive pulmonary disease (42460251) Chronic obstructive pulmonary disease (496) 2015 Inactive confirmed [facility]-98 5911- Problem Chronic low back etelvina n (452609761) Chronic low back pain (724.2) 2015 Inactive confirmed [facility]-98 5911- Problem Carbuncle/furuncle (122438487) Carbuncle of other site (680.8) 2012 Inactive confirmed [facility]-98 5911- Problem Chronic obstructive bronchitis (674115933) Emphysema with Chronic Bronchitis (491.20) 2014 Inactive confirmed [facility]-98 5911- Problem Pneumococcal pneumonia (876563974) Acute lobar pneumonia (481) 2012 Inactive confirmed [facility]-98 5911- Problem Arterial embolis m of lower extremity (444.22) 2011 Inactive confirmed [facility]-98 5911- Problem Easy bruising (041385985) Easy bruising (782.7) 2015 Inactive confirmed [facility]-98 5911- Problem Cramp in lower limb (747749132) Leg cramps (729.82) 2012 Inactive confirmed [facility]-98 5911- Problem Coronary arteriosclerosis (disorder) (56207476) Coronary artery disease, of sokaogon coronary artery (414.01) 2007 Inactive confirmed [facility]-98 5911- Problem Essential hypertension (98793010) Essential hypertension (401.1) 2009 Inactive confirmed [facility]-98 5911- Problem Impacted cerumen (31753435) External cerumen impaction (380.4) 2018 Inactive confirmed [facility]-98 5911- Problem Gastroesophageal reflux disease (046372160) GERD (530.81) 2006 Inactive confirmed [facility]-98 5911- Problem Nausea (134593143) Nausea (787.02) 2011 Inactive confirmed [facility]-98 5911- Problem Pneumonia (377265512) Primary at ypical pneumonia (486) 2016 Inactive confirmed [facility]-98 5911- Problem Restless legs syndrome (17433032) Restless leg syndrome (333.99) 2005 Inactive confirmed [facility]-98 5911- Problem Convulsion (71527606) Seizure(s) (780.39) 2008 Inactive confirmed [facility]-98 5911- Problem Thrush (08312053) Thrush (112.0) 2016 Inactive confirmed [facility]-98 5911- Problem Adrenal disorder (76606256) Disorder of adrenal glands, other specified (255.8) 2016 Inactive confirmed [facility]98 5911- Problem Hypotension (02546504) Hypotension, unspecified (458.9) 2016 Inactive confirmed [facility]-98 5911- Vital Signs Height-cm 175.26 cm 04/23/2025 Weight-kg 53.52 kg 04/23/2025 Height 69.00 in 04/23/2025 Weight 118 lbs 04/23/2025 BMI 17.42 kg/m2 04/23/2025 Encounters Encounter Location Date Provider Diagnosis [facility] [address] [address] 06/22/2024 Lety Hayden [facility] [place] [address] [place] [address] 07/19/2024 Jaylan Martinezffdameon Chronic pain syndrom e G89.4 ; L-S radiculopathy M54.17 ; Spondylosis of lumbosacral region, unspecified spinal osteoarthritis complication status M47.817 and rat exterminator (current) use of opiate analgesic Z79.891 [facility] [address] [place] [phone] 09/14/2024 Lety Hayden Chronic pain syndrom e G89.4 ; 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 ; Radiculopathy, lumbosacral region M54.17 ; Spondylosis without myelopathy or radiculopathy, lumbosacral region M47.817 and halfway (current) use of opiate analgesic Z79.891 [facility] [address] [address] 11/09/2024 Lety Hayden Chronic pain syndrom e G89.4 ; 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 ; Radiculopathy, lumbosacral region M54.17 ; Spondylosis without myelopathy or radiculopathy, lumbosacral region M47.817 and rat exterminator (current) use of opiate analgesic Z79.891 [facility] [address] [place] [phone] 12/27/2024 Jaylan Brooks Chronic pain syndrom e G89.4 ; 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 ; Radiculopathy, lumbosacral region M54.17 ; rat exterminator (current) use of opiate analgesic Z79.891 and Spondylosis without myelopathy or radiculopathy, lumbosacral region M47.817 [facility] [address] [place] [address] 02/01/2025 Lety Hayden Chronic pain syndrom e G89.4 ; 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 ; Radiculopathy, lumbosacral region M54.17 ; rat exterminator (current) use of opiate analgesic Z79.891 and Spondylosis without myelopathy or radiculopathy, lumbosacral region M47.817 [facility] [place] [address] [place] [phone] 03/28/2025 Jaylan Brooks Chronic pain syndrom e G89.4 ; 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 ; Lumbosacral spondylosis with radiculopathy M47.27 ; rat exterminator (current) use of opiate analgesic Z79.891 ; Spondylosis without myelopathy or radiculopathy, lumbosacral region M47.817 ; Depression screen Z13.31 and Radiculopathy, lumbosacral region M54.17 [facility] [address] [address] 04/23/2025 Lety Hayden Chronic pain syndrom e G89.4 ; 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 ; Radiculopathy, lumbosacral region M54.17 ; rat exterminator (current) use of opiate analgesic Z79.891 and Spondylosis without myelopathy or radiculopathy, lumbosacral region M47.817 [facility]rated[facility]Facility 0 0 07/01/2024 Provider Migration [facility]Facility 0 0 07/02/2024 Provider Migration [facility] [address] [place] [address] [place] [address] 09/28/2024 Randy Barbosa [facility] [address] [address] 02/01/2025 Jaylan Brooks Radiculopathy, lumbosacral region M54.17 Assessments Encounter Date Diagnosis (ICD Code) Assessment Notes Treatment Notes Treatment Clinical Notes Section Notes 09/14/2024 Chronic pain syndrome (ICD-10 - G89.4) [...] effects are noted. Last UDS and [place] COMMERCIAL REPRESENTATIVE reviewed today. Patient is advised that best [...] been made aware of this policy. 02/01/2025 Chronic pain syndrome (ICD-10 - G89.4) [...] also does not want to drive to [place] for these injections. However, after a long [...] effects are noted. Last UDS and [place] COMMERCIAL REPRESENTATIVE reviewed today. Patient is advised that best [...] effects are noted. Last UDS and [place] COMMERCIAL REPRESENTATIVE reviewed today. Patient is advised that best [...] effects are noted. Last UDS and [place] COMMERCIAL REPRESENTATIVE reviewed today. Patient is advised that best [...] testing policy. 04/23/2025 Holding hydrocodone 10-325 QID 07/19/2024 Chronic pain syndrome (ICD-10 - G89.4) [...] months. 07/19/2024 L-S radiculopathy (ICD-10 - M54.17) 12/27/2024 Chronic pain syndrome (ICD-10 - G89.4) [...] 12/27/2024 Drug-induced peripheral neuropathy (ICD-10 - G62.0) 12/27/2024 Radiculopathy, lumbosacral region (ICD-10 - M54.17) 07/19/2024 Spondylosis of lumbosacral region, unspecified spinal osteoarthritis complication status (ICD-10 - M47.817) 04/23/2025 Drug-induced peripheral neuropathy (ICD-10 - G62.0) 03/28/2025 Lumbosacral spondylosis with radiculopathy (ICD-10 - M47.27) 11/09/2024 Drug-induced peripheral neuropathy (ICD-10 - G62.0) 02/01/2025 Drug-induced peripheral neuropathy (ICD-10 - G62.0) 09/14/2024 Radiculopathy, lumbosacral region (ICD-10 - M54.17) 11/09/2024 Radiculopathy, lumbosacral region (ICD-10 - M54.17) 09/14/2024 Spondylosis without myelopathy or radiculopathy, lumbosacral region (ICD-10 - M47.817) 02/01/2025 Radiculopathy, lumbosacral region (ICD-10 - M54.17) 04/23/2025 Radiculopathy, lumbosacral region (ICD-10 - M54.17) 03/28/2025 rat exterminator (current) use of opiate analgesic (ICD-10 - [...] to abide by our urine testing policy. 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 04/23/2025 halfway (current) use of opiate analgesic (ICD-10 - Z79.891) 02/01/2025 halfway (current) use of opiate analgesic (ICD-10 - Z79.891) 03/28/2025 Spondylosis without myelopathy or radiculopathy, lumbosacral region (ICD-10 - M47.817) 09/14/2024 halfway (current) use of opiate analgesic (ICD-10 - Z79.891) 11/09/2024 Spondylosis without myelopathy or radiculopathy, lumbosacral region (ICD-10 - M47.817) 12/27/2024 Spondylosis without myelopathy or radiculopathy, lumbosacral region (ICD-10 - M47.817) 11/09/2024 halfway (current) use of opiate analgesic (ICD-10 - Z79.891) 02/01/2025 Spondylosis without myelopathy or radiculopathy, lumbosacral region (ICD-10 - M47.817) 04/23/2025 Spondylosis without myelopathy or radiculopathy, lumbosacral region (ICD-10 - M47.817) 03/28/2025 Depression screen (ICD-10 - Z13.31) 03/28/2025 Radiculopathy, lumbosacral region (ICD-10 - M54.17) 07/19/2024 Other Barbara, Cedrick Navarrete, am scribing for Jaylan Brooks. I, Jaylan Brooks, personally performed the services described in this documentation, as scribed by Cedrick Navarrete, and it is both accurate and complete. 12/27/2024 Other Cedrick Jimenez am scribing for Dr. Jaylan Brooks. I, Dr. Jaylan Brooks, personally performed the services described in this documentation, as scribed by Cedrick Navarrete, and it is both accurate and complete. 03/28/2025 Other Barbara, NEISHA Jarrett, am scribing for Dr. Jaylan Brooks. I, Dr. Jaylan Brooks, personally performed the services described in this documentation, as scribed by NEISHA Jarrett, and it is both accurate and complete. Plan Of Treatment Pending Test Test Name Order Date Schedule Confirmation 01/09/2025 Schedule Confirmation 01/09/2025 Next Appt Details Provider Name:Lety Monica pace, 06/21/2025 03:20:00 PM, [address] [place], [address], Insurance Providers Payer Name Payer Address Payer Phone Subscriber Number Group Number Insured Name Patient Relationship to Insured Coverage Start Date Coverage End Date [employer] Medicare Dual Complete PPO [address] [address] [place] [address] [phone] [id number] Ciaran Gauthier Self - patient is the insured 3 [place] [address] [place] [address] [id number] Ciaran Gauthier Self - patient is the insured [place] Medicare [address] [place] [phone] [id number] Ciaran Gauthier Self - patient is the insured 2 Medications Administered Medication Instructions Date of Administration Dosage Notes DEPO-Medrol 08/26/2022 40 mg [id number] tolerated well dexAMETHasone 08/26/2022 4 mg [id number] Patient tolerated well Prolia 11/12/2021 LOT# [id number] Rocephin 08/26/2022 1 g [id number] Patient tolerated well. Medical (General) History [...]
[2025-06-05 10:58] VITALS: BP 177/119
[2025-06-05 11:04] VITALS: O2SAT 98
--- NOTE | 2025-06-05 11:05 | XRR_ITS ---
PROCEDURE INFORMATION: Exam: XR Chest Exam date and time: 06/05/2025 11:08 AM Age: 80 years old Clinical indication: Cough and dyspnea; Prior surgery; Surgery date: Post-operative (0-2 days); Surgery type: Post ion bronch; Additional info: Dyspnea/cough TECHNIQUE: Imaging protocol: Radiologic exam of the chest. Views: 1 view. COMPARISON: CT chest con [id number] 05/24/2025 1:13 AM FINDINGS: Lungs: Unremarkable. No consolidation. Pleural spaces: Unremarkable. No pleural effusion. No pneumothorax. Heart/Mediastinum: Unremarkable. No cardiomegaly. Bones/joints: Healing clavicle fracture deformities XR/XR chest 1V portable [id number] IMPRESSION: No acute findings.
--- NOTE | 2025-06-05 11:05 | CT_ITS ---
WS: [id number] CT ABDOMEN AND PELVIS WITH CONTRAST HISTORY: Abdominal pain with weakness. TECHNIQUE: Imaging performed of the abdomen and pelvis with IV contrast. Single phase imaging of the abdomen. Coronal and sagittal reformats are submitted. All CT scans at [facility] use at least one of these dose optimization techniques: automated exposure control; mA and/or kV adjustment per patient size (includes targeted exams where dose is matched to clinical indication); or iterative reconstruction. IV CONTRAST: Omnipaque 350; 100 mL IV. Oral contrast: No DLP: 325.77 mGy.cm COMPARISON: 08/25/2024 Lower thorax: Chronic emphysematous changes at the lung bases. Linear atelectasis at the lung bases. Heart is normal size. No hiatal hernia. Liver/biliary system: Normal size with no intrahepatic dilatation. Gallbladder: Normal. No gallstones or wall thickening. No pericholecystic fluid. Pancreas: Normal size pancreas and pancreatic duct. No adjacent inflammation. Spleen: Normal spleen with granuloma. Adrenal glands: Normal. Right kidney: Normal. Left kidney: Normal size with several simple renal cysts. The largest cyst 4.4 x 4.1 cm. No obstruction. Aorta: Markedly ectatic abdominal aorta with wall calcification. Large infrarenal abdominal aortic aneurysm is identified and has been previously described. There is asymmetric patent lumen. Large amount of intraluminal thrombus with the diameter up to 2.2 cm on the LEFT. There is mild draping and loss of the normal contour of the abdominal aorta near the bifurcation. Aneurysm extends over a length of at least 6.6 cm. Maximum diameter is 5.3 cm which is very similar to the prior measurement. There is no large periorbital fluid collection or hematoma. Aneurysm extends into the iliac arteries greatest on the LEFT. LEFT common iliac artery aneurysm 3.2 cm. RIGHT common iliac artery aneurysm 2.4 cm. Near the bifurcation of the iliac arteries there is a large amount of increasing plaque with stenoses. Near complete occlusion LEFT external iliac artery with reconstitution distally. Atherosclerotic plaque is present in the celiac axis and SMA. No complete occlusion. Contrast is noted within the IVC. Beginning at the bifurcation of the IVC there is no contrast-enhancement in the LEFT common iliac vein to the common femoral vein. This is asymmetric to the RIGHT. Lymphadenopathy: None. Free fluid: None. GI tract: Stomach is not distended. No small bowel obstruction. There is diffuse moderate constipation. Sigmoid diverticulosis without acute diverticulitis. Abdominal wall: Unremarkable abdominal wall. No hernia. Pelvis: Urinary bladder is well distended. RIGHT lateral bladder diverticulum. Prostate is enlarged and heterogeneous. Bones: T12 30% compression fracture stable since 08/25/2024. Prior CABG. CT/CT abdomen pelvis w con* [id number] IMPRESSION: 1. Large infrarenal abdominal aortic aneurysm extends over a length of 6.6 cm and extends into the LEFT common iliac artery. 2. Transverse diameter AAA, 5.3 cm which is similar to the prior study. No par a-aortic fluid collection. There is mild draping of the inferior abdominal aort ic aneurysm over the LEFT lateral vertebral bodies which can be seen with early changes of an impending rupture. This is very similar to the study of 08/25/20 24 with no adjacent hematoma. 3. LEFT common iliac artery aneurysm 3.2 cm. 4. RIGHT common iliac artery aneurysm 2.4 cm. 5. There is no contrast opacification of the LEFT common iliac vein to the com mon femoral vein. Suggest follow-up venous Doppler ultrasound to exclude DVT. 6. Near complete occlusion of the LEFT external iliac artery with reconstituti on distally. 7. Large amount of increasing plaque in the distal common iliac arteries into the external iliac arteries. 8. Sigmoid diverticulosis without acute diverticulitis. 9. LEFT renal cysts. 10. T12, 30% compression fracture is stable.
[2025-06-05 11:09] LABS: Hematocrit 46.0 % (37-53); Hemoglobin 14.60 g/dL (11.27-16.99); Mean Corpuscular HGB Conc 31.7 g/dL (30-55); Mean Corpuscular Hemoglobin 31.8 pg (27-33); Mean Corpuscular Volume 100.2 fl (82-101); Nucleated Red Blood Cells % 0 %; Platelet Count 259 10^3/cmm (157-399); Red Blood Count 4.59 10^6/uL (3.85-5.65); White Blood Count 10.61 10^3/uL (3.29-11.43)
--- NOTE | 2025-06-05 11:17 | W.ED.WEAKNES ---
HPI - Weakness General: Chief complaint: Weakness Stated complaint: stroke like systems Time Seen by Provider: 06/05/25 10:30 History of Present Illness: 80-year-old male presents emergency room complaining weakness stated complaint says that strokelike symptoms but he does not have any strokelike symptoms. Has had multiple episodes of falling the last several days he has a history of lung cancer and COPD. He did strike his head he does not recall all of the episodes. He states he feels very weak he refers to left upper quadrant pain. Associated symptoms: Denies chest pain, chills, dysuria or fever(s) Related Data Home Medications ?Medication ?Instructions ?Recorded ?Confirmed cholecalciferol (vitamin D3) 25 37.5 mcg PO DAILY 05/21/25 06/05/25 mcg (1,000 unit) tablet cilostazol 50 mg tablet 50 mg PO BID 05/21/25 06/05/25 nitroglycerin 0.4 mg sublingual 0.4 mg sublingual Q5MIN PRN Chest 05/21/25 06/05/25 tablet Pain alendronate 70 mg tablet 70 mg PO Q7D 06/05/25 06/05/25 finasteride 5 mg tablet 5 mg PO DAILY 06/05/25 06/05/25 isosorbide mononitrate 20 mg tablet 10 mg PO QAM 06/05/25 06/05/25 tamsulosin 0.4 mg capsule 0.4 mg PO BID 06/05/25 06/05/25 Previous Rx's ?Medication ?Instructions ?Recorded famotidine 40 mg tablet 40 mg PO DAILY #90 tabs 02/05/25 rosuvastatin 40 mg tablet 40 mg PO DAILY #30 tabs 02/05/25 portable oxygen #1 ea 02/08/25 hydrocodone 5 mg-acetaminophen 325 1 tab PO Q6H PRN pain #20 tabs 06/05/25 mg tablet ondansetron HCl 4 mg tablet 4 mg PO Q6H PRN nausea and 06/05/25 vomiting #20 tabs Allergies Allergy/AdvReac Type Severity Reaction Status Date / Time No Known Allergies Allergy Verified 05/28/25 14:12 Review of Systems Const: Denies: fever(s) or chills Card: Denies: chest pain Resp: Denies: dyspnea GI: Denies: abdominal pain : Denies: dysuria, urinary frequency or urinary urgency Musc: Denies: neck pain or back pain Skin/Breast: Denies: rash PFSH ED PFSH: Medical History Nodule of left lung Enrolled in chronic care management BPH (benign prostatic hyperplasia) AAA (abdominal aortic aneurysm) without rupture Iliac artery aneurysm, left Essential hypertension Cigarette nicotine dependence Enlarged prostate Hyperlipidemia Lumbar and sacral spondylarthritis Lung nodule COPD (chronic obstructive pulmonary disease) Emphysema lung Osteoporosis GERD (gastroesophageal reflux disease) POLLY (obstructive sleep apnea) TBI (traumatic brain injury) Skin cancer Intermittent claudication Thoracic compression fracture Arteriosclerosis Opioid dependence Peripheral neuropathy History of marijuana use Family hx of hypertension Family history of asthma Family hx of colon cancer Family history of ulcerative colitis Family history of CHF (congestive heart failure) Family history of renal failure Family history of diabetes mellitus Dyslipidemia Former heavy tobacco smoker COPD (chronic obstructive pulmonary disease) Uses 3 L oxygen at night Chronic back pain Coronary artery disease 7 stents Surgical History History of coronary artery bypass graft x 2 History of PTCA S/P CABG (coronary artery bypass graft) 1997 Family History Father , AT AGE 91 Cancer Lung disease Brother Cancer Diabetes Lung disease Mother , AT 88 Stroke Social History Smoking and tobacco/nicotine status: current every day tobacco/nicotine user cigarettes Packs smoked per day: 1 Years cigarettes smoked: 64 [ Other cigarette details: started at age 13] Alcohol intake: never Substance/Drug Use: current Substance/Drug use frequency: daily Marital status: Life Partner Current occupational status: retired Physical Exam Const: COMMON NORMALS: no acute distress GENERAL APPEARANCE: cooperative and comfortable ORIENTATION/CONSCIOUSNESS: Yes awake, Yes oriented to person, Yes oriented to place and Yes oriented to time HENMT: COMMON NORMALS: normocephalic, atraumatic and hearing grossly normal bilaterally HEAD & SCALP: normocephalic and atraumatic Resp: COMMON NORMALS: normal respiratory effort, No retractions, No use of accessory muscles and clear to auscultation bilaterally AUSCULTATION: clear to auscultation bilaterally Cardio: COMMON NORMALS: regular rate, regular rhythm and No murmurs present (Cardio) RATE: regular rate RHYTHM: regular rhythm GI: COMMON NORMALS: Soft to palpation and No hepatosplenomegaly present AUSCULTATION: Yes normoactive bowel sounds PALPATION: Yes Soft to palpation, No Tenderness to palpation present (GI), No Guarding due to palpation present (GI) and Yes No hepatosplenomegaly present Extremity: COMMON NORMALS: normal to inspection, capillary refill normal, no clubbing, cyanosis or edema, no calf tenderness and no pedal edema Neuro: SENSORIUM/ORIENTATION: Yes oriented to person, Yes oriented to place and Yes oriented to time Skin: COMMON NORMALS: no rashes or lesions noted GENERAL SKIN EXAM: no rashes or lesions noted Course Vital Signs: Vital signs: Vital Signs Temperature 98.1 F 06/05/25 10:32 Pulse Rate 83 06/05/25 15:18 Respiratory Rate 16 06/05/25 10:32 Blood Pressure 166/97 06/05/25 15:18 Pulse Oximetry 93 06/05/25 15:18 Oxygen Delivery Me thod Room Air 06/05/25 13:00 MDM - Weakness Medical Decision Making Labs imaging and notes history reviewed as found on the chart. Patient has extensive vascular history. He has an appointment upcoming with vascular surgery. There are some discussion about proceeding with an endovascular procedure to stabilize the flow of the aneurysms. There is a question of DVT based on the CT findings I discussed with Dr. Collazo from radiology regarding both the abdominal CT and pelvis and the risk for DVT. Venous Doppler was done there is no sign of DVT. The other complicating factors for this patient are his severe COPD and known lung cancer. Patient's does not wish to pursue any other evaluations at this time he preferred to just follow-up with his oncology and the vascular surgeon as scheduled. He was concerned he may have had a stroke. There is evidence of old stroke on his CT but no acute bleed and no subacute infarcts. On exam he has no significant findings clinically his initial NIH is 0. CT of the head was done without contrast this is not medically brain metastasis was reviewed with the patient he would prefer to follow this up with oncology. There is no findings suggestive of this now I think his weakness is due to his overall deterioration of multiple medical problems. Patient and family are comfortable with the current evaluation and the findings and discussion we had regarding these. They do not wish to proceed any further at this time and will follow-up with oncology and vascular surgery as scheduled. Medical Records I reviewed the patient's medical records. Lab Data I reviewed the patient's lab results. 06/05/25 11:01 06/05/25 11:[address] 06/05/25 10:36 IMPRESSION: 1. No acute intracranial hemorrhage or edema. 2. 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 Similar to 10/05/2020. 3. Small lacunar infarcts in the LEFT basal ganglia and anterior limb of the internal capsule. 4. Mild cerebral atrophy and ventriculomegaly. Abdomen/Pelvis CT 06/05/25 11:05 IMPRESSION: 1. Large infrarenal abdominal aortic aneurysm extends over a length of 6.6 cm and extends into the LEFT common iliac artery. 2. Transverse diameter AAA, 5.3 cm which is similar to the prior study. No para-aortic fluid collection. There is mild draping of the inferior abdominal aortic aneurysm over the LEFT lateral vertebral bodies which can be seen with early changes of an impending rupture. This is very similar to the study of 08/25/2024 with no adjacent hematoma. 3. LEFT common iliac artery aneurysm 3.2 cm. 4. RIGHT common iliac artery aneurysm 2.4 cm. 5. There is no contrast opacification of the LEFT common iliac vein to the common femoral vein. Suggest follow-up venous Doppler ultrasound to exclude DVT. 6. Near complete occlusion of the LEFT external iliac artery with reconstitution distally. 7. Large amount of increasing plaque in the distal common iliac arteries into the external iliac arteries. 8. Sigmoid diverticulosis without acute diverticulitis. 9. LEFT renal cysts. 10. T12, 30% compression fracture is stable. Chest X-Ray 06/05/25 11:05 IMPRESSION: No acute findings. Laboratory Results WBC 10.61 10^3/uL (3.29-11.43) 06/05/25 11:01 RBC 4.59 10^6/uL (3.85-5.65) 06/05/25 11:01 Hgb 14.60 g/dL (11.27-16.99) 06/05/25 11:01 Hct 46.0 % (37-53) 06/05/25 11:01 MCV 100.2 fl (82-101) 06/05/25 11:01 MCH 31.8 pg (27-33) 06/05/25 11:01 MCHC 31.7 g/dL (30-55) 06/05/25 11:01 RDW 13.7 % (12.1-15.1) 06/05/25 11:01 Plt Count 259 10^3/cmm (157-399) 06/05/25 11:01 MPV 8.5 fL (7.4-10.4) 06/05/25 11:01 Neut % (Auto) 57.6 % 06/05/25 11:01 Lymph % (Auto) 32.0 % 06/05/25 11:01 [place] % (Auto) 8.4 % 06/05/25 11:01 Eos % (Auto) 1.1 % 06/05/25 11:01 Baso % (Auto) 0.7 % 06/05/25 11:01 Neut # (Auto) 6.11 10^3/uL (1.8-7.7) 06/05/25 11:01 Lymph # (Auto) 3.4 10^3/uL (0.8-4.8) 06/05/25 11:01 [place] # (Auto) 0.9 10^3/uL (0.2-0.9) 06/05/25 11:01 Eos # (Auto) 0.1 10^3/uL (0.0-0.8) 06/05/25 11:01 Baso # (Auto) 0.1 10^3/uL (0.0-0.1) 06/05/25 11:01 Nucleated RBC % (auto) 0 % 06/05/25 11:01 Nucleated RBCs # 0.0 /100WBC 06/05/25 11:01 PT 12.20 SECONDS (12.1-14.9) 06/05/25 11:01 INR 0.85 (0.8-1.2) 06/05/25 11:01 APTT 31.0 SECONDS (23.9-36.7) 06/05/25 11:01 Sodium 141 mmol/L (136-145) 06/05/25 11:01 Potassium 4.0 mmol/L (3.5-5.1) 06/05/25 11:01 Chloride 105 mmol/L (98-107) 06/05/25 11:01 Carbon Dioxide 24 mmol/L (22-29) 06/05/25 11:01 Anion Gap 16.0 (5-19) 06/05/25 11:01 BUN 23 mg/dL (8-23) 06/05/25 11:01 Creatinine 1.1 mg/dL (0.7-1.2) 06/05/25 11:01 GFR Calculation Not Reportable 06/05/25 11:01 Glucose 102 mg/dL (65-115) 06/05/25 11:01 POC Glucose 89 mg/dL (70-110) 06/05/25 11:03 Calculated Osmolality 296 mOsm/kg (285-295) H 06/05/25 11:01 Calcium 9.0 mg/dL (8.5-10.5) 06/05/25 11:01 Total Bilirubin 0.4 mg/dL (0.15-1.2) 06/05/25 11:01 AST 17 U/L (0-40) 06/05/25 11:01 ALT 16 U/L (0-41) 06/05/25 11:01 Alkaline Phosphatase 72 U/L (40-130) 06/05/25 11:01 Troponin T Baseline 19 ng/L (0-15) H 06/05/25 11:01 Troponin T 120 Minute 17.87 ng/L (0-15) H 06/05/25 13:01 Delta Troponin T -1.13 ABS# (0-10) L 06/05/25 13:01 Total Protein 6.8 g/dL (6.6-8.7) 06/05/25 11:01 Albumin 3.9 g/dL (3.5-5.2) 06/05/25 11:01 Globulin 2.9 g/dL (1.3-4.6) 06/05/25 11:01 Urine Color Yellow (Yellow) 06/05/25 11:17 Urine Appearance Clear (CLEAR) 06/05/25 11:17 Urine pH 5.5 (5-7) 06/05/25 11:17 Ur Specific [place] 1.028 (1.005-1.030) 06/05/25 11:17 Urine Protein Trace (Negative) A 06/05/25 11:17 Urine Glucose (UA) Negative (Normal) 06/05/25 11:17 Urine Ketones Negative (Negative) 06/05/25 11:17 Urine Blood Non-haemolysed trace (Negative) 06/05/25 11:17 Urine Nitrate Negative (Negative) 06/05/25 11:17 Urine Bilirubin Negative (Negative) 06/05/25 11:17 Urine Urobilinogen 0.2 mg/dL (Negative) 06/05/25 11:17 Ur Leukocyte Esterase Negative (Negative) 06/05/25 11:17 Urine RBC 0-4 /hpf (0-2) H 06/05/25 11:17 Urine WBC 0-4 /hpf (0-5) H 06/05/25 11:17 Ur Squamous Epith Cells 0-4 /hpf (0-5) H 06/05/25 11:17 Amorphous Sediment Not Reportable 06/05/25 11:17 Urine Bacteria None /hpf (NONE) 06/05/25 11:17 Urine Mucus None /hpf 06/05/25 11:17 Urine Opiates Screen Positive ng/mL (Negative) H 06/05/25 11:17 Ur Barbiturates Screen Negative ng/mL (Negative) 06/05/25 11:17 Ur Phencyclidine Scrn Negative ng/mL (Negative) 06/05/25 11:17 Ur Amphetamines Screen Negative ng/mL (Negative) 06/05/25 11:17 U Benzodiazepines Scrn Negative ng/mL (Negative) 06/05/25 11:17 Urine Cocaine Screen Negative ng/mL (Negative) 06/05/25 11:17 U Marijuana (THC) Screen Negative ng/mL (Negative) 06/05/25 11:17 All radiology interpretation(s) finalized by discharge Discharge Plan Discharge Patient Disposition: Home Clinical Impression: Peripheral arterial occlusive disease, COPD (chronic obstructive pulmonary disease), Squamous cell carcinoma lung AAA (abdominal aortic aneurysm) without rupture Qualifiers: Abdominal aorta location: infrarenal aorta Qualified Code(s): I71.43 - Infrarenal abdominal aortic aneurysm, without rupture Condition: Stable Prescriptions: New hydrocodone-acetaminophen 5-325 mg tablet 1 tab PO Q6H PRN (Reason: pain) Qty: 20 0RF ondansetron HCl 4 mg tablet 4 mg PO Q6H PRN (Reason: nausea and vomiting) Qty: 20 0RF No Action rosuvastatin 40 mg tablet 40 mg PO DAILY Qty: 30 5RF famotidine 40 mg tablet 40 mg PO DAILY Qty: 90 1RF (DME) portable oxygen See Rx Instructions .Route .MEDSUPPLY Qty: 1 0RF Rx Instructions: 99 months+ nitroglycerin 0.4 mg tablet, sublingual 0.4 mg sublingual Q5MIN PRN (Reason: Chest Pain) Rx Instructions: DO NOT EXCEED A TOTAL OF 3 DOSES IN 15 MINUTES cholecalciferol (vitamin D3) 25 mcg (1,000 unit) tablet 37.5 mcg PO DAILY cilostazol 50 mg tablet 50 mg PO BID alendronate 70 mg tablet 70 mg PO Q7D Rx Instructions: Sundays finasteride 5 mg tablet 5 mg PO DAILY isosorbide mononitrate 20 mg tablet 10 mg PO QAM tamsulosin 0.4 mg capsule 0.4 mg PO BID Discharge Orders: Discharge ED (Routine); Ordered 06/05/25 Ordered By: Alonzo Estrada Referrals: Hortensia Dumont FNP-C [Primary Care Provider, Family Practice] Patient Instructions: Opioid Safety, Pain Management, Patient Portal & Axel Instructions Activity Restrictions/Additional Instructions: [facility] today. It is very important that you follow up as instructed or that you return to the Emergency Department should you have concerns or if your condition changes or worsens in any way. Emergency department visits are focused on emergent conditions, in some cases you may require further evaluation on an outpatient basis. You were seen in the emergency room with complaints of abdominal pain. You reported that having a workup was completed that your pain was better. CT your abdomen did not show anything acute it did show some large amount of chronic vascular disease including several aneurysms that look for the last several years like they may be about to rupture. There is no significant change in them at this time. Will discharge home with pain medicine and nausea medicine to use as needed. Follow-up with your vascular surgeon and oncologist as soon as you are able (Please note that included in your discharge packet is information concerning opioid safety and pain management. 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
[2025-06-05 11:28] LABS: Alanine Aminotransferase 16 U/L (0-41); Albumin Level 3.9 g/dL (3.5-5.2); Alkaline Phosphatase 72 U/L (40-130); Anion Gap 16.0 (5-19); Aspartate Amino Transferase 17 U/L (0-40); Blood Urea Nitrogen 23 mg/dL (8-23); Calcium 9.0 mg/dL (8.5-10.5); Carbon Dioxide 24 mmol/L (22-29); Chloride 105 mmol/L (98-107); Creatinine Clr Calc Pharmacy 42.2725; Globulin 2.9 g/dL (1.3-4.6); Glucose 102 mg/dL (65-115); Osmolality Calculated 296 mOsm/kg (285-295); Potassium 4.0 mmol/L (3.5-5.1); Sodium 141 mmol/L (136-145); Total Protein 6.8 g/dL (6.6-8.7)
[2025-06-05 11:30] VITALS: BP 166/109; PULSE 73; O2SAT 97
[2025-06-05 11:37] LABS: Glucose Urine UA Negative (Normal); Nitrate Urine Negative (Negative); Specific Gravity, Urine 1.028 (1.005-1.030)
[2025-06-05 11:45] LABS: PCP Screen Urine Negative (Negative)
[2025-06-05 11:47] LABS: Troponin(5th) Baseline 19 ng/L (0-15)
--- NOTE | 2025-06-05 12:05 | PC.PHAR ---
Pt presented a list and states he forgets to take evening doses.
[2025-06-05] MEDS: iohexol 350 mg/mL 500 mL Btl (per mL) IV (12:11)
[2025-06-05 12:21] LABS: INR 0.85 (0.8-1.2); Prothrombin Time 12.20 SECONDS (12.1-14.9)
[2025-06-05 12:22] LABS: Partial Thromboplastin Time 31.0 SECONDS (23.9-36.7)
[2025-06-05 12:47] LABS: Add Urine Microscopic? YES
[2025-06-05 13:00] VITALS: BP 172/116; PULSE 83; O2SAT 96
--- NOTE | 2025-06-05 13:31 | ECG_ITS ---
[facility] Test Date: 2025-06-05 Pat Name: Ciaran Gauthier Department: Room: Gender: Male [employer]over: : 1945 Requested By: Alonzo Abdalla Order Number: [id number] Trevor MD: Jm Yap M.D. Measurements Intervals [place] Rate: 78 P: 91 RI: 173 QRS: 44 QRSD: 88 T: 76 QT: 400 QTc: 458 Interpretive Statements SINUS RHYTHM Compared to ECG 06/05/2025 11:05:03 No significant changes Electronically Signed On 06-07-2025 09:01:07 CDT by Jm Yap M.D. [email or web address]
[2025-06-05 13:39] LABS: Troponin 5 2HR 17.87 ng/L (0-15)
[2025-06-05 13:40] LABS: Troponin 5 2HR Delta -1.13 ABS# (0-10)
--- NOTE | 2025-06-05 13:44 | USCV_ITS ---
Abrahan Ciaran Age: 80 Gender: M : 1945 Exam Date: 06/05/2025 14:38 Ordering Phys: Alonzo Estrada DO Technologist: STACIE [place] [facility] [place]: R/O DVT from CT SCAN HISTORY: R/O DVT from CT scan PROCEDURES: Venous duplex imaging was performed in bilateral lower extremities. The following venous structures were evaluated: common femoral vein, profunda vein, proximal portion of the greater saphenous vein, superficial femoral vein, and the popliteal vein. In addition, the posterior tibial and peroneal trunk were evaluated. FINDINGS: Technically difficult exam. Normal 2-D Doppler and augmentation and compressibility throughout the lower extremity venous structures. Additional imaging through the proximal calf veins also reveals no thrombus. Limited evaluation of the greater saphenous vein is patent with no thrombus. CONCLUSIONS Technically difficult exam. No DVT noted in the left lower extremity venous system. No DVT on the right. Dr. Roxanna Collazo DO (Electronically Signed) Final Date: 05 June 2025 15:43 S
--- NOTE | 2025-06-05 15:02 | PC.NURSE ---
pt has continued to take off vs equipment.
[2025-06-05 15:18] VITALS: BP 166/97; PULSE 83; O2SAT 93
== END 2025-06-05 15:19 | disposition home or self-care (01) ==
PROVIDERS: Emergency Provider Family Medicine; PCP Nurse Practitioner Family
DX: I77.9 Disorder of arteries and arterioles, unspecified (principal); I72.3 Aneurysm of iliac artery; K57.30 Diverticulosis of large intestine without perforation or abscess without bleeding; J44.9 Chronic obstructive pulmonary disease, unspecified; I71.43 Infrarenal abdominal aortic aneurysm, without rupture; F17.210 Nicotine dependence, cigarettes, uncomplicated; Z95.1 Presence of aortocoronary bypass graft; E78.5 Hyperlipidemia, unspecified; I10 Essential (primary) hypertension; Z85.828 Personal history of other malignant neoplasm of skin
CPT/HCPCS: 36415; 36416; 70450; 71045; 74177; 80053; 80306; 81001; 82962; 84484; 85025; 85610; 85730; 93005; 93970; 99285

== ENCOUNTER → 2025-06-13 08:43 | Outpatient (BNVA) | payer OTHER, MEDICAID, SELFPAY | PROVIDERS: PCP Nurse Practitioner Family; Visit Provider Internal Medicine | DX: J44.89 Other specified chronic obstructive pulmonary disease (principal); Z99.81 Dependence on supplemental oxygen; C34.90 Malignant neoplasm of unspecified part of unspecified bronchus or lung; Z98.890 Other specified postprocedural states; F17.210 Nicotine dependence, cigarettes, uncomplicated; Z71.6 Tobacco abuse counseling; J44.9 Chronic obstructive pulmonary disease, unspecified | CPT/HCPCS: 99214; 99406; Q3014 ==

== ENCOUNTER 2025-06-26 12:58 | Oncology outpatient (recurring) (ONCR) | payer OTHER, MEDICAID, SELFPAY | END 2025-06-26 23:59 | disposition home or self-care (01) | PROVIDERS: PCP Nurse Practitioner Family; Visit Provider Radiology Radiation Oncology | DX: Z51.0 Encounter for antineoplastic radiation therapy (principal); C34.12 Malignant neoplasm of upper lobe, left bronchus or lung | CPT/HCPCS: 77300; 77301; 77334; 77336; 77338; 77373; 77470 ==

== ENCOUNTER 2025-06-28 12:38 | Oncology outpatient (recurring) (ONCR) | payer OTHER, MEDICAID, SELFPAY ==
--- NOTE | 2025-06-28 13:43 | N.ONRD TS_ITS ---
Radiation Oncology OTV/Treatment Summary Patient: Ciaran Gauthier MR#: [id number] : 1945 Age: 80 Sex: Male Dictated by: Earl Malin Date of Service: 06/28/2025 Referring Physician(s) : Dr. 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 ID: PTV Energy: 6X, Dose/Fx (cGy): 1,200, #Fx: 4 / 4, Dose Correction (cGy): 0, Total Dose Delivered (cGy): 4,800, Start Date: 06/19/2025, End Date: 06/28/2025, Elapsed Days: 9 Vital Signs: Performed on 06/28/2025 1:11 PM BMI - 16.82 kg/m2 (low), Height - 71 in, Weight - 120.6 lbs, Temperature - 96.2 f, Pulse - 69 /min, Respiration - 17 /min, O2 Sat - 98 %, Pain - 0, Fatigue - 0 and BP - 161/ 95 mm(hg)(high). Clinical Summary: The patient tolerated RT well. No voice complaints. No intercostal retraction. Plan: End of treatment today. Continue on the above medication until the skin reaction resolves. Follow up in one month on 07/26/2025 at 1500 hrs. or sooner if need be.. Signed by: Earl Malin>06/28/2025 1:42:50 PM <<Signature on File>>
== END 2025-07-06 23:59 | disposition home or self-care (01) ==
PROVIDERS: PCP Nurse Practitioner Family; Visit Provider Radiology Radiation Oncology
DX: C34.12 Malignant neoplasm of upper lobe, left bronchus or lung (principal); R91.1 Solitary pulmonary nodule; Z51.0 Encounter for antineoplastic radiation therapy; F17.210 Nicotine dependence, cigarettes, uncomplicated
CPT/HCPCS: 77336; 77373; 77435; 99024

== ENCOUNTER → 2025-07-24 10:39 | Outpatient (BNVA) | payer OTHER, MEDICAID, SELFPAY | PROVIDERS: PCP Nurse Practitioner Family; Visit Provider Internal Medicine | DX: J44.89 Other specified chronic obstructive pulmonary disease (principal); C34.90 Malignant neoplasm of unspecified part of unspecified bronchus or lung; Z99.81 Dependence on supplemental oxygen; F17.210 Nicotine dependence, cigarettes, uncomplicated | CPT/HCPCS: 99214; Q3014 ==

== ENCOUNTER 2025-07-26 14:31 | Oncology outpatient (recurring) (ONCR) | payer MEDICARE, MEDICAID, SELFPAY ==
--- NOTE | 2025-07-26 15:10 | ONCRAD EPV_ITS ---
Radiation Oncology Established Patient Visit Patient: Ciaran Gauthier [id number] : 1945 Age: 80 Sex: Male Dictated by: Earl Malin Date of Service: 07/26/2025 Referring Physician(s) : Dr. 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 ID: PTV, Energy: 6X, Dose/Fx (cGy): 1,200, #Fx: 4 / 4, Dose Correction (cGy): 0, Total Dose Delivered (cGy): 4,800, Start Date: 06/19/2025, End Date: 06/28/2025, Elapsed Days: 9 Current History: This is a pleasant 80-year-old male who is 1 month s/p SBRT to the KENA mass. He received a total dose of 4800 cGy in 4 fractions completing this on 06/28/2025. 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 He is to see them in follow-up tomorrow. Patient has not been feeding well for the last 2 days and looks great and. Blood pressure sitting was 73/39 with a pulse of 106 standing was 76/33 with a pulse of 101. Patient refuses to go to the ER. Current Medications: albuterol sulfate 90 mcg/actuation (Ventolin HFA) 1 inh inhalation QID PRN alendronate 70 mg PO Q7D cholecalciferol (vitamin D3) 37.5 mcg PO DAILY cilostazol 50 mg PO BID clopidogrel 75 mg PO DAILY famotidine 40 mg PO DAILY finasteride 5 mg PO DAILY isosorbide mononitrate 10 mg PO QAM nicotine 1 patch transdermal DAILY nitroglycerin 0.4 mg sublingual Q5MIN PRN ondansetron HCl 4 mg PO Q6H PRN [portable oxygen 99 months+] rosuvastatin 40 mg PO DAILY tamsulosin 0.4 mg PO BID tiotropium-olodaterol 2.5-2.5 mcg/actuation (Stiolto Respimat) 2 puffs inhalation Q24H Allergies: No Known Allergies Current Complaints / Review of Systems: . Vital Signs: Performed on 07/26/2025 2:38 PM BMI - 17.434 kg/m2 (low), Height - 71 in, Weight - 125 lbs, Temperature - 97.2 f, Pulse - 98 /min, Respiration - 18 /min, O2 Sat - 94 % (low), Pain - 0, Fatigue - 0 and BP Sitting- 83/ 49 mm(hg)(low), BP Standing - 76/33 mm(hg)(low) Physical Exam: Thready pulse with ashen colored face General: Alert and oriented x 3. No acute distress. HEENT: Normocephalic, atraumatic. Extraocular Movements Intact: Pupils Equal, Round, Reactive to Light and Accommodation: Sclerae anicteric. Oral cavity is clear without lesions, masses or ulcers. NECK: Supple without supraclavicular or jugular lymphadenopathy. LUNGS: Clear to auscultation bilaterally without rales, rhonchi or wheeze. HEART: Regular rate and rhythm, normal S1 and S2 without murmur, gallop or rub. MUSCULOSKELETAL: No tenderness or percussion pain over the axial skeleton, scapulae or pelvis. ABDOMEN: Soft, nontender, nondistended without masses or organomegaly. Bowell sounds are present. EXTREMITIES: No peripheral edema is identified. Limited motor and sensory examination are grossly intact and symmetric bilaterally. NEUROLOGIC: Cranial nerves II ???XII are grossly intact. Normal sensation, strength 5/5 in all extremities, normal gait, no ataxia. Performance Status: KPS 70 Lab: None pending. Pathology: Primary, c34.12 - malignant neoplasm of upper lobe, left bronchus or lung, Diagnosed 05/28/2025 (active) . Imaging: See HPI Impression: As above PLAN: Recommend that he go to to the ER now-patient refuses Continue appointment with vascular surgery in the a.m. Recommend him go to the ER if he continues to feel bad RTC in 3 months or sooner if need be. Signed by: 07/26/2025 3:08:59 PM <<Signature on File>> Time spent with patient: CPT Code: CPT Code:
== END 2025-08-05 23:59 | disposition home or self-care (01) ==
PROVIDERS: PCP Nurse Practitioner Family; Visit Provider Radiology Radiation Oncology
DX: C34.12 Malignant neoplasm of upper lobe, left bronchus or lung (principal); Z92.3 Personal history of irradiation; R03.1 Nonspecific low blood-pressure reading
CPT/HCPCS: 99024

== ENCOUNTER → 2025-08-14 11:49 | Outpatient (BNVA) | payer MEDICARE, MEDICAID, SELFPAY | PROVIDERS: PCP Nurse Practitioner Family; Visit Provider Internal Medicine | DX: J44.9 Chronic obstructive pulmonary disease, unspecified (principal) | CPT/HCPCS: 85025 ==